=== PATIENT | male | born 1975 | race Caucasian/White ===

== ENCOUNTER 2016-04-06 10:35 | Observation (INO) | payer BC, MEDICAID ==
[~2016-04-06] VITALS: Ht 182.9 cm; Wt 83.0 kg
[2016-04-06 10:39] VITALS: BP 140/82; PULSE 83; RESP 22; TEMP 98.5; O2SAT 97
[2016-04-06 10:45] VITALS: O2SAT 98
--- NOTE | 2016-04-06 10:47 | PD ---
HPI Chief Complaint: near-syncope Time Seen by Provider: 10:41 Travel History International Travel<30 days: No Contact w/Intl Traveler<30days: No Traveled to known affect area: No History of Present Illness HPI 40-year-old male with history of IV drug use, endocarditis, previous renal insufficiency, admitted for pneumonia several months ago, states that since then he has been having problems with shortness of breath, dyspnea on exertion, and when he got up to go get pizza today, had a near syncopal episode. He also has been complaining of substernal chest pains. He denies any fevers, coughing , or other symptoms. Modifying Factors: None Associated Signs & Symptoms: Shortness of breath, dyspnea on exertion, chest pains, near-syncope Risk Factors: History of endocarditis, pneumonia PFSH Past Medical History Anxiety: Yes Depression: Yes Cancer: No Cardiovascular Problems: No Diminished Hearing: No Endocrine: No Gastrointestinal Disorders: No Genitourinary: No Immune Disorder: No Implanted Vascular Access Dvce: No Musculoskeletal: No Neurologic: No Psychiatric: Yes Respiratory: Yes Immunizations Current: Yes Past Surgical History Other Surgery: Yes (LEFT HAND PER PT) Social History Alcohol Use: No (PT DENIES) Tobacco Use: Yes (1 PPD) Substance Use: Yes Allergies-Medications (Allergen,Severity, Reaction): Coded Allergies: *MDRO Multi-Drug Resistant Organism (Verified Adverse Reaction, Unknown, 03/06/16) MRSA (urine-01/04/16) & (blood-01/06/16) Reported Meds & Prescriptions Reported Meds & Active Scripts Active Review of Systems Except as stated in HPI: all other systems reviewed are Neg Physical Exam Narrative GENERAL: Well-nourished, well-developed middle age white male patient in mild distress. Awake and oriented 3. SKIN: Warm and dry. HEAD: Normocephalic. EYES: No scleral icterus. No injection or drainage. NECK: Supple, trachea midline. CARDIOVASCULAR: Regular rate and rhythm without murmurs, gallops, or rubs. RESPIRATORY: Breath sounds equal and decreased throughout bilaterally. No accessory muscle use. GASTROINTESTINAL: Abdomen soft, non-tender, nondistended. MUSCULOSKELETAL: No cyanosis, or edema. BACK: Nontender without obvious deformity. No CVA tenderness. Data Data Last Documented VS Vital Signs Date Time Temp Pulse Resp B/P Pulse Ox O2 Delivery O2 Flow Rate FiO2 04/06/16 10:47 98 Room Air 04/06/16 10:39 98.5 83 22 140/82 Orders Electrocardiogram (04/06/16 10:41) Complete Blood Count With Diff (04/06/16 10:41) Comprehensive Metabolic Panel (04/06/16 10:41) Prothrombin Time / Inr (Pt) (04/06/16 10:41) Act Partial Throm Time (Ptt) (04/06/16 10:41) Lactic Acid Sepsis Protocol (04/06/16 10:41) Magnesium (Mg) (04/06/16 10:41) Phosphorus (Po4) (04/06/16 10:41) Lipase (04/06/16 10:41) Ckmb (Isoenzyme) Profile (04/06/16 10:41) Troponin I (04/06/16 10:41) Urinalysis - C+S If Indicated (04/06/16 10:41) Influenzae A/B Antigen (04/06/16 10:41) Blood Culture (04/06/16 10:41) Chest, Single Ap (04/06/16 10:41) Blood Glucose (04/06/16 10:41) Ecg Monitoring (04/06/16 10:41) Iv Access Insert/Monitor (04/06/16 10:41) Oximetry (04/06/16 10:41) Oxygen Administration (04/06/16 10:41) B-Type Natriuretic Peptide (04/06/16 10:41) Vancomycin Inj (Vancomycin Inj) (04/06/16 11:47) Piperacil-Tazo 4.5 Gm Premix (Zosyn 4.5 (04/06/16 11:47) Azithromycin Inj (Zithromax Inj) (04/06/16 11:47) Sodium Chlor 0.9% 1000 Ml Inj (Ns 1000 M (04/06/16 12:00) Ns + Kcl 20 Meq Inj (Ns + Kcl 20 Meq Inj (04/06/16 12:00) Labs Laboratory Tests Test 04/06/16 10:55 White Blood Count 6.5 TH/MM3 Red Blood Count 4.49 MIL/MM3 Hemoglobin 13.7 GM/DL Hematocrit 41.4 % Mean Corpuscular Volume 92.2 FL Mean Corpuscular Hemoglobin 30.4 PG Mean Corpuscular Hemoglobin 33.0 % Concent Red Cell Distribution Width 18.3 % Platelet Count 256 TH/MM3 Mean Platelet Volume 8.0 FL Neutrophils (%) (Auto) 55.7 % Lymphocytes (%) (Auto) 34.8 % Monocytes (%) (Auto) 7.9 % Eosinophils (%) (Auto) 1.3 % Basophils (%) (Auto) 0.3 % Neutrophils # (Auto) 3.6 TH/MM3 Lymphocytes # (Auto) 2.3 TH/MM3 Monocytes # (Auto) 0.5 TH/MM3 Eosinophils # (Auto) 0.1 TH/MM3 Basophils # (Auto) 0.0 TH/MM3 CBC Comment DIFF FINAL Differential Comment Prothrombin Time 10.2 SEC Prothromb Time International 0.9 RATIO Ratio Activated Partial 27.5 SEC Thromboplast Time Sodium Level 142 MEQ/L Potassium Level 3.0 MEQ/L Chloride Level 104 MEQ/L Carbon Dioxide Level 27.1 MEQ/L Anion Gap 11 MEQ/L Blood Urea Nitrogen 9 MG/DL Creatinine 0.89 MG/DL Estimat Glomerular Filtration 94 ML/MIN Rate Random Glucose 87 MG/DL Lactic Acid Level 2.2 mmol/L Calcium Level 9.6 MG/DL Phosphorus Level 1.6 MG/DL Magnesium Level 2.1 MG/DL Total Bilirubin 0.2 MG/DL Aspartate Amino Transf 38 U/L (AST/SGOT) Alanine Aminotransferase 54 U/L (ALT/SGPT) Alkaline Phosphatase 114 U/L Total Creatine Kinase 34 U/L Troponin I LESS THAN 0.02 NG/ML B-Type Natriuretic Peptide 10 PG/ML Total Protein 8.1 GM/DL Albumin 3.3 GM/DL Lipase 158 U/L [facility] Medical Decision Making Medical Screen Exam Complete: Yes Emergency Medical Condition: Yes Medical Record Reviewed: Yes Interpretation(s) EKG shows NSR, no ST elevation or depression, and no arrhythmias. No significant T-wave inversions. Laboratory Tests Test 04/06/16 10:55 Red Blood Count 4.49 MIL/MM3 (4.50-5.90) Red Cell Distribution Width 18.3 % (11.6-17.2) Potassium Level 3.0 MEQ/L (3.5-5.1) Lactic Acid Level 2.2 mmol/L (0.4-2.0) Phosphorus Level 1.6 MG/DL (2.5-4.9) Aspartate Amino Transf 38 U/L (15-37) (AST/SGOT) Total Creatine Kinase 34 U/L (39-308) Troponin I LESS THAN 0.02 NG/ML (0.02-0.05) Albumin 3.3 GM/DL (3.4-5.0) Chest x-ray shows a right sided filtration Differential Diagnosis Dyspnea on exertion, chest pains, near syncopesepsis versus pneumonia versus COPD versus metabolic issues versus dehydration versus dysrhythmias Narrative Course Chest x-ray shows right sided infiltrates questionable for underlying pneumonia. IV antibiotics and sepsis protocol was initiated on this patient, blood cultures are drawn prior to antibiotics. Lab work indicates significant lactic acid elevation. Case was then discussed with Dr. Snyder for admission. Sepsis Criteria SIRS Criteria (2 or more): RR > 20 or PaCO2 < 32 Severe Sepsis (+one): Lactate >2 Diagnosis Primary Impression: Pneumonia Additional Impression: Near syncope Admitting Information Admitting Physician Requests: Admit Fatimah Pollard MD Apr 06, 2016 10:47
[2016-04-06 11:16] LABS: AUTOMATED NEUTROPHIL # 3.6 TH/MM3 (1.8-7.7); BASOPHIL % 0.3 % (0.0-2.0); EOSINOPHIL # 0.1 TH/MM3 (0-0.4); EOSINOPHIL % 1.3 % (0.0-4.0); HEMATOCRIT 41.4 % (39.0-51.0); HEMO FLAGS DIFF FINAL; LYMPH % 34.8 % (9.0-44.0); LYMPHOCYTE # 2.3 TH/MM3 (1.0-4.8); MEAN CELL VOLUME 92.2 FL (80.0-100.0); MEAN CORPUSCULAR HEMOGLOBIN 30.4 PG (27.0-34.0); MONO % 7.9 % (0.0-8.0); NEUT % 55.7 % (16.0-70.0); PLATELET COUNT 256 TH/MM3 (150-450); RED BLOOD COUNT 4.49 MIL/MM3 (4.50-5.90); RED CELL DISTRIBUTION WIDTH 18.3 % (11.6-17.2); WHITE BLOOD COUNT 6.5 TH/MM3 (4.0-11.0)
[2016-04-06 11:24] LABS: APTT (PATIENT) 27.5 SEC (24.3-30.1); INTERNATIONAL NORMALIZED RATIO 0.9 RATIO; PROTHROMBIN TIME - PATIENT 10.2 SEC (9.8-11.6)
[2016-04-06 11:29] LABS: ALT (GPT) 54 U/L (12-78); ANION GAP 11 MEQ/L (5-15); AST (GOT) 38 U/L (15-37); BICARBONATE 27.1 MEQ/L (21.0-32.0); BLOOD UREA NITROGEN 9 MG/DL (7-18); CHLORIDE 104 MEQ/L (98-107); GLOMERULAR FILTRATION RATE 94 ML/MIN (>89); MAGNESIUM 2.1 MG/DL (1.5-2.5); SODIUM (NA) 142 MEQ/L (136-145)
[2016-04-06 11:32] LABS: ALKALINE PHOSPHATASE 114 U/L (45-117); TOTAL BILIRUBIN ADULT 0.2 MG/DL (0.2-1.0)
[2016-04-06] MEDS ORDERED: VANCOMYCIN INJ 1 MG in SODIUM CHLOR 0.9% 250 ML INJ 250 ML IV STA (11:47)
[2016-04-06] MEDS ORDERED: AZITHROMYCIN INJ 500 MG in SODIUM CHLOR 0.9% 250 ML INJ 250 ML IV STA (11:47)
[2016-04-06] MEDS ORDERED: PIPERACIL-TAZO 4.5 GM PREMIX 100 ML IV STA (11:47)
--- NOTE | 2016-04-06 11:49 | RADRPT ---
EXAM DATE/TIME: 04/06/2016 11:11 [facility] COMPARISON: CHEST SINGLE AP, February 08, 2016, 5:36. INDICATIONS: Short of breath with wheezing. MEDICAL HISTORY: None. SURGICAL HISTORY: None. ENCOUNTER: Initial ACUITY: 3 days PAIN SCORE: 0/10 LOCATION: Bilateral chest FINDINGS: There is hazy opacity within the right mid and lower lung field consistent with atelectasis and/or mi ld infiltrate. The left lung is clear. The heart is stable. CONCLUSION: 1. Hazy opacity within the right mid and lower lung field consistent with atelectasis and/or infiltr ate. Clinical correlation is recommended. 2. Left lung is clear. Wellington Salinas MD on April 06, 2016 at 11:41 Board Certified Radiologist. This report was verified electronically.
[2016-04-06 12:00] LABS: CREATINE KINASE 34 U/L (39-308)
[2016-04-06] MEDS ORDERED: NS + KCL 20 MEQ INJ 1,000 ML IV SCH (12:00)
[2016-04-06] MEDS ORDERED: SODIUM CHLOR 0.9% 1000 ML INJ 1,000 ML IV ONE (12:00)
[2016-04-06] MEDS ORDERED: NALOXONE HCL 0.4 MG/ML AMP IV PRN (12:15)
[2016-04-06] MEDS ORDERED: ONDANSETRON HCL 4 MG/2 ML VIAL IVP PRN (12:15)
[2016-04-06] MEDS ORDERED: SENNOSIDES 8.6 MG TAB PO PRN (12:15)
[2016-04-06] MEDS ORDERED: ACETAMINOPHEN 325 MG TAB PO PRN ×2 (12:15)
[2016-04-06] MEDS ORDERED: SODIUM CHLORIDE 0.9% FLUSH 5 ML FLUSH FLUSH PRN (12:15)
[2016-04-06] MEDS ORDERED: RESP: ALBUTEROL 0.63 MG/3 ML NEB (PRN) NEB (12:15)
[2016-04-06] MEDS ORDERED: MAGNESIUM HYDROXIDE SUSP 30 ML CUP PO PRN (12:15)
[2016-04-06] MEDS ORDERED: BISACODYL 10 MG SUPP PR PRN (12:15)
[2016-04-06 12:47] VITALS: O2SAT 97
[2016-04-06 12:48] VITALS: BP 143/86; PULSE 89; RESP 20; O2SAT 96
[2016-04-06 13:06] LABS: LACTIC ACID GHOST NOT REPORTABLE
[2016-04-06] MEDS ORDERED: traMADol HCL 50 MG TAB PO PRN (13:15)
[2016-04-06] MEDS ORDERED: POTASSIUM PHOSPHATE INJ 15 MMOL in SODIUM CHLORIDE 0.9% INJ 150 ML IV ONE (14:00)
[2016-04-06] MEDS: NS + KCL 20 MEQ INJ 1,000 ML IV SCH (14:05)
[2016-04-06] MEDS: KETOROLAC TROMETHAMINE 30 MG/ML (IVP) VIAL IVP PRN (14:09)
[2016-04-06] MEDS: DOCUSATE SODIUM 100 MG CAP PO SCH (15:45)
--- NOTE | 2016-04-06 17:00 | RADRPT ---
EXAM DATE/TIME: 04/06/2016 16:45 [facility] COMPARISON: CT THORAX W/O CONTRAST, January 31, 2016, 12:07. INDICATIONS : Shortness of breath. Evaluate for pneumonia. RADIATION DOSE: CTDIvol (mGy) MEDICAL HISTORY : Cardiovascular disease. SURGICAL HISTORY : None. ENCOUNTER: Initial ACUITY: 1 day PAIN SCALE: 10/10 LOCATION: Bilateral chest TECHNIQUE: Volumetric scanning of the chest was performed. Using automated exposure control and adjustment of t he mA and/or kV according to patient size, radiation dose was kept as low as reasonably achievable to obtain optimal diagnostic quality images. FINDINGS: LUNGS: There is a small right-sided pleural effusion present with adjacent area of rounded parenchymal opaci ty involving the right lower lobe extending to the adjacent area of pleural fluid. There is a focal s mall calcification seen adjacent to the pleura on series 2 image 23. This appearance is significantly improved as compared to the prior exam. PLEURAE: Small right-sided pleural effusion which has significantly decreased in size as compared to the prior exam. MEDIASTINUM: The heart and great vessels demonstrate no acute abnormality. There is no mediastinal or hilar lymph adenopathy. AXILLAE: Within normal limits. No lymphadenopathy. MUSCULOSKELETAL: Within normal limits for patient age. MISCELLANEOUS: The visualized upper abdominal organs demonstrate no acute abnormality. CONCLUSION: Significantly improved exam with a persistent small right-sided pleural effusion and an area of round ed airspace consolidation within the posterior right lower lobe extending to the adjacent mildly thic kened pleura. This has the appearance of rounded atelectasis.. Yarelis David MD on April 06, 2016 at 16:53 Board Certified Radiologist. This report was verified electronically.
--- NOTE | 2016-04-06 17:07 | HHI.HP ---
[facility] Primary Care Physician Admission Diagnosis right sided pneumonia/near-syncope Diagnoses: Chief Complaint: shortness of breath, cough, near syncope Travel History International Travel<30 Days: No Contact w/Intl Traveler <30 Da: No Traveled to Known Affected Are: No History of Present Illness 40-year-old male with hx of hepatitis C, anxiety/depression/PTSD/bipolar disorder, prior IVDU, recent hospitalization 01/03/16-02/24/16 for right pleural effusion s/p thoracentesis, septic emboli, MRSA bacteremia with tricuspid valve endocarditis s/p 6 weeks antibiotics with IV Teflaro, now presents with a 1-2 month history of worsening shortness of breath, chest pains, and near syncope today. The patient states "I've had problems since I left." He reports continued shortness of breath since his discharge, much worse with any exertion. He has been staying at a hotel over the past month and has had difficulty just ambulating around his hotel room. Today, he became acutely short of breath when he got up to meet the service delivery supervisor at the front door, and collapsed to the ground. Denies complete loss of consciousness or hitting his head. He also reports daily episodes of chest pains located diffusely throughout his "entire chest", described as sharp stabbing pains that last for 1 -2 seconds. His chest pains are worse with cough, deep inspiration, and palpation. He denies fevers or chills. Does have a cough productive of foster sputum. The patient denies any leg swelling or orthopnea. He has not taken any medications since discharge nor seen any physicians. He has no other medical complaints at this time. He does have a prior hx of IVDU however he reports being clean [id number] now. Review of Systems Constitutional: COMPLAINS OF: Fatigue, DENIES: Diaphoretic episodes, Fever, Chills Endocrine: DENIES: Polydipsia, Polyuria, Polyphagia Eyes: DENIES: Blurred vision, Eye pain, Vision loss, Double Vision Ears, nose, mouth, throat: DENIES: Throat pain, Ear Pain, Running Nose Respiratory: COMPLAINS OF: Cough, Sputum production, Shortness of breath, DENIES: Wheezing Cardiovascular: COMPLAINS OF: Chest pain, Syncope (near syncope), Dyspnea on Exertion, DENIES: Palpitations, Lower Extremity Edema, Orthopnea Gastrointestinal: DENIES: Abdominal pain, Constipation, Diarrhea, Nausea, Vomiting Genitourinary: DENIES: Urinary frequency, Urgency, Dysuria Musculoskeletal: DENIES: Back pain, Neck pain Integumentary: DENIES: Pruritus, Rash Hematologic/lymphatic: DENIES: Bruising, Lymphadenopathy Immunologic/allergic: DENIES: Eczema, Urticaria Neurologic: DENIES: Abnormal gait, Headache, Localized weakness Psychiatric: COMPLAINS OF: Anxiety, Depression Past Family Social History Past Medical History hepatitis C anxiety/depression/PTSD/bipolar disorder, not on medications prior IVDU recent hospitalization 01/03/16-02/24/16 for right pleural effusion s/p thoracentesis, septic emboli, MRSA bacteremia with tricuspid valve endocarditis s/p 6 weeks antibiotics with IV Teflaro Past Surgical History Right sided thoracentesis Left hand surgery Reported Medications Denies taking any medications recently. Allergies: Coded Allergies: *MDRO Multi-Drug Resistant Organism (Verified Adverse Reaction, Unknown, 03/06/16) MRSA (urine-01/04/16) & (blood-01/06/16) Active Ordered Medications Current Medications Medications (Trade) Dose Ordered Sig/Elmer Route Start Time Stop Time Status Last Admin Potassium Phosphate 1000 mg 1,000 mg Q12HR PO 04/06/16 13:00 Potassium Phosphate 15 mmol/ Sodium Chloride 155 ml @ 38.75 mls/ hr ONCE ONCE IV 04/06/16 14:00 04/06/16 17:59 (NS + KCl 20 Meq Inj) 1,000 ml @ 42 mls/hr [id number] IV 04/06/16 13:00 04/06/16 14:05 (NS Flush) 2 ml UNSCH PRN FLUSH 04/06/16 12:15 (NS Flush) 2 ml BID FLUSH 04/06/16 21:00 (Tylenol) 650 mg Q4H PRN PO 04/06/16 12:15 (Zofran Inj) 4 mg Q6H PRN IVP 04/06/16 12:15 04/06/16 14:09 (Dulcolax Supp) 10 mg DAILY PRN VT 04/06/16 12:15 (Colace) 100 mg Q12H PO 04/06/16 13:00 04/06/16 15:45 (Milk Of Magnalonso Liq) 30 ml Q12H PRN PO 04/06/16 12:15 (Senokot) 17.2 mg Q12H PRN PO 04/06/16 12:15 (Tylenol) 650 mg Q6H PRN PO 04/06/16 12:15 (Narcan Inj) 0.4 mg UNSCH PRN IV 04/06/16 12:15 (Toradol Inj) 15 mg Q6H PRN IVP 04/06/16 13:15 04/11/16 13:14 04/06/16 14:09 (Ultram) 50 mg Q4H PRN PO 04/06/16 13:15 Tramadol HCl 100 mg 100 mg Q4H PRN PO 04/06/16 13:15 (Rocephin Inj/NS Inj) 100 ml @ 200 mls/hr Q24H IV 04/07/16 07:00 (Zithromax) 250 mg DAILY PO 04/07/16 09:00 04/11/16 08:59 Family History Patient reports hx of unknown cancers in aunts and uncles Significant family hx of heart disease Social History Smokes tobacco 1 PPD Denies alcohol use Prior IVDU, clean [id number] per patient, however prior UDS on 01/04/16 positive for opiates and amphetamines Physical Exam Vital Signs Vital Signs Date Time Temp Pulse Resp B/P Pulse Ox O2 Delivery O2 Flow Rate FiO2 04/06/16 12:48 89 20 143/86 96 Room Air 04/06/16 10:47 98 Room Air 04/06/16 10:45 98 Room Air 04/06/16 10:45 98 Room Air 04/06/16 10:39 98.5 83 22 140/82 97 Physical Exam GENERAL: Well-nourished, well-developed middle aged male patient in NAD. SKIN: Warm and dry. No rash. HEAD: Normocephalic. Atraumatic. EYES: Pupils equal and round. No scleral icterus. No injection or drainage. ENT: No nasal bleeding or discharge. Mucous membranes pink and moist. NECK: Supple. Trachea midline. CARDIOVASCULAR: Regular rate and rhythm. S1, S2 noted. No murmur appreciated. Anterior chest wall TTP. RESPIRATORY: No accessory muscle use. Clear to auscultation. Breath sounds equal bilaterally. GASTROINTESTINAL: Abdomen soft, non-tender, nondistended. Normoactive bowel sounds x4. MUSCULOSKELETAL: No obvious deformities. Extremities without clubbing, cyanosis , or edema. NEUROLOGICAL: Awake and alert. No obvious cranial nerve deficits. Motor grossly within normal limits. 5/5 muscle strength in bilateral upper and lower extremities. Normal speech. PSYCHIATRIC: Anxious mood; insight and judgment normal. Laboratory Laboratory Tests Test 04/06/16 10:55 White Blood Count 6.5 Red Blood Count 4.49 Hemoglobin 13.7 Hematocrit 41.4 Mean Corpuscular Volume 92.2 Mean Corpuscular Hemoglobin 30.4 Mean Corpuscular Hemoglobin 33.0 Concent Red Cell Distribution Width 18.3 Platelet Count 256 Mean Platelet Volume 8.0 Neutrophils (%) (Auto) 55.7 Lymphocytes (%) (Auto) 34.8 Monocytes (%) (Auto) 7.9 Eosinophils (%) (Auto) 1.3 Basophils (%) (Auto) 0.3 Neutrophils # (Auto) 3.6 Lymphocytes # (Auto) 2.3 Monocytes # (Auto) 0.5 Eosinophils # (Auto) 0.1 Basophils # (Auto) 0.0 CBC Comment DIFF FINAL Differential Comment Prothrombin Time 10.2 Prothromb Time International 0.9 Ratio Activated Partial 27.5 Thromboplast Time Sodium Level 142 Potassium Level 3.0 Chloride Level 104 Carbon Dioxide Level 27.1 Anion Gap 11 Blood Urea Nitrogen 9 Creatinine 0.89 Estimat Glomerular Filtration 94 Rate Random Glucose 87 Lactic Acid Level 2.2 Calcium Level 9.6 Phosphorus Level 1.6 Magnesium Level 2.1 Total Bilirubin 0.2 Aspartate Amino Transf 38 (AST/SGOT) Alanine Aminotransferase 54 (ALT/SGPT) Alkaline Phosphatase 114 Total Creatine Kinase 34 Troponin I LESS THAN 0.02 B-Type Natriuretic Peptide 10 Total Protein 8.1 Albumin 3.3 Lipase 158 Date/Time Procedure Status Source Growth 04/06/16 11:00 Aerobic Blood Culture Received Blood Peripheral Pending 04/06/16 11:00 Anaerobic Blood Culture Received Blood Peripheral Pending Result Diagram: 04/06/16 1055 04/06/16 1055 Imaging Last Impressions Chest X-Ray 04/06/16 1041 Signed Impressions: Service Date/Time: Wednesday, April 06, 2016 11:11 - CONCLUSION: 1. Hazy opacity within the right mid and lower lung field consistent with atelectasis and/or infiltrate. Clinical correlation is recommended. 2. Left lung is clear. Wellington Salinas MD Assessment and Plan Problem List: (1) Pneumonia ICD Code: J18.9 Status: Acute (2) Near syncope ICD Code: R55 Status: Acute Assessment and Plan 40-year-old male with hx of anxiety/depression/PTSD/bipolar disorder, prior IVDU , recent hospitalization 01/03/16-02/24/16 for right pleural effusion s/p thoracentesis, septic emboli, MRSA bacteremia with tricuspid valve endocarditis s/p 6 weeks antibiotics with IV Teflaro, now presents with a 1-2 month history of worsening shortness of breath, chest pains, and near syncope today. Dyspnea/Chest Pains: possibly related to pneumonia (see below), work up in progress. CXR images reviewed by me, showed hazy opacity R mid & lower lung. Afebrile, no leukocytosis, however lactic acid 2.2. Continue on IVF. Check Chest CT. Blood cultures collected. RADHA in showed normal systolic function EF 60%, vegetation of tricuspid valve, with mild TR. Nebs prn. Near Syncope: suspect related to dyspnea, however need to rule out other etiologies. Check orthostatics. EKG reviewed by me without acute ST changes. S/ p IVF boluses, continue with maintenance fluids. Healthcare Associated Pneumonia: seen on CXR. Patient hospitalized <90days ago. S/p IV Zosyn and IV Vanco in the ER. Will continue with IV Cefepime and po Azithro. Check sputum culture. Check flu antigen, legionella/pneumococcal urinary antigen. Chest Pains, atypical: likely pleuritic pains, ongoing [id number], reproducible on exam. Troponin negative x1 and EKG without acute ST changes. Pain control with tramadol prn and IV Toradol prn breakthrough pain. Hypophosphatemia: Phosphorus 1.6. Ordered K-Phos to be given po. Monitor labs. Anxiety/Depression/PTSD/Bipolar Disorder: patient discharged on Klonopin 1mg po tid and Seroquel 200mg po hs however he reports he has not been taking this recently. Will monitor mood, likely will need to restart Seroquel. Prior IVDU: patient reports being clean x5 years however UDS in positive for opiates and amphetamines. Recheck UDS. DVT Prophylaxis: teds/SCDs Written by Alejandrina Parks, acting as scribe for Dr. Snyder on 04/06/16 at 17:05. The documentation accurately reflects the work performed [id number] by me on at 1705 Code Status Full Code Discussed Condition With Patient, ED RN, ED Alejandrina Mae PA-C Apr 06, 2016 17:07 Omid Snyder MD Apr 07, 2016 06:10
[2016-04-06] MEDS: POTASSIUM PHOSPHATE MONOBASIC 500 MG TAB PO SCH ×2 (18:13→21:27)
[2016-04-06 19:32] VITALS: BP 125/84; PULSE 88; RESP 18; TEMP 98.8; O2SAT 97
[2016-04-06 20:00] VITALS: BP 157/87; PULSE 88; RESP 18; TEMP 98.9; O2SAT 98
[2016-04-06] MEDS: traMADol HCL 50 MG TAB PO PRN (20:03)
[2016-04-06] MEDS: SODIUM CHLORIDE 0.9% FLUSH 5 ML FLUSH FLUSH SCH (21:00)
[2016-04-07] VITALS (8 sets, daily range): BP systolic 128–198; BP diastolic 78–100; PULSE 60–87; RESP 16–21; TEMP 96.5–98.8; O2SAT 95–100
[2016-04-07 00:56] LABS: AMPHETAMINE, URINE NEG (NEG); BARBITURATES, URINE NEG (NEG); COCAINE, URINE POS (NEG)
[2016-04-07] MEDS: DOCUSATE SODIUM 100 MG CAP PO SCH ×2 (01:00→13:00)
[2016-04-07 01:03] LABS: BACTERIA, URINE RARE /hpf; BLOOD, URINE NEG (NEG); COMMENT (UR) CATH-CULTURE IND; CULTURE IF INDICATED CATH CULTURE IND; GLUCOSE,URINE NEG (NEG); KETONE, URINE NEG (NEG); NITRITE,URINE NEG (NEG); PH, URINE 5.5 (5.0-8.5); URINE COLOR YELLOW (YELLW/STRAW)
[2016-04-07] MEDS: KETOROLAC TROMETHAMINE 30 MG/ML (IVP) VIAL IVP PRN (01:03)
[2016-04-07] MEDS: CEFEPIME INJ 2,000 MG in SODIUM CHLORIDE 0.9% INJ 100 ML IV SCH ×3 (06:20→22:37)
[2016-04-07] MEDS ORDERED: cefTRIAXone INJ 1,000 MG in SODIUM CHLORIDE 0.9% INJ 100 ML IV SCH (07:00)
[2016-04-07] MEDS: traMADol HCL 50 MG TAB PO PRN ×2 (07:43→13:12)
[2016-04-07 08:43] LABS: BICARBONATE 27.3 MEQ/L (21.0-32.0); POTASSIUM 3.4 MEQ/L (3.5-5.1)
[2016-04-07] MEDS: POTASSIUM PHOSPHATE MONOBASIC 500 MG TAB PO SCH ×2 (08:47→22:36)
[2016-04-07] MEDS: AZITHROMYCIN 250 MG TAB PO SCH (08:47)
[2016-04-07] MEDS: SODIUM CHLORIDE 0.9% FLUSH 5 ML FLUSH FLUSH SCH ×2 (08:48→22:37)
[2016-04-07 10:07] LABS: AUTOMATED NEUTROPHIL # 3.8 TH/MM3 (1.8-7.7); BASOPHIL % 0.5 % (0.0-2.0); EOSINOPHIL # 0.1 TH/MM3 (0-0.4); EOSINOPHIL % 2.1 % (0.0-4.0); HEMATOCRIT 34.8 % (39.0-51.0); HEMO FLAGS DIFF FINAL; LYMPH % 33.6 % (9.0-44.0); LYMPHOCYTE # 2.2 TH/MM3 (1.0-4.8); MEAN CELL VOLUME 92.9 FL (80.0-100.0); MEAN CORPUSCULAR HEMOGLOBIN 30.9 PG (27.0-34.0); MEAN CORPUSCULAR HGB CONC 33.2 % (32.0-36.0); MONO % 6.7 % (0.0-8.0); NEUT % 57.1 % (16.0-70.0); PLATELET COUNT 223 TH/MM3 (150-450); RED BLOOD COUNT 3.75 MIL/MM3 (4.50-5.90); RED CELL DISTRIBUTION WIDTH 17.8 % (11.6-17.2); WHITE BLOOD COUNT 6.6 TH/MM3 (4.0-11.0)
--- NOTE | 2016-04-07 11:16 | HHI.PR ---
Subjective Remarks Follow up for dyspnea, chest pains, near syncope, with pneumonia. The patient reports continued shortness of breath, no chest pains. He has not yet ambulated. No fevers or chills overnight. With productive cough. UDS positive for cocaine however patient reports not using this in years, states he's around people who have used it recently but he hasn't. Continue to deny recent IVDU. Objective Vitals Vital Signs Date Time Temp Pulse Resp B/P Pulse Ox O2 Delivery O2 Flow Rate FiO2 04/07/16 08:32 98.8 60 16 139/91 95 04/07/16 08:01 63 04/07/16 04:11 74 04/07/16 03:57 98.0 87 21 153/87 98 04/07/16 01:05 73 152/92 95 153/100 04/06/16 20:00 98.9 88 18 157/87 98 04/06/16 19:32 98.8 88 18 125/84 97 04/06/16 12:48 89 20 143/86 96 Room Air 04/06/16 12:47 97 21 I/O 04/06/16 04/06/16 04/06/16 04/07/16 04/07/16 04/07/16 07:00 15:00 23:00 07:00 15:00 23:00 Intake Total 0 ml Output Total 300 ml Balance -300 ml Intake Oral 0 ml Output Urine Total 300 ml # Voids 1 Result Diagram: 04/07/16 0951 04/07/16 0749 Imaging Last Impressions Chest X-Ray 04/06/16 1041 Signed Impressions: Service Date/Time: Wednesday, April 06, 2016 11:11 - CONCLUSION: 1. Hazy opacity within the right mid and lower lung field consistent with atelectasis and/or infiltrate. Clinical correlation is recommended. 2. Left lung is clear. Wellington Salinas MD Chest CT 04/06/16 0000 Signed Impressions: Service Date/Time: Wednesday, April 06, 2016 16:45 - CONCLUSION: Significantly improved exam with a persistent small right-sided pleural effusion and an area of rounded airspace consolidation within the posterior right lower lobe extending to the adjacent mildly thickened pleura. This has the appearance of rounded atelectasis.. Yarelis David MD Objective Remarks GENERAL: Well-nourished, well-developed middle aged male patient in NAD. Sleeping upon arrival, easily awakens. SKIN: Warm and dry. No rash. HEAD: Normocephalic. Atraumatic. EYES: Pupils equal and round. No scleral icterus. No injection or drainage. ENT: No nasal bleeding or discharge. Mucous membranes pink and moist. NECK: Supple. Trachea midline. CARDIOVASCULAR: Regular rate and rhythm. S1, S2 noted. No murmur appreciated. Anterior chest wall TTP. RESPIRATORY: No accessory muscle use. Clear to auscultation. Breath sounds equal bilaterally. GASTROINTESTINAL: Abdomen soft, non-tender, nondistended. Normoactive bowel sounds x4. MUSCULOSKELETAL: No obvious deformities. Extremities without clubbing, cyanosis , or edema. NEUROLOGICAL: Awake and alert. No obvious cranial nerve deficits. Motor grossly within normal limits. Normal speech. PSYCHIATRIC: Appropriate mood; insight and judgment normal. Medications and IVs Current Medications Medications (Trade) Dose Ordered Sig/Elmer Route Start Time Stop Time Status Last Admin Potassium Phosphate 1000 mg 1,000 mg Q12HR PO 04/06/16 13:00 04/07/16 08:47 (NS + KCl 20 Meq Inj) 1,000 ml @ 42 mls/hr [id number] IV 04/06/16 13:00 04/06/16 14:05 (NS Flush) 2 ml UNSCH PRN FLUSH 04/06/16 12:15 (NS Flush) 2 ml BID FLUSH 04/06/16 21:00 (Tylenol) 650 mg Q4H PRN PO 04/06/16 12:15 (Zofran Inj) 4 mg Q6H PRN IVP 04/06/16 12:15 04/06/16 14:09 (Dulcolax Supp) 10 mg DAILY PRN MD 04/06/16 12:15 (Colace) 100 mg Q12H PO 04/06/16 13:00 04/06/16 15:45 (Milk Of Magnesia Liq) 30 ml Q12H PRN PO 04/06/16 12:15 (Senokot) 17.2 mg Q12H PRN PO 04/06/16 12:15 (Tylenol) 650 mg Q6H PRN PO 04/06/16 12:15 (Narcan Inj) 0.4 mg UNSCH PRN IV 04/06/16 12:15 (Toradol Inj) 15 mg Q6H PRN IVP 04/06/16 13:15 04/11/16 13:14 04/07/16 01:03 (Ultram) 50 mg Q4H PRN PO 04/06/16 13:15 (Ultram) 100 mg Q4H PRN PO 04/06/16 13:15 04/07/16 07:43 Azithromycin 250 mg 250 mg DAILY PO 04/07/16 09:00 04/11/16 08:59 04/07/16 08:47 (Maxipime Inj/NS Inj) 100 ml @ 200 mls/hr Q8H IV 04/07/16 07:00 04/07/16 06:20 Urinary Catheter: No Vascular Central Line Catheter: No A/P Problem List: (1) Pneumonia ICD Code: J18.9 Status: Acute (2) Near syncope ICD Code: R55 Status: Acute Assessment and Plan 40-year-old male with hx of anxiety/depression/PTSD/bipolar disorder, prior IVDU , recent hospitalization 01/03/16-02/24/16 for right pleural effusion s/p thoracentesis, septic emboli, MRSA bacteremia with tricuspid valve endocarditis s/p 6 weeks antibiotics with IV Teflaro, now presents with a 1-2 month history of worsening shortness of breath, chest pains, and near syncope. Dyspnea: possibly related to pneumonia (see below), work up in progress. CXR showed hazy opacity R mid & lower lung. Afebrile, no leukocytosis, however lactic acid 2.2, up to 3.8. Continue on IVF. Chest CT images reviewed by me, shows significantly improved exam with persistent small right sided pleural effusion, area of airspace consolidation with posterior RLL. RADHA in showed normal systolic function EF 60%, vegetation of tricuspid valve, with mild TR. Nebs prn. Continue treatment for pneumonia as below. Check repeat echocardiogram. Check PFTs Near Syncope: suspect related to dyspnea, however need to rule out other etiologies. Check orthostatics. EKG reviewed by me without acute ST changes. S/ p IVF boluses, continue with maintenance fluids. Healthcare Associated Pneumonia: seen on CXR. Patient hospitalized <90days ago. S/p IV Zosyn and IV Vanco in the ER. Continue with IV Cefepime and po Azithro. Check sputum culture. Check flu antigen, legionella/pneumococcal urinary antigen. Severe Sepsis, suspected: secondary to elevated lactic acid of 3.8 with pneumonia, however WBC 6.6K, afebrile. Await blood cultures. Continue IV Abx as above for pneumonia. Chest Pains, atypical: likely pleuritic pains, ongoing [id number], reproducible on exam. Troponin negative x1 and EKG without acute ST changes. Pain control with tramadol prn and IV Toradol prn breakthrough pain. Pains improving. Also UDS positive for cocaine. Hypophosphatemia: Phosphorus 1.6. Ordered K-Phos to be given po. Monitor labs. Anxiety/Depression/PTSD/Bipolar Disorder: patient discharged on Klonopin 1mg po tid and Seroquel 200mg po hs however he reports he has not been taking this recently. Will monitor mood, likely will need to restart Seroquel. Prior IVDU: patient reports being clean x5 years however UDS in positive for opiates and amphetamines. Repeat UDS positive for Cocaine, patient still adamantly denying recent cocaine use. DVT Prophylaxis: teds/SCDs Written by Alejandrina Parks, acting as scribe for Dr. Snyder on 04/07/16 at 09: 20. The documentation accurately reflects the work performed [id number] by me on at 0920 Alejandrina Parks PA-C Apr 07, 2016 11:16 Omid Snyder MD Apr 07, 2016 13:41
--- NOTE | 2016-04-07 14:03 | EKG ---
Date Performed: 04/06/2016 Time Performed: 10:42:53 PTAGE: 40 years EKG: Sinus rhythm POSSIBLE ANTERIOR MYOCARDIAL INFARCTION POSSIBLE INFERIOR MYOCARDIAL INFARCTION ABNORMAL ECG Since PREVIOUS TRACING , no significant change noted DOCTOR: Taco Rosen Interpretating Date/Time 04/07/2016 13:58:49
--- NOTE | 2016-04-07 15:21 | EC ---
Study Study Date:04/07/2016 STUDY CONCLUSIONS SUMMARY - Left ventricle: The cavity size was normal. Wall thickness was normal. Systolic function was normal. The estimated ejection fraction was in the range of 55% to 60%. Wall motion was normal; there were no regional wall motion abnormalities. - Mitral valve: Mild regurgitation. - Tricuspid valve: Moderate regurgitation. If LV function is below 40, please consider prescribing an ACEI or ARB or document rationale for non-use. PROCEDURE DATA STUDY STATUS: Elective. Procedure: Transthoracic echocardiography. Image quality was good. Scanning was performed from the parasternal, apical, and subcostal acoustic windows. Study completion: The patient tolerated the procedure well. Transthoracic echocardiography. M-mode, complete 2D, complete spectral Doppler, and color Doppler. Patient status: Inpatient. CARDIAC ANATOMY LEFT VENTRICLE: The cavity size was normal. Wall thickness was normal. Systolic function was normal. The estimated ejection fraction was in the range of 55% to 60%. Wall motion was normal; there were no regional wall motion abnormalities. AORTIC VALVE: Trileaflet; normal thickness leaflets. Doppler: Transvalvular velocity was within the normal range. There was no stenosis. No regurgitation. AORTA: Aortic root: The aortic root was normal in size. MITRAL VALVE: Structurally normal valve. Doppler: Transvalvular velocity was within the normal range. There was no evidence for stenosis. Mild regurgitation. Valve area by pressure half-time: 3.38cm^2. LEFT ATRIUM: The atrium was normal in size. RIGHT VENTRICLE: The cavity size was normal. Wall thickness was normal. PULMONIC VALVE: Doppler: Transvalvular velocity was within the normal range. There was no evidence for stenosis. No regurgitation. TRICUSPID VALVE: large, globular, mobile mass 1.0x2.4cm c/w vegetation and/or thrombus on tip of tv leaflets mass oscillates between right atrium and right ventricle Structurally normal valve. Doppler: Transvalvular velocity was within the normal range. Moderate regurgitation. PULMONARY ARTERY: The main pulmonary artery was normal-sized. Systolic pressure was within the normal range. RIGHT ATRIUM: The atrium was normal in size. PERICARDIUM: There was no pericardial effusion. SYSTEMIC VEINS: Inferior vena cava: The vessel was normal in size. BASIC MEASUREMENTS ADULT Normal Left ventricle LV internal dimension, ED, chordal level, *53.6 mm 43-52 PLAX LV internal dimension, ES, chordal level, *40 mm 23-38 PLAX Fractional shortening, chordal level, PLAX *25 % >29 LV posterior wall thickness, ED 11.8 mm IVS/LVPW ratio, ED 1.06 <1.3 Ventricular septum Septal thickness, ED 12.5 mm Aortic valve Leaflet separation 19 mm 15-26 Right ventricle RV internal dimension, ED, PLAX 28.3 mm 19-38 BASIC MEASUREMENTS ADULT Normal Aortic valve Leaflet separation 19 mm 15-26 Aorta Root diameter, ED 27 mm 20-37 Left atrium Anterior-posterior dimension, ES 30 mm 19-40 LA/aortic root ratio 1.11 DOPPLER MEASUREMENTS ADULT Normal Main pulmonary artery Pressure, S 29 mm Hg =30 Mitral valve Pressure half-time 65 ms Valve area, pressure half-time 3.38 cm^2 Tricuspid valve Regurgitant peak velocity 217 cm/s Peak RV-RA gradient, S 19 mm Hg Maximal regurgitant velocity 217 cm/s Systemic veins Estimated CVP 10 mm Hg Right ventricle RV pressure, S 29 mm Hg <30 LEGEND: Mean values are shown as u=mean value. Asterisk (*) nolen values outside specified normal range. Prepared and signed by Taco Rosen [id number]
[2016-04-07] MEDS: NS + KCL 20 MEQ INJ 1,000 ML IV SCH (22:37)
[2016-04-08] VITALS (7 sets, daily range): BP systolic 128–155; BP diastolic 84–98; PULSE 58–87; RESP 18–20; TEMP 97.5–98.4; O2SAT 60–98
[2016-04-08] MEDS: DOCUSATE SODIUM 100 MG CAP PO SCH ×2 (01:00→13:00)
[2016-04-08] MEDS: CEFEPIME INJ 2,000 MG in SODIUM CHLORIDE 0.9% INJ 100 ML IV SCH ×3 (06:51→23:00)
[2016-04-08] MEDS: SODIUM CHLORIDE 0.9% FLUSH 5 ML FLUSH FLUSH SCH ×2 (09:00→21:00)
[2016-04-08] MEDS: POTASSIUM PHOSPHATE MONOBASIC 500 MG TAB PO SCH ×2 (09:22→23:13)
[2016-04-08] MEDS: AZITHROMYCIN 250 MG TAB PO SCH (09:22)
--- NOTE | 2016-04-08 10:56 | HHI.PR ---
Subjective Remarks Follow-up for shortness of breath. The patient reports no improvement during hospitalization. The patient has not ambulated since admission. He reports he can't walk because he can't breathe. Objective Vitals Vital Signs Date Time Temp Pulse Resp B/P Pulse Ox O2 Delivery O2 Flow Rate FiO2 04/08/16 08:00 58 04/08/16 05:15 94 21 04/08/16 00:43 70 04/08/16 00:23 98.4 87 18 141/84 98 04/07/16 22:24 98.0 87 19 147/78 97 04/07/16 16:00 96.5 63 16 129/88 96 04/07/16 12:49 97.2 70 16 128/83 100 I/O 04/07/16 04/07/16 04/07/16 04/08/16 04/08/16 04/08/16 06:59 14:59 22:59 06:59 14:59 22:59 Intake Total 0 ml 868 ml 360 ml Output Total 300 ml 700 ml 800 ml Balance -300 ml 168 ml -440 ml Intake Oral 0 ml 700 ml 360 ml IV Total 168 ml Output Urine Total 300 ml 700 ml 800 ml # Voids 1 3 # Bowel Movements 0 Result Diagram: 04/07/16 0951 04/07/16 0749 Imaging Last Impressions Chest X-Ray 04/06/16 1041 Signed Impressions: Service Date/Time: Wednesday, April 06, 2016 11:11 - CONCLUSION: 1. Hazy opacity within the right mid and lower lung field consistent with atelectasis and/or infiltrate. Clinical correlation is recommended. 2. Left lung is clear. Wellington Salinas MD Chest CT 04/06/16 0000 Signed Impressions: Service Date/Time: Wednesday, April 06, 2016 16:45 - CONCLUSION: Significantly improved exam with a persistent small right-sided pleural effusion and an area of rounded airspace consolidation within the posterior right lower lobe extending to the adjacent mildly thickened pleura. This has the appearance of rounded atelectasis.. Yarelis David MD Objective Remarks GENERAL: Well-developed well-nourished. In no acute distress. Appears comfortable on room air. SKIN: Warm and dry. No lesions noted. HEENT: Normocephalic. Pupils equal and round. Mucous membranes pink and moist. CARDIOVASCULAR: Regular rate and rhythm. No murmur appreciated. Chest wall is exquisitely with auscultation. RESPIRATORY: No accessory muscle use. Clear to auscultation. Breath sounds equal bilaterally. GASTROINTESTINAL: Abdomen soft, non-tender, nondistended. Bowel sounds x4. MUSCULOSKELETAL: No obvious deformities. No clubbing or cyanosis. No edema. NEUROLOGICAL: Awake and alert. No focal neurological deficits. Moves upper and lower extremities spontaneously. Normal speech. PSYCHIATRIC: Guarded mood and affect; insight and judgment normal. A/P Problem List: (1) Pneumonia ICD Code: J18.9 Status: Acute (2) Near syncope ICD Code: R55 Status: Acute Assessment and Plan 40-year-old male with hx of anxiety/depression/PTSD/bipolar disorder, prior IVDU , recent hospitalization 01/03/16-02/24/16 for right pleural effusion s/p thoracentesis, septic emboli, MRSA bacteremia with tricuspid valve endocarditis s/p 6 weeks antibiotics with IV Teflaro, now presents with a 1-2 month history of worsening shortness of breath, chest pains, and near syncope. Dyspnea: possibly related to pneumonia (see below), work up in progress. CXR showed hazy opacity R mid & lower lung. Afebrile, no leukocytosis, however lactic acid 2.2, up to 3.8. Continue on IVF. Chest CT shows significantly improved exam with persistent small right sided pleural effusion, area of airspace consolidation with posterior RLL. RADHA in showed normal systolic function EF 60%, vegetation of tricuspid valve, with mild TR. Nebs prn. Continue treatment for pneumonia as below. Repeat echocardiogram with normal systolic function, EF 55-60%, and moderate TR. Check PFTs Near Syncope: suspect related to dyspnea, however need to rule out other etiologies. Not orthostatics. EKG reviewed by me without acute ST changes. S/p IVF boluses, continue with maintenance fluids. PT eval. Healthcare Associated Pneumonia: seen on CXR. Patient hospitalized <90days ago. S/p IV Zosyn and IV Vanco in the ER. Continue with IV Cefepime and po Azithro. Check sputum culture. Check flu antigen, negative legionella/pneumococcal urinary antigen. Severe Sepsis, suspected: secondary to elevated lactic acid of 3.8 with pneumonia, however WBC 6.6K, afebrile. Follow-up blood cultures, NGTD. Continue IV Abx as above for pneumonia. Chest Pains, atypical: likely pleuritic pain vs costochondritis; ongoing [id number] and reproducible on exam. Troponin negative x1 and EKG without acute ST changes. Pain control with tramadol prn and IV Toradol prn breakthrough pain. Also UDS positive for cocaine. Hypophosphatemia: Phosphorus 1.6. Ordered K-Phos to be given po. Monitor labs. Anxiety/Depression/PTSD/Bipolar Disorder: patient discharged on Klonopin 1mg po tid and Seroquel 200mg po hs however he reports he has not been taking this recently. Outpatient psychiatry follow-up. Prior IVDU: patient reports being clean x5 years however UDS in positive for opiates and amphetamines. Repeat UDS positive for Cocaine, patient still adamantly denying recent cocaine use. DVT Prophylaxis: teds/SCDs Written by Duy Valerio, acting as scribe for Dr. Snyder on 04/08/16 at 10:55. The documentation accurately reflects the work performed [id number] by me on at 1055 Discharge Planning Improvement in pneumonia on chest CT, patient appears comfortable and satting well on room air. Follow-up OOB with PT recommendations. Likely discharge later today Duy Valerio Apr 08, 2016 10:56 Omid Snyder MD Apr 08, 2016 15:34
[2016-04-08] MEDS ORDERED: LEVO750T33 PO (16:24)
--- NOTE | 2016-04-08 16:30 | HHI.DS ---
Discharge Summary Admission Date Apr 06, 2016 at 12:11 Discharge Date: Apr 08, 2016 Admitting Diagnosis right sided pneumonia/near-syncope (1) Pneumonia ICD Code: J18.9 Diagnosis: Principal Procedures None Brief History - From Admission 40-year-old male with hx of hepatitis C, anxiety/depression/PTSD/bipolar disorder, prior IVDU, recent hospitalization 01/03/16-02/24/16 for right pleural effusion s/p thoracentesis, septic emboli, MRSA bacteremia with tricuspid valve endocarditis s/p 6 weeks antibiotics with IV Teflaro, now presents with a 1-2 month history of worsening shortness of breath, chest pains, and near syncope today. The patient states "I've had problems since I left." He reports continued shortness of breath since his discharge, much worse with any exertion. He has been staying at a hotel over the past month and has had difficulty just ambulating around his hotel room. Today, he became acutely short of breath when he got up to meet the delivery recruiter at the front door, and collapsed to the ground. Denies complete loss of consciousness or hitting his head. He also reports daily episodes of chest pains located diffusely throughout his "entire chest", described as sharp stabbing pains that last for 1 -2 seconds. His chest pains are worse with cough, deep inspiration, and palpation. He denies fevers or chills. Does have a cough productive of foster sputum. The patient denies any leg swelling or orthopnea. He has not taken any medications since discharge nor seen any physicians. He has no other medical complaints at this time. He does have a prior hx of IVDU however he reports being clean [id number] now. CBC/BMP: 04/07/16 0951 04/07/16 0749 Significant Findings Laboratory Tests Test 04/06/16 04/06/16 04/07/16 04/07/16 10:55 16:20 00:35 07:49 Erythrocyte Sedimentation Rate 37 mm/hr (0-15) Potassium Level 3.0 MEQ/L 3.4 MEQ/L (3.5-5.1) (3.5-5.1) Lactic Acid Level 2.2 mmol/L 3.8 mmol/L (0.4-2.0) (0.4-2.0) Phosphorus Level 1.6 MG/DL (2.5-4.9) Aspartate Amino Transf 38 U/L (15-37) (AST/SGOT) Total Creatine Kinase 34 U/L (39-308) Troponin I LESS THAN 0.02 NG/ML (0.02-0.05) C-Reactive Protein 5.60 MG/DL (0.00-0.30) Albumin 3.3 GM/DL (3.4-5.0) Red Blood Count 4.49 MIL/MM3 (4.50-5.90) Red Cell Distribution Width 18.3 % (11.6-17.2) Urine Bacteria RARE /hpf (NONE) Urine Cocaine Screen POS (NEG) Chloride Level 110 MEQ/L (98-107) Calcium Level 8.3 MG/DL (8.5-10.1) Test 04/07/16 09:51 Red Blood Count 3.75 MIL/MM3 (4.50-5.90) Hemoglobin 11.6 GM/DL (13.0-17.0) Hematocrit 34.8 % (39.0-51.0) Red Cell Distribution Width 17.8 % (11.6-17.2) Imaging Last Impressions Chest X-Ray 04/06/16 1041 Signed Impressions: Service Date/Time: Wednesday, April 06, 2016 11:11 - CONCLUSION: 1. Hazy opacity within the right mid and lower lung field consistent with atelectasis and/or infiltrate. Clinical correlation is recommended. 2. Left lung is clear. Wellington Salinas MD Chest CT 04/06/16 0000 Signed Impressions: Service Date/Time: Wednesday, April 06, 2016 16:45 - CONCLUSION: Significantly improved exam with a persistent small right-sided pleural effusion and an area of rounded airspace consolidation within the posterior right lower lobe extending to the adjacent mildly thickened pleura. This has the appearance of rounded atelectasis.. Yarelis David MD PE at Discharge GENERAL: Well-developed well-nourished. In no acute distress. Appears comfortable on room air. SKIN: Warm and dry. No lesions noted. HEENT: Normocephalic. Pupils equal and round. Mucous membranes pink and moist. CARDIOVASCULAR: Regular rate and rhythm. No murmur appreciated. Chest wall is exquisitely with auscultation. RESPIRATORY: No accessory muscle use. Clear to auscultation. Breath sounds equal bilaterally. GASTROINTESTINAL: Abdomen soft, non-tender, nondistended. Bowel sounds x4. MUSCULOSKELETAL: No obvious deformities. No clubbing or cyanosis. No edema. NEUROLOGICAL: Awake and alert. No focal neurological deficits. Moves upper and lower extremities spontaneously. Normal speech. PSYCHIATRIC: Guarded mood and affect; insight and judgment normal. Pt update on day of discharge Patient has been on room air all day. Patient was independent with PT, but refused to walk farther than 2 steps secondary to shortness of breath. Discussed with Dr. Snyder. The patient states he will have a senior care house to go to tomorrow a.m. We will have case management assist with outpatient resources for this patient prior to DC. Hospital Course 40-year-old male with hx of anxiety/depression/PTSD/bipolar disorder, prior IVDU , recent hospitalization 01/03/16-02/24/16 for right pleural effusion s/p thoracentesis, septic emboli, MRSA bacteremia with tricuspid valve endocarditis s/p 6 weeks antibiotics with IV Teflaro, now presents with a 1-2 month history of worsening shortness of breath, chest pains, and near syncope. Dyspnea: possibly related to pneumonia (see below), work up in progress. CXR showed hazy opacity R mid & lower lung. Afebrile, no leukocytosis, however lactic acid 2.2, up to 3.8. Continue on IVF. Chest CT shows significantly improved exam with persistent small right sided pleural effusion, area of airspace consolidation with posterior RLL. RADHA in showed normal systolic function EF 60%, vegetation of tricuspid valve, with mild TR. Nebs prn. Continue treatment for pneumonia as below. Repeat echocardiogram with normal systolic function, EF 55-60%, and moderate TR. Checked PFTs, results pending. Satting well on room air. Near Syncope: suspect related to dyspnea, however need to rule out other etiologies. EKG without acute ST changes. S/p IVF boluses, continue with maintenance fluids. PT eval, ambulates independent, but c/o SOB, treatment as above. Healthcare Associated Pneumonia: seen on CXR. Patient hospitalized <90days ago. S/p IV Zosyn and IV Vanco in the ER. S/P IV Cefepime and po Azithro, continue with oral Levofloxacin for additional 10 days as outpatient. Negative legionella /pneumococcal urinary antigen. Possible Severe Sepsis: secondary to elevated lactic acid of 3.8 with pneumonia , however WBC 6.6K, afebrile. Blood cultures with NG x48 hours. Continue Abx as above for pneumonia. Lactic acid 0.5. Resolved. Chest Pains, atypical: likely pleuritic pain vs costochondritis; ongoing [id number] and reproducible on exam. Troponin negative x1 and EKG without acute ST changes. Pain control with NSAIDs as needed. Also UDS positive for cocaine. Hypophosphatemia: Phosphorus 1.6. Ordered K-Phos to be given po. Monitor labs. Anxiety/Depression/PTSD/Bipolar Disorder: patient discharged on Klonopin 1mg po tid and Seroquel 200mg po hs however he reports he has not been taking this recently. Outpatient psychiatry follow-up. Prior IVDU: patient reports being clean x5 years however UDS in positive for opiates and amphetamines. Repeat UDS positive for Cocaine, patient still adamantly denying recent cocaine use. Pt Condition on Discharge: Stable Discharge Disposition: Discharge Home Discharge Time: > 30 minutes Discharge Instructions DIET: Follow Instructions for: Heart Healthy Diet Activities you can perform: Regular-No Restrictions Follow up Referrals: PCP Follow-up - 1 Week New Medications: Levofloxacin (Levofloxacin) 750 Mg Tab 750 MG PO DAILY Infection #10 Ref 0 TAB Duy Valerio Apr 08, 2016 16:30
[2016-04-09 00:23] VITALS: BP 153/89; PULSE 50; RESP 20; TEMP 97.6; O2SAT 98
[2016-04-09] MEDS: DOCUSATE SODIUM 100 MG CAP PO SCH (01:00)
[2016-04-09 01:51] VITALS: O2SAT 96
[2016-04-09 05:38] VITALS: BP 150/85; PULSE 85; RESP 18; TEMP 97.9; O2SAT 97
[2016-04-09] MEDS: CEFEPIME INJ 2,000 MG in SODIUM CHLORIDE 0.9% INJ 100 ML IV SCH (05:46)
--- NOTE | 2016-04-16 09:01 | RSPPFT ---
DATE OF PROCEDURE: 04/08/16 COMMENTS: Spirometry with FVC of 1.0, FEV1 of 0.7, FEV1/FVC ratio at 74%. A non-significant response to acutely inhaled bronchodilator noted. IMPRESSION: 1. Severe airways obstruction. 2. Non-significant response to acutely inhaled bronchodilator.
== END 2016-04-09 10:38 | disposition home or self-care (01) ==
LOC: NEPC 10:35 → NEDA 12:11 → INTOOBSV 12:11 → NEPFCDU 17:32
PROVIDERS: ADMIT Internal Medicine; ATTEND Internal Medicine
DX: J18.9 Pneumonia, unspecified organism (principal); R07.2 Precordial pain; R55 Syncope and collapse; J98.11 Atelectasis; R82.99 Other abnormal findings in urine; B95.62 Methicillin resistant Staphylococcus aureus infection as the cause of diseases classified elsewhere; E83.39 Other disorders of phosphorus metabolism; F41.9 Anxiety disorder, unspecified; F43.10 Post-traumatic stress disorder, unspecified; F31.9 Bipolar disorder, unspecified; I07.9 Rheumatic tricuspid valve disease, unspecified; J90 Pleural effusion, not elsewhere classified; Z72.0 Tobacco use; Y95 Nosocomial condition
CPT/HCPCS: 71010; 71250; 80048; 80053; 80307; 81001; 82550; 83605; 83690; 83735; 83880; 84100; 84484; 85025; 85610; 85652; 85730; 86140; 87040; 87086; 87449; 93005; 93306; 94060; 97162; 99285; G0378; G8987; G8988; J0456; J0692; J1885; J2405; J2543; J3370; J3480; J7030; J7050

== ENCOUNTER 2016-04-21 10:05 | Inpatient (IN) | payer BC, MEDICAID ==
[~2016-04-21] VITALS: Ht 182.9 cm; Wt 88.1 kg
[~2016-04-21 10:05] MED LIST: LEVO750T33 PO
[2016-04-21 10:10] VITALS: BP 123/83; PULSE 107; RESP 16; TEMP 98.3; O2SAT 97
--- NOTE | 2016-04-21 10:25 | PD ---
HPI Chief Complaint: Respiratory Distress Time Seen by Provider: 10:21 Travel History International Travel<30 days: No Contact w/Intl Traveler<30days: No Traveled to known affect area: No History of Present Illness HPI 40-year-old male with hx of HCV, polysubstance abuse, IV drug abuse here with complaint of shortness of breath. Patient was hospitalized February through January with right pleural effusion, septic pulmonary emboli, MRSA bacteremia with tricuspid valve endocarditis. He was hospitalized in early March with right sided pneumonia. Patient was discharged home with 10 days of Levaquin but never filled this due to financial constraints. Not been on any antibiotics in the interim. Patient presents back today with complaint of persistent cough, chest congestion. Notes sharp chest pain with inspiration. He denies any history of DVT, PE, recent travel or sick contacts. Cough is productive of yellowish sputum. No hemoptysis. No documented fevers or chills. Patient states he is clean from IV drug abuse but recent history with suggest otherwise. PFSH Past Medical History Anxiety: Yes Depression: Yes Cancer: No Cardiovascular Problems: Yes (PT STATES HE "MIGHT" HAVE HAD A PREVIOUS CARDIAC EVENT BUT NOT SURE) Chest Pain: Yes Congestive Heart Failure: No Diminished Hearing: No Endocrine: No Gastrointestinal Disorders: No Genitourinary: No Immune Disorder: No Implanted Vascular Access Dvce: No Musculoskeletal: No Neurologic: No Psychiatric: Yes (DEPRESSION AND PREVIOUS SUICIDE ATTEMPT ) Respiratory: Yes Immunizations Current: Yes Pneumonia: Yes Tetanus Vaccination: > 5 Years Past Surgical History Other Surgery: Yes (LEFT HAND PER PT) Social History Alcohol Use: No (PT DENIES) Tobacco Use: Yes (1 PPD) Substance Use: No Allergies-Medications (Allergen,Severity, Reaction): Coded Allergies: *MDRO Multi-Drug Resistant Organism (Verified Adverse Reaction, Unknown, ) MRSA (urine-01/04/16) & (blood-01/06/16) Reported Meds & Prescriptions Reported Meds & Active Scripts Active No Active Prescriptions or Reported Medications Review of Systems Except as stated in HPI: all other systems reviewed are Neg Physical Exam Narrative GENERAL: Well-appearing male in no acute distress SKIN: Warm and dry. Scars from previous IV drug use HEAD: Normocephalic. EYES: No scleral icterus. No injection or drainage. ENT: No nasal bleeding or discharge. Mucous membranes pink and moist. NECK: Supple CARDIOVASCULAR: Slightly tachycardic with heart rate in the 100s, regular rhythm. No murmur appreciated. RESPIRATORY: No accessory muscle use. Rhonchi, crackles right greater than left harsh cough GASTROINTESTINAL: Abdomen soft, non-tender, nondistended. MUSCULOSKELETAL: No edema. NEUROLOGICAL: Awake and alert. Normal speech. PSYCHIATRIC: Appropriate mood and affect; insight and judgment normal. Data Data Last Documented VS Vital Signs Date Time Temp Pulse Resp B/P Pulse Ox O2 Delivery O2 Flow Rate FiO2 04/21/16 12:44 98 04/21/16 10:10 98.3 107 16 123/83 Room Air Orders Complete Blood Count With Diff (04/21/16 10:24) Basic Metabolic Panel (Bmp) (04/21/16 10:24) Blood Culture (04/21/16 10:24) Iv Access Insert/Monitor (04/21/16 10:24) Electrocardiogram (04/21/16 10:24) Ecg Monitoring (04/21/16 10:24) Oximetry (04/21/16 10:24) Ct Pulmonary Angiogram (04/21/16 10:24) Sodium Chloride 0.9% Flush (Ns Flush) (04/21/16 10:30) Consult Vascular Access Team (04/21/16 ) Vascular Poc Ultrasound (04/21/16 ) Iohexol 350 Inj (Omnipaque 350 Inj) (04/21/16 12:25) Labs Laboratory Tests Test 04/21/16 10:40 White Blood Count 12.5 TH/MM3 Red Blood Count 4.56 MIL/MM3 Hemoglobin 14.1 GM/DL Hematocrit 42.0 % Mean Corpuscular Volume 92.3 FL Mean Corpuscular Hemoglobin 30.8 PG Mean Corpuscular Hemoglobin 33.4 % Concent Red Cell Distribution Width 16.6 % Platelet Count 256 TH/MM3 Mean Platelet Volume 8.5 FL Neutrophils (%) (Auto) 76.0 % Lymphocytes (%) (Auto) 16.0 % Monocytes (%) (Auto) 6.9 % Eosinophils (%) (Auto) 0.2 % Basophils (%) (Auto) 0.9 % Neutrophils # (Auto) 9.5 TH/MM3 Lymphocytes # (Auto) 2.0 TH/MM3 Monocytes # (Auto) 0.9 TH/MM3 Eosinophils # (Auto) 0.0 TH/MM3 Basophils # (Auto) 0.1 TH/MM3 CBC Comment DIFF FINAL Differential Comment Sodium Level 138 MEQ/L Potassium Level 3.8 MEQ/L Chloride Level 102 MEQ/L Carbon Dioxide Level 29.3 MEQ/L Anion Gap 7 MEQ/L Blood Urea Nitrogen 12 MG/DL Creatinine 0.88 MG/DL Estimat Glomerular Filtration 95 ML/MIN Rate Random Glucose 96 MG/DL Calcium Level 9.5 MG/DL MDM Medical Decision Making Medical Screen Exam Complete: Yes Emergency Medical Condition: Yes Medical Record Reviewed: Yes Differential Diagnosis 40-year-old male with hx of HCV, polysubstance abuse, IV drug abuse here with complaint of shortness of breath after admission earlier March for pneumonia, not refilling Levaquin after discharge. Differential includes persistent pneumonia, recurrent pneumonia, septic pulmonary emboli, PE, tuberculosis, symptomatic anemia, arrhythmia, electrolyte abnormality, bacteremia, sepsis. Narrative Course Patient placed on monitor, IV established and blood obtained. Twelve-lead EKG showed sinus tachycardia, rate [address] abnormalities, normal intervals. CBC, BMP and blood cultures notable for WBC 12.5. CT pulmonary angiogram showed septic pulmonary emboli in the right lower lobe characteristic of PE. Right infrahilar and right lower lobe consolidation. Patient was treated with heparin bolus, drip, Zosyn and azithromycin. And admitted for further management. Critical Care Narrative Aggregate critical care time was 55 minutes. Time to perform other separately billable procedures was not included in the critical care time. My time did not include minutes spent treating any other patients simultaneously or on activities that did not directly contribute to the patient's treatment. The services I provided to this patient were to treat and/or prevent clinically significant deterioration that could result in: Cardiopulmonary decompensation, , disability I provided critical care services requiring my management, as noted below: Chart data review, documentation time, medication orders and management, vital sign assessments/reviewing monitor data, ordering and reviewing lab tests, ordering and interpreting/reviewing x-rays and diagnostic studies, care of the patient and discussion of the patient with the admitting physicians. Sepsis Criteria SIRS Criteria (2 or more): Heart rate over 90, WBC > 31454, < 4000 or > 10% bands Sepsis Criteria (SIRS+source): Infect source susp/known Criteria Outcome: Meets SIRS criteria, Meets sepsis criteria Diagnosis Primary Impression: Septic pulmonary embolism Qualified Code: I26.90 - Acute septic pulmonary embolism without acute cor pulmonale Additional Impressions: Pneumonia Qualified Code: J18.1 - Pneumonia of right lower lobe due to infectious organism Sepsis Qualified Code: A41.9 - Sepsis, due to unspecified organism polysubstance use disorder Admitting Information Admitting Physician Requests: Admit Scripts No Active Prescriptions or Reported Meds Briseida Edwards MD Apr 21, 2016 10:25
[2016-04-21] MEDS ORDERED: SODIUM CHLORIDE 0.9% FLUSH 5 ML FLUSH IVF PRN (10:30)
[2016-04-21 10:50] LABS: AUTOMATED NEUTROPHIL # 9.5 TH/MM3 (1.8-7.7); BASOPHIL # 0.1 TH/MM3 (0-0.2); BASOPHIL % 0.9 % (0.0-2.0); EOSINOPHIL % 0.2 % (0.0-4.0); HEMO FLAGS DIFF FINAL; MEAN CELL VOLUME 92.3 FL (80.0-100.0); MEAN CORPUSCULAR HEMOGLOBIN 30.8 PG (27.0-34.0); MEAN CORPUSCULAR HGB CONC 33.4 % (32.0-36.0); MONO % 6.9 % (0.0-8.0); PLATELET COUNT 256 TH/MM3 (150-450); RED BLOOD COUNT 4.56 MIL/MM3 (4.50-5.90); RED CELL DISTRIBUTION WIDTH 16.6 % (11.6-17.2); WHITE BLOOD COUNT 12.5 TH/MM3 (4.0-11.0)
[2016-04-21 11:05] LABS: BICARBONATE 29.3 MEQ/L (21.0-32.0); POTASSIUM 3.8 MEQ/L (3.5-5.1)
[2016-04-21] MEDS ORDERED: IOHEXOL 350 MG/ML 10 ML VIAL (for RAD DIAG) IV ONE (12:25)
[2016-04-21 12:44] VITALS: O2SAT 98
--- NOTE | 2016-04-21 12:56 | RADRPT ---
EXAM DATE/TIME: 04/21/2016 11:53 [facility] COMPARISON: CT THORAX W/O CONTRAST, April 06, 2016, 16:45. INDICATIONS : Trouble breathing with mid chest pain. IV CONTRAST: 50 cc Omnipaque 350 (iohexol) IV RADIATION DOSE: 23.19 CTDIvol (mGy) MEDICAL HISTORY : Hepatitis C. Cardiovascular disease Septic emboli, endocarditis SURGICAL HISTORY : None. ENCOUNTER: Initial ACUITY: 1 day PAIN SCALE: 5/10 LOCATION: chest TECHNIQUE: Volumetric scanning of the chest was performed using a pulmonary embolism protocol MIP images were re constructed. Using automated exposure control and adjustment of the mA and/or kV according to patien t size, radiation dose was kept as low as reasonably achievable to obtain optimal diagnostic quality images. FINDINGS: PULMONARY ARTERIES: There are is an abnormal filling defect within the right lower lobe lobar pulmonary artery and in the adjacent segmental pulmonary arterial branches. No PE is identified in the remaining vessels. LUNGS: There is abnormal new airspace consolidation in the right lower lobe along with groundglass attenuati on. There is adjacent bronchial wall thickening and 2 areas of possible calcification or high density material are present within the area of perihilar right lower lobe consolidation. A small right pleu ral effusion is present and there is some mild thickening of the right major fissure. Left lung demon strates no abnormality. There is no pneumothorax. PLEURAE: There is a small right pleural effusion. MEDIASTINUM: Heart demonstrates no acute finding. There are small subcarinal lymph nodes and questionable right hi lar lymph nodes. MUSCULOSKELETAL: Within normal limits for patient age. MISCELLANEOUS: The visualized upper abdominal organs demonstrate no acute abnormality. CONCLUSION: 1. There are abnormal filling defects within the right lower lobe lobar arterial branches and segment al arterial branches characteristic of PE. 2. There is also new right infrahilar/right lower lobe airspace consolidation and groundglass attenua tion. A small right pleural effusion is also present. The appearance is nonspecific but could represe nt an infectious process or less likely neoplasm. It does not have a typical appearance for infarct. Suggest followup chest CT with IV contrast to confirm resolution of this finding following appropriat e treatment. Ruel Dill MD on April 21, 2016 at 12:48 Board Certified Radiologist. This report was verified electronically.
[2016-04-21] MEDS ORDERED: PIPERACIL-TAZO 4.5 GM PREMIX 100 ML IV STA (13:06)
[2016-04-21] MEDS ORDERED: AZITHROMYCIN INJ 500 MG in SODIUM CHLOR 0.9% 250 ML INJ 250 ML IV STA (13:06)
[2016-04-21] MEDS ORDERED: HEPARIN SODIUM - IV 10,000 UNITS/10 ML VIAL IV ONE (13:15)
[2016-04-21] MEDS ORDERED: NICOTINE 14 MG/24 HR PATCH TD ONE (13:45)
[2016-04-21 13:53] LABS: PROTHROMBIN TIME - PATIENT 10.5 SEC (9.8-11.6)
--- NOTE | 2016-04-21 14:12 | HHI.HP ---
HPI Service Family Medicine Primary Care Physician No Primary Care Physician Admission Diagnosis septic pulmonary emboli, pneumonia Diagnoses: International Travel<30 Days: No Contact w/Intl Traveler<30days: No Known Affected Area: No History of Present Illness 40 year old male with h/o IVDA, hepatitis C, prolonged hospitalization here at [facility] from 01/03/2016-02/24/2016 for septic pulmonary emboli and TV endocarditis and MRSA UTI and bacteremia s/p 6 weeks of antibiotic therapy along with development of bilateral pleural effusions s/p thoracentesis. He presents to the ED with progressive shortness of breath x 1 week, cough starting to be productive yesterday, pleuritic chest pain, and fevers and chills. During his prolonged hospitalization, noted that the patient developed ARF believed to be due to receiving Vancomycin and was thus switched to Teflaro and later transferred to [place] to complete his course of antibiotics. He presented here on 04/06/2016 with sepsis and treated for HCAP. He was discharged home to complete an additional 10 days of Levaquin but he did not fill this prescription and did not follow up with Dr. Nunez in community clinic. He states he was previously homeless and without a car; he states he currently has found an apartment with a roommate and recently found a job. Review of Systems Constitutional: COMPLAINS OF: Fever, Chills Eyes: DENIES: Blurred vision, Diplopia Respiratory: COMPLAINS OF: Cough, Sputum production, Shortness of breath Cardiovascular: COMPLAINS OF: Chest pain Gastrointestinal: DENIES: Abdominal pain, Diarrhea, Nausea, Vomiting Genitourinary: DENIES: Hematuria, Dysuria Musculoskeletal: DENIES: Back pain Neurologic: DENIES: Localized weakness Past Family Social History Past Medical History Hepatitis C IVDA Septic pulmonary emboli MRSA UTI and bacteremia 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 with Teflaro Bilateral pleural effusions s/p thoracentesis Anxiety Depression Bipolar disorder PTSD Past Surgical History Right sided thoracentesis Left hand surgery Reported Medications Reported Meds & Active Scripts Active No Active Prescriptions or Reported Medications Allergies: Coded Allergies: *MDRO Multi-Drug Resistant Organism (Verified Adverse Reaction, Unknown, ) MRSA (urine-01/04/16) & (blood-01/06/16) Family History Patient reports hx of unknown cancers in aunts and uncles Significant family hx of heart disease Social History Tobacco: 1 PPD x 20+ years Etoh: last etoh drink was 3 years ago; previously 1 gallon liquor every day x 20 years Prior IVDU, clean x 5 years per patient, however prior UDS on 01/04/16 positive for opiates and amphetamines and UDS from 04/07/2016 positive for cocaine Physical Exam Vital Signs Vital Signs Date Time Temp Pulse Resp B/P Pulse Ox O2 Delivery O2 Flow Rate FiO2 04/21/16 12:44 98 04/21/16 10:10 98.3 107 16 123/83 97 Room Air Physical Exam GENERAL: Comfortable, coughs intermittently causing him to have chest pain NEURO: AOx3. Normal speech. wharfinger chief grossly intact. SKIN: Warm and dry. No rashes or erythema. No [place] lesions seen. HEAD: Normocephalic. Atraumatic. EYES: PERRL. EOMI. No scleral icterus. No injection or drainage. ENT: No nasal drainage. Moist mucous membranes. No oral ulcers or lesions. NECK: Supple, trachea midline. No JVD or lymphadenopathy. CARDIOVASCULAR: Slightly tachycardic rate, regular rhythm without murmurs, rubs , or gallops. Peripheral pulses 2+. Capillary refill < 2 seconds. RESPIRATORY: No increased work of breathing. Decreased breath sounds throughout moreso on the right. Faint basilar crackles on right side. GASTROINTESTINAL: Abdomen soft, nontender, nondistended, normal BS. No organomegaly or masses. No rebound tenderness. No guarding. MUSCULOSKELETAL: No edema, cyanosis, or clubbing. Laboratory Laboratory Tests Test 04/21/16 04/21/16 10:40 13:15 White Blood Count 12.5 Red Blood Count 4.56 Hemoglobin 14.1 Hematocrit 42.0 Mean Corpuscular Volume 92.3 Mean Corpuscular Hemoglobin 30.8 Mean Corpuscular Hemoglobin 33.4 Concent Red Cell Distribution Width 16.6 Platelet Count 256 Mean Platelet Volume 8.5 Neutrophils (%) (Auto) 76.0 Lymphocytes (%) (Auto) 16.0 Monocytes (%) (Auto) 6.9 Eosinophils (%) (Auto) 0.2 Basophils (%) (Auto) 0.9 Neutrophils # (Auto) 9.5 Lymphocytes # (Auto) 2.0 Monocytes # (Auto) 0.9 Eosinophils # (Auto) 0.0 Basophils # (Auto) 0.1 CBC Comment DIFF FINAL Differential Comment Sodium Level 138 Potassium Level 3.8 Chloride Level 102 Carbon Dioxide Level 29.3 Anion Gap 7 Blood Urea Nitrogen 12 Creatinine 0.88 Estimat Glomerular Filtration 95 Rate Random Glucose 96 Calcium Level 9.5 Prothrombin Time 10.5 Prothromb Time International 1.0 Ratio Activated Partial 29.0 Thromboplast Time Date/Time Procedure Status Source Growth 04/21/16 10:40 Aerobic Blood Culture Received Blood Peripheral Pending 04/21/16 10:40 Anaerobic Blood Culture Received Blood Peripheral Pending Result Diagram: 04/21/16 1040 04/21/16 1040 Septic Shock Reassessment Heart: Other (Slightly tachycardic) Lungs: Course, Crackles Skin: Cold, Dry Peripheral Pulses: Bounding Right Radial Bounding Left Radial Bounding Right Dorsalis Pedis Bounding Left Dorsalis Pedis Bounding Right Posterior Tibial Bounding Left Posterior Tibial Capillary Refill: <2 seconds Assessment and Plan Assessment and Plan 40 year old male with h/o IVDA, hep C, prolonged hospitalization from 01/03/2016- 02/24/2016 for septic pulmonary emboli and 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 presents with progressive shortness of breath x 1 week, productive cough, pleuritic chest pain, and fevers and chills. He will be admitted and managed for the following: Code Status Full code Discussed Condition With dw Dr. Alanis and Dr. Holley Problem List: (1) Septic pulmonary embolism Status: Acute Plan: - Afebrile in ED, tachycardic rate - Leukocytosis to 12.5. CRP markedly elevated to 18.20 - CT pulmonary angiography: Abnormal filling defects within the right lower lobe lobar arterial branches and segmental arterial branches characteristic of pulmonary emboli. New right infrahilar/right lower lobe airspace consolidation and groundglass attenuation. Small right pleural effusion. - Patient started on a heparin drip in the ED, titrate per protocol - Received Zosyn 4.5 gm and Azithromycin 500 mg in ED - Continue Zosyn 4.5 gm IV q8h - Start Vancomycin with pharm consult, target trough 15-20 - Consult Infectious Disease, appreciate recommendations. Patient is known to Dr. Recio. (2) Sepsis Status: Acute Plan: Meets sepsis criteria Antibiotics as above Blood cultures pending Obtain UA and culture Sputum culture 2D ECHO to evaluate for endocarditis - Patient did have a TTE on 04/07/2016 showing normal systolic function, ejection fraction estimated in the range of 55-60%, no regional wall motion abnormalities, moderate TVR. However the patient is an unreliable historian and seems to have denied IV drug use on past admissions as well despite UDS being positive. He could have developed endocarditis since his last ECHO if there was any IV drug use especially considering findings of septic pulmonary emboli (3) Illicit drug use Status: Chronic Plan: Obtain UDS (4) Nutrition, metabolism, and development symptoms Status: Acute Plan: Fluids: None Electrolytes: WNLs Nutrition: Heart Healthy DVT PPX: Heparin drip per protocol. SCDs Physical Therapy Nicotine dependence: Nicotine patch 14 mg daily, remove nightly before bedtime Anxiety: Ativan 0.5 mg po q8h prn Physician Certification 2 Midnight Certification Type: Admission for Inpatient Services Order for Inpatient Services The services are ordered in accordance with Medicare regulations or non- Medicare payer requirements, as applicable. In the case of services not specified as inpatient-only, they are appropriately provided as inpatient services in accordance with the 2-midnight benchmark. Estimated LOS (days): 2 days is the estimated time the patient will need to remain in the hospital, assuming treatment plan goals are met and no additional complications. Post-Hospital Plan: Home Problem Qualifiers (1) Septic pulmonary embolism: Qualified Code: I26.90 - Acute septic pulmonary embolism without acute cor pulmonale Scot Marcos MD R1 Apr 21, 2016 14:12
--- NOTE | 2016-04-21 14:45 | HHI.FPPN ---
Subjective Remarks Attending note: Very complex 40-year-old gentleman admitted with diagnosis of pulmonary embolus, new infiltrate in the right infrahilar area, history of IV drug use in the past, history of right tricuspid vegetation and bacteremia eating back to December 2015 associated on presentation with what the patient describes as a severe substernal chest pain aggravated by coughing. Patient has a history of hepatitis C, psychiatric history of bipolar disorder with polypharmacy associated psychiatric manifestations. At the bedside on interview the patient is relatively comfortable except when he coughs and then complains of severe pain. Records were reviewed dating back to December 2015 at [facility]. Please refer to resident's history and physical for complete discussion of past medical history, family, social history review of systems. Objective Vitals Vital Signs Date Time Temp Pulse Resp B/P Pulse Ox O2 Delivery O2 Flow Rate FiO2 04/21/16 12:44 98 04/21/16 10:10 98.3 107 16 123/83 97 Room Air Result Diagram: 04/21/16 1040 04/21/16 1040 Objective Remarks Vital signs noted. Saturation greater than 95% on room air. Gen. appearance: Young middle-aged gentleman complaining of intermittent chest pain anteriorly, alert and oriented, in no acute distress. HEENT: Oropharynx unremarkable Lungs: Diminished breath sounds in all areas, patient has difficulty taking a deep inspiration without triggering a deep cough. Cardiac: S1-S2, no S3, no specific murmurs appreciated. Abdomen: Soft, benign organomegaly, no tenderness evident. No masses. Extremities: Feet are warm and dry, fingernails unremarkable. No skin rashes evident. A/P Assessment and Plan Clinical assessment: Complex 40-year-old gentleman admitted with CT scan revealing pulmonary emboli, tricuspid insufficiency with history of vegetation and bacteremia with endocarditis. History of hepatitis C. History of bipolar disorder with by chart review multiple attempts to suicide in the past. Patient seen and examined. Case to be discussed and reviewed with the resident team. Agree with plan of care as discussed with me and to be documented in the resident note. Flo Holley MD Apr 21, 2016 14:45
[2016-04-21] MEDS ORDERED: ONDANSETRON HCL 4 MG/2 ML VIAL IV PRN (15:00)
[2016-04-21] MEDS ORDERED: NALOXONE HCL 0.4 MG/ML AMP IV PRN (15:00)
[2016-04-21] MEDS ORDERED: VANCOMYCIN INJ 1,000 MG in SODIUM CHLOR 0.9% 250 ML INJ 250 ML IV SCH (15:30)
[2016-04-21] MEDS ORDERED: Vancomycin Consult Pharmacy 1 EA OTHER SCH (15:30)
[2016-04-21 15:55] VITALS: O2SAT 96
--- NOTE | 2016-04-21 16:07 | EKG ---
Date Performed: 04/21/2016 Time Performed: 10:53:29 PTAGE: 40 years EKG: SINUS TACHYCARDIA POSSIBLE LEFT ATRIAL ENLARGEMENT When compared to previous tracing, the p atient is now Tachycardic. ABNORMAL RHYTHM ECG PREVIOUS TRACING : 04/06/2016 10.42 DOCTOR: Dinorah Harvey Interpretating Date/Time 04/21/2016 16:06:16
[2016-04-21 16:20] VITALS: BP 120/80; PULSE 101; RESP 20; O2SAT 96
[2016-04-21] MEDS: SODIUM CHLORIDE 0.9% FLUSH 5 ML FLUSH FLUSH SCH ×2 (16:27→21:28)
[2016-04-21 18:15] LABS: APTT (PATIENT) 29.5 SEC (24.3-30.1)
[2016-04-21 18:33] LABS: INDIRECT BILIRUBIN 0.3 MG/DL (0.0-0.8); TOTAL BILIRUBIN ADULT 0.4 MG/DL (0.2-1.0)
[2016-04-21] MEDS: HEPARIN-D5W INJ 250 ML IV SCH (18:45)
[2016-04-21] MEDS ORDERED: HEPARIN SODIUM - IV 10,000 UNITS/10 ML VIAL IV PRN ×2 (19:15)
[2016-04-21 20:00] VITALS: BP 138/85; PULSE 103; RESP 21; TEMP 99.4; O2SAT 99
[2016-04-21] MEDS: REMOVE OLD NICODERM (NICOTINE) PATCH TD SCH (21:00)
[2016-04-21] MEDS: VANCOMYCIN INJ 1,250 MG in SODIUM CHLOR 0.9% 250 ML INJ 250 ML IV SCH (22:56)
[2016-04-21] MEDS: PIPERACIL-TAZO 4.5 GM PREMIX 100 ML IV SCH (22:57)
[2016-04-22] VITALS (8 sets, daily range): BP systolic 117–143; BP diastolic 66–89; PULSE 74–111; RESP 16–21; TEMP 97.6–101.3; O2SAT 95–98
[2016-04-22] MEDS: ACETAMINOPHEN 325 MG TAB PO PRN ×2 (00:55→11:31)
[2016-04-22 01:47] LABS: APTT (PATIENT) 37.8 SEC (24.3-30.1)
[2016-04-22] MEDS: PIPERACIL-TAZO 4.5 GM PREMIX 100 ML IV SCH ×3 (05:24→23:09)
[2016-04-22] MEDS: VANCOMYCIN INJ 1,250 MG in SODIUM CHLOR 0.9% 250 ML INJ 250 ML IV SCH ×2 (05:24→15:38)
[2016-04-22 07:15] LABS: AUTOMATED NEUTROPHIL # 4.9 TH/MM3 (1.8-7.7); BASOPHIL # 0.1 TH/MM3 (0-0.2); BASOPHIL % 0.6 % (0.0-2.0); EOSINOPHIL # 0.1 TH/MM3 (0-0.4); EOSINOPHIL % 0.6 % (0.0-4.0); HEMATOCRIT 39.6 % (39.0-51.0); HEMO FLAGS DIFF FINAL; LYMPH % 32.2 % (9.0-44.0); LYMPHOCYTE # 2.8 TH/MM3 (1.0-4.8); MEAN CELL VOLUME 92.6 FL (80.0-100.0); MEAN CORPUSCULAR HGB CONC 33.5 % (32.0-36.0); MONO % 10.5 % (0.0-8.0); NEUT % 56.1 % (16.0-70.0); PLATELET COUNT 209 TH/MM3 (150-450); RED BLOOD COUNT 4.28 MIL/MM3 (4.50-5.90); RED CELL DISTRIBUTION WIDTH 16.1 % (11.6-17.2); WHITE BLOOD COUNT 8.7 TH/MM3 (4.0-11.0)
[2016-04-22 07:24] LABS: BLOOD, URINE SMALL (NEG); GLUCOSE,URINE NEG (NEG); KETONE, URINE NEG (NEG); NITRITE,URINE NEG (NEG); PH, URINE 5.5 (5.0-8.5); SQUAMOUS EPITHELIAL CELL URINE <1 /hpf (0-5); URINE COLOR YELLOW (YELLW/STRAW)
[2016-04-22 07:25] LABS: COMMENT (UR) CULT NOT INDICATED; CULTURE IF INDICATED CULT NOT INDICATED
[2016-04-22 07:51] LABS: ALKALINE PHOSPHATASE 53 U/L (45-117); ALT (GPT) 25 U/L (12-78); ANION GAP 6 MEQ/L (5-15); AST (GOT) 31 U/L (15-37); BICARBONATE 27.8 MEQ/L (21.0-32.0); BLOOD UREA NITROGEN 10 MG/DL (7-18); CHLORIDE 103 MEQ/L (98-107); GLOMERULAR FILTRATION RATE 118 ML/MIN (>89); SODIUM (NA) 137 MEQ/L (136-145); TOTAL BILIRUBIN ADULT 0.4 MG/DL (0.2-1.0)
[2016-04-22 07:52] LABS: POTASSIUM 4.3 MEQ/L (3.5-5.1)
[2016-04-22] MEDS: NICOTINE 14 MG/24 HR PATCH TD SCH (11:18)
[2016-04-22] MEDS: SODIUM CHLORIDE 0.9% FLUSH 5 ML FLUSH FLUSH SCH ×2 (11:18→21:02)
[2016-04-22] MEDS: LORazepam 0.5 MG TAB PO PRN ×2 (11:30→21:01)
[2016-04-22] MEDS: HEPARIN-D5W INJ 250 ML IV SCH (11:36)
[2016-04-22 14:33] LABS: AMPHETAMINE, URINE NEG (NEG); BARBITURATES, URINE NEG (NEG); COCAINE, URINE NEG (NEG)
[2016-04-22] MEDS ORDERED: RESP: ACETYLCYSTEINE 10% 30 ML NEB NEB ONE (17:30)
[2016-04-22 17:31] LABS: APTT (PATIENT) 38.5 SEC (24.3-30.1)
--- NOTE | 2016-04-22 17:46 | HHI.FPPN ---
Subjective Remarks Febrile up to 101.3 overnight. Vitals are stable. Patient reports fever associated with night sweats. Still reports pleuritic nonradiating central chest pain. Still with a cough that sounds productive. Objective Vitals Vital Signs Date Time Temp Pulse Resp B/P Pulse Ox O2 Delivery O2 Flow Rate FiO2 04/22/16 16:00 97.7 76 16 121/80 97 04/22/16 12:00 98.7 88 16 129/82 98 04/22/16 10:20 98 21 04/22/16 08:00 98.1 84 16 124/85 98 04/22/16 04:00 99.0 74 20 127/79 98 04/22/16 01:00 98.9 04/22/16 00:00 101.3 111 21 117/66 95 04/21/16 20:00 99.4 103 21 138/85 99 I/O 04/21/16 04/21/16 04/21/16 04/22/16 04/22/16 04/22/16 07:00 15:00 23:00 07:00 15:00 23:00 Intake Total 240 ml 690 ml 360 ml Output Total 300 ml Balance -60 ml 690 ml 360 ml Intake Oral 240 ml 270 ml 360 ml IV Total 420 ml Output Urine Total 300 ml # Voids 1 3 1 # Bowel Movements 0 0 0 Result Diagram: 04/22/16 0656 04/22/16 0656 Objective Remarks GENERAL: Coughs intermittently causing him to have chest pain NEURO: AOx3. Normal speech. 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 SKIN: Warm and dry. No rashes or erythema. No [place] lesions seen. HEAD: Normocephalic. Atraumatic. EYES: EOMI. No scleral icterus. No injection or drainage. ENT: No nasal drainage. Moist mucous membranes. No oral ulcers or lesions. NECK: Supple, trachea midline. No JVD or lymphadenopathy. CARDIOVASCULAR: Slightly tachycardic rate, regular rhythm with faint systolic murmur grade 1/6 along left upper and left lower sternal border. Peripheral pulses 2+. Capillary refill < 2 seconds. RESPIRATORY: No increased work of breathing. Decreased breath sounds throughout moreso on the right. Faint basilar crackles on right side. GASTROINTESTINAL: Abdomen soft, nontender, nondistended, normal BS. No organomegaly or masses. No rebound tenderness. No guarding. MUSCULOSKELETAL: No edema, cyanosis, or clubbing. 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 Admitted and managed for the following: Discharge Planning Unclear timetable. Patient will likely need a prolonged course of antibiotics. Problem List: (1) Septic pulmonary embolism Status: Acute Plan: - Febrile overnight, leukocytosis resolved - CT pulmonary angiography: Abnormal filling defects within the right lower lobe lobar arterial branches and segmental arterial branches characteristic of pulmonary emboli. New right infrahilar/right lower lobe airspace consolidation and groundglass attenuation. Small right pleural effusion. - Heparin drip, titrate per protocol - Continue Zosyn 4.5 gm IV q8h (started 04/21) - Continue Vancomycin with pharm consult, target trough 15-20 (started 04/21) - Consult Infectious Disease, appreciate recommendations. Patient is known to Dr. Recio. (2) Sepsis Status: Acute Plan: Meets sepsis criteria Antibiotics as above Blood cultures no growth after 1 day UA appears clean Sputum culture pending (3) Illicit drug use Status: Chronic Plan: UDS negative (4) Nutrition, metabolism, and development symptoms Status: Acute Plan: Fluids: None Electrolytes: WNLs Nutrition: Heart Healthy DVT PPX: Heparin drip per protocol. SCDs Physical Therapy Nicotine dependence: Nicotine patch 14 mg daily, remove nightly before bedtime Anxiety: Ativan 0.5 mg po q8h prn Problem Qualifiers (1) Septic pulmonary embolism: Qualified Code: I26.90 - Acute septic pulmonary embolism without acute cor pulmonale Scot Marcos MD R1 Apr 22, 2016 17:46
--- NOTE | 2016-04-22 18:07 | PD.ID.CON ---
History of Present Illness Service ID Consult Requested By residents. Reason for Consult Evaluation and Mment of possible recurrent endocarditis. Primary Care Physician No Primary Care Physician Diagnoses: History of Present Illness is a 40 year old male with h/o IVDA, hepatitis C, prolonged hospitalization here at [place] from 01/03/2016-02/24/2016 for septic pulmonary emboli and TV endocarditis and MRSA UTI and bacteremia s/p 6 weeks of antibiotic therapy along with development of bilateral pleural effusions s/p thoracentesis. During his prolonged hospitalization, patient developed ARF believed to be due to receiving Vancomycin and was thus switched to Teflaro and later transferred to [place] to complete his course of antibiotics. Patient was then seen at ED on 04/05/2015 brought in by police for acute hallucinations and was positive for cocaine, amphetamines and some other drugs. Patient was discharged after he sobered. Thereafter, patient represented to the ED at [facility] on 04/06/2016 with s/o sepsis and was treated for HCAP. His BCx on 04/06/2016 were negative. He was discharged on oral levaquin for 10 days but he did not fill this prescription and did not follow up with in community clinic. An ECHO done on 04/08/2016 and CXR with right side infiltrate. Patient was discharged home. No ID consult was called at that time. He presents to the ED with progressive shortness of breath x 1 week, cough starting to be productive yesterday, pleuritic chest pain, and fevers and chills. Initial workup for sepsis is ordered and patient is started on Zosyn IV and Vanco IV. ID is consulted for abnormal CT with findings suggestive of septic emboli which appear to be new and a right infiltrate. BCX negative so far but patient has been receiving antibiotics prior to arrival off and on. Review of Systems ROS Limitations: Poor Historian Constitutional: COMPLAINS OF: Diaphoretic episodes, Fever, Chills, Night Sweats , DENIES: Fatigue, Weight gain, Weight loss, Dizziness, Change in appetite Endocrine: DENIES: Heat/cold intolerance, Polydipsia, Polyuria, Polyphagia Eyes: DENIES: Blurred vision, Diplopia, Eye inflammation, Eye pain, Vision loss , Photosensitivity, Double Vision Ears, nose, mouth, throat: DENIES: Tinnitus, Hearing loss, Vertigo, Nasal discharge, Oral lesions, Throat pain, Hoarseness, Ear Pain, Running Nose, Epistaxis, Sinus Pain, Toothache, Odynophagia Respiratory: COMPLAINS OF: Cough, Shortness of breath, DENIES: Apneas, Snoring , Wheezing, Hemoptysis, Sputum production Cardiovascular: DENIES: Chest pain, Palpitations, Syncope, Dyspnea on Exertion , PND, Lower Extremity Edema, Orthopnea, Claudication Gastrointestinal: DENIES: Abdominal pain, Black stools, Bloody stools, Constipation, Diarrhea, Nausea, Vomiting, Difficulty Swallowing, Anorexia Genitourinary: DENIES: Sexual dysfunction, Urinary frequency, Urinary incontinence, Urgency, Hematuria, Dysuria, Nocturia, Penile Discharge, Testicular Pain, Testicular Swelling Musculoskeletal: DENIES: Joint pain, Muscle aches, Stiffness, Joint Swelling, Back pain, Neck pain Integumentary: DENIES: Abnormal pigmentation, Nail changes, Pruritus, Rash Hematologic/lymphatic: DENIES: Bruising, Lymphadenopathy Immunologic/allergic: DENIES: Eczema, Urticaria Neurologic: DENIES: Abnormal gait, Headache, Localized weakness, Paresthesias, Seizures, Speech Problems, Tremor, Poor Balance Psychiatric: DENIES: Anxiety, Confusion, Mood changes, Depression, Hallucinations, Agitation, Suicidal Ideation, Homicidal Ideation, Delusions Past Family Social History Allergies: Coded Allergies: *MDRO Multi-Drug Resistant Organism (Verified Adverse Reaction, Unknown, ) MRSA (urine-01/04/16) & (blood-01/06/16) Past Medical History Hepatitis C IVDA Septic pulmonary emboli MRSA UTI and bacteremia 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 with Teflaro Bilateral pleural effusions s/p thoracentesis Anxiety Depression Bipolar disorder PTSD Past Surgical History Right sided thoracentesis Left hand surgery Reported Medications Reported Meds & Active Scripts Active No Active Prescriptions or Reported Medications Active Ordered Medications Current Medications Medications (Trade) Dose Ordered Sig/[place] Route Start Time Stop Time Status Last Admin (Heparin Inj) 5,000 units UNSCH PRN IV 04/21/16 19:15 Heparin Sodium (Porcine) 2500 units 2,500 units UNSCH PRN IV 04/21/16 19:15 (Heparin-D5W Inj) 250 ml @ 0 mls/hr TITRATE IV 04/21/16 13:15 04/22/16 11:36 (Tylenol) 650 mg Q4H PRN PO 04/21/16 15:00 04/22/16 11:31 (Zofran Inj) 4 mg Q6H PRN IV 04/21/16 15:00 (NS Flush) 2 ml UNSCH PRN FLUSH 04/21/16 15:00 (NS Flush) 2 ml BID FLUSH 04/21/16 15:00 04/22/16 11:18 (Narcan Inj) 0.4 mg UNSCH PRN IV 04/21/16 15:00 (Ativan) 0.5 mg Q8H PRN PO 04/21/16 15:00 04/22/16 11:30 (Habitrol 14 Mg Patch.24 Hr) 1 patch DAILY TD 04/22/16 09:00 04/22/16 11:18 Miscellaneous Information 1 1 HS TD 04/21/16 21:00 04/21/16 21:00 Pharmacy Profile Note 0 ml @ 0 mls/hr UNSCH OTHER 04/21/16 15:30 Piperacillin Sod/ Tazobactam Sod 100 ml @ 200 mls/hr Q8H IV 04/21/16 23:00 04/22/16 15:39 (Vancomycin Inj/ NS 250 ml Inj) 262.5 ml @ 250 mls/hr Q12H IV 04/21/16 18:00 04/22/16 15:38 Miscellaneous Information SPECIFIC LAB TO BE DRAWN:VANCOMYCIN TROUGH DATE TO... ONCE ONCE XX 04/23/16 05:45 04/23/16 05:46 Family History reviewed and NC to current ID problems. Social History IVDA suspect ongoing drug abuse especially in view of recurrent infection. Was homeless, reports he now has an apt. 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 Denies alcohol. Physical Exam Vital Signs Vital Signs Date Time Temp Pulse Resp B/P Pulse Ox O2 Delivery O2 Flow Rate FiO2 04/22/16 17:54 21 04/22/16 16:00 97.7 76 16 121/80 97 04/22/16 12:00 98.7 88 16 129/82 98 04/22/16 10:20 98 21 04/22/16 08:00 98.1 84 16 124/85 98 04/22/16 04:00 99.0 74 20 127/79 98 04/22/16 01:00 98.9 04/22/16 00:00 101.3 111 21 117/66 95 04/21/16 20:00 99.4 103 21 138/85 99 Physical Exam GENERAL: This is a well-nourished, well-developed patient, in no apparent distress. SKIN: No rashes, ecchymoses or lesions. Cool and dry.Track nolen. HEAD: Atraumatic. Normocephalic. No temporal or scalp tenderness. EYES: Pupils equal round and reactive. Extraocular motions intact. No scleral icterus. No injection or drainage. ENT: Nose without bleeding, purulent drainage or septal hematoma. Throat without erythema, tonsillar hypertrophy or exudate. Uvula midline. Airway patent. NECK: Trachea midline. Supple, nontender, no meningeal signs. CARDIOVASCULAR: HS audible. RESPIRATORY: Breath sounds diminished on right side more than left. Bronchial breath sounds. GASTROINTESTINAL: Abdomen soft, non-tender, nondistended. MUSCULOSKELETAL: Extremities without clubbing, cyanosis, or edema. NEUROLOGICAL: Awake and alert. Grossly non focal Psych: cooperative IV line sites with no e/o infection. Laboratory Laboratory Tests Test 04/22/16 04/22/16 04/22/16 04/22/16 01:23 06:50 06:56 16:54 Activated Partial 37.8 39.0 38.5 Thromboplast Time Urine Color YELLOW Urine Turbidity CLEAR Urine pH 5.5 Urine Specific [place] 1.014 Urine Protein NEG Urine Glucose (UA) NEG Urine Ketones NEG Urine Occult Blood SMALL Urine Nitrite NEG Urine Bilirubin NEG Urine Urobilinogen LESS THAN 2.0 Urine Leukocyte Esterase NEG Urine RBC 7 Urine WBC 1 Urine Squamous Epithelial <1 Cells Microscopic Urinalysis Comment CULT NOT INDICATED Urine Opiates Screen NEG Urine Barbiturates Screen NEG Urine Amphetamines Screen NEG Urine Benzodiazepines Screen NEG Urine Cocaine Screen NEG Urine Cannabinoids Screen NEG White Blood Count 8.7 Red Blood Count 4.28 Hemoglobin 13.2 Hematocrit 39.6 Mean Corpuscular Volume 92.6 Mean Corpuscular Hemoglobin 31.0 Mean Corpuscular Hemoglobin 33.5 Concent Red Cell Distribution Width 16.1 Platelet Count 209 Mean Platelet Volume 8.5 Neutrophils (%) (Auto) 56.1 Lymphocytes (%) (Auto) 32.2 Monocytes (%) (Auto) 10.5 Eosinophils (%) (Auto) 0.6 Basophils (%) (Auto) 0.6 Neutrophils # (Auto) 4.9 Lymphocytes # (Auto) 2.8 Monocytes # (Auto) 0.9 Eosinophils # (Auto) 0.1 Basophils # (Auto) 0.1 CBC Comment DIFF FINAL Differential Comment Sodium Level 137 Potassium Level 4.3 Chloride Level 103 Carbon Dioxide Level 27.8 Anion Gap 6 Blood Urea Nitrogen 10 Creatinine 0.73 Estimat Glomerular Filtration 118 Rate Random Glucose 104 Lactic Acid Level 0.7 Calcium Level 9.3 Total Bilirubin 0.4 Aspartate Amino Transf 31 (AST/SGOT) Alanine Aminotransferase 25 (ALT/SGPT) Alkaline Phosphatase 53 Total Protein 7.5 Albumin 2.8 Date/Time Procedure Status Source Growth 04/22/16 06:50 Gram Stain - Final Resulted Sputum Expectorated Sputum 04/22/16 06:50 Sputum Culture Resulted Sputum Expectorated Sputum Pending 04/21/16 10:40 Aerobic Blood Culture - Preliminary Resulted Blood Peripheral NO GROWTH IN 1 DAY 04/21/16 10:40 Anaerobic Blood Culture - Preliminary Resulted Blood Peripheral NO GROWTH IN 1 DAY Result Diagram: 04/22/16 0656 04/22/16 [address] Angiography 04/21/16 1024 Signed Impressions: Service Date/Time: Thursday, April 21, 2016 11:53 - CONCLUSION: 1. There are abnormal filling defects within the right lower lobe lobar arterial branches and segmental arterial branches characteristic of PE. 2. There is also new right infrahilar/right lower lobe airspace consolidation and groundglass attenuation. A small right pleural effusion is also present. The appearance is nonspecific but could represent an infectious process or less likely neoplasm. It does not have a typical appearance for infarct. Suggest followup chest CT with IV contrast to confirm resolution of this finding following appropriate treatment. Ruel Dill MD Assessment and Plan Assessment and Plan Endocarditis of TV valve. Vegetation appears to have increased in size, globular and oscillating. This puts him at high risk for further embolization. 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 Treated for HCAP prior to this admission with IV and oral. This will affect blood culture results. IVDA Hepatitis C positive Recs Continue Zosyn IV Continue Vanco IV Patient was readmitted on Apr 05 2016 at [facility] for drug intoxication with positive drug screen for cocaine and amphetamines. High suspicion of ongoing or recurrent drug use after completion of initial treatment in Jan 2016. Patient denies IVDA but appears to have relapsed. Follow cultures Follow clinically Due to large gobular oscillating mass recommend CTS consult for evaluation for surgery. Repeat ECHO limited to follow up. Consult Cardiology to help compare images and provide input on surgery, anticoagulation etc. Yue Dickerson, Patient and RN. Lisa Recio MD Apr 22, 2016 18:07
[2016-04-22] MEDS: REMOVE OLD NICODERM (NICOTINE) PATCH TD SCH (21:00)
[2016-04-22] MEDS: RESP: ACETYLCYSTEINE 10% 30 ML NEB NEB SCH ×2 (21:27→21:31)
[2016-04-23] VITALS: BP 124/79; PULSE 90; RESP 16; TEMP 99.6; O2SAT 98
[2016-04-23 02:52] LABS: AUTOMATED NEUTROPHIL # 4.8 TH/MM3 (1.8-7.7); BASOPHIL # 0.1 TH/MM3 (0-0.2); BASOPHIL % 1.3 % (0.0-2.0); EOSINOPHIL # 0.1 TH/MM3 (0-0.4); EOSINOPHIL % 0.9 % (0.0-4.0); HEMATOCRIT 36.4 % (39.0-51.0); HEMO FLAGS DIFF FINAL; LYMPH % 31.1 % (9.0-44.0); LYMPHOCYTE # 2.5 TH/MM3 (1.0-4.8); MEAN CELL VOLUME 92.2 FL (80.0-100.0); MEAN CORPUSCULAR HGB CONC 33.6 % (32.0-36.0); MONO % 7.7 % (0.0-8.0); PLATELET COUNT 233 TH/MM3 (150-450); RED BLOOD COUNT 3.95 MIL/MM3 (4.50-5.90); RED CELL DISTRIBUTION WIDTH 15.8 % (11.6-17.2); WHITE BLOOD COUNT 8.1 TH/MM3 (4.0-11.0)
[2016-04-23 03:08] LABS: BICARBONATE 28.4 MEQ/L (21.0-32.0); POTASSIUM 3.4 MEQ/L (3.5-5.1)
[2016-04-23 03:09] LABS: APTT (PATIENT) 42.6 SEC (24.3-30.1)
[2016-04-23] MEDS: HEPARIN-D5W INJ 250 ML IV SCH (03:58)
[2016-04-23] MEDS: RESP: ACETYLCYSTEINE 10% 30 ML NEB NEB SCH (04:19)
[2016-04-23] MEDS ORDERED: PHARMACY ORDERED LAB XX ONE (05:45)
[2016-04-23] MEDS: PIPERACIL-TAZO 4.5 GM PREMIX 100 ML IV SCH ×3 (06:22→23:07)
[2016-04-23] MEDS: VANCOMYCIN INJ 1,250 MG in SODIUM CHLOR 0.9% 250 ML INJ 250 ML IV SCH (06:22)
[2016-04-23] MEDS ORDERED: RESP: ACETYLCYSTEINE 10% 30 ML NEB NEB PRN (07:15)
[2016-04-23 08:00] VITALS: BP 111/65; PULSE 78; RESP 16; TEMP 97.9; O2SAT 98
--- NOTE | 2016-04-23 08:45 | HHI.FPPN ---
Subjective Remarks No acute events overnight. VS unremarkable. Continues to endorse generalize pain and fatigue but no new complaints. Has tried nebulize to help with sputum production with some improvement, however the nebulizer does cause coughing which causes him chest pain. Objective Vitals Vital Signs Date Time Temp Pulse Resp B/P Pulse Ox O2 Delivery O2 Flow Rate FiO2 04/23/16 08:00 97.9 78 16 111/65 98 04/23/16 00:00 99.6 90 16 124/79 98 04/22/16 20:00 98.3 88 16 122/84 97 04/22/16 17:54 21 04/22/16 16:00 97.7 76 16 121/80 97 04/22/16 12:00 98.7 88 16 129/82 98 04/22/16 10:20 98 21 I/O 04/22/16 04/22/16 04/22/16 04/23/16 04/23/16 04/23/16 07:00 15:00 23:00 07:00 15:00 23:00 Intake Total 690 ml 360 ml 360 ml 373 ml Balance 690 ml 360 ml 360 ml 373 ml Intake Oral 270 ml 360 ml 240 ml 240 ml IV Total 420 ml 120 ml 133 ml # Voids 3 1 0 1 # Bowel Movements 0 0 0 0 Result Diagram: 04/23/1623804/23/16238 Objective Remarks GENERAL: No acute distress but does endorse severe pain when coughing CARDIOVASCULAR: Regular rate and rhythm. Unable to hear murmur identified on exam yesterday. RESPIRATORY: Good air movement bilaterally without crackles, wheezes, or rubs. MUSCULOSKELETAL: No edema, cyanosis, or clubbing. 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 Admitted for SOB that was due to septic emboli. Discharge Planning Unclear timetable. Patient will likely need a prolonged course of antibiotics. dw Dr. Holley and Dr. Recio Problem List: (1) Septic pulmonary embolism Status: Acute Plan: Afebrile and leukocytosis has resolved. HX of IV drug use with prior hx of endocarditis and care home treatment -Hepatitis C positive -blood cultures negative x1day -sputum culture: normal kendall Consulted ID: appreciate recommendations * Endocarditis of TV valve. Vegetation appears to have increased in size, globular and oscillating. This puts him at high risk for further embolization., will need to evaluated by cardiothoracic surgery * suspect blood cultures will be effected as pt was treated for HCAP prior to this admission * repeat echo with bubble study ordered. * continue vanc and zosyn * will need MRI of brain in 1-2days Imaging: * CT pulmonary angiography: Abnormal filling defects within the right lower lobe lobar arterial branches and segmental arterial branches characteristic of pulmonary emboli. New right infrahilar/right lower lobe airspace consolidation and groundglass attenuation. Small right pleural effusion. * CT abdomen/pelvis ordered: pending Medications * Heparin drip, titrate per protocol, consider novel agent for continued antithrombotic treatment * Zosyn 4.5 gm IV q8h (started 04/21) * Vancomycin 04/21 (2) Illicit drug use Status: Chronic Plan: UDS negative on admission but recent ED visit on 04/05/16 had a positive UDS of cocaine, amp, and opiates. (3) Nutrition, metabolism, and development symptoms Status: Acute Plan: Fluids: None Electrolytes: mild hyponatremia, replaced with 40 meq Nutrition: Heart Healthy DVT PPX: Heparin drip per protocol. SCDs GI PPX: not indicated Problem Qualifiers (1) Septic pulmonary embolism: Qualified Code: I26.90 - Acute septic pulmonary embolism without acute cor pulmonale Sultana Brooks MD R2 Apr 23, 2016 08:45 pulmonale Sultana Brooks MD R2 Apr 23, 2016 08:45 Problem Qualifiers (1) Septic pulmonary embolism: Qualified Code: I26.90 - Acute septic pulmonary embolism without acute cor pulmonale Sultana Brooks MD R2 Apr 23, 2016 08:45 Problem Qualifiers (1) Septic pulmonary embolism: Qualified Code: I26.90 - Acute septic pulmonary embolism without acute cor pulmonale Sultana Brooks MD R2 Apr 23, 2016 08:45
[2016-04-23] MEDS ORDERED: POTASSIUM CHLORIDE 10 MEQ CAP PO ONE (09:00)
[2016-04-23] MEDS ORDERED: NALOXONE HCL 0.4 MG/ML AMP IV PRN (09:00)
[2016-04-23] MEDS: NICOTINE 14 MG/24 HR PATCH TD SCH (10:15)
[2016-04-23] MEDS: LORazepam 0.5 MG TAB PO PRN ×2 (10:15→18:10)
[2016-04-23] MEDS: REMOVE OLD NICODERM (NICOTINE) PATCH TD SCH (10:15)
[2016-04-23 10:22] LABS: APTT (PATIENT) 44.8 SEC (24.3-30.1)
[2016-04-23] MEDS ORDERED: DIATRIZOATE MEGLUM/DIATRIZOATE SOD 9 ML CUP PO ONE (10:30)
[2016-04-23] MEDS: RESP: ALBUTEROL 2.5 MG/IPRATROPIUM 0.5 MG NEB (PRN) NEB ×2 (10:51→20:41)
[2016-04-23 10:53] VITALS: O2SAT 97
[2016-04-23] MEDS: ACETAMINOPHEN/HYDROcodone 325 MG/10 MG TAB PO PRN ×3 (11:10→20:22)
[2016-04-23 12:00] VITALS: BP 118/80; PULSE 110; RESP 16; TEMP 97.7; O2SAT 95
[2016-04-23] MEDS: SODIUM CHLORIDE 0.9% FLUSH 5 ML FLUSH FLUSH SCH ×2 (13:42→20:23)
[2016-04-23] MEDS ORDERED: IOHEXOL 350 MG/ML 10 ML VIAL (for RAD DIAG) IV ONE (15:57)
[2016-04-23 16:00] VITALS: BP 123/84; PULSE 90; RESP 17; TEMP 96.7; O2SAT 99
--- NOTE | 2016-04-23 16:20 | RADRPT ---
EXAM DATE/TIME: 04/23/2016 15:53 [facility] COMPARISON: CT THORAX W/O CONTRAST, January 31, 2016, 12:07. CT ABDOMEN & PELVIS W CONTRAST, January 11, 2016, 9:13. INDICATIONS : History of septic pulmonary embolism; evaluate for abscess. IV CONTRAST: 87 cc Omnipaque 350 (iohexol) IV ORAL CONTRAST: Prescribed oral contrast ingested. RADIATION DOSE: 7.11 CTDIvol (mGy) MEDICAL HISTORY : Cardiovascular disease. Hepatitis C. Septic pulmonary emboli. SURGICAL HISTORY : None. ENCOUNTER: Initial ACUITY: 3 days PAIN SCALE: 3/10 LOCATION: Abdomen/pelvis TECHNIQUE: Volumetric scanning of the abdomen and pelvis was performed. Using automated exposure control and ad justment of the mA and/or kV according to patient size, radiation dose was kept as low as reasonably achievable to obtain optimal diagnostic quality images. FINDINGS: LOWER LUNGS: There is persistent areas of consolidative process involving the nasal aspect of the right lower lobe . Persistent small dural effusion with focal area of rounded increased thickness concerning for an ar ea of loculation. This has substantially improved as compared to prior exam. No evidence of lung absc ess within the imaged portion of the exam. LIVER: Homogeneous density without lesion. There is no dilation of the biliary tree. No calcified gallston es. SPLEEN: Normal size without lesion. PANCREAS: Within normal limits. KIDNEYS: Normal in size and shape. No evidence of hydronephrosis. Stable small nonobstructing left-sided renal stone. ADRENAL GLANDS: Within normal limits. VASCULAR: There is no aortic aneurysm. BOWEL/MESENTERY: The stomach, small bowel, and colon demonstrate no acute abnormality. There is no free intraperitone al air or fluid. ABDOMINAL WALL: Within normal limits. RETROPERITONEUM: There is no lymphadenopathy. BLADDER: No wall thickening or mass. REPRODUCTIVE: Within normal limits. INGUINAL: There is no lymphadenopathy or hernia. MUSCULOSKELETAL: Within normal limits for patient age. CONCLUSION: 1. No evidence of abscess within the lung base, abdomen or pelvis. No evidence of inflammatory proces s within this region. 2. Persistent area of consolidation involving the basilar aspect of the right lower lobe. Given the p atient's prior history of emboli this could represent an area of lung infarct. Small right-sided pleu ral effusion with a contour bulge suggestive of area of loculation.. Yarelis David MD on April 23, 2016 at 16:14 Board Certified Radiologist. This report was verified electronically.
[2016-04-23] MEDS: VANCOMYCIN INJ 1,750 MG in SODIUM CHLORID 0.9% 500 ML INJ 500 ML IV SCH (16:45)
[2016-04-23 19:40] LABS: APTT (PATIENT) 38.6 SEC (24.3-30.1)
--- NOTE | 2016-04-23 19:46 | HHI.IDPN ---
Subjective Subjective Remarks is a 40 year old male with h/o IVDA, hepatitis C, prolonged hospitalization here at [facility] from 01/03/2016-02/24/2016 for septic pulmonary emboli and TV endocarditis and MRSA UTI and bacteremia s/p 6 weeks of antibiotic therapy along with development of bilateral pleural effusions s/p thoracentesis. Overnight events reviewed. No fevers No rash No diarrhea. Antibiotics Zosyn IV Vanco IV Lines Line sites with no e/o infection. Past Medical History reviewed Allergies: Coded Allergies: *MDRO Multi-Drug Resistant Organism (Verified Adverse Reaction, Unknown, ) MRSA (urine-01/04/16) & (blood-01/06/16) Objective . Vital Signs Date Time Temp Pulse Resp B/P Pulse Ox O2 Delivery O2 Flow Rate FiO2 04/23/16 16:00 96.7 90 17 123/84 99 04/23/16 12:00 97.7 110 16 118/80 95 04/23/16 10:53 97 21 04/23/16 08:00 97.9 78 16 111/65 98 04/23/16 00:00 99.6 90 16 124/79 98 04/22/16 20:00 98.3 88 16 122/84 97 04/22/16 04/22/16 04/23/16 15:00 23:00 07:00 Intake Total 360 ml 360 ml 373 ml Balance 360 ml 360 ml 373 ml Intake Oral 360 ml 240 ml 240 ml IV Total 120 ml 133 ml # Voids 1 0 1 # Bowel Movements 0 0 0 . Laboratory Tests Test 04/22/16 04/23/16 06:56 02:39 White Blood Count 8.7 TH/MM3 8.1 TH/MM3 Red Blood Count 4.28 MIL/MM3 3.95 MIL/MM3 Hemoglobin 13.2 GM/DL 12.2 GM/DL Hematocrit 39.6 % 36.4 % Mean Corpuscular Volume 92.6 FL 92.2 FL Mean Corpuscular Hemoglobin 31.0 PG 31.0 PG Mean Corpuscular Hemoglobin 33.5 % 33.6 % Concent Red Cell Distribution Width 16.1 % 15.8 % Platelet Count 209 TH/MM3 233 TH/MM3 Mean Platelet Volume 8.5 FL 8.3 FL Neutrophils (%) (Auto) 56.1 % 59.0 % Lymphocytes (%) (Auto) 32.2 % 31.1 % Monocytes (%) (Auto) 10.5 % 7.7 % Eosinophils (%) (Auto) 0.6 % 0.9 % Basophils (%) (Auto) 0.6 % 1.3 % Neutrophils # (Auto) 4.9 TH/MM3 4.8 TH/MM3 Lymphocytes # (Auto) 2.8 TH/MM3 2.5 TH/MM3 Monocytes # (Auto) 0.9 TH/MM3 0.6 TH/MM3 Eosinophils # (Auto) 0.1 TH/MM3 0.1 TH/MM3 Basophils # (Auto) 0.1 TH/MM3 0.1 TH/MM3 CBC Comment DIFF FINAL DIFF FINAL Differential Comment Laboratory Tests Test 04/22/16 04/23/16 06:56 02:39 Sodium Level 137 MEQ/L 138 MEQ/L Potassium Level 4.3 MEQ/L 3.4 MEQ/L Chloride Level 103 MEQ/L 103 MEQ/L Carbon Dioxide Level 27.8 MEQ/L 28.4 MEQ/L Anion Gap 6 MEQ/L 7 MEQ/L Blood Urea Nitrogen 10 MG/DL 8 MG/DL Creatinine 0.73 MG/DL 0.87 MG/DL Estimat Glomerular Filtration 118 ML/MIN 97 ML/MIN Rate Random Glucose 104 MG/DL 100 MG/DL Lactic Acid Level 0.7 mmol/L Calcium Level 9.3 MG/DL 9.0 MG/DL Total Bilirubin 0.4 MG/DL Aspartate Amino Transf 31 U/L (AST/SGOT) Alanine Aminotransferase 25 U/L (ALT/SGPT) Alkaline Phosphatase 53 U/L Total Protein 7.5 GM/DL Albumin 2.8 GM/DL Microbiology Date/Time Procedure Status Source Growth 04/21/16 10:10 Aerobic Blood Culture - Preliminary Resulted Blood Peripheral NO GROWTH IN 2 DAYS 04/21/16 10:10 Anaerobic Blood Culture - Preliminary Resulted Blood Peripheral NO GROWTH IN 2 DAYS 04/21/16 10:40 Aerobic Blood Culture - Preliminary Resulted Blood Peripheral NO GROWTH IN 2 DAYS 04/21/16 10:40 Anaerobic Blood Culture - Preliminary Resulted Blood Peripheral NO GROWTH IN 2 DAYS 04/22/16 06:50 Gram Stain - Final Resulted Sputum Expectorated Sputum 04/22/16 06:50 Sputum Culture - Preliminary Resulted Sputum Expectorated Sputum LIGHT GROWTH NORMAL RESPIRATORY [place]... Imaging Last Impressions Abdomen/Pelvis CT 04/23/16 0000 Signed Impressions: Service Date/Time: March 15:53 - CONCLUSION: 1. No evidence of abscess within the lung base, abdomen or pelvis. No evidence of inflammatory process within this region. 2. Persistent area of consolidation involving the basilar aspect of the right lower lobe. Given the patient's prior history of emboli this could represent an area of lung infarct. Small right-sided pleural effusion with a contour bulge suggestive of area of loculation.. Yarelis David MD CT Angiography 04/21/16 1024 Signed Impressions: Service Date/Time: Thursday, April 21, 2016 11:53 - CONCLUSION: 1. There are abnormal filling defects within the right lower lobe lobar arterial branches and segmental arterial branches characteristic of PE. 2. There is also new right infrahilar/right lower lobe airspace consolidation and groundglass attenuation. A small right pleural effusion is also present. The appearance is nonspecific but could represent an infectious process or less likely neoplasm. It does not have a typical appearance for infarct. Suggest followup chest CT with IV contrast to confirm resolution of this finding following appropriate treatment. Ruel Dill MD Physical Exam GENERAL: This is a well-nourished, well-developed patient, in no apparent distress. SKIN: No rashes, ecchymoses or lesions. Cool and dry.Track nolen. HEAD: Atraumatic. Normocephalic. No temporal or scalp tenderness. EYES: Pupils equal round and reactive. Extraocular motions intact. No scleral icterus. No injection or drainage. ENT: Nose without bleeding, purulent drainage or septal hematoma. Throat without erythema, tonsillar hypertrophy or exudate. Uvula midline. Airway patent. NECK: Trachea midline. Supple, nontender, no meningeal signs. CARDIOVASCULAR: HS audible. RESPIRATORY: Breath sounds diminished on right side more than left. Bronchial breath sounds. GASTROINTESTINAL: Abdomen soft, non-tender, nondistended. MUSCULOSKELETAL: Extremities without clubbing, cyanosis, or edema. NEUROLOGICAL: Awake and alert. Grossly non focal Psych: cooperative IV line sites with no e/o infection. Assessment & Plan Remarks Endocarditis of TV valve. Vegetation appears to have increased in size, globular and oscillating. This puts him at high risk for further embolization. 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 Treated for HCAP prior to this admission with IV and oral. This will affect blood culture results. IVDA Hepatitis C positive Recs Continue Zosyn IV Continue Vanco IV (target 15-20) Check CT A/P with contrast. 2D ECHO limited with bubble study. Will need 6 weeks IV irrespective of the blood culture results. Regimen to be determined. Patient was readmitted on Apr 05 2016 at [facility] for drug intoxication with positive drug screen for cocaine and amphetamines. High suspicion of ongoing or recurrent drug use after completion of initial treatment in Jan 2016. Patient denies IVDA but appears to have relapsed. Follow cultures Follow clinically s/b CTS: per pt he was told no surgery. Repeat ECHO limited to follow up. Consult Cardiology to help compare images and provide input on surgery, anticoagulation etc. Lisa Recio MD Apr 23, 2016 19:46
[2016-04-23 20:00] VITALS: BP 126/84; PULSE 91; RESP 20; TEMP 97.1; O2SAT 100
--- NOTE | 2016-04-23 21:03 | MB ---
cc: SANDRA JOSE MD DATE OF CONSULTATION 04/23/16 1974. HISTORY OF PRESENT ILLNESS A 40 year-old male, history of IV drug use, hepatitis C apparently had had prolonged hospitalization here AT [facility] from January 02 to February 23 for septic pulmonary emboli, tricuspid valve endocarditis and MRSA, UTI, bacteremia status post 6-week antibiotic therapy. He also developed pleural effusions, received a thoracentesis, also developed some acute renal failure given a possibility of antibiotics and was later transported to [facility] to complete his course of antibiotics. We were consulted due to recurrence of shortness of breath for the last week. He started having a cough, pleuritic chest pain, fevers and chills. Initial workup showed sepsis, started on IV antibiotics. The patient underwent CT angiography which showed a filling defect in the right lower lobar arterial branches characteristic of pulmonary emboli, probable septic, right infrahilar right lower lobe airspace consolidation and ground glass attenuation. However on his prior admission he had an echocardiogram on April 07, 2016 that showed an EF of 55-60%, mild MR, moderate tricuspid regurgitation. The tricuspid valve showed a large globular mobile mass 1 x 2.4 cm vegetation and/or thrombus on the tip of the tricuspid valve leaflet; the mass also oxylate between the right atrium and the right ventricle. We were consulted for tricuspid valve endocarditis. Per the patient, he has been living in a drug-free housing. He states he has not done any IV drugs or drugs in the last five years, however, after evaluating his toxicology screens, his tox screen at this admission was negative. However, he had a positive drug screen just recently positive for cocaine in April 07, 2016 admission. March 06, 2016, he had opiates, amphetamines and cocaine in his system. This does not coincide with what he is saying that he has not taken any drugs for the last five years. PAST MEDICAL HISTORY 1. Hepatitis C 2. IV drug use 3. Septic pulmonary emboli. 4. MRSA UTI bacteremia 5. 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 Bilateral pleural effusion with status post thoracentesis 7. Anxiety, depression, bipolar disorder, PTSD PAST SURGICAL HISTORY 1. Right-sided thoracentesis 2. Left hand surgery. ALLERGIES The patient has no known allergies. MEDICATIONS No active prescriptions on admission. CURRENT 1. Vancomycin. 2. Zosyn. 3. Heparin drip SOCIAL HISTORY IV drug use suspect ongoing, especially in view of the recurrent infection. He adamantly denies that he has done any IV drugs in five years and no other drugs that have been in his system, however, his toxicology screens in his admission in February and first march show otherwise is positive for drug use. ASSESSMENT AND PLAN At this time the patient has ongoing drug use. Also needs evaluation for perhaps some teeth extraction. The patient would need to be clean from any drugs for greater than six months before being evaluated for any type of surgery and he obviously has ongoing continued drug use. Would continue this course of antibiotic therapy at this time. No surgical intervention at this time. Dictated by GAEL Jiménez Sandra MENESES /2:30 PM /12:31 PM
[2016-04-24] VITALS: BP 114/73; PULSE 97; RESP 20; TEMP 96.5; O2SAT 98
[2016-04-24] MEDS: ACETAMINOPHEN/HYDROcodone 325 MG/10 MG TAB PO PRN ×5 (01:13→22:00)
[2016-04-24 01:31] LABS: APTT (PATIENT) 43.6 SEC (24.3-30.1)
[2016-04-24] MEDS: LORazepam 0.5 MG TAB PO PRN ×3 (02:18→20:24)
[2016-04-24] MEDS: PIPERACIL-TAZO 4.5 GM PREMIX 100 ML IV SCH ×2 (05:22→14:30)
[2016-04-24] MEDS: VANCOMYCIN INJ 1,750 MG in SODIUM CHLORID 0.9% 500 ML INJ 500 ML IV SCH ×2 (06:29→17:52)
[2016-04-24 06:55] LABS: AUTOMATED NEUTROPHIL # 3.6 TH/MM3 (1.8-7.7); BASOPHIL % 0.5 % (0.0-2.0); EOSINOPHIL # 0.1 TH/MM3 (0-0.4); EOSINOPHIL % 1.7 % (0.0-4.0); HEMATOCRIT 31.3 % (39.0-51.0); HEMO FLAGS DIFF FINAL; LYMPH % 35.3 % (9.0-44.0); LYMPHOCYTE # 2.3 TH/MM3 (1.0-4.8); MEAN CELL VOLUME 90.9 FL (80.0-100.0); MEAN CORPUSCULAR HEMOGLOBIN 31.5 PG (27.0-34.0); MEAN CORPUSCULAR HGB CONC 34.7 % (32.0-36.0); MONO % 7.5 % (0.0-8.0); PLATELET COUNT 229 TH/MM3 (150-450); RED BLOOD COUNT 3.44 MIL/MM3 (4.50-5.90); RED CELL DISTRIBUTION WIDTH 15.7 % (11.6-17.2); WHITE BLOOD COUNT 6.6 TH/MM3 (4.0-11.0)
[2016-04-24 06:58] LABS: APTT (PATIENT) 45.9 SEC (24.3-30.1)
[2016-04-24 07:12] LABS: BICARBONATE 28.2 MEQ/L (21.0-32.0); POTASSIUM 3.7 MEQ/L (3.5-5.1)
[2016-04-24 08:00] VITALS: BP 142/98; PULSE 91; RESP 18; TEMP 97.9; O2SAT 97
[2016-04-24] MEDS: NICOTINE 14 MG/24 HR PATCH TD SCH (08:12)
[2016-04-24] MEDS: SODIUM CHLORIDE 0.9% FLUSH 5 ML FLUSH FLUSH SCH ×2 (08:13→20:24)
[2016-04-24] MEDS: HEPARIN-D5W INJ 250 ML IV SCH ×2 (09:40→22:40)
--- NOTE | 2016-04-24 10:36 | HHI.FPPN ---
Subjective Remarks No acute events overnight. Afebrile, vitals are stable. Appears comfortable this morning. States he is feeling better. States it is easier for him to take deeper breaths and his pleuritic chest pain is improving. States he feels less chest congestion. Denies any fevers or chills. Denies pain elsewhere. Cough is also improving. (Scot Marcos MD R1) Objective Vitals Vital Signs Date Time Temp Pulse Resp B/P Pulse Ox O2 Delivery O2 Flow Rate FiO2 04/24/16 08:00 97.9 91 18 142/98 97 04/24/16 06:33 18 04/24/16 00:00 96.5 97 20 114/73 98 04/23/16 20:00 97.1 91 20 126/84 100 04/23/16 16:00 96.7 90 17 123/84 99 04/23/16 12:00 97.7 110 16 118/80 95 04/23/16 10:53 97 21 I/O 04/23/16 04/23/16 04/23/16 04/24/16 04/24/16 04/24/16 07:00 15:00 23:00 07:00 15:00 23:00 Intake Total 373 ml 960 ml 1291 ml 1306 ml Balance 373 ml 960 ml 1291 ml 1306 ml Intake Oral 240 ml 960 ml 480 ml 480 ml IV Total 133 ml 811 ml 826 ml # Voids 1 3 1 2 # Bowel Movements 0 0 0 0 (Scot Marcos MD R1) Result Diagram: 04/24/16 0607 04/24/16 0607 Objective Remarks GENERAL: NAD CARDIOVASCULAR: Regular rate and rhythm. Unable to hear murmur identified on exam yesterday. RESPIRATORY: Improved air movement bilaterally without crackles, wheezes, or rubs. MUSCULOSKELETAL: No edema, cyanosis, or clubbing. 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 Admitted for SOB that was due to septic emboli. Discharge Planning Unclear timetable. Patient will likely need a prolonged course of antibiotics. sdw Dr. Holley (Scot Marcos MD R1) Assessment and Plan Attending note: Patient seen and examined. Case reviewed and discussed with resident team. Agree with plan of care as discussed with physician and documented in the resident note. (Flo Holley MD) Problem List: (1) Septic pulmonary embolism Status: Acute Plan: Afebrile. Leukocytosis has resolved. HX of IV drug use with prior hx of endocarditis and intermediate frame tender treatment -Hepatitis C positive -blood cultures negative x 2 days -sputum culture: normal respiratory kendall Consulted ID: appreciate recommendations * Endocarditis of TV valve. Vegetation appears to have increased in size, globular and oscillating. This puts him at high risk for further embolization * Evaluated by CTS, not a surgical candidate at this time. Will need to be abstinent for at least 6 months before consideration for surgical intervention * suspect blood cultures will be effected as pt was treated for HCAP prior to this admission * repeat echo with bubble study performed * continue vanc and zosyn * will need MRI of brain in 1-2days Imaging: * CT pulmonary angiography 04/21: Abnormal filling defects within the right lower lobe lobar arterial branches and segmental arterial branches characteristic of pulmonary emboli. New right infrahilar/right lower lobe airspace consolidation and groundglass attenuation. Small right pleural effusion. * CT abdomen/pelvis 04/23: No evidence for abscess within the lung base, abdomen , or pelvis. Persistent area of consolidation involving the basilar aspect of the right lower lobe. Small right-sided pleural effusion with a contour bulge suggestive of area of loculation Medications * Heparin drip, titrate per protocol, consider novel agent for continued antithrombotic treatment * Zosyn 4.5 gm IV q8h (started 04/21) * Vancomycin 04/21 (2) Illicit drug use Status: Chronic Plan: UDS negative on admission but recent ED visit on 04/05/16 had a positive UDS of cocaine, amp, and opiates. (3) Nutrition, metabolism, and development symptoms Status: Acute Plan: Fluids: None Electrolytes: WNLs Nutrition: Regular DVT PPX: Heparin drip per protocol. SCDs GI PPX: not indicated (Scot Marcos MD R1) Problem Qualifiers (1) Septic pulmonary embolism: Qualified Code: I26.90 - Acute septic pulmonary embolism without acute cor pulmonale Scot Marcos MD R1 Apr 24, 2016 10:36 Flo Holley MD Apr 24, 2016 18:08
--- NOTE | 2016-04-24 10:37 | ECHLIM ---
Study Study Date:04/23/2016 STUDY CONCLUSIONS SUMMARY - Left ventricle: The cavity size was normal. Wall thickness was normal. Systolic function was normal. The estimated ejection fraction was in the range of 60% to 65%. Wall motion was normal; there were no regional wall motion abnormalities. - Mitral valve: Mild regurgitation. - Atrial septum: A patent foramen ovale cannot be excluded. There was no atrial level shunt was noted on suboptimal imaging with agitated saline contrast administration. - Tricuspid valve: Structurally normal valve. Cannot exclude vegetation. Mild regurgitation. Recommendations: Transesophageal echocardiography may be considered for evaluation of intracardiac shunting and/or rule out vegetation. Clinical correlation recommended. If LV function is below 40, please consider prescribing an ACEI or ARB or document rationale for non-use. PROCEDURE DATA STUDY STATUS: Elective. Procedure: Transthoracic echocardiography. Image quality was suboptimal. The study was technically limited due to poor acoustic window availability. Scanning was performed from the parasternal, apical, and subcostal acoustic windows. Intravenous contrast (agitated saline) was administered. Study completion: The patient tolerated the procedure well. Transthoracic echocardiography. M-mode, complete 2D, complete spectral Doppler, and color Doppler. Patient status: Inpatient. CARDIAC ANATOMY LEFT VENTRICLE: The cavity size was normal. Wall thickness was normal. Systolic function was normal. The estimated ejection fraction was in the range of 60% to 65%. Wall motion was normal; there were no regional wall motion abnormalities. AORTIC VALVE: Trileaflet; normal thickness leaflets. Doppler: Transvalvular velocity was within the normal range. There was no stenosis. No regurgitation. AORTA: Aortic root: The aortic root was normal in size. MITRAL VALVE: Structurally normal valve. Doppler: Transvalvular velocity was within the normal range. There was no evidence for stenosis. Mild regurgitation. LEFT ATRIUM: The atrium was normal in size. ATRIAL SEPTUM: A patent foramen ovale cannot be excluded. There was no atrial level shunt was noted on suboptimal imaging with agitated saline contrast administration. RIGHT VENTRICLE: The cavity size was normal. Wall thickness was normal. PULMONIC VALVE: Doppler: Transvalvular velocity was within the normal range. There was no evidence for stenosis. No regurgitation. TRICUSPID VALVE: Not well visualized. Structurally normal valve. Cannot exclude vegetation. Doppler: Transvalvular velocity was within the normal range. Mild regurgitation. PULMONARY ARTERY: The main pulmonary artery was normal-sized. Systolic pressure was within the normal range. RIGHT ATRIUM: The atrium was normal in size. PERICARDIUM: There was no pericardial effusion. SYSTEMIC VEINS: Inferior vena cava: The vessel was normal in size. Kishore Abreu [id number]
[2016-04-24 12:00] VITALS: BP 131/83; PULSE 82; RESP 18; TEMP 98.7; O2SAT 99
[2016-04-24 12:04] LABS: APTT (PATIENT) 48.4 SEC (24.3-30.1)
[2016-04-24] MEDS: RESP: ALBUTEROL 2.5 MG/IPRATROPIUM 0.5 MG NEB (PRN) NEB (12:46)
--- NOTE | 2016-04-24 16:13 | HHI.IDPN ---
Subjective Subjective Remarks is a 40 year old male with h/o IVDA, hepatitis C, prolonged hospitalization here at [facility] from 01/03/2016-02/24/2016 for septic pulmonary emboli and TV endocarditis and MRSA UTI and bacteremia s/p 6 weeks of antibiotic therapy along with development of bilateral pleural effusions s/p thoracentesis. Overnight events reviewed. No fevers No rash No diarrhea. Antibiotics Zosyn IV Vanco IV Lines Line sites with no e/o infection. Past Medical History reviewed Allergies: Coded Allergies: *MDRO Multi-Drug Resistant Organism (Verified Adverse Reaction, Unknown, ) MRSA (urine-01/04/16) & (blood-01/06/16) Objective . Vital Signs Date Time Temp Pulse Resp B/P Pulse Ox O2 Delivery O2 Flow Rate FiO2 04/24/16 12:00 98.7 82 18 131/83 99 04/24/16 08:00 97.9 91 18 142/98 97 04/24/16 06:33 18 04/24/16 00:00 96.5 97 20 114/73 98 04/23/16 20:00 97.1 91 20 126/84 100 04/23/16 04/23/16 04/24/16 15:00 23:00 07:00 Intake Total 960 ml 1291 ml 1306 ml Balance 960 ml 1291 ml 1306 ml Intake Oral 960 ml 480 ml 480 ml IV Total 811 ml 826 ml # Voids 3 1 2 # Bowel Movements 0 0 0 . Laboratory Tests Test 04/23/16 04/24/16 02:39 06:07 White Blood Count 8.1 TH/MM3 6.6 TH/MM3 Red Blood Count 3.95 MIL/MM3 3.44 MIL/MM3 Hemoglobin 12.2 GM/DL 10.8 GM/DL Hematocrit 36.4 % 31.3 % Mean Corpuscular Volume 92.2 FL 90.9 FL Mean Corpuscular Hemoglobin 31.0 PG 31.5 PG Mean Corpuscular Hemoglobin 33.6 % 34.7 % Concent Red Cell Distribution Width 15.8 % 15.7 % Platelet Count 233 TH/MM3 229 TH/MM3 Mean Platelet Volume 8.3 FL 8.3 FL Neutrophils (%) (Auto) 59.0 % 55.0 % Lymphocytes (%) (Auto) 31.1 % 35.3 % Monocytes (%) (Auto) 7.7 % 7.5 % Eosinophils (%) (Auto) 0.9 % 1.7 % Basophils (%) (Auto) 1.3 % 0.5 % Neutrophils # (Auto) 4.8 TH/MM3 3.6 TH/MM3 Lymphocytes # (Auto) 2.5 TH/MM3 2.3 TH/MM3 Monocytes # (Auto) 0.6 TH/MM3 0.5 TH/MM3 Eosinophils # (Auto) 0.1 TH/MM3 0.1 TH/MM3 Basophils # (Auto) 0.1 TH/MM3 0.0 TH/MM3 CBC Comment DIFF FINAL DIFF FINAL Differential Comment Laboratory Tests Test 04/23/16 04/24/16 02:39 06:07 Sodium Level 138 MEQ/L 140 MEQ/L Potassium Level 3.4 MEQ/L 3.7 MEQ/L Chloride Level 103 MEQ/L 104 MEQ/L Carbon Dioxide Level 28.4 MEQ/L 28.2 MEQ/L Anion Gap 7 MEQ/L 8 MEQ/L Blood Urea Nitrogen 8 MG/DL 9 MG/DL Creatinine 0.87 MG/DL 0.82 MG/DL Estimat Glomerular Filtration 97 ML/MIN 104 ML/MIN Rate Random Glucose 100 MG/DL 88 MG/DL Calcium Level 9.0 MG/DL 8.5 MG/DL Microbiology Date/Time Procedure Status Source Growth 04/22/16 06:50 Gram Stain - Final Complete Sputum Expectorated Sputum 04/22/16 06:50 Sputum Culture - Final Complete Sputum Expectorated Sputum LIGHT GROWTH NORMAL RESPIRATORY [place] Imaging Last Impressions Abdomen/Pelvis CT 04/23/16 0000 Signed Impressions: Service Date/Time: March 15:53 - CONCLUSION: 1. No evidence of abscess within the lung base, abdomen or pelvis. No evidence of inflammatory process within this region. 2. Persistent area of consolidation involving the basilar aspect of the right lower lobe. Given the patient's prior history of emboli this could represent an area of lung infarct. Small right-sided pleural effusion with a contour bulge suggestive of area of loculation.. Yarelis David MD CT Angiography 04/21/16 1024 Signed Impressions: Service Date/Time: Thursday, April 21, 2016 11:53 - CONCLUSION: 1. There are abnormal filling defects within the right lower lobe lobar arterial branches and segmental arterial branches characteristic of PE. 2. There is also new right infrahilar/right lower lobe airspace consolidation and groundglass attenuation. A small right pleural effusion is also present. The appearance is nonspecific but could represent an infectious process or less likely neoplasm. It does not have a typical appearance for infarct. Suggest followup chest CT with IV contrast to confirm resolution of this finding following appropriate treatment. Ruel Dill MD Physical Exam GENERAL: This is a well-nourished, well-developed patient, in no apparent distress. SKIN: No rashes, ecchymoses or lesions. Cool and dry.Track nolen. HEAD: Atraumatic. Normocephalic. No temporal or scalp tenderness. EYES: Pupils equal round and reactive. Extraocular motions intact. No scleral icterus. No injection or drainage. ENT: Nose without bleeding, purulent drainage or septal hematoma. Throat without erythema, tonsillar hypertrophy or exudate. Uvula midline. Airway patent. NECK: Trachea midline. Supple, nontender, no meningeal signs. CARDIOVASCULAR: HS audible. RESPIRATORY: Breath sounds diminished on right side more than left. Bronchial breath sounds. GASTROINTESTINAL: Abdomen soft, non-tender, nondistended. MUSCULOSKELETAL: Extremities without clubbing, cyanosis, or edema. NEUROLOGICAL: Awake and alert. Grossly non focal Psych: cooperative IV line sites with no e/o infection. Assessment & Plan Remarks Endocarditis of TV valve. Vegetation appears to have increased in size, globular and oscillating. This puts him at high risk for further embolization. 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 Treated for HCAP prior to this admission with IV and oral. This will affect blood culture results. IVDA Hepatitis C positive Recs DC Zosyn IV Continue Vanco IV (target 15-20) Reviewed CT A/P no abscesses. 2D ECHO limited negative for bubble study and ? vegetation but no mention of large oscillating mass. Will review with Cardiology all the ECHOs to date. It is certainly possible he already threw the vegetation into the lungs as septic emboli. Will need 6 weeks IV irrespective of the blood culture results. Regimen to be determined. Patient was readmitted on Apr 05 2016 at [facility] for drug intoxication with positive drug screen for cocaine and amphetamines. High suspicion of ongoing or recurrent drug use after completion of initial treatment in Jan 2016. Patient denies IVDA but appears to have relapsed. Follow cultures Follow clinically Appreciate CTS recs Lisa Recio MD Apr 24, 2016 16:13
[2016-04-24 20:00] VITALS: BP 128/90; PULSE 86; RESP 18; TEMP 97; O2SAT 100
[2016-04-24] MEDS: REMOVE OLD NICODERM (NICOTINE) PATCH TD SCH (20:26)
[2016-04-25] VITALS: BP 150/94; PULSE 85; RESP 18; TEMP 98.9; O2SAT 98
[2016-04-25] MEDS: ACETAMINOPHEN/HYDROcodone 325 MG/10 MG TAB PO PRN ×6 (02:12→23:29)
[2016-04-25] MEDS: RESP: ALBUTEROL 2.5 MG/IPRATROPIUM 0.5 MG NEB (PRN) NEB (05:18)
[2016-04-25] MEDS: LORazepam 0.5 MG TAB PO PRN ×3 (05:18→21:37)
[2016-04-25 05:37] LABS: APTT (PATIENT) 45.2 SEC (24.3-30.1)
[2016-04-25 05:41] LABS: BICARBONATE 27.9 MEQ/L (21.0-32.0); POTASSIUM 3.8 MEQ/L (3.5-5.1)
[2016-04-25] MEDS ORDERED: PHARMACY ORDERED LAB XX ONE (05:45)
[2016-04-25] MEDS: VANCOMYCIN INJ 1,750 MG in SODIUM CHLORID 0.9% 500 ML INJ 500 ML IV SCH ×2 (06:18→17:53)
[2016-04-25 06:48] LABS: AUTOMATED NEUTROPHIL # 3.5 TH/MM3 (1.8-7.7); BASOPHIL % 0.3 % (0.0-2.0); EOSINOPHIL # 0.2 TH/MM3 (0-0.4); EOSINOPHIL % 2.5 % (0.0-4.0); HEMATOCRIT 33.4 % (39.0-51.0); HEMO FLAGS DIFF FINAL; LYMPH % 36.8 % (9.0-44.0); LYMPHOCYTE # 2.5 TH/MM3 (1.0-4.8); MEAN CORPUSCULAR HGB CONC 33.7 % (32.0-36.0); MONO % 7.8 % (0.0-8.0); NEUT % 52.6 % (16.0-70.0); PLATELET COUNT 260 TH/MM3 (150-450); RED BLOOD COUNT 3.63 MIL/MM3 (4.50-5.90); RED CELL DISTRIBUTION WIDTH 15.9 % (11.6-17.2); WHITE BLOOD COUNT 6.7 TH/MM3 (4.0-11.0)
[2016-04-25 08:00] VITALS: BP 136/93; PULSE 79; RESP 19; TEMP 99; O2SAT 99
[2016-04-25] MEDS: SODIUM CHLORIDE 0.9% FLUSH 5 ML FLUSH FLUSH SCH ×2 (08:13→19:40)
[2016-04-25] MEDS: NICOTINE 14 MG/24 HR PATCH TD SCH (08:13)
--- NOTE | 2016-04-25 09:07 | HHI.FPPN ---
Subjective Remarks No events overnight. Afebrile, vital signs are within normal limits. States he is feeling much better overall. He does not have any complaints. Breathing and cough have both improved. (Scot Marcos MD R1) Objective Vitals Vital Signs Date Time Temp Pulse Resp B/P Pulse Ox O2 Delivery O2 Flow Rate FiO2 04/25/16 08:00 99.0 79 19 136/93 99 04/25/16 03:16 18 04/25/16 00:00 98.9 85 18 150/94 98 04/24/16 20:00 97.0 86 18 128/90 100 04/24/16 12:00 98.7 82 18 131/83 99 I/O 04/24/16 04/24/16 04/24/16 04/25/16 04/25/16 04/25/16 07:00 15:00 23:00 07:00 15:00 23:00 Intake Total 1306 ml 1440 ml 1220 ml 414 ml 120 ml Output Total 400 ml Balance 1306 ml 1440 ml 1220 ml 14 ml 120 ml Intake Oral 480 ml 1440 ml 480 ml 240 ml 120 ml IV Total 826 ml 740 ml 174 ml Output Urine Total 400 ml # Voids 2 3 2 # Bowel Movements 0 0 0 0 (Scot Marcos MD R1) Result Diagram: 04/25/1640804/25/16408 Objective Remarks GENERAL: NAD CARDIOVASCULAR: Regular rate and rhythm. Unable to hear murmur identified on previous exam. RESPIRATORY: Improved air movement bilaterally without crackles, wheezes, or rubs. MUSCULOSKELETAL: No edema, cyanosis, or clubbing. 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 Admitted for SOB that was due to septic emboli. Discharge Planning Patient will need a 6 week course of IV antibiotics per ID irrespective of blood culture results. sdw Dr. Brooks (Scot Marcos MD R1) Attending Attestation Pt. examined and case discussed with resident physicians I have read the above note and agree with the assessment/plan as discussed with me I was involved in all medical decision making for this patient. Jose David Kinsey MD (Jose David Kinsey MD) Problem List: (1) Septic pulmonary embolism Status: Acute Plan: Afebrile. Leukocytosis resolved. HX of IV drug use with prior hx of endocarditis and supervisor intermediates treatment -Hepatitis C positive -blood cultures negative x 3 days -sputum culture: normal respiratory kendall Consulted ID: appreciate recommendations * Endocarditis of TV valve. Vegetation appears to have increased in size, globular and oscillating. This puts him at high risk for further embolization * Evaluated by CTS, not a surgical candidate at this time. Will need to be abstinent for at least 6 months before consideration for surgical intervention * suspect blood cultures will be affected as pt was treated for HCAP prior to this admission * repeat echo with bubble study performed, bubble study negative. * Continue vancomycin * Zosyn discontinued Imaging: * CT pulmonary angiography 04/21: Abnormal filling defects within the right lower lobe lobar arterial branches and segmental arterial branches characteristic of pulmonary emboli. New right infrahilar/right lower lobe airspace consolidation and groundglass attenuation. Small right pleural effusion. * CT abdomen/pelvis 04/23: No evidence for abscess within the lung base, abdomen , or pelvis. Persistent area of consolidation involving the basilar aspect of the right lower lobe. Small right-sided pleural effusion with a contour bulge suggestive of area of loculation Medications * Heparin drip, titrate per protocol, consider novel agent for continued antithrombotic treatment * Vancomycin 04/21 * Discontinued Zosyn 4.5 gm IV q8h (started 04/21-04/24) (2) Illicit drug use Status: Chronic Plan: UDS negative on admission but recent ED visit on 04/05/16 had a positive UDS of cocaine, amp, and opiates. (3) Nutrition, metabolism, and development symptoms Status: Acute Plan: Fluids: None Electrolytes: WNLs Nutrition: Regular DVT PPX: Heparin drip per protocol. SCDs GI PPX: not indicated (Scot Marcos MD R1) Problem Qualifiers (1) Septic pulmonary embolism: Qualified Code: I26.90 - Acute septic pulmonary embolism without acute cor pulmonale Scot Marcos MD R1 Apr 25, 2016 09:07 Jose David Kinsey MD Apr 25, 2016 12:29
[2016-04-25] MEDS ORDERED: NYSTAT/DIPHENHY/LIDO MOUTHWASH (Adult) 120ML SWISH-SWAL PRN (11:15)
[2016-04-25 11:27] VITALS: BP 147/92; PULSE 82; RESP 18; TEMP 97.8; O2SAT 99
[2016-04-25] MEDS: HEPARIN-D5W INJ 250 ML IV SCH (13:44)
[2016-04-25 16:00] VITALS: BP 130/93; PULSE 80; RESP 19; TEMP 98; O2SAT 100
[2016-04-25] MEDS: REMOVE OLD NICODERM (NICOTINE) PATCH TD SCH (19:40)
[2016-04-25 20:00] VITALS: BP 156/96; PULSE 88; RESP 20; TEMP 98.8; O2SAT 96
[2016-04-26] VITALS: BP 130/92; PULSE 78; RESP 20; TEMP 96.5; O2SAT 96
[2016-04-26] MEDS: VANCOMYCIN INJ 1,750 MG in SODIUM CHLORID 0.9% 500 ML INJ 500 ML IV SCH ×2 (04:43→17:45)
[2016-04-26] MEDS: HEPARIN-D5W INJ 250 ML IV SCH ×2 (04:47→18:38)
[2016-04-26 05:24] LABS: APTT (PATIENT) 45.1 SEC (24.3-30.1)
[2016-04-26 05:36] LABS: BICARBONATE 27.6 MEQ/L (21.0-32.0); POTASSIUM 4.1 MEQ/L (3.5-5.1)
[2016-04-26 07:53] VITALS: BP 109/70; PULSE 96; RESP 19; TEMP 99; O2SAT 96
[2016-04-26] MEDS: SODIUM CHLORIDE 0.9% FLUSH 5 ML FLUSH FLUSH SCH ×2 (07:53→20:05)
[2016-04-26] MEDS: NICOTINE 14 MG/24 HR PATCH TD SCH (07:53)
[2016-04-26 11:41] VITALS: BP 116/74; PULSE 88; RESP 20; TEMP 98.7; O2SAT 96
[2016-04-26] MEDS: ACETAMINOPHEN/HYDROcodone 325 MG/10 MG TAB PO PRN ×3 (11:51→20:36)
[2016-04-26] MEDS: LORazepam 0.5 MG TAB PO PRN ×2 (13:42→21:48)
--- NOTE | 2016-04-26 13:43 | HHI.FPPN ---
Subjective Remarks Patient seen and examined this morning. He was resting comfortably. There were no overnight events. His vitals are stable and he is afebrile. States he feels short of breath when he wakes up until he has a breathing treatment. Objective Vitals Vital Signs Date Time Temp Pulse Resp B/P Pulse Ox O2 Delivery O2 Flow Rate FiO2 04/26/16 11:41 98.7 88 20 116/74 96 04/26/16 07:53 99.0 96 19 109/70 96 04/26/16 00:00 96.5 78 20 130/92 96 04/25/16 20:00 98.8 88 20 156/96 96 04/25/16 16:00 98.0 80 19 130/93 100 04/25/16 16:00 98.0 80 19 130/93 100 I/O 04/25/16 04/25/16 04/25/16 04/26/16 04/26/16 04/26/16 07:00 15:00 23:00 07:00 15:00 23:00 Intake Total 414 ml 2351 ml 395 ml 505 ml 120 ml Output Total 400 ml 1200 ml 1000 ml Balance 14 ml 1151 ml 395 ml -495 ml 120 ml Intake Oral 240 ml 1720 ml 240 ml 240 ml 120 ml IV Total 174 ml 631 ml 155 ml 265 ml Output Urine Total 400 ml 1200 ml 1000 ml # Voids 2 1 # Bowel Movements 0 0 0 0 Result Diagram: 04/25/16 0409 04/26/16 0421 Imaging Last Impressions Abdomen/Pelvis CT 04/23/16 0000 Signed Impressions: Service Date/Time: March 15:53 - CONCLUSION: 1. No evidence of abscess within the lung base, abdomen or pelvis. No evidence of inflammatory process within this region. 2. Persistent area of consolidation involving the basilar aspect of the right lower lobe. Given the patient's prior history of emboli this could represent an area of lung infarct. Small right-sided pleural effusion with a contour bulge suggestive of area of loculation.. Yarelis David MD CT Angiography 04/21/16 1024 Signed Impressions: Service Date/Time: Thursday, April 21, 2016 11:53 - CONCLUSION: 1. There are abnormal filling defects within the right lower lobe lobar arterial branches and segmental arterial branches characteristic of PE. 2. There is also new right infrahilar/right lower lobe airspace consolidation and groundglass attenuation. A small right pleural effusion is also present. The appearance is nonspecific but could represent an infectious process or less likely neoplasm. It does not have a typical appearance for infarct. Suggest followup chest CT with IV contrast to confirm resolution of this finding following appropriate treatment. Ruel Dill MD Objective Remarks GENERAL: NAD, sleeping comfortably easily awakened CARDIOVASCULAR: Regular rate and rhythm. Unable to hear murmur identified on previous exam. RESPIRATORY: Improved air movement bilaterally without crackles, wheezes, or rubs. MUSCULOSKELETAL: No edema, cyanosis, or clubbing. 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 Admitted for SOB that was due to septic emboli. Discharge Planning Patient will need a 6 week course of IV antibiotics per ID irrespective of blood culture results. sdw Dr. Marcos Problem List: (1) Septic pulmonary embolism Status: Acute Plan: Afebrile. Leukocytosis resolved. HX of IV drug use with prior hx of endocarditis and fci treatment -Hepatitis C positive -blood cultures negative x 5 days -sputum culture: normal respiratory kendall Consulted ID: appreciate recommendations * Endocarditis of TV valve. Vegetation appears to have increased in size, globular and oscillating. This puts him at high risk for further embolization * Evaluated by CTS, not a surgical candidate at this time. Will need to be abstinent for at least 6 months before consideration for surgical intervention * suspect blood cultures will be affected as pt was treated for HCAP prior to this admission * repeat echo with bubble study performed, bubble study negative. * Continue vancomycin * Zosyn discontinued Imaging: * CT pulmonary angiography 04/21: Abnormal filling defects within the right lower lobe lobar arterial branches and segmental arterial branches characteristic of pulmonary emboli. New right infrahilar/right lower lobe airspace consolidation and groundglass attenuation. Small right pleural effusion. * CT abdomen/pelvis 04/23: No evidence for abscess within the lung base, abdomen , or pelvis. Persistent area of consolidation involving the basilar aspect of the right lower lobe. Small right-sided pleural effusion with a contour bulge suggestive of area of loculation Medications * Heparin drip, titrate per protocol, consider novel agent for continued antithrombotic treatment * Vancomycin 04/21 * Zosyn 4.5 gm IV q8h (started 04/21-04/24) (2) Illicit drug use Status: Chronic Plan: UDS negative on admission but recent ED visit on 04/05/16 had a positive UDS of cocaine, amp, and opiates. (3) Nutrition, metabolism, and development symptoms Status: Acute Plan: Fluids: None Electrolytes: WNLs Nutrition: Regular DVT PPX: Heparin drip per protocol. SCDs GI PPX: not indicated Problem Qualifiers (1) Septic pulmonary embolism: Qualified Code: I26.90 - Acute septic pulmonary embolism without acute cor pulmonale Elle Alanis MD R3 Apr 26, 2016 13:43
[2016-04-26 16:00] VITALS: BP 127/84; PULSE 92; RESP 18; TEMP 97.3; O2SAT 97
--- NOTE | 2016-04-26 18:53 | HHI.FPPN ---
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 Per ID , patient will need a 6 week course of IV antibiotics. Scot Marcos MD R1 Apr 26, 2016 18:53
[2016-04-26 20:00] VITALS: BP 128/79; PULSE 87; RESP 20; TEMP 96.8; O2SAT 97
[2016-04-26] MEDS: REMOVE OLD NICODERM (NICOTINE) PATCH TD SCH (20:05)
[2016-04-27 00:07] VITALS: BP 129/75; PULSE 86; RESP 21; TEMP 97.7; O2SAT 96
[2016-04-27] MEDS: ACETAMINOPHEN/HYDROcodone 325 MG/10 MG TAB PO PRN ×6 (00:41→21:02)
[2016-04-27] MEDS: VANCOMYCIN INJ 1,750 MG in SODIUM CHLORID 0.9% 500 ML INJ 500 ML IV SCH ×2 (04:35→17:15)
[2016-04-27 05:18] LABS: HEMATOCRIT 36.3 % (39.0-51.0); MEAN CELL VOLUME 91.6 FL (80.0-100.0); MEAN CORPUSCULAR HEMOGLOBIN 30.8 PG (27.0-34.0); MEAN CORPUSCULAR HGB CONC 33.6 % (32.0-36.0); PLATELET COUNT 321 TH/MM3 (150-450); RED BLOOD COUNT 3.96 MIL/MM3 (4.50-5.90); RED CELL DISTRIBUTION WIDTH 16.4 % (11.6-17.2); REVIEW FLAG FINAL; WHITE BLOOD COUNT 6.8 TH/MM3 (4.0-11.0)
[2016-04-27 05:48] LABS: BICARBONATE 26.6 MEQ/L (21.0-32.0); POTASSIUM 4.3 MEQ/L (3.5-5.1)
[2016-04-27 08:00] VITALS: BP 135/82; PULSE 83; RESP 16; TEMP 97.1; O2SAT 96
--- NOTE | 2016-04-27 08:36 | HHI.FPPN ---
Subjective Remarks No acute events overnight. Except for a few episodes of pulse in the 90s and blood pressure 150s, afebrile and vital signs stable. Patient denies any fever, chills, chest pain, shortness of breath, abdominal pain at rest. However, he does report some pleuritic epigastric and subcostal pain with deep inspiration, which he describes as feeling over filled. However, he reports that his breathing is the best it's been in years. (Derke Shearer MD R1) Objective Vitals Vital Signs Date Time Temp Pulse Resp B/P Pulse Ox O2 Delivery O2 Flow Rate FiO2 04/27/16 00:07 97.7 86 21 129/75 96 04/26/16 20:00 96.8 87 20 128/79 97 04/26/16 16:00 97.3 92 18 127/84 97 04/26/16 11:41 98.7 88 20 116/74 96 I/O 04/26/16 04/26/16 04/26/16 04/27/16 04/27/16 04/27/16 07:00 15:00 23:00 07:00 15:00 23:00 Intake Total 505 ml 1515 ml 382 ml 455 ml Output Total 1000 ml 800 ml 500 ml Balance -495 ml 715 ml 382 ml -45 ml Intake Oral 240 ml 840 ml 240 ml 240 ml IV Total 265 ml 675 ml 142 ml 215 ml Output Urine Total 1000 ml 800 ml 500 ml # Voids 1 2 # Bowel Movements 0 0 0 0 (Derek Shearer MD R1) Result Diagram: 04/27/16 0422 04/27/16 0422 Imaging Last Impressions Abdomen/Pelvis CT 04/23/16 0000 Signed Impressions: Service Date/Time: March 15:53 - CONCLUSION: 1. No evidence of abscess within the lung base, abdomen or pelvis. No evidence of inflammatory process within this region. 2. Persistent area of consolidation involving the basilar aspect of the right lower lobe. Given the patient's prior history of emboli this could represent an area of lung infarct. Small right-sided pleural effusion with a contour bulge suggestive of area of loculation.. Yarelis David MD CT Angiography 04/21/16 1024 Signed Impressions: Service Date/Time: Thursday, April 21, 2016 11:53 - CONCLUSION: 1. There are abnormal filling defects within the right lower lobe lobar arterial branches and segmental arterial branches characteristic of PE. 2. There is also new right infrahilar/right lower lobe airspace consolidation and groundglass attenuation. A small right pleural effusion is also present. The appearance is nonspecific but could represent an infectious process or less likely neoplasm. It does not have a typical appearance for infarct. Suggest followup chest CT with IV contrast to confirm resolution of this finding following appropriate treatment. Ruel Dill MD Objective Remarks GENERAL: Patient sitting up in bed in no acute distress. CARDIOVASCULAR: Regular rate and rhythm. RESPIRATORY: Clear to auscultation bilaterally without crackles, wheezes, or rubs. GASTROINTESTINAL: Positive bowel sounds, soft, nontender, nondistended. MUSCULOSKELETAL: No edema, cyanosis, or clubbing. No calf tenderness. NEURO: awake, alert, and oriented. Cranial nerves grossly intact. Normal speech. 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 Admitted for SOB that was due to septic emboli. Discharge Planning Patient will need a 6 week course of IV antibiotics per ID irrespective of blood culture results. Patient seen and discussed with Dr. Eliz Thorne. (Derek Shearer MD R1) Attending Attestation Pt. examined and case discussed with resident physicians I have read the above note and agree with the assessment/plan as discussed with me I was involved in all medical decision making for this patient Jose David Kinsey MD (Jose David Kinsey MD) Problem List: (1) Septic pulmonary embolism Status: Acute Plan: Afebrile. Leukocytosis resolved. 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 Vegetation appears to have increased in size, globular and oscillating. This puts him at high risk for further embolization * Evaluated by CTS, not a surgical candidate at this time. Will need to be abstinent for at least 6 months before consideration for surgical intervention * suspect blood cultures will be affected as pt was treated for HCAP prior to this admission * repeat echo with bubble study performed, bubble study negative. * Continue vancomycin * Zosyn discontinued Imaging: * CT pulmonary angiography 04/21: Abnormal filling defects within the right lower lobe lobar arterial branches and segmental arterial branches characteristic of pulmonary emboli. New right infrahilar/right lower lobe airspace consolidation and groundglass attenuation. Small right pleural effusion. * CT abdomen/pelvis 04/23: No evidence for abscess within the lung base, abdomen , or pelvis. Persistent area of consolidation involving the basilar aspect of the right lower lobe. Small right-sided pleural effusion with a contour bulge suggestive of area of loculation Medications * Heparin drip, titrate per protocol, consider novel agent for continued antithrombotic treatment * Vancomycin 04/21-present * Zosyn 4.5 gm IV q8h (started 04/21-04/24) (2) Illicit drug use Status: Chronic Plan: UDS negative on admission but recent ED visit on 04/05/16 had a positive UDS of cocaine, amp, and opiates. (3) Nutrition, metabolism, and development symptoms Status: Acute Plan: Fluids: None Electrolytes: WNLs Nutrition: Regular DVT PPX: Heparin drip per protocol. SCDs GI PPX: not indicated (Derek Shearer MD R1) Problem Qualifiers (1) Septic pulmonary embolism: Qualified Code: I26.90 - Acute septic pulmonary embolism without acute cor pulmonale Derek Shearer MD R1 Apr 27, 2016 08:36 Jose David Kinsey MD Apr 27, 2016 19:03
[2016-04-27] MEDS: NICOTINE 14 MG/24 HR PATCH TD SCH (09:03)
[2016-04-27] MEDS: LORazepam 0.5 MG TAB PO PRN ×2 (09:03→17:15)
[2016-04-27] MEDS: SODIUM CHLORIDE 0.9% FLUSH 5 ML FLUSH FLUSH SCH ×2 (09:03→20:08)
[2016-04-27] MEDS: HEPARIN-D5W INJ 250 ML IV SCH (09:09)
[2016-04-27 12:00] VITALS: BP 123/79; PULSE 75; RESP 17; TEMP 96.6; O2SAT 98
[2016-04-27 16:00] VITALS: BP 134/87; PULSE 76; RESP 17; TEMP 96.7; O2SAT 99
[2016-04-27 20:00] VITALS: BP 149/73; PULSE 85; RESP 20; TEMP 97.3; O2SAT 100
[2016-04-27] MEDS: RIVAROXABAN 15 MG TAB PO SCH (20:08)
[2016-04-27] MEDS: REMOVE OLD NICODERM (NICOTINE) PATCH TD SCH (20:08)
[2016-04-27] MEDS: IBUPROFEN 400 MG TAB PO PRN (20:14)
[2016-04-28] VITALS: BP 147/91; PULSE 80; RESP 20; TEMP 97.1; O2SAT 98
[2016-04-28] MEDS: ACETAMINOPHEN/HYDROcodone 325 MG/10 MG TAB PO PRN ×6 (01:13→22:05)
[2016-04-28] MEDS: LORazepam 0.5 MG TAB PO PRN ×3 (01:14→17:49)
[2016-04-28] MEDS: VANCOMYCIN INJ 1,750 MG in SODIUM CHLORID 0.9% 500 ML INJ 500 ML IV SCH ×2 (05:04→17:51)
[2016-04-28 06:08] LABS: BICARBONATE 26.6 MEQ/L (21.0-32.0)
[2016-04-28 08:00] VITALS: BP 110/67; PULSE 69; RESP 17; TEMP 96.6; O2SAT 98
[2016-04-28] MEDS: NICOTINE 14 MG/24 HR PATCH TD SCH (08:17)
[2016-04-28] MEDS: RIVAROXABAN 15 MG TAB PO SCH ×2 (08:21→20:29)
[2016-04-28] MEDS: SODIUM CHLORIDE 0.9% FLUSH 5 ML FLUSH FLUSH SCH ×2 (08:24→20:30)
--- NOTE | 2016-04-28 10:05 | HHI.FPPN ---
Subjective Remarks No acute events overnight. Except for some blood pressure in the 140s over 90s, patient is afebrile vital signs stable. Patient denies any fever, chills, shortness of breath, chest pain, abdominal pain, nausea, vomiting. Patient does however report intermittent tooth pain exacerbated by chewing, which he describes as a 8 out of 10. Per nurse report, patient had a right neck skin lesion that was draining clear fluid after patient attempted to pop it. Objective Vitals Vital Signs Date Time Temp Pulse Resp B/P Pulse Ox O2 Delivery O2 Flow Rate FiO2 04/28/16 08:00 96.6 69 17 110/67 98 04/28/16 00:00 97.1 80 20 147/91 98 04/27/16 20:00 97.3 85 20 149/73 100 04/27/16 16:00 96.7 76 17 134/87 99 04/27/16 12:00 96.6 75 17 123/79 98 I/O 04/27/16 04/27/16 04/27/16 04/28/16 04/28/16 04/28/16 07:00 15:00 23:00 07:00 15:00 23:00 Intake Total 455 ml 1533 ml 720 ml 480 ml 513 ml Output Total 500 ml 400 ml 500 ml Balance -45 ml 1133 ml 720 ml 480 ml 13 ml Intake Oral 240 ml 875 ml 720 ml 480 ml IV Total 215 ml 658 ml 513 ml Output Urine Total 500 ml 400 ml 500 ml # Voids 3 2 # Bowel Movements 0 0 Result Diagram: 04/27/16 0422 04/28/16 0442 Imaging Last Impressions Abdomen/Pelvis CT 04/23/16 0000 Signed Impressions: Service Date/Time: March 15:53 - CONCLUSION: 1. No evidence of abscess within the lung base, abdomen or pelvis. No evidence of inflammatory process within this region. 2. Persistent area of consolidation involving the basilar aspect of the right lower lobe. Given the patient's prior history of emboli this could represent an area of lung infarct. Small right-sided pleural effusion with a contour bulge suggestive of area of loculation.. Yarelis David MD CT Angiography 04/21/16 1024 Signed Impressions: Service Date/Time: Thursday, April 21, 2016 11:53 - CONCLUSION: 1. There are abnormal filling defects within the right lower lobe lobar arterial branches and segmental arterial branches characteristic of PE. 2. There is also new right infrahilar/right lower lobe airspace consolidation and groundglass attenuation. A small right pleural effusion is also present. The appearance is nonspecific but could represent an infectious process or less likely neoplasm. It does not have a typical appearance for infarct. Suggest followup chest CT with IV contrast to confirm resolution of this finding following appropriate treatment. Ruel Dill MD Objective Remarks GENERAL: Patient sitting up in bed in no acute distress. HEENT: Normocephalic/atraumatic. Moist mucous membranes. Poor dentition. Multiple dying teeth without evidence of surrounding erythema, warmth, fluctuance. Neck: Right sided folliculitis with surrounding traumatic erythema CARDIOVASCULAR: Regular rate and rhythm. RESPIRATORY: Clear to auscultation bilaterally without crackles, wheezes, or rubs. Decreased breath sounds at the bases. GASTROINTESTINAL: Positive bowel sounds, soft, nontender, nondistended. MUSCULOSKELETAL: No edema, cyanosis, or clubbing. No calf tenderness. NEURO: awake, alert, and oriented. Cranial nerves grossly intact. Normal speech. 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 Admitted for SOB that was due to septic emboli. Discharge Planning Patient will need a 6 week course of IV antibiotics per ID irrespective of blood culture results. Patient seen and discussed with Dr. Eliz Thorne. Problem List: (1) Septic pulmonary embolism Status: Acute Plan: Afebrile. Leukocytosis resolved. HX of IV drug use with prior hx of endocarditis and intermediate manager treatment -Hepatitis C positive -blood cultures negative x 5 days -sputum culture: normal respiratory kendall -incentive spirometer Consulted ID: appreciate recommendations * Endocarditis of TV valve. Vegetation appears to have increased in size, globular and oscillating. This puts him at high risk for further embolization * Evaluated by CTS, not a surgical candidate at this time. Will need to be abstinent for at least 6 months before consideration for surgical intervention * suspect blood cultures will be affected as pt was treated for HCAP prior to this admission * repeat echo with bubble study performed, bubble study negative. * Continue vancomycin * Zosyn discontinued Imaging: * CT pulmonary angiography 04/21: Abnormal filling defects within the right lower lobe lobar arterial branches and segmental arterial branches characteristic of pulmonary emboli. New right infrahilar/right lower lobe airspace consolidation and groundglass attenuation. Small right pleural effusion. * CT abdomen/pelvis 04/23: No evidence for abscess within the lung base, abdomen , or pelvis. Persistent area of consolidation involving the basilar aspect of the right lower lobe. Small right-sided pleural effusion with a contour bulge suggestive of area of loculation Medications * Xarelto 50 mg by mouth twice a day. Heparin drip stopped yesterday when the Xarelto was initiated * Vancomycin 04/21-present * Zosyn 4.5 gm IV q8h (started 04/21-04/24) (2) Illicit drug use Status: Chronic Plan: UDS negative on admission but recent ED visit on 04/05/16 had a positive UDS of cocaine, amp, and opiates. (3) Nutrition, metabolism, and development symptoms Status: Acute Plan: Fluids: None Electrolytes: WNLs Nutrition: Regular DVT PPX: Xarelto as above. SCDs GI PPX: not indicated Problem Qualifiers (1) Septic pulmonary embolism: Qualified Code: I26.90 - Acute septic pulmonary embolism without acute cor pulmonale Derek Shearer MD R1 Apr 28, 2016 10:05
[2016-04-28 10:39] VITALS: O2SAT 98
[2016-04-28 12:00] VITALS: BP 148/97; PULSE 102; RESP 18; TEMP 96.9; O2SAT 98
[2016-04-28 16:00] VITALS: BP 124/79; PULSE 97; RESP 17; TEMP 96.4; O2SAT 98
[2016-04-28 20:00] VITALS: BP 138/90; PULSE 84; RESP 20; TEMP 97.6; O2SAT 100
[2016-04-28] MEDS: REMOVE OLD NICODERM (NICOTINE) PATCH TD SCH (20:30)
[2016-04-29] VITALS: BP 120/74; PULSE 81; RESP 20; TEMP 97.4; O2SAT 98
[2016-04-29] MEDS: ACETAMINOPHEN/HYDROcodone 325 MG/10 MG TAB PO PRN ×5 (02:49→20:44)
[2016-04-29] MEDS: LORazepam 0.5 MG TAB PO PRN ×3 (02:51→20:43)
[2016-04-29] MEDS: VANCOMYCIN INJ 1,750 MG in SODIUM CHLORID 0.9% 500 ML INJ 500 ML IV SCH ×2 (05:22→17:01)
[2016-04-29 08:00] VITALS: BP 116/77; PULSE 101; RESP 16; TEMP 98.1; O2SAT 97
[2016-04-29] MEDS: SODIUM CHLORIDE 0.9% FLUSH 5 ML FLUSH FLUSH SCH ×2 (09:06→19:47)
[2016-04-29] MEDS: NICOTINE 14 MG/24 HR PATCH TD SCH (09:06)
[2016-04-29] MEDS: RIVAROXABAN 15 MG TAB PO SCH ×2 (09:07→20:47)
--- NOTE | 2016-04-29 10:18 | HHI.FPPN ---
Subjective Remarks No acute events overnight. Except for some borderline mild tachycardia to 101 bpm, afebrile and vital signs stable. Patient is asleep, but awake enough to tell me that he is tired, denies any chest pain, shortness of breath, dental/ tooth pain. (Derek Shearer MD R1) Objective Vitals Vital Signs Date Time Temp Pulse Resp B/P Pulse Ox O2 Delivery O2 Flow Rate FiO2 04/29/16 08:00 98.1 101 16 116/77 97 04/29/16 03:49 16 04/29/16 00:00 97.4 81 20 120/74 98 04/28/16 20:00 97.6 84 20 138/90 100 04/28/16 16:00 96.4 97 17 124/79 98 04/28/16 12:00 96.9 102 18 148/97 98 04/28/16 10:39 98 Nasal Cannula 2.00 I/O 04/28/16 04/28/16 04/28/16 04/29/16 04/29/16 04/29/16 07:00 15:00 23:00 07:00 15:00 23:00 Intake Total 480 ml 1473 ml 480 ml 480 ml Output Total 500 ml 550 ml Balance 480 ml 973 ml 480 ml 480 ml -550 ml Intake Oral 480 ml 960 ml 480 ml 480 ml IV Total 513 ml Output Urine Total 500 ml 550 ml # Voids 2 4 2 2 # Bowel Movements 1 (Derek Shearer MD R1) Result Diagram: 04/27/16 0422 04/28/16 0442 Objective Remarks GENERAL: Patient lying in right lateral decubitus position asleep in bed in no acute distress. HEENT: Normocephalic/atraumatic. Moist mucous membranes. CARDIOVASCULAR: Regular rate and rhythm. RESPIRATORY: Clear to auscultation bilaterally without crackles, wheezes, or rubs. Decreased breath sounds at the bases. GASTROINTESTINAL: Positive bowel sounds, soft, nontender, nondistended. MUSCULOSKELETAL: No edema, cyanosis, or clubbing. No calf tenderness. NEURO: awake, alert, and oriented. Cranial nerves grossly intact. Normal speech. 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 Admitted for SOB that was due to septic emboli. Discharge Planning Patient will need a 6 week course of IV antibiotics per ID irrespective of blood culture results. Patient seen and discussed with Dr. Eliz Thorne. (Derek Shearer MD R1) Attending Attestation Patient examined and case discussed with resident physicians I have read the above note and agree with the assessment/plan is discussed with me I was involved in all medical decision making for this patient Jose David Kinsey M.D. (Jose David Kinsey MD) Problem List: (1) Septic pulmonary embolism Status: Acute Plan: Afebrile. Leukocytosis resolved. HX of IV drug use with prior hx of endocarditis and mcfp treatment -Hepatitis C positive -blood cultures negative x 5 days -sputum culture: normal respiratory kendall -incentive spirometer Consulted ID: appreciate recommendations * Endocarditis of TV valve. Vegetation appears to have increased in size, globular and oscillating. This puts him at high risk for further embolization * Evaluated by CTS, not a surgical candidate at this time. Will need to be abstinent for at least 6 months before consideration for surgical intervention * suspect blood cultures will be affected as pt was treated for HCAP prior to this admission * repeat echo with bubble study performed, bubble study negative. * Continue vancomycin * Zosyn discontinued Imaging: * CT pulmonary angiography 04/21: Abnormal filling defects within the right lower lobe lobar arterial branches and segmental arterial branches characteristic of pulmonary emboli. New right infrahilar/right lower lobe airspace consolidation and groundglass attenuation. Small right pleural effusion. * CT abdomen/pelvis 04/23: No evidence for abscess within the lung base, abdomen , or pelvis. Persistent area of consolidation involving the basilar aspect of the right lower lobe. Small right-sided pleural effusion with a contour bulge suggestive of area of loculation Medications * Xarelto 50 mg by mouth twice a day * Vancomycin 04/21-present * Zosyn 4.5 gm IV q8h (started 04/21-04/24) Pain/symptom control * Tylenol 650 mg by mouth every 4 hours when necessary for pain 1-2, fever * Motrin 400 mg by mouth every 6 hours when necessary for pain 1-2 * [place] 325-5 mg 1 tab by mouth every 4 hours when necessary for pain 3-5 * [place] 325-10 mg 1 tab by mouth every 4 hours when necessary for pain 6-10 * Ativan 0.5 mg by mouth every 8 hours when necessary for anxiety * Zofran 4 mg IV every 6 hours when necessary for nausea (2) Illicit drug use Status: Chronic Plan: UDS negative on admission but recent ED visit on 04/05/16 had a positive UDS of cocaine, amp, and opiates. * Nicotine patch (3) Nutrition, metabolism, and development symptoms Status: Acute Plan: Fluids: None Electrolytes: WNLs Nutrition: Regular DVT PPX: Xarelto as above. SCDs GI PPX: not indicated (Derek Shearer MD R1) Problem Qualifiers (1) Septic pulmonary embolism: Qualified Code: I26.90 - Acute septic pulmonary embolism without acute cor pulmonale Derek Shearer MD R1 Apr 29, 2016 10:18 Jose David Kinsey MD Apr 29, 2016 15:52
[2016-04-29 12:00] VITALS: BP 121/83; PULSE 98; RESP 16; TEMP 97.7; O2SAT 97
[2016-04-29] MEDS ORDERED: KETOROLAC TROMETHAMINE 30 MG/ML (IVP) VIAL IV PUSH ONE ×2 (15:00→22:00)
[2016-04-29 16:00] VITALS: BP 116/81; PULSE 75; RESP 16; TEMP 96.8; O2SAT 98
[2016-04-29 20:23] VITALS: BP 131/89; PULSE 79; RESP 20; TEMP 96.5; O2SAT 96
[2016-04-29] MEDS: REMOVE OLD NICODERM (NICOTINE) PATCH TD SCH (20:47)
[2016-04-29] MEDS ORDERED: MORPHINE SULFATE 4 MG/ML INJ IV PUSH PRN ×2 (23:15→23:30)
[2016-04-29] MEDS: ACETAMINOPHEN 325 MG TAB PO PRN (23:23)
[2016-04-29 23:49] VITALS: BP 133/85; PULSE 78; RESP 18; TEMP 96.5; O2SAT 97
[2016-04-30] MEDS: ACETAMINOPHEN/HYDROcodone 325 MG/10 MG TAB PO PRN ×4 (01:43→16:33)
[2016-04-30] MEDS ORDERED: MORPHINE SULFATE 4 MG/ML INJ IV PUSH PRN ×2 (02:20→08:45)
[2016-04-30] MEDS: LORazepam 0.5 MG TAB PO PRN ×2 (03:39→14:20)
[2016-04-30] MEDS: ACETAMINOPHEN 325 MG TAB PO PRN (03:39)
[2016-04-30] MEDS ORDERED: KETOROLAC TROMETHAMINE 30 MG/ML (IVP) VIAL IV PUSH ONE (04:45)
[2016-04-30] MEDS: VANCOMYCIN INJ 1,750 MG in SODIUM CHLORID 0.9% 500 ML INJ 500 ML IV SCH ×2 (04:51→18:00)
[2016-04-30] MEDS ORDERED: MORPHINE SULFATE 4 MG/ML INJ IV PUSH ONE ×2 (06:00→11:00)
[2016-04-30 08:00] VITALS: BP 135/92; PULSE 72; RESP 16; TEMP 95.5; O2SAT 99
[2016-04-30] MEDS: NICOTINE 14 MG/24 HR PATCH TD SCH (08:26)
[2016-04-30] MEDS: RIVAROXABAN 15 MG TAB PO SCH ×2 (08:26→19:52)
[2016-04-30] MEDS: IBUPROFEN 400 MG TAB PO PRN ×2 (08:32→14:20)
[2016-04-30] MEDS: SODIUM CHLORIDE 0.9% FLUSH 5 ML FLUSH FLUSH SCH ×2 (08:58→19:52)
[2016-04-30] MEDS: KETOROLAC TROMETHAMINE 30 MG/ML (IVP) VIAL IV PUSH SCH ×3 (10:17→18:01)
--- NOTE | 2016-04-30 11:57 | HHI.FPPN ---
Subjective Remarks Pt with multiple c/o dental pain overnight. AFVSS. Had a long discussion with pt regarding pain control. He reports that he only got about an hour of relief from his otherwise constant and excruciating dental pain with the coadministration of morphine and Toradol. Other medications have been ineffective in relieving his pain. (Derek Shearer MD R1) Objective Vitals Vital Signs Date Time Temp Pulse Resp B/P Pulse Ox O2 Delivery O2 Flow Rate FiO2 04/30/16 08:00 95.5 72 16 135/92 99 04/30/16 04:39 16 04/30/16 02:35 18 04/30/16 02:35 18 04/29/16 23:49 96.5 78 18 133/85 97 04/29/16 20:23 96.5 79 20 131/89 96 04/29/16 16:00 96.8 75 16 116/81 98 04/29/16 12:00 97.7 98 16 121/83 97 I/O 04/29/16 04/29/16 04/29/16 04/30/16 04/30/16 04/30/16 07:00 15:00 23:00 07:00 15:00 23:00 Intake Total 480 ml 1460 ml 1080 ml 360 ml Output Total 550 ml 1000 ml Balance 480 ml 910 ml 80 ml 360 ml Intake Oral 480 ml 960 ml 580 ml 360 ml IV Total 500 ml 500 ml Output Urine Total 550 ml 1000 ml # Voids 2 4 2 (Derek Shearer MD R1) Result Diagram: 04/27/16 0422 04/28/16 0442 Imaging Last Impressions Abdomen/Pelvis CT 04/23/16 0000 Signed Impressions: Service Date/Time: March 15:53 - CONCLUSION: 1. No evidence of abscess within the lung base, abdomen or pelvis. No evidence of inflammatory process within this region. 2. Persistent area of consolidation involving the basilar aspect of the right lower lobe. Given the patient's prior history of emboli this could represent an area of lung infarct. Small right-sided pleural effusion with a contour bulge suggestive of area of loculation.. Yarelis David MD CT Angiography 04/21/16 1024 Signed Impressions: Service Date/Time: Thursday, April 21, 2016 11:53 - CONCLUSION: 1. There are abnormal filling defects within the right lower lobe lobar arterial branches and segmental arterial branches characteristic of PE. 2. There is also new right infrahilar/right lower lobe airspace consolidation and groundglass attenuation. A small right pleural effusion is also present. The appearance is nonspecific but could represent an infectious process or less likely neoplasm. It does not have a typical appearance for infarct. Suggest followup chest CT with IV contrast to confirm resolution of this finding following appropriate treatment. Ruel Dill MD Objective Remarks GENERAL: Patient lying in right lateral decubitus position asleep in bed in no acute distress. HEENT: Normocephalic/atraumatic. Moist mucous membranes. Patient with multiple teeth without surrounding erythema. CARDIOVASCULAR: Regular rate and rhythm. RESPIRATORY: Clear to auscultation bilaterally without crackles, wheezes, or rubs. Decreased breath sounds at the bases. GASTROINTESTINAL: Positive bowel sounds, soft, nontender, nondistended. MUSCULOSKELETAL: No edema, cyanosis, or clubbing. No calf tenderness. NEURO: awake, alert, and oriented. Cranial nerves grossly intact. Normal speech. 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 Admitted for SOB that was due to septic emboli. Discharge Planning Patient will need a 6 week course of IV antibiotics per ID irrespective of blood culture results. Attempting to transfer patient to [facility] per ID recommendations. Patient seen and discussed with Dr. Eliz Thorne. (Derek Shearer MD R1) Attending Attestation Pt. examined and case discussed with resident physicians I have read the above note and agree with the assessment/plan as discussed with me I was involved in all medical decision making for this patient Jose David Kinsey MD (Jose David Kinsey MD) Problem List: (1) Septic pulmonary embolism Status: Acute Plan: Afebrile. Leukocytosis resolved. HX of IV drug use with prior hx of endocarditis and [facility]cf treatment -Hepatitis C positive -blood cultures negative x 5 days -sputum culture: normal respiratory kendall -incentive spirometer Consulted ID: appreciate recommendations * Endocarditis of TV valve. Vegetation appears to have increased in size, globular and oscillating. This puts him at high risk for further embolization * Evaluated by CTS, not a surgical candidate at this time. Will need to be abstinent for at least 6 months before consideration for surgical intervention * suspect blood cultures will be affected as pt was treated for HCAP prior to this admission * repeat echo with bubble study performed, bubble study negative. * Continue vancomycin * Zosyn discontinued Imaging: * CT pulmonary angiography 04/21: Abnormal filling defects within the right lower lobe lobar arterial branches and segmental arterial branches characteristic of pulmonary emboli. New right infrahilar/right lower lobe airspace consolidation and groundglass attenuation. Small right pleural effusion. * CT abdomen/pelvis 04/23: No evidence for abscess within the lung base, abdomen , or pelvis. Persistent area of consolidation involving the basilar aspect of the right lower lobe. Small right-sided pleural effusion with a contour bulge suggestive of area of loculation Medications * Xarelto 50 mg by mouth twice a day * Vancomycin 04/21-present * Zosyn 4.5 gm IV q8h (started 04/21-04/24) Pain/symptom control * Tylenol 650 mg by mouth every 4 hours when necessary for pain 1-2, fever * Motrin 400 mg by mouth every 6 hours when necessary for pain 1-2 * [place] 325-5 mg 1 tab by mouth every 4 hours when necessary for pain 3-5 * [place] 325-10 mg 1 tab by mouth every 4 hours when necessary for pain 6-10 * Toradol 30 mg IV push every 6 hours scheduled for pain (started on 04/29/16 at 14:44) * Morphine 4 mg IV every 3 hours when necessary for breakthrough pain * Ativan 0.5 mg by mouth every 8 hours when necessary for anxiety * Zofran 4 mg IV every 6 hours when necessary for nausea (2) Illicit drug use Status: Chronic Plan: UDS negative on admission but recent ED visit on 04/05/16 had a positive UDS of cocaine, amp, and opiates. * Nicotine patch (3) Nutrition, metabolism, and development symptoms Status: Acute Plan: Fluids: None Electrolytes: WNLs Nutrition: Regular DVT PPX: Xarelto as above. SCDs GI PPX: not indicated (Derek Shearer MD R1) Problem Qualifiers (1) Septic pulmonary embolism: Qualified Code: I26.90 - Acute septic pulmonary embolism without acute cor pulmonale Derek Shearer MD R1 Apr 30, 2016 11:57 Jose David Kinsey MD Apr 30, 2016 19:06
[2016-04-30 12:00] VITALS: BP 147/94; PULSE 77; RESP 16; TEMP 95.8; O2SAT 99
[2016-04-30 12:32] LABS: HEMATOCRIT 43.6 % (39.0-51.0); MEAN CELL VOLUME 91.6 FL (80.0-100.0); MEAN CORPUSCULAR HEMOGLOBIN 30.5 PG (27.0-34.0); MEAN CORPUSCULAR HGB CONC 33.2 % (32.0-36.0); PLATELET COUNT 348 TH/MM3 (150-450); RED BLOOD COUNT 4.76 MIL/MM3 (4.50-5.90); REVIEW FLAG FINAL; WHITE BLOOD COUNT 6.7 TH/MM3 (4.0-11.0)
[2016-04-30] MEDS ORDERED: NYSTAT/DIPHENHY/LIDO MOUTHWASH (Adult) 120ML SWISH-SWAL SCH (13:00)
[2016-04-30] MEDS: MORPHINE SULFATE 4 MG/ML INJ IV PUSH PRN ×3 (14:45→21:51)
[2016-04-30 16:00] VITALS: BP 133/93; PULSE 81; RESP 16; TEMP 96.2; O2SAT 98
[2016-04-30] MEDS ORDERED: LIDOCAINE VISCOUS 2% SOLN 15 ML UDC SWISH-SPIT PRN (16:45)
[2016-04-30] MEDS: REMOVE OLD NICODERM (NICOTINE) PATCH TD SCH (19:53)
[2016-04-30 20:00] VITALS: BP 139/97; PULSE 90; RESP 17; TEMP 96.2; O2SAT 98
[2016-05-01] VITALS: BP 146/90; PULSE 87; RESP 17; TEMP 97.8; O2SAT 98
[2016-05-01] MEDS: ACETAMINOPHEN/HYDROcodone 325 MG/10 MG TAB PO PRN ×5 (00:08→22:57)
[2016-05-01] MEDS: MORPHINE SULFATE 4 MG/ML INJ IV PUSH PRN ×6 (00:43→23:34)
[2016-05-01] MEDS: KETOROLAC TROMETHAMINE 30 MG/ML (IVP) VIAL IV PUSH SCH ×5 (00:43→23:34)
[2016-05-01 04:37] LABS: HEMATOCRIT 35.9 % (39.0-51.0); MEAN CELL VOLUME 91.3 FL (80.0-100.0); MEAN CORPUSCULAR HEMOGLOBIN 31.2 PG (27.0-34.0); MEAN CORPUSCULAR HGB CONC 34.1 % (32.0-36.0); PLATELET COUNT 373 TH/MM3 (150-450); RED BLOOD COUNT 3.93 MIL/MM3 (4.50-5.90); RED CELL DISTRIBUTION WIDTH 15.5 % (11.6-17.2); REVIEW FLAG FINAL; WHITE BLOOD COUNT 7.3 TH/MM3 (4.0-11.0)
[2016-05-01 05:00] LABS: BICARBONATE 28.3 MEQ/L (21.0-32.0); POTASSIUM 4.7 MEQ/L (3.5-5.1)
[2016-05-01 08:00] VITALS: BP 100/58; PULSE 67; RESP 12; TEMP 96.3; O2SAT 97
[2016-05-01] MEDS: SODIUM CHLORIDE 0.9% FLUSH 5 ML FLUSH FLUSH SCH ×2 (08:27→19:38)
[2016-05-01] MEDS: NICOTINE 14 MG/24 HR PATCH TD SCH (08:27)
[2016-05-01] MEDS: RIVAROXABAN 15 MG TAB PO SCH ×2 (08:27→19:38)
[2016-05-01] MEDS: VANCOMYCIN INJ 1,750 MG in SODIUM CHLORID 0.9% 500 ML INJ 500 ML IV SCH ×2 (08:28→18:25)
--- NOTE | 2016-05-01 10:29 | HHI.FPPN ---
Subjective Remarks Pt seen and examined this morning. No acute events overnight. Pt has been afebrile. BP ranging from 130s-140s/90s. Pt continues to endorse tooth pain, that resolves while he is sleeping. Current regimen has been working well to help relieve pain. He denies chest pain, SOB, abdominal pain, constipation, diarrhea, calf pain. (Radha Thorne MD R2) Objective Vitals Vital Signs Date Time Temp Pulse Resp B/P Pulse Ox O2 Delivery O2 Flow Rate FiO2 05/01/16 00:00 97.8 87 17 146/90 98 04/30/16 20:00 96.2 90 17 139/97 98 04/30/16 16:00 96.2 81 16 133/93 98 04/30/16 12:00 95.8 77 16 147/94 99 I/O 04/30/16 04/30/16 04/30/16 05/01/16 05/01/16 05/01/16 07:00 15:00 23:00 07:00 15:00 23:00 Intake Total 360 ml 480 ml 480 ml 240 ml Balance 360 ml 480 ml 480 ml 240 ml Intake Oral 360 ml 480 ml 480 ml 240 ml # Voids 2 4 2 3 # Bowel Movements 1 (Radha Thorne MD R2) Result Diagram: 05/01/16 0335 05/01/16 0335 Objective Remarks GENERAL: Patient lying in bed in no acute distress. HEENT: Normocephalic/atraumatic. Moist mucous membranes. Patient with multiple teeth without surrounding erythema. No signs of infection or abscesses appreciated. CARDIOVASCULAR: Regular rate and rhythm. RESPIRATORY: Clear to auscultation bilaterally without crackles, wheezes, or rubs. Decreased breath sounds at the bases. GASTROINTESTINAL: Positive bowel sounds, soft, nontender, nondistended. MUSCULOSKELETAL: No edema, cyanosis, or clubbing. No calf tenderness. NEURO: awake, alert, and oriented. Cranial nerves grossly intact. Normal speech. 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 Admitted for SOB that was due to septic emboli. Discharge Planning Patient will need a 6 week course of IV antibiotics per ID irrespective of blood culture results. Attempting to transfer patient to [place] per ID recommendations. wdw Dr. Kinsey, Dr. Shearer (Radha Thorne MD R2) Attending Attestation Patient examined and case discussed with resident physician I have read the above note and agree with the assessment/plan as discussed with me I was involved in all medical decision making for this patient Jose David Kinsey M.D. (Jose David Kinsey MD) Problem List: (1) Septic pulmonary embolism Status: Acute Plan: Afebrile. Leukocytosis resolved. HX of IV drug use with prior hx of endocarditis and [facility] treatment -Hepatitis C positive -blood cultures no growth to date -sputum culture: normal respiratory kendall -incentive spirometer Consulted ID: appreciate recommendations * Endocarditis of TV valve. Vegetation appears to have increased in size, globular and oscillating. This puts him at high risk for further embolization * Evaluated by CTS, not a surgical candidate at this time. Will need to be abstinent for at least 6 months before consideration for surgical intervention * suspect blood cultures will be affected as pt was treated for HCAP prior to this admission * repeat echo with bubble study performed, bubble study negative. * Continue vancomycin for total duration of 6 weeks Imaging: * CT pulmonary angiography 04/21: Abnormal filling defects within the right lower lobe lobar arterial branches and segmental arterial branches characteristic of pulmonary emboli. New right infrahilar/right lower lobe airspace consolidation and groundglass attenuation. Small right pleural effusion. * CT abdomen/pelvis 04/23: No evidence for abscess within the lung base, abdomen , or pelvis. Persistent area of consolidation involving the basilar aspect of the right lower lobe. Small right-sided pleural effusion with a contour bulge suggestive of area of loculation Medications * Xarelto 50 mg by mouth twice a day * Vancomycin 04/21-present * Zosyn 4.5 gm IV q8h (started 04/21-04/24) Pain/symptom control * Tylenol 650 mg by mouth every 4 hours when necessary for pain 1-2, fever * Ativan 0.5 mg by mouth every 8 hours when necessary for anxiety * Zofran 4 mg IV every 6 hours when necessary for nausea (2) Illicit drug use Status: Chronic Plan: UDS negative on admission but recent ED visit on 04/05/16 had a positive UDS of cocaine, amp, and opiates. * Nicotine patch (3) Poor dentition Status: Acute Plan: Pt with poor dentition and several teeth require extraction. He continues to endorse severe pain despite oral and IV pain medication. -[facility] was consulted, unfortunately they will not be able to preform routine dental care while pt is in the hospital -Pt will need to follow up with a dentist once discharged -Pt tried magic mouthwash and reports that this did not help relieve pain -Pt with altered pain tolerance/response to pain medication due to hx of drug abuse Pain control * Motrin 400 mg by mouth every 6 hours when necessary for pain 1-2 * [place] 325-5 mg 1 tab by mouth every 4 hours when necessary for pain 3-5 * [place] 325-10 mg 1 tab by mouth every 4 hours when necessary for pain 6-10 * Toradol 30 mg IV push every 6 hours scheduled for pain (started on 04/29/16 at 14:44, not to exceed total duration of 5 days) * Morphine 4 mg IV every 3 hours when necessary for breakthrough pain (4) Nutrition, metabolism, and development symptoms Status: Acute Plan: Fluids: None Electrolytes: WNLs Nutrition: Regular DVT PPX: Xarelto as above. SCDs GI PPX: not indicated (Radha Thorne MD R2) Problem Qualifiers (1) Septic pulmonary embolism: Qualified Code: I26.90 - Acute septic pulmonary embolism without acute cor pulmonale Radha Thorne MD R2 May 01, 2016 10:29 Jose David Kinsey MD May 01, 2016 14:21
[2016-05-01 12:00] VITALS: BP 127/79; PULSE 98; RESP 16; O2SAT 98
--- NOTE | 2016-05-01 13:11 | HHI.IDPN ---
Subjective Subjective Remarks is a 40 year old male with h/o IVDA, hepatitis C, prolonged hospitalization here at [place] from 01/03/2016-02/24/2016 for septic pulmonary emboli and TV endocarditis and MRSA UTI and bacteremia s/p 6 weeks of antibiotic therapy along with development of bilateral pleural effusions s/p thoracentesis. Overnight events reviewed. No fevers No rash No diarrhea. Antibiotics Zosyn IV Vanco IV Lines Line sites with no e/o infection. Past Medical History reviewed Allergies: Coded Allergies: *MDRO Multi-Drug Resistant Organism (Verified Adverse Reaction, Unknown, ) MRSA (urine-01/04/16) & (blood-01/06/16) Objective . Vital Signs Date Time Temp Pulse Resp B/P Pulse Ox O2 Delivery O2 Flow Rate FiO2 05/01/16 00:00 97.8 87 17 146/90 98 04/30/16 20:00 96.2 90 17 139/97 98 04/30/16 16:00 96.2 81 16 133/93 98 04/30/16 04/30/16 05/01/16 15:00 23:00 07:00 Intake Total 480 ml 480 ml 240 ml Balance 480 ml 480 ml 240 ml Intake Oral 480 ml 480 ml 240 ml # Voids 4 2 3 # Bowel Movements 1 . Laboratory Tests Test 04/30/16 05/01/16 12:00 03:35 White Blood Count 6.7 TH/MM3 7.3 TH/MM3 Red Blood Count 4.76 MIL/MM3 3.93 MIL/MM3 Hemoglobin 14.5 GM/DL 12.2 GM/DL Hematocrit 43.6 % 35.9 % Mean Corpuscular Volume 91.6 FL 91.3 FL Mean Corpuscular Hemoglobin 30.5 PG 31.2 PG Mean Corpuscular Hemoglobin 33.2 % 34.1 % Concent Red Cell Distribution Width 16.0 % 15.5 % Platelet Count 348 TH/MM3 373 TH/MM3 Mean Platelet Volume 8.0 FL 7.5 FL Hematology Comments Laboratory Tests Test 04/30/16 05/01/16 12:00 03:35 Creatinine 1.06 MG/DL 0.94 MG/DL Estimat Glomerular Filtration 77 ML/MIN 88 ML/MIN Rate Sodium Level 139 MEQ/L Potassium Level 4.7 MEQ/L Chloride Level 106 MEQ/L Carbon Dioxide Level 28.3 MEQ/L Anion Gap 5 MEQ/L Blood Urea Nitrogen 17 MG/DL Random Glucose 104 MG/DL Calcium Level 9.5 MG/DL Imaging Last Impressions Abdomen/Pelvis CT 04/23/16 0000 Signed Impressions: Service Date/Time: March 15:53 - CONCLUSION: 1. No evidence of abscess within the lung base, abdomen or pelvis. No evidence of inflammatory process within this region. 2. Persistent area of consolidation involving the basilar aspect of the right lower lobe. Given the patient's prior history of emboli this could represent an area of lung infarct. Small right-sided pleural effusion with a contour bulge suggestive of area of loculation.. Yarelis David MD CT Angiography 04/21/16 1024 Signed Impressions: Service Date/Time: Thursday, April 21, 2016 11:53 - CONCLUSION: 1. There are abnormal filling defects within the right lower lobe lobar arterial branches and segmental arterial branches characteristic of PE. 2. There is also new right infrahilar/right lower lobe airspace consolidation and groundglass attenuation. A small right pleural effusion is also present. The appearance is nonspecific but could represent an infectious process or less likely neoplasm. It does not have a typical appearance for infarct. Suggest followup chest CT with IV contrast to confirm resolution of this finding following appropriate treatment. Ruel Dill MD Physical Exam GENERAL: This is a well-nourished, well-developed patient, in no apparent distress. SKIN: No rashes, ecchymoses or lesions. Cool and dry.Track nolen. HEAD: Atraumatic. Normocephalic. No temporal or scalp tenderness. EYES: Pupils equal round and reactive. Extraocular motions intact. No scleral icterus. No injection or drainage. ENT: Nose without bleeding, purulent drainage or septal hematoma. Throat without erythema, tonsillar hypertrophy or exudate. Uvula midline. Airway patent. NECK: Trachea midline. Supple, nontender, no meningeal signs. CARDIOVASCULAR: HS audible. RESPIRATORY: Breath sounds diminished on right side more than left. Bronchial breath sounds. GASTROINTESTINAL: Abdomen soft, non-tender, nondistended. MUSCULOSKELETAL: Extremities without clubbing, cyanosis, or edema. NEUROLOGICAL: Awake and alert. Grossly non focal Psych: cooperative IV line sites with no e/o infection. Assessment & Plan Remarks Endocarditis of TV valve. Vegetation appears to have increased in size, globular and oscillating. This puts him at high risk for further embolization. 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 Treated for HCAP prior to this admission with IV and oral. This will affect blood culture results. IVDA Hepatitis C positive Recs DC Zosyn IV Continue Vanco IV (target 15-20) Reviewed CT A/P no abscesses. 2D ECHO limited negative for bubble study and ? vegetation but no mention of large oscillating mass. Will review with Cardiology all the ECHOs to date. It is certainly possible he already threw the vegetation into the lungs as septic emboli. Will need 6 weeks IV irrespective of the blood culture results. Regimen to be determined. Patient was readmitted on Apr 05 2016 at [facility] for drug intoxication with positive drug screen for cocaine and amphetamines. High suspicion of ongoing or recurrent drug use after completion of initial treatment in Jan 2016. Patient denies IVDA but appears to have relapsed. Follow cultures Follow clinically Appreciate CTS recs Lisa Recio MD May 01, 2016 13:11
[2016-05-01] MEDS: LORazepam 0.5 MG TAB PO PRN ×2 (15:14→22:39)
[2016-05-01 16:00] VITALS: BP 155/95; PULSE 83; RESP 14; TEMP 96.7; O2SAT 99
[2016-05-01] MEDS: REMOVE OLD NICODERM (NICOTINE) PATCH TD SCH (19:39)
[2016-05-01 20:00] VITALS: BP 150/91; PULSE 88; RESP 17; TEMP 97.8; O2SAT 100
[2016-05-02] VITALS: BP 136/81; PULSE 82; RESP 17; TEMP 98.7; O2SAT 100
[2016-05-02] MEDS: MORPHINE SULFATE 4 MG/ML INJ IV PUSH PRN ×6 (03:03→21:58)
[2016-05-02] MEDS: ACETAMINOPHEN/HYDROcodone 325 MG/10 MG TAB PO PRN ×5 (04:21→21:11)
[2016-05-02] MEDS: VANCOMYCIN INJ 1,750 MG in SODIUM CHLORID 0.9% 500 ML INJ 500 ML IV SCH (05:19)
[2016-05-02] MEDS: KETOROLAC TROMETHAMINE 30 MG/ML (IVP) VIAL IV PUSH SCH ×4 (05:19→23:28)
[2016-05-02 05:21] LABS: HEMATOCRIT 35.1 % (39.0-51.0); MEAN CELL VOLUME 91.4 FL (80.0-100.0); MEAN CORPUSCULAR HEMOGLOBIN 30.5 PG (27.0-34.0); MEAN CORPUSCULAR HGB CONC 33.4 % (32.0-36.0); PLATELET COUNT 359 TH/MM3 (150-450); RED BLOOD COUNT 3.84 MIL/MM3 (4.50-5.90); RED CELL DISTRIBUTION WIDTH 15.7 % (11.6-17.2); REVIEW FLAG FINAL; WHITE BLOOD COUNT 7.8 TH/MM3 (4.0-11.0)
[2016-05-02] MEDS ORDERED: PHARMACY ORDERED LAB XX ONE (05:45)
[2016-05-02 05:46] LABS: BICARBONATE 26.8 MEQ/L (21.0-32.0); POTASSIUM 4.5 MEQ/L (3.5-5.1)
[2016-05-02 08:00] VITALS: BP 141/94; PULSE 79; RESP 18; TEMP 97.8; O2SAT 98
[2016-05-02] MEDS: NICOTINE 14 MG/24 HR PATCH TD SCH (08:38)
[2016-05-02] MEDS: RIVAROXABAN 15 MG TAB PO SCH ×2 (08:38→19:41)
[2016-05-02] MEDS: SODIUM CHLORIDE 0.9% FLUSH 5 ML FLUSH FLUSH SCH ×2 (08:39→19:40)
--- NOTE | 2016-05-02 09:55 | HHI.FPPN ---
Subjective Remarks Pt seen and examined. No acute events overnight. Pt reports that tooth pain is less severe this morning. He denies chest pain, SOB, abdominal pain, constipation, diarrhea, calf pain. He feels that is no longer able to tolerate tooth pain, even with pain medication, and would like to see a dentist as soon as possible. He expresses understanding that he is not permitted to leave the hospital and would have to sign out AMA. Objective Vitals Vital Signs Date Time Temp Pulse Resp B/P Pulse Ox O2 Delivery O2 Flow Rate FiO2 05/02/16 08:00 97.8 79 18 141/94 98 05/02/16 00:00 98.7 82 17 136/81 100 05/01/16 20:00 97.8 88 17 150/91 100 05/01/16 16:00 96.7 83 14 155/95 99 05/01/16 12:00 98 16 127/79 98 I/O 05/01/16 05/01/16 05/01/16 05/02/16 05/02/16 05/02/16 07:00 15:00 23:00 07:00 15:00 23:00 Intake Total 240 ml 360 ml 480 ml 240 ml Output Total 0 ml Balance 240 ml 360 ml 480 ml 240 ml Intake Oral 240 ml 360 ml 480 ml 240 ml Output Urine Total 0 ml # Voids 3 1 3 # Bowel Movements 0 Result Diagram: 05/02/16 0358 05/02/16 0358 Objective Remarks GENERAL: Patient lying in bed in no acute distress. HEENT: Normocephalic/atraumatic. Moist mucous membranes. Patient with multiple teeth without surrounding erythema. No signs of infection or abscesses appreciated. CARDIOVASCULAR: Regular rate and rhythm. RESPIRATORY: Clear to auscultation bilaterally without crackles, wheezes. Decreased breath sounds at the bases. GASTROINTESTINAL: Positive bowel sounds, soft, nontender, nondistended. MUSCULOSKELETAL: No edema, cyanosis, or clubbing. No calf tenderness. NEURO: awake, alert, and oriented. Cranial nerves grossly intact. Normal speech. 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 Admitted for SOB that was due to septic emboli. Discharge Planning Patient will need a 6 week course of IV antibiotics per ID irrespective of blood culture results. Attempting to transfer patient to [place] per ID recommendations. wdw Dr. Kinsey, Dr. Shearer Problem List: (1) Septic pulmonary embolism Status: Acute Plan: Afebrile. Leukocytosis resolved. HX of IV drug use with prior hx of endocarditis and custodial treatment -Hepatitis C positive -blood cultures no growth to date -sputum culture: normal respiratory kendall -incentive spirometer Consulted ID: appreciate recommendations * Endocarditis of TV valve. Vegetation appears to have increased in size, globular and oscillating. This puts him at high risk for further embolization * Evaluated by CTS, not a surgical candidate at this time. Will need to be abstinent for at least 6 months before consideration for surgical intervention * suspect blood cultures will be affected as pt was treated for HCAP prior to this admission * repeat echo with bubble study performed, bubble study negative. * Continue vancomycin for total duration of 6 weeks (04/21- ) Imaging: * CT pulmonary angiography 04/21: Abnormal filling defects within the right lower lobe lobar arterial branches and segmental arterial branches characteristic of pulmonary emboli. New right infrahilar/right lower lobe airspace consolidation and groundglass attenuation. Small right pleural effusion. * CT abdomen/pelvis 04/23: No evidence for abscess within the lung base, abdomen , or pelvis. Persistent area of consolidation involving the basilar aspect of the right lower lobe. Small right-sided pleural effusion with a contour bulge suggestive of area of loculation Medications * Xarelto 50 mg by mouth twice a day * Vancomycin 04/21-present * Zosyn 4.5 gm IV q8h (started 04/21-04/24) Pain/symptom control * Tylenol 650 mg by mouth every 4 hours when necessary for pain 1-2, fever * Ativan 0.5 mg by mouth every 8 hours when necessary for anxiety * Zofran 4 mg IV every 6 hours when necessary for nausea (2) Illicit drug use Status: Chronic Plan: UDS negative on admission but recent ED visit on 04/05/16 had a positive UDS of cocaine, amp, and opiates. * Nicotine patch (3) Poor dentition Status: Acute Plan: Pt with poor dentition and several teeth require extraction. He continues to endorse severe pain despite oral and IV pain medication. -OMFS was consulted, unfortunately they will not be able to preform routine dental care while pt is in the hospital -Pt will need to follow up with a dentist once discharged -Pt tried magic mouthwash and reports that this did not help relieve pain -Pt with altered pain tolerance/response to pain medication due to hx of drug abuse Pain control * Motrin 400 mg by mouth every 6 hours when necessary for pain 1-2 * [place] 325-5 mg 1 tab by mouth every 4 hours when necessary for pain 3-5 * [place] 325-10 mg 1 tab by mouth every 4 hours when necessary for pain 6-10 * Toradol 30 mg IV push every 6 hours scheduled for pain (started on 04/29/16 at 14:44, not to exceed total duration of 5 days) * Morphine 4 mg IV every 3 hours when necessary for breakthrough pain * Topical benzocaine gel to be applied every 6 hours as needed (4) Nutrition, metabolism, and development symptoms Status: Acute Plan: Fluids: None Electrolytes: WNLs Nutrition: Regular DVT PPX: Xarelto as above. SCDs GI PPX: not indicated Problem Qualifiers (1) Septic pulmonary embolism: Qualified Code: I26.90 - Acute septic pulmonary embolism without acute cor pulmonale Radha Thorne MD R2 May 02, 2016 09:55
[2016-05-02 12:00] VITALS: BP 136/91; PULSE 81; RESP 20; TEMP 97.6; O2SAT 96
[2016-05-02] MEDS ORDERED: BENZOCAINE 7.5% ORAL GEL 9.4 GM TUBE OROPHARYNG PRN (12:00)
[2016-05-02 16:00] VITALS: BP 134/90; PULSE 84; RESP 20; TEMP 97.4; O2SAT 98
[2016-05-02] MEDS: LORazepam 0.5 MG TAB PO PRN (19:44)
[2016-05-02] MEDS: REMOVE OLD NICODERM (NICOTINE) PATCH TD SCH (19:45)
[2016-05-02 20:00] VITALS: BP 148/93; PULSE 96; RESP 20; TEMP 97.4; O2SAT 95
[2016-05-03] VITALS: BP 131/96; PULSE 91; RESP 20; TEMP 97.9; O2SAT 99
[2016-05-03] MEDS: ACETAMINOPHEN/HYDROcodone 325 MG/10 MG TAB PO PRN ×6 (00:56→21:34)
[2016-05-03] MEDS: MORPHINE SULFATE 4 MG/ML INJ IV PUSH PRN ×6 (02:01→22:56)
[2016-05-03] MEDS: KETOROLAC TROMETHAMINE 30 MG/ML (IVP) VIAL IV PUSH SCH ×4 (05:55→23:26)
[2016-05-03 07:15] LABS: MEAN CELL VOLUME 91.4 FL (80.0-100.0); MEAN CORPUSCULAR HEMOGLOBIN 30.6 PG (27.0-34.0); MEAN CORPUSCULAR HGB CONC 33.5 % (32.0-36.0); PLATELET COUNT 325 TH/MM3 (150-450); RED BLOOD COUNT 3.94 MIL/MM3 (4.50-5.90); RED CELL DISTRIBUTION WIDTH 15.3 % (11.6-17.2); REVIEW FLAG FINAL; WHITE BLOOD COUNT 7.2 TH/MM3 (4.0-11.0)
--- NOTE | 2016-05-03 07:51 | HHI.FPPN ---
Subjective Remarks Pt seen and examined this morning. No acute events overnight. Pt reports feeling well. He denies chest pain, shortness of breath, abdominal pain, lag pain. He is planning on going to see a dentist on Wednesday due to persistent tooth pain, he is not currently experiencing pain. (Radha Thorne MD R2) Objective Vitals Vital Signs Date Time Temp Pulse Resp B/P Pulse Ox O2 Delivery O2 Flow Rate FiO2 05/03/16 06:00 18 05/03/16 06:00 18 05/03/16 00:28 18 05/03/16 00:00 97.9 91 20 131/96 99 05/02/16 20:00 97.4 96 20 148/93 95 05/02/16 16:00 97.4 84 20 134/90 98 05/02/16 12:00 97.6 81 20 136/91 96 05/02/16 08:00 97.8 79 18 141/94 98 I/O 05/02/16 05/02/16 05/02/16 05/03/16 05/03/16 05/03/16 07:00 15:00 23:00 07:00 15:00 23:00 Intake Total 240 ml 1700 ml 240 ml 220 ml Output Total 300 ml Balance 240 ml 1700 ml 240 ml -80 ml Intake Oral 240 ml 1200 ml 240 ml 220 ml IV Total 500 ml Output Urine Total 300 ml # Voids 3 3 2 # Bowel Movements 0 0 0 (Radha Thorne MD R2) Result Diagram: 05/03/16 0554 05/02/16 0358 Objective Remarks GENERAL: Patient lying in bed in no acute distress. HEENT: Normocephalic/atraumatic. Moist mucous membranes. Patient with multiple teeth without surrounding erythema. No signs of infection or abscesses appreciated. CARDIOVASCULAR: Regular rate and rhythm. RESPIRATORY: Clear to auscultation bilaterally without crackles, wheezes. Decreased breath sounds at the bases. GASTROINTESTINAL: Positive bowel sounds, soft, nontender, nondistended. MUSCULOSKELETAL: No edema, cyanosis, or clubbing. No calf tenderness. NEURO: awake, alert. Cranial nerves grossly intact. Normal speech. 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 Admitted for SOB that wasfound to be caused by septic emboli. Discharge Planning Patient will need a 6 week course of IV antibiotics per ID irrespective of blood culture results. Attempting to transfer patient to [place] per ID recommendations once pt is no longer on IV pain medication. wdw Dr. Kinsey, Dr. Shearer (Radha Thorne MD R2) Attending Attestation Pt. examined and case discussed with resident physicians I have read the above note and agree with the assessment/plan as discussed with me I was involved in all medical decision making for this patient Patient with dental procedure planned for tomorrow afternoon as an outpatient - Informed patient that we would not be able to discharge him for this procedure and that he would have to sign out AMA - Instructed him on possible adverse outcomes including worsening of infection, bleeding, progression of pulmonary emboli, and even - Patient states understanding and is still considering signing out AMA if his tooth pain is still bad tomorrow Jose David Kinsey MD (Jose David Kinsey MD) Problem List: (1) Septic pulmonary embolism Status: Acute Plan: Afebrile. Leukocytosis resolved. HX of IV drug use with prior hx of endocarditis and correction treatment -Hepatitis C positive -blood cultures no growth to date -sputum culture: normal respiratory kendall -incentive spirometer Consulted ID: appreciate recommendations * Endocarditis of TV valve. Vegetation appears to have increased in size, globular and oscillating. This puts him at high risk for further embolization * Evaluated by CTS, not a surgical candidate at this time. Will need to be abstinent for at least 6 months before consideration for surgical intervention * suspect blood cultures will be affected as pt was treated for HCAP prior to this admission * repeat echo with bubble study performed, bubble study negative. * Continue vancomycin for total duration of 6 weeks (04/21- ) Imaging: * CT pulmonary angiography 04/21: Abnormal filling defects within the right lower lobe lobar arterial branches and segmental arterial branches characteristic of pulmonary emboli. New right infrahilar/right lower lobe airspace consolidation and groundglass attenuation. Small right pleural effusion. * CT abdomen/pelvis 04/23: No evidence for abscess within the lung base, abdomen , or pelvis. Persistent area of consolidation involving the basilar aspect of the right lower lobe. Small right-sided pleural effusion with a contour bulge suggestive of area of loculation Medications * Xarelto 50 mg by mouth twice a day * Vancomycin 04/21-present * Zosyn 4.5 gm IV q8h (started 04/21-04/24) Pain/symptom control * Tylenol 650 mg by mouth every 4 hours when necessary for pain 1-2, fever * Ativan 0.5 mg by mouth every 8 hours when necessary for anxiety * Zofran 4 mg IV every 6 hours when necessary for nausea (2) Illicit drug use Status: Chronic Plan: UDS negative on admission but recent ED visit on 04/05/16 had a positive UDS of cocaine, amp, and opiates. * Nicotine patch (3) Poor dentition Status: Acute Plan: Pt with poor dentition and several teeth require extraction. He continues to endorse severe pain despite oral and IV pain medication. -OMFS was consulted, unfortunately they will not be able to preform routine dental care while pt is in the hospital -Pt will need to follow up with a dentist once discharged -Pt with altered pain tolerance/response to pain medication due to hx of drug abuse Pain control * Motrin 400 mg by mouth every 6 hours when necessary for pain 1-2 * [place] 325-5 mg 1 tab by mouth every 4 hours when necessary for pain 3-5 * [place] 325-10 mg 1 tab by mouth every 4 hours when necessary for pain 6-10 * Toradol 30 mg IV push every 6 hours scheduled for pain (started on 04/29/16 at 14:44, not to exceed total duration of 5 days) * Morphine 4 mg IV every 3 hours when necessary for breakthrough pain * Topical benzocaine gel to be applied every 6 hours as needed (4) Nutrition, metabolism, and development symptoms Status: Acute Plan: Fluids: None Electrolytes: WNLs Nutrition: Regular DVT PPX: Xarelto as above. SCDs GI PPX: not indicated (Radha Thorne MD R2) Problem Qualifiers (1) Septic pulmonary embolism: Qualified Code: I26.90 - Acute septic pulmonary embolism without acute cor pulmonale Radha Thorne MD R2 May 03, 2016 07:51 Jose David Kinsey MD May 03, 2016 10:48
[2016-05-03 08:00] VITALS: BP 135/86; PULSE 73; RESP 18; TEMP 97.8; O2SAT 98
[2016-05-03] MEDS: RIVAROXABAN 15 MG TAB PO SCH ×2 (09:12→19:21)
[2016-05-03] MEDS: VANCOMYCIN 1,500 MG/NS 500 ML IV SCH ×4 (09:13→19:22)
[2016-05-03] MEDS: NICOTINE 14 MG/24 HR PATCH TD SCH (09:13)
[2016-05-03] MEDS: SODIUM CHLORIDE 0.9% FLUSH 5 ML FLUSH FLUSH SCH ×2 (09:14→19:22)
[2016-05-03] MEDS: IBUPROFEN 400 MG TAB PO PRN (09:21)
[2016-05-03 12:00] VITALS: BP 144/75; PULSE 71; RESP 18; TEMP 96.2; O2SAT 99
[2016-05-03] MEDS: SODIUM CHLORIDE 0.9% FLUSH 5 ML FLUSH FLUSH PRN ×2 (12:07→14:23)
[2016-05-03 16:00] VITALS: BP 126/72; PULSE 70; RESP 18; TEMP 97.5; O2SAT 96
[2016-05-03] MEDS: LORazepam 0.5 MG TAB PO PRN (19:21)
[2016-05-03] MEDS: REMOVE OLD NICODERM (NICOTINE) PATCH TD SCH (19:22)
[2016-05-03 20:00] VITALS: BP 163/103; PULSE 84; RESP 22; TEMP 97.9; O2SAT 100
[2016-05-04] VITALS: BP 155/98; PULSE 75; RESP 20; TEMP 97.6; O2SAT 100
[2016-05-04] MEDS: ACETAMINOPHEN/HYDROcodone 325 MG/10 MG TAB PO PRN ×6 (01:46→22:14)
[2016-05-04] MEDS: MORPHINE SULFATE 4 MG/ML INJ IV PUSH PRN ×6 (02:42→22:43)
[2016-05-04] MEDS: KETOROLAC TROMETHAMINE 30 MG/ML (IVP) VIAL IV PUSH SCH ×3 (05:26→17:19)
[2016-05-04 05:39] LABS: AUTOMATED NEUTROPHIL # 3.8 TH/MM3 (1.8-7.7); BASOPHIL % 0.5 % (0.0-2.0); EOSINOPHIL # 0.2 TH/MM3 (0-0.4); EOSINOPHIL % 2.7 % (0.0-4.0); HEMATOCRIT 35.1 % (39.0-51.0); HEMO FLAGS DIFF FINAL; LYMPHOCYTE # 2.5 TH/MM3 (1.0-4.8); MEAN CELL VOLUME 91.3 FL (80.0-100.0); MEAN CORPUSCULAR HEMOGLOBIN 30.7 PG (27.0-34.0); MEAN CORPUSCULAR HGB CONC 33.6 % (32.0-36.0); MONO % 9.3 % (0.0-8.0); NEUT % 52.5 % (16.0-70.0); PLATELET COUNT 331 TH/MM3 (150-450); RED BLOOD COUNT 3.84 MIL/MM3 (4.50-5.90); RED CELL DISTRIBUTION WIDTH 15.7 % (11.6-17.2); WHITE BLOOD COUNT 7.2 TH/MM3 (4.0-11.0)
[2016-05-04 05:59] LABS: BICARBONATE 26.7 MEQ/L (21.0-32.0); POTASSIUM 4.7 MEQ/L (3.5-5.1)
[2016-05-04] MEDS: SODIUM CHLORIDE 0.9% FLUSH 5 ML FLUSH FLUSH SCH ×2 (07:41→20:08)
[2016-05-04] MEDS: RIVAROXABAN 15 MG TAB PO SCH (07:41)
[2016-05-04] MEDS: VANCOMYCIN 1,500 MG/NS 500 ML IV SCH ×4 (07:41→20:08)
[2016-05-04] MEDS: NICOTINE 14 MG/24 HR PATCH TD SCH (07:41)
[2016-05-04 08:00] VITALS: BP 137/98; PULSE 74; RESP 18; TEMP 96.9; O2SAT 99
[2016-05-04] MEDS ORDERED: DIATRIZOATE MEGLUM/DIATRIZOATE SOD 9 ML CUP PO ONE (11:15)
[2016-05-04] MEDS: LORazepam 0.5 MG TAB PO PRN (11:18)
--- NOTE | 2016-05-04 11:47 | HHI.FPPN ---
Subjective Remarks No acute events overnight. Vital signs of remained stable. Patient reports no new concerns at this time. He continues to deny fevers, chills, chest pain, shortness of breath, or calf pain. He does continue to report tooth pain and states he will be refusing his dose of Xarelto today and anticipates leaving AMA tomorrow following his morning dose of antibiotics in order to undergo a tooth extraction by a local oral surgeon. Objective Vitals Vital Signs Date Time Temp Pulse Resp B/P Pulse Ox O2 Delivery O2 Flow Rate FiO2 05/04/16 10:21 21 05/04/16 10:21 21 05/04/16 08:00 96.9 74 18 137/98 99 05/04/16 06:26 18 05/04/16 00:00 97.6 75 20 155/98 100 05/03/16 20:00 97.9 84 22 163/103 100 05/03/16 16:00 97.5 70 18 126/72 96 05/03/16 12:00 96.2 71 18 144/75 99 I/O 05/03/16 05/03/16 05/03/16 05/04/16 05/04/16 05/04/16 07:00 15:00 23:00 07:00 15:00 23:00 Intake Total 220 ml 1460 ml 860 ml 360 ml Output Total 300 ml Balance -80 ml 1460 ml 860 ml 360 ml Intake Oral 220 ml 960 ml 360 ml 360 ml IV Total 500 ml 500 ml Output Urine Total 300 ml # Voids 3 4 5 # Bowel Movements 0 1 0 0 Result Diagram: 05/04/16 0429 05/04/16 0429 Objective Remarks GENERAL: Patient lying in bed in no acute distress. Pleasant. HEENT: Normocephalic/atraumatic. Moist mucous membranes. Patient with multiple teeth without surrounding erythema. No signs of infection or abscesses appreciated. CARDIOVASCULAR: Regular rate and rhythm. RESPIRATORY: Clear to auscultation bilaterally without crackles, wheezes. Decreased breath sounds at the bases. GASTROINTESTINAL: Positive bowel sounds, soft, nontender, nondistended. MUSCULOSKELETAL: No edema, cyanosis, or clubbing. No calf tenderness. NEURO: awake, alert. Cranial nerves grossly intact. Normal speech. 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 Admitted for SOB that was found to be caused by septic emboli. Discharge Planning Patient will need a 6 week course of IV antibiotics per ID irrespective of blood culture results. Attempting to transfer patient to [place] per ID recommendations. rome Kinsey Problem List: (1) Septic pulmonary embolism Status: Acute Plan: Afebrile. Leukocytosis resolved. HX of IV drug use with prior hx of endocarditis and skilled nursing treatment -Hepatitis C positive -blood cultures no growth to date -sputum culture: normal respiratory k[place] -incentive spirometer Consulted ID: appreciate recommendations * Endocarditis of TV valve. Vegetation appears to have increased in size, globular and oscillating. This puts him at high risk for further embolization * Evaluated by CTS, not a surgical candidate at this time. Will need to be abstinent for at least 6 months before consideration for surgical intervention * suspect blood cultures will be affected as pt was treated for HCAP prior to this admission * repeat echo with bubble study performed, bubble study negative. * Continue vancomycin for total duration of 6 weeks (04/21- ) Imaging: * CT pulmonary angiography 04/21: Abnormal filling defects within the right lower lobe lobar arterial branches and segmental arterial branches characteristic of pulmonary emboli. New right infrahilar/right lower lobe airspace consolidation and groundglass attenuation. Small right pleural effusion. * CT abdomen/pelvis 04/23: No evidence for abscess within the lung base, abdomen , or pelvis. Persistent area of consolidation involving the basilar aspect of the right lower lobe. Small right-sided pleural effusion with a contour bulge suggestive of area of loculation Medications * Xarelto 50 mg by mouth twice a day * Vancomycin 04/21-present * Zosyn 4.5 gm IV q8h (started 04/21-04/24) Pain/symptom control * Tylenol 650 mg by mouth every 4 hours when necessary for pain 1-2, fever * Ativan 0.5 mg by mouth every 8 hours when necessary for anxiety * Zofran 4 mg IV every 6 hours when necessary for nausea (2) Illicit drug use Status: Chronic Plan: UDS negative on admission but recent ED visit on 04/05/16 had a positive UDS of cocaine, amp, and opiates. * Nicotine patch (3) Poor dentition Status: Acute Plan: Pt with poor dentition and several teeth require extraction. He continues to endorse severe pain despite oral and IV pain medication. -OMFS was consulted, unfortunately they will not be able to preform routine dental care while pt is in the hospital -Pt will need to follow up with a dentist once discharged -Pt with altered pain tolerance/response to pain medication due to hx of drug abuse Pain control * Motrin 400 mg by mouth every 6 hours when necessary for pain 1-2 * [place] 325-5 mg 1 tab by mouth every 4 hours when necessary for pain 3-5 * [place] 325-10 mg 1 tab by mouth every 4 hours when necessary for pain 6-10 * Toradol 30 mg IV push every 6 hours scheduled for pain (started on 04/29/16 at 14:44, not to exceed total duration of 5 days) * Morphine 4 mg IV every 3 hours when necessary for breakthrough pain * Topical benzocaine gel to be applied every 6 hours as needed (4) Nutrition, metabolism, and development symptoms Status: Acute Plan: Fluids: None Electrolytes: WNLs Nutrition: Regular DVT PPX: Xarelto as above. SCDs GI PPX: not indicated Problem Qualifiers (1) Septic pulmonary embolism: Qualified Code: I26.90 - Acute septic pulmonary embolism without acute cor pulmonale Tate Brady MD R3 May 04, 2016 11:46
[2016-05-04 12:00] VITALS: BP 135/82; PULSE 77; RESP 18; TEMP 97; O2SAT 99
--- NOTE | 2016-05-04 14:43 | HHI.IDPN ---
Subjective Subjective Remarks is a 40 year old male with h/o IVDA, hepatitis C, prolonged hospitalization here at [facility] from 01/03/2016-02/24/2016 for septic pulmonary emboli and TV endocarditis and MRSA UTI and bacteremia s/p 6 weeks of antibiotic therapy along with development of bilateral pleural effusions s/p thoracentesis. Overnight events reviewed. No fevers No rash No diarrhea. Complains of tooth ache. Antibiotics Zosyn IV Vanco IV Lines Line sites with no e/o infection. Past Medical History reviewed Allergies: Coded Allergies: *MDRO Multi-Drug Resistant Organism (Verified Adverse Reaction, Unknown, ) MRSA (urine-01/04/16) & (blood-01/06/16) Objective . Vital Signs Date Time Temp Pulse Resp B/P Pulse Ox O2 Delivery O2 Flow Rate FiO2 05/04/16 12:13 17 05/04/16 12:00 97.0 77 18 135/82 99 05/04/16 10:21 21 05/04/16 10:21 21 05/04/16 08:00 96.9 74 18 137/98 99 05/04/16 00:00 97.6 75 20 155/98 100 05/03/16 20:00 97.9 84 22 163/103 100 05/03/16 16:00 97.5 70 18 126/72 96 05/03/16 05/03/16 05/04/16 15:00 23:00 07:00 Intake Total 1460 ml 860 ml 360 ml Balance 1460 ml 860 ml 360 ml Intake Oral 960 ml 360 ml 360 ml IV Total 500 ml 500 ml # Voids 3 4 5 # Bowel Movements 1 0 0 . Laboratory Tests Test 05/03/16 05/04/16 05:54 04:29 White Blood Count 7.2 TH/MM3 7.2 TH/MM3 Red Blood Count 3.94 MIL/MM3 3.84 MIL/MM3 Hemoglobin 12.1 GM/DL 11.8 GM/DL Hematocrit 36.0 % 35.1 % Mean Corpuscular Volume 91.4 FL 91.3 FL Mean Corpuscular Hemoglobin 30.6 PG 30.7 PG Mean Corpuscular Hemoglobin 33.5 % 33.6 % Concent Red Cell Distribution Width 15.3 % 15.7 % Platelet Count 325 TH/MM3 331 TH/MM3 Mean Platelet Volume 7.6 FL 7.5 FL Neutrophils (%) (Auto) 52.5 % Lymphocytes (%) (Auto) 35.0 % Monocytes (%) (Auto) 9.3 % Eosinophils (%) (Auto) 2.7 % Basophils (%) (Auto) 0.5 % Neutrophils # (Auto) 3.8 TH/MM3 Lymphocytes # (Auto) 2.5 TH/MM3 Monocytes # (Auto) 0.7 TH/MM3 Eosinophils # (Auto) 0.2 TH/MM3 Basophils # (Auto) 0.0 TH/MM3 CBC Comment DIFF FINAL Differential Comment Laboratory Tests Test 05/04/16 04:29 Sodium Level 140 MEQ/L Potassium Level 4.7 MEQ/L Chloride Level 105 MEQ/L Carbon Dioxide Level 26.7 MEQ/L Anion Gap 8 MEQ/L Blood Urea Nitrogen 20 MG/DL Creatinine 1.02 MG/DL Estimat Glomerular Filtration 80 ML/MIN Rate Random Glucose 85 MG/DL Calcium Level 9.5 MG/DL C-Reactive Protein 3.72 MG/DL Imaging Last Impressions Abdomen/Pelvis CT 04/23/16 0000 Signed Impressions: Service Date/Time: March 15:53 - CONCLUSION: 1. No evidence of abscess within the lung base, abdomen or pelvis. No evidence of inflammatory process within this region. 2. Persistent area of consolidation involving the basilar aspect of the right lower lobe. Given the patient's prior history of emboli this could represent an area of lung infarct. Small right-sided pleural effusion with a contour bulge suggestive of area of loculation.. Yarelis David MD CT Angiography 04/21/16 1024 Signed Impressions: Service Date/Time: Thursday, April 21, 2016 11:53 - CONCLUSION: 1. There are abnormal filling defects within the right lower lobe lobar arterial branches and segmental arterial branches characteristic of PE. 2. There is also new right infrahilar/right lower lobe airspace consolidation and groundglass attenuation. A small right pleural effusion is also present. The appearance is nonspecific but could represent an infectious process or less likely neoplasm. It does not have a typical appearance for infarct. Suggest followup chest CT with IV contrast to confirm resolution of this finding following appropriate treatment. Ruel Dill MD Physical Exam GENERAL: This is a well-nourished, well-developed patient, in no apparent distress. SKIN: No rashes, ecchymoses or lesions. Cool and dry.Track nolen. HEAD: Atraumatic. Normocephalic. No temporal or scalp tenderness. EYES: Pupils equal round and reactive. Extraocular motions intact. No scleral icterus. No injection or drainage. ENT: Nose without bleeding, purulent drainage or septal hematoma. Throat without erythema, tonsillar hypertrophy or exudate. Uvula midline. Airway patent. NECK: Trachea midline. Supple, nontender, no meningeal signs. CARDIOVASCULAR: HS audible. RESPIRATORY: Breath sounds diminished on right side more than left. Bronchial breath sounds. GASTROINTESTINAL: Abdomen soft, non-tender, nondistended. MUSCULOSKELETAL: Extremities without clubbing, cyanosis, or edema. NEUROLOGICAL: Awake and alert. Grossly non focal Psych: cooperative IV line sites with no e/o infection. Assessment & Plan Remarks Endocarditis of TV valve. MRSA pneumonia: secondary to septic emboli. Repeat ECHO with no vegetation likely showered into lungs. 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 Treated for HCAP prior to this admission with IV and oral. This will affect blood culture results. Tooth ache: ? caries IVDA Hepatitis C positive Recs Continue Vanco IV (target 15-20) It is certainly possible he already threw the vegetation into the lungs as septic emboli. Will need treatment for 4-6 weeks with transition to oral possible in last 2 weeks depending on repeat 2D ECHO and imaging. CT Chest/A/P with contrast (follow up on Lung abscess/empyema) CT sinuses to look for odontogenic infection and see if drainage needed in hospital. angus patient and RN. Lisa Recio MD May 04, 2016 14:43
[2016-05-04] MEDS ORDERED: IOHEXOL 350 MG/ML 10 ML VIAL (for RAD DIAG) IV ONE (16:34)
--- NOTE | 2016-05-04 16:54 | RADRPT ---
EXAM DATE/TIME: 05/04/2016 16:23 [facility] COMPARISON: No previous studies available for comparison. INDICATIONS : Right sided sinus pain. RADIATION DOSE: 27.18 CTDIvol (mGy) MEDICAL HISTORY : Cerebrovascular disease. SURGICAL HISTORY : None. ENCOUNTER: Initial ACUITY: 1 day PAIN SCORE: 5/10 LOCATION: Right cranial TECHNIQUE: Volumetric scanning of the paranasal sinuses was performed. Using automated exposure control and adj ustment of the mA and/or kV according to patient size, radiation dose was kept as low as reasonably a chievable to obtain optimal diagnostic quality images. FINDINGS: MAXILLARY SINUSES: Normal. No significant mucosal thickening or fluid. Infundibula are patent. No anomalous inferior orbital ethmoid (Daniela) air cells. ETHMOID SINUSES: Normal. No significant mucosal thickening or fluid. Fovea ethmoidal and lamina papyracea are symmet opal and intact. SPHENOID SINUSES: Normal. No significant mucosal thickening or fluid. Sphenoethmoidal recesses are patent. No bony d ehiscence. FRONTAL SINUSES: Normal. No significant mucosal thickening or fluid. Frontal recesses are patent. No anomalous fron emma air cells. NASAL FOSSA: Normal. No septal perforation or deviation. No hannah bullosa or paradoxical turbinates are identifie d. OTHER: Normal. Limited views of the skull base and orbits are unremarkable. CONCLUSION: There is no evidence for inflammatory sinus disease.. Jw Bettencourt MD FACR on May 04, 2016 at 16:52 Board Certified Radiologist. This report was verified electronically.
--- NOTE | 2016-05-04 16:58 | RADRPT ---
EXAM DATE/TIME: 05/04/2016 16:28 [facility] COMPARISON: CT ABDOMEN & PELVIS W CONTRAST, April 23, 2016, 15:53. INDICATIONS : Evaluate for septic emboli versus abscess. IV CONTRAST: 95 cc Omnipaque 350 (iohexol) IV ; Cumulative dose for multiple exams. ORAL CONTRAST: Prescribed oral contrast ingested. RADIATION DOSE: 16.25 CTDIvol (mGy) MEDICAL HISTORY : Cardiovascular disease. SURGICAL HISTORY : None. ENCOUNTER: Subsequent ACUITY: 1 week PAIN SCALE: 5/10 LOCATION: Abdomen TECHNIQUE: Volumetric scanning of the abdomen and pelvis was performed. Using automated exposure control and adjustment of the mA and/or kV according to patient size, radiation dose was kept as low as reasonably achievable to obtain optimal diagnostic quality images. FINDINGS: There are persistent consolidative changes in the right lower lobe with trace fluid pre sent. The left lung base is clear. There is no pericardial effusion. The liver is free of focal defects. Spleen is unremarkable. Adrenals and kidneys appear normal. th ere is no evidence for embolic disease to either spleen or kidneys. Adrenal glands appear normal. Pelvic contents show minimal diverticula in the sigmoid colon without diverticulitis. There is no ascites or adenopathy. Abdominal wall is intact. Review of bone windows reveals mild degenerative changes present in the lumbar spine. SI joints are normal. CONCLUSION: 1. Inflammatory changes in the right lower lobe, slightly improved in the interval. 2. There is no evidence for septic emboli. Jw Bettencourt MD FACR on May 04, 2016 at 16:52 Board Certified Radiologist. This report was verified electronically.
--- NOTE | 2016-05-04 17:02 | RADRPT ---
EXAM DATE/TIME: 05/04/2016 16:28 [facility] COMPARISON: CT THORAX W CONTRAST, January 11, 2016, 9:13. INDICATIONS : Follow up for possible septic emboli. IV CONTRAST: 95 cc Omnipaque 350 (iohexol) IV ; Cumulative dose for multiple exams. RADIATION DOSE: 16.25 CTDIvol (mGy) ; Combined studies - Thorax/Abdomen/Pelvis MEDICAL HISTORY : Cardiovascular disease. SURGICAL HISTORY : None. ENCOUNTER: Subsequent ACUITY: 1 week PAIN SCALE: 5/10 LOCATION: Bilateral cranial TECHNIQUE: Volumetric scanning of the chest was performed. Using automated exposure control and adjustment of the mA and/or kV according to patient size, radiation dose was kept as low as reasonab ly achievable to obtain optimal diagnostic quality images. FINDINGS: Again seen are the consolidative changes in the right lung base with a small right pleu ral effusion. These have improved substantially in the interval. The left lung is clear. There is no evidence fo r new septic emboli to either lung. There is no pericardial effusion. There is no axillary adenopathy. The ascending aorta is prominent when compared to the descending aorta. Ascending aorta measures 3.6 cm. Descending aorta measures 2.4 cm. This is abnormal in a 40 year old. CONCLUSION: 1. Abnormal ascending aorta with dilatation of such. 2. There is improvement with less inflammatory changes in the right lower lobe. 3. There is no evidence for new emboli to the lungs. Jw Bettencourt MD FACR on May 04, 2016 at 16:54 Board Certified Radiologist. This report was verified electronically.
[2016-05-04 20:00] VITALS: BP 128/80; PULSE 71; RESP 20; TEMP 96.8; O2SAT 97
[2016-05-04] MEDS: REMOVE OLD NICODERM (NICOTINE) PATCH TD SCH (20:11)
[2016-05-04 23:44] VITALS: BP 130/94; PULSE 74; RESP 21; TEMP 96.4; O2SAT 95
[2016-05-05] MEDS: KETOROLAC TROMETHAMINE 30 MG/ML (IVP) VIAL IV PUSH SCH ×2 (01:29→05:53)
[2016-05-05] MEDS: ACETAMINOPHEN/HYDROcodone 325 MG/10 MG TAB PO PRN ×2 (02:11→08:46)
[2016-05-05] MEDS: MORPHINE SULFATE 4 MG/ML INJ IV PUSH PRN (02:49)
[2016-05-05 08:00] VITALS: BP 133/80; PULSE 59; RESP 19; TEMP 97.1; O2SAT 96
[2016-05-05] MEDS ORDERED: PHARMACY ORDERED LAB XX ONE (08:45)
[2016-05-05] MEDS: NICOTINE 14 MG/24 HR PATCH TD SCH (08:46)
[2016-05-05] MEDS: SODIUM CHLORIDE 0.9% FLUSH 5 ML FLUSH FLUSH SCH ×2 (08:46→21:50)
[2016-05-05] MEDS: VANCOMYCIN 1,500 MG/NS 500 ML IV SCH ×2 (08:47)
[2016-05-05 10:12] LABS: BICARBONATE 25.6 MEQ/L (21.0-32.0)
--- NOTE | 2016-05-05 11:10 | HHI.FPPN ---
Subjective Remarks Patient seen and examined this morning. Patient reports that he feels exhausted and continues to experience tooth pain. He denies chest pain, difficulty breathing, abdominal pain, calf pain. Per discussion with patient's nurse, patient has a dental appointment at noon and intends to leave the hospital in order to attend this appointment. Objective Vitals Vital Signs Date Time Temp Pulse Resp B/P Pulse Ox O2 Delivery O2 Flow Rate FiO2 05/05/16 09:46 20 05/05/16 08:00 97.1 59 19 133/80 96 05/04/16 23:44 96.4 74 21 130/94 95 05/04/16 20:00 96.8 71 20 128/80 97 05/04/16 18:19 17 05/04/16 15:50 17 05/04/16 12:00 97.0 77 18 135/82 99 I/O 05/04/16 05/04/16 05/04/16 05/05/16 05/05/16 05/05/16 07:00 15:00 23:00 07:00 15:00 23:00 Intake Total 360 ml 740 ml 740 ml 360 ml 120 ml Balance 360 ml 740 ml 740 ml 360 ml 120 ml Intake Oral 360 ml 240 ml 240 ml 360 ml 120 ml IV Total 500 ml Lipid 500 ml # Voids 5 5 2 3 # Bowel Movements 0 0 0 1 Result Diagram: 05/04/16 0429 05/05/16 0845 Objective Remarks GENERAL: Patient lying in bed in no acute distress. HEENT: Normocephalic/atraumatic. Moist mucous membranes. Patient with multiple teeth without surrounding erythema. No signs of infection or abscesses appreciated. CARDIOVASCULAR: Regular rate and rhythm. RESPIRATORY: Clear to auscultation bilaterally without crackles, wheezes. Decreased breath sounds at the bases. GASTROINTESTINAL: Positive bowel sounds, soft, nontender, nondistended. MUSCULOSKELETAL: No edema, cyanosis, or clubbing. No calf tenderness. NEURO: awake, alert. Cranial nerves grossly intact. Normal speech. 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 Admitted for SOB that was found to be caused by septic emboli. Discharge Planning Patient will need a 6 week course of IV antibiotics per ID irrespective of blood culture results. Attempting to transfer patient to [place] per ID recommendations. wdw Dr. Kinsey Problem List: (1) Septic pulmonary embolism Status: Acute Plan: Afebrile. Leukocytosis resolved. 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 Vegetation appears to have increased in size, globular and oscillating. This puts him at high risk for further embolization * Evaluated by CTS, not a surgical candidate at this time. Will need to be abstinent for at least 6 months before consideration for surgical intervention * suspect blood cultures will be affected as pt was treated for HCAP prior to this admission * repeat echo with bubble study performed, bubble study negative. * Continue vancomycin for total duration of 6 weeks (04/21- ) Imaging: * Abdomen/pelvis CT 05/04/16: Inflammatory changes in the right lower lobe, slight improvement in the interval. No evidence of septic emboli. * Chest CT 05/04/16: Abnormal ascending aorta with dilation. There is improvement with less inflammatory changes in the right lower lobe. There is no evidence of new emboli to lungs. * CT pulmonary angiography 04/21: Abnormal filling defects within the right lower lobe lobar arterial branches and segmental arterial branches characteristic of pulmonary emboli. New right infrahilar/right lower lobe airspace consolidation and groundglass attenuation. Small right pleural effusion. * CT abdomen/pelvis 04/23: No evidence for abscess within the lung base, abdomen , or pelvis. Persistent area of consolidation involving the basilar aspect of the right lower lobe. Small right-sided pleural effusion with a contour bulge suggestive of area of loculation Medications * Xarelto 50 mg by mouth twice a day * Vancomycin 04/21-present * Zosyn 4.5 gm IV q8h (started 04/21-04/24) Pain/symptom control * Tylenol 650 mg by mouth every 4 hours when necessary for pain 1-2, fever * Ativan 0.5 mg by mouth every 8 hours when necessary for anxiety * Zofran 4 mg IV every 6 hours when necessary for nausea (2) Illicit drug use Status: Chronic Plan: UDS negative on admission but recent ED visit on 04/05/16 had a positive UDS of cocaine, amp, and opiates. * Nicotine patch (3) Poor dentition Status: Acute Plan: Pt with poor dentition and several teeth require extraction. He continues to endorse severe pain despite oral and IV pain medication. -OMFS was consulted, unfortunately they will not be able to preform routine dental care while pt is in the hospital -Pt will need to follow up with a dentist once discharged -Pt with altered pain tolerance/response to pain medication due to hx of drug abuse -Sinus CT performed on 05/04/16: No evidence of inflammatory sinus disease, no dental abscesses appreciated Pain control * Motrin 400 mg by mouth every 6 hours when necessary for pain 1-2 * [place] 325-5 mg 1 tab by mouth every 4 hours when necessary for pain 3-5 * [place] 325-10 mg 1 tab by mouth every 4 hours when necessary for pain 6-10 * Toradol discontinued * Morphine 4 mg IV every 3 hours when necessary for breakthrough pain * Topical benzocaine gel to be applied every 6 hours as needed (4) Nutrition, metabolism, and development symptoms Status: Acute Plan: Fluids: None Electrolytes: WNLs Nutrition: Regular DVT PPX: Xarelto as above. SCDs GI PPX: not indicated Problem Qualifiers (1) Septic pulmonary embolism: Qualified Code: I26.90 - Acute septic pulmonary embolism without acute cor pulmonale Radha Thorne MD R2 May 05, 2016 11:10
[2016-05-05 12:00] VITALS: BP 125/72; PULSE 65; RESP 19; TEMP 97.3; O2SAT 95
[2016-05-05 16:00] VITALS: BP 130/70; PULSE 70; RESP 19; TEMP 98.7; O2SAT 95
[2016-05-05] MEDS: LORazepam 0.5 MG TAB PO PRN (17:36)
[2016-05-05] MEDS: ACETAMINOPHEN/HYDROcodone 325 MG/5 MG TAB PO PRN (17:36)
[2016-05-05 20:00] VITALS: BP 123/78; PULSE 78; RESP 20; TEMP 96; O2SAT 95
[2016-05-05] MEDS: REMOVE OLD NICODERM (NICOTINE) PATCH TD SCH (21:00)
[2016-05-06] MEDS: SODIUM CHLORIDE 0.9% FLUSH 5 ML FLUSH FLUSH PRN ×2 (00:03→13:58)
[2016-05-06] MEDS: VANCOMYCIN INJ 1,250 MG in SODIUM CHLOR 0.9% 250 ML INJ 250 ML IV SCH ×2 (00:06→13:23)
[2016-05-06] MEDS: ACETAMINOPHEN/HYDROcodone 325 MG/10 MG TAB PO PRN ×5 (00:12→17:18)
[2016-05-06] MEDS: MORPHINE SULFATE 4 MG/ML INJ IV PUSH PRN ×6 (01:23→21:49)
[2016-05-06 07:18] LABS: AUTOMATED NEUTROPHIL # 5.1 TH/MM3 (1.8-7.7); BASOPHIL % 0.4 % (0.0-2.0); EOSINOPHIL # 0.1 TH/MM3 (0-0.4); EOSINOPHIL % 1.7 % (0.0-4.0); HEMATOCRIT 40.1 % (39.0-51.0); HEMO FLAGS DIFF FINAL; LYMPH % 29.4 % (9.0-44.0); LYMPHOCYTE # 2.5 TH/MM3 (1.0-4.8); MEAN CELL VOLUME 90.4 FL (80.0-100.0); MEAN CORPUSCULAR HEMOGLOBIN 30.4 PG (27.0-34.0); MEAN CORPUSCULAR HGB CONC 33.6 % (32.0-36.0); MONO % 7.8 % (0.0-8.0); NEUT % 60.7 % (16.0-70.0); PLATELET COUNT 378 TH/MM3 (150-450); RED BLOOD COUNT 4.44 MIL/MM3 (4.50-5.90); RED CELL DISTRIBUTION WIDTH 15.6 % (11.6-17.2); WHITE BLOOD COUNT 8.4 TH/MM3 (4.0-11.0)
[2016-05-06 07:32] LABS: BICARBONATE 25.1 MEQ/L (21.0-32.0); POTASSIUM 4.5 MEQ/L (3.5-5.1)
[2016-05-06 08:00] VITALS: BP 125/76; PULSE 82; RESP 20; TEMP 97.9; O2SAT 96
[2016-05-06] MEDS: SODIUM CHLORIDE 0.9% FLUSH 5 ML FLUSH FLUSH SCH ×2 (08:38→19:54)
[2016-05-06] MEDS: NICOTINE 14 MG/24 HR PATCH TD SCH (08:38)
--- NOTE | 2016-05-06 10:28 | HHI.FPPN ---
Subjective Remarks No acute events overnight. Afebrile and vital signs stable overnight. When he went to see patient in the morning, pt about to be taken to father's hospice. Apparently, his brother called. Infectious disease did not feel comfortable discharging him having follow-up as an outpatient, but they did feel comfortable allowing him to be escorted to his father's hospice and back. Charge nurse help to coordinate. Patient was escorted by Chalino the safety and security manager. Patient reports that he was up for 3 days thinking about the situation with his father, and then he slept for almost all day. Patient reports that his dental pain is mostly well controlled by medication. He reports that he still gets flares of tooth pain, but medication keep the pain at bay. He reports that the pain flared about 30 minutes prior to when his pain medications are due. The pain flares were exasperated by when he touches his tongue to a tooth, and are relieved by rubbing his temples. Patient denies any chest pain, shortness of breath, nausea, vomiting, fever, chills. Reports moving his bowels well. (Derek Shearer MD R1) Objective Vitals Vital Signs Date Time Temp Pulse Resp B/P Pulse Ox O2 Delivery O2 Flow Rate FiO2 05/06/16 09:33 16 05/06/16 08:00 97.9 82 20 125/76 96 05/06/16 05:50 20 05/05/16 20:00 96.0 78 20 123/78 95 05/05/16 19:00 20 05/05/16 16:00 98.7 70 19 130/70 95 05/05/16 12:00 97.3 65 19 125/72 95 I/O 05/05/16 05/05/16 05/05/16 05/06/16 05/06/16 05/06/16 07:00 15:00 23:00 07:00 15:00 23:00 Intake Total 360 ml 1580 ml 240 ml 610 ml Output Total 1000 ml 800 ml 500 ml Balance 360 ml 580 ml -560 ml 110 ml Intake Oral 360 ml 1080 ml 240 ml 360 ml IV Total 500 ml 250 ml Output Urine Total 1000 ml 800 ml 500 ml # Voids 3 1 # Bowel Movements 1 0 0 1 (Derek Shearer MD R1) Result Diagram: 05/06/16 0609 05/06/16 0609 Imaging Last Impressions Sinuses CT 05/04/16 06 Signed Impressions: Service Date/Time: Wednesday, May 04, 2016 16:23 - CONCLUSION: There is no evidence for inflammatory sinus disease.. Jw Bettencourt MD FACR Chest CT 05/04/16 06 Signed Impressions: Service Date/Time: Wednesday, May 04, 2016 16:28 - CONCLUSION: 1. Abnormal ascending aorta with dilatation of such. 2. There is improvement with less inflammatory changes in the right lower lobe. 3. There is no evidence for new emboli to the lungs. Jw Bettencourt MD FACR Abdomen/Pelvis CT 05/04/16 06 Signed Impressions: Service Date/Time: Wednesday, May 04, 2016 16:28 - CONCLUSION: 1. Inflammatory changes in the right lower lobe, slightly improved in the interval. 2. There is no evidence for septic emboli. Jw Bettencourt MD FACR CT Angiography 04/21/16 1024 Signed Impressions: Service Date/Time: Thursday, April 21, 2016 11:53 - CONCLUSION: 1. There are abnormal filling defects within the right lower lobe lobar arterial branches and segmental arterial branches characteristic of PE. 2. There is also new right infrahilar/right lower lobe airspace consolidation and groundglass attenuation. A small right pleural effusion is also present. The appearance is nonspecific but could represent an infectious process or less likely neoplasm. It does not have a typical appearance for infarct. Suggest followup chest CT with IV contrast to confirm resolution of this finding following appropriate treatment. Ruel Dill MD Objective Remarks GENERAL: Patient lying in bed in no acute distress. HEENT: Normocephalic/atraumatic. Moist mucous membranes. Patient with multiple teeth without surrounding erythema. No signs of infection or abscesses appreciated. CARDIOVASCULAR: Regular rate and rhythm. RESPIRATORY: Clear to auscultation bilaterally without crackles, wheezes. GASTROINTESTINAL: Positive bowel sounds, soft, nontender, nondistended. MUSCULOSKELETAL: No edema, cyanosis, or clubbing. No calf tenderness. NEURO: awake, alert. Cranial nerves grossly intact. Normal speech. 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 Admitted for SOB that was found to be caused by septic emboli. Discharge Planning Patient will need a 6 week course of IV antibiotics per ID irrespective of blood culture results. Attempting to transfer patient to [place] per ID recommendations. rome Kinsey (Deerk Shearer MD R1) Attending Attestation Pt. examined and case discussed with resident physician I have read the above note and agree with the assessment/plan as discussed with me I was involved in all medical decision making for this patient Jose David Kinsey MD (Jose David Kinsey MD) Problem List: (1) Septic pulmonary embolism Status: Acute Plan: Afebrile. Leukocytosis resolved. 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 Vegetation appears to have increased in size, globular and oscillating. This puts him at high risk for further embolization * Evaluated by CTS, not a surgical candidate at this time. Will need to be abstinent for at least 6 months before consideration for surgical intervention * suspect blood cultures will be affected as pt was treated for HCAP prior to this admission * repeat echo with bubble study performed, bubble study negative. * Continue vancomycin for total duration of 6 weeks (04/21- ) Imaging: * Abdomen/pelvis CT 05/04/16: Inflammatory changes in the right lower lobe, slight improvement in the interval. No evidence of septic emboli. * Chest CT 05/04/16: Abnormal ascending aorta with dilation. There is improvement with less inflammatory changes in the right lower lobe. There is no evidence of new emboli to lungs. * CT pulmonary angiography 04/21: Abnormal filling defects within the right lower lobe lobar arterial branches and segmental arterial branches characteristic of pulmonary emboli. New right infrahilar/right lower lobe airspace consolidation and groundglass attenuation. Small right pleural effusion. * CT abdomen/pelvis 04/23: No evidence for abscess within the lung base, abdomen , or pelvis. Persistent area of consolidation involving the basilar aspect of the right lower lobe. Small right-sided pleural effusion with a contour bulge suggestive of area of loculation Medications * Xarelto 50 mg by mouth twice a day * Vancomycin 04/21-present * Zosyn 4.5 gm IV q8h (started 04/21-04/24) Pain/symptom control * Tylenol 650 mg by mouth every 4 hours when necessary for pain 1-2, fever * Ativan 0.5 mg by mouth every 8 hours when necessary for anxiety * Zofran 4 mg IV every 6 hours when necessary for nausea (2) Illicit drug use Status: Chronic Plan: UDS negative on admission but recent ED visit on 04/05/16 had a positive UDS of cocaine, amp, and opiates. * Nicotine patch (3) Poor dentition Status: Acute Plan: Pt with poor dentition and several teeth require extraction. He continues to endorse flares of pain despite oral and IV pain medication. -OMFS was consulted, unfortunately they will not be able to preform routine dental care while pt is in the hospital -Pt will need to follow up with a dentist once discharged -Pt with altered pain tolerance/response to pain medication due to hx of drug abuse -Sinus CT performed on 05/04/16: No evidence of inflammatory sinus disease, no dental abscesses appreciated Pain control * Motrin 400 mg by mouth every 6 hours when necessary for pain 1-2 * [place] 325-5 mg 1 tab by mouth every 4 hours when necessary for pain 3-5 * [place] 325-10 mg 1 tab by mouth every 4 hours when necessary for pain 6-10 * Toradol discontinued * Morphine 4 mg IV every 3 hours when necessary for breakthrough pain * Topical benzocaine gel to be applied every 6 hours as needed (4) Nutrition, metabolism, and development symptoms Status: Acute Plan: Fluids: None Electrolytes: WNLs Nutrition: Regular DVT PPX: Xarelto as above. SCDs GI PPX: not indicated (Derek Shearer MD R1) Problem Qualifiers (1) Septic pulmonary embolism: Qualified Code: I26.90 - Acute septic pulmonary embolism without acute cor pulmonale Derek Shearer MD R1 May 06, 2016 10:28 Jose David Kinsey MD May 06, 2016 21:12
[2016-05-06 12:00] VITALS: BP 127/75; PULSE 85; RESP 19; TEMP 98.5; O2SAT 97
[2016-05-06] MEDS: LORazepam 0.5 MG TAB PO PRN (12:51)
[2016-05-06] MEDS: REMOVE OLD NICODERM (NICOTINE) PATCH TD SCH (19:55)
[2016-05-06 20:00] VITALS: BP 133/80; PULSE 90; RESP 18; TEMP 97; O2SAT 97
[2016-05-06] MEDS ORDERED: PHARMACY ORDERED LAB XX ONE (23:45)
[2016-05-07] VITALS: BP 127/77; PULSE 87; RESP 17; TEMP 97.4; O2SAT 97
[2016-05-07] MEDS: ACETAMINOPHEN/HYDROcodone 325 MG/10 MG TAB PO PRN ×5 (00:13→21:30)
[2016-05-07] MEDS: VANCOMYCIN INJ 1,250 MG in SODIUM CHLOR 0.9% 250 ML INJ 250 ML IV SCH ×2 (00:14→11:33)
[2016-05-07] MEDS: MORPHINE SULFATE 4 MG/ML INJ IV PUSH PRN ×5 (01:02→22:16)
[2016-05-07 08:00] VITALS: BP 129/75; PULSE 85; RESP 18; TEMP 97.4; O2SAT 98
--- NOTE | 2016-05-07 08:50 | HHI.FPPN ---
Subjective Remarks No acute events overnight. Afebrile vital signs stable overnight. Patient complains of feeling groggy and toothache, which is at baseline, but otherwise feels well. Patient denies any fever, chills, chest pain, shortness of breath. Reports moving his bowels well and good appetite. (Derek Shearer MD R1) Objective Vitals Vital Signs Date Time Temp Pulse Resp B/P Pulse Ox O2 Delivery O2 Flow Rate FiO2 05/07/16 06:02 18 05/07/16 05:26 18 05/07/16 00:00 97.4 87 17 127/77 97 05/06/16 20:00 97.0 90 18 133/80 97 05/06/16 12:00 98.5 85 19 127/75 97 I/O 05/06/16 05/06/16 05/06/16 05/07/16 05/07/16 05/07/16 07:00 15:00 23:00 07:00 15:00 23:00 Intake Total 610 ml 820 ml 240 ml 240 ml Output Total 500 ml 700 ml 300 ml 600 ml Balance 110 ml 120 ml -60 ml -360 ml Intake Oral 360 ml 820 ml 240 ml 240 ml IV Total 250 ml 0 ml Output Urine Total 500 ml 700 ml 300 ml 600 ml # Voids 1 # Bowel Movements 1 0 (Derek Shearer MD R1) Result Diagram: 05/06/16 0609 05/06/16 0609 Objective Remarks GENERAL: Patient lying in bed in no acute distress. HEENT: Normocephalic/atraumatic. Moist mucous membranes. Patient with multiple teeth without surrounding erythema. No signs of infection or abscesses appreciated. CARDIOVASCULAR: Regular rate and rhythm. RESPIRATORY: Clear to auscultation bilaterally without crackles, wheezes. GASTROINTESTINAL: Positive bowel sounds, soft, nontender, nondistended. MUSCULOSKELETAL: No edema, cyanosis, or clubbing. No calf tenderness. NEURO: awake, alert. Cranial nerves grossly intact. Normal speech. 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 Admitted for SOB that was found to be caused by septic emboli. Discharge Planning Patient will need a 6 week course of IV antibiotics per ID irrespective of blood culture results. Attempting to transfer patient to [place] per ID recommendations. wdw Dr. Kinsey (Derek Shearer MD R1) Attending Attestation Patient examined and case discussed with resident physicians I have read the above note and agree with the assessment/plan is discussed with me I was involved in all medical decision making for this patient Jose David Kinsey M.D. (Jose David Kinsey MD) Problem List: (1) Septic pulmonary embolism Status: Acute Plan: Afebrile. Leukocytosis resolved. 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 Vegetation appears to have increased in size, globular and oscillating. This puts him at high risk for further embolization * Evaluated by CTS, not a surgical candidate at this time. Will need to be abstinent for at least 6 months before consideration for surgical intervention * suspect blood cultures will be affected as pt was treated for HCAP prior to this admission * repeat echo with bubble study performed, bubble study negative. * Continue vancomycin for total duration of 6 weeks (04/21- ) Imaging: * Abdomen/pelvis CT 05/04/16: Inflammatory changes in the right lower lobe, slight improvement in the interval. No evidence of septic emboli. * Chest CT 05/04/16: Abnormal ascending aorta with dilation. There is improvement with less inflammatory changes in the right lower lobe. There is no evidence of new emboli to lungs. * CT pulmonary angiography 04/21: Abnormal filling defects within the right lower lobe lobar arterial branches and segmental arterial branches characteristic of pulmonary emboli. New right infrahilar/right lower lobe airspace consolidation and groundglass attenuation. Small right pleural effusion. * CT abdomen/pelvis 04/23: No evidence for abscess within the lung base, abdomen , or pelvis. Persistent area of consolidation involving the basilar aspect of the right lower lobe. Small right-sided pleural effusion with a contour bulge suggestive of area of loculation Medications * Discontinued Xarelto 50 mg by mouth twice a day per ID recommendations because no valvular vegetation * Vancomycin 04/21-present * Zosyn 4.5 gm IV q8h (started 04/21-04/24) Pain/symptom control * Tylenol 650 mg by mouth every 4 hours when necessary for pain 1-2, fever * Ativan 0.5 mg by mouth every 8 hours when necessary for anxiety * Zofran 4 mg IV every 6 hours when necessary for nausea (2) Illicit drug use Status: Chronic Plan: UDS negative on admission but recent ED visit on 04/05/16 had a positive UDS of cocaine, amp, and opiates. * Nicotine patch (3) Poor dentition Status: Acute Plan: Pt with poor dentition and several teeth require extraction. He continues to endorse flares of pain despite oral and IV pain medication. -OMFS was consulted, unfortunately they will not be able to preform routine dental care while pt is in the hospital -Pt will need to follow up with a dentist once discharged -Pt with altered pain tolerance/response to pain medication due to hx of drug abuse -Sinus CT performed on 05/04/16: No evidence of inflammatory sinus disease, no dental abscesses appreciated Pain control * Motrin 400 mg by mouth every 6 hours when necessary for pain 1-2 * Jasper 325-5 mg 1 tab by mouth every 4 hours when necessary for pain 3-5 * Jasper 325-10 mg 1 tab by mouth every 4 hours when necessary for pain 6-10 * Toradol discontinued * Morphine 4 mg IV every 3 hours when necessary for breakthrough pain * Topical benzocaine gel to be applied every 6 hours as needed (4) Nutrition, metabolism, and development symptoms Status: Acute Plan: Fluids: None Electrolytes: WNLs Nutrition: Regular DVT PPX: SCDs GI PPX: not indicated (Derek Shearer MD R1) Problem Qualifiers (1) Septic pulmonary embolism: Qualified Code: I26.90 - Acute septic pulmonary embolism without acute cor pulmonale Derek Sheraer MD R1 May 07, 2016 08:50 Jose David Kinsey MD May 07, 2016 11:35
[2016-05-07] MEDS: SODIUM CHLORIDE 0.9% FLUSH 5 ML FLUSH FLUSH SCH ×2 (11:36→20:26)
[2016-05-07] MEDS: NICOTINE 14 MG/24 HR PATCH TD SCH (11:37)
[2016-05-07 12:00] VITALS: BP 127/85; PULSE 88; RESP 18; TEMP 97.5; O2SAT 99
[2016-05-07] MEDS: LORazepam 0.5 MG TAB PO PRN ×2 (13:17→22:16)
[2016-05-07 20:00] VITALS: BP 118/77; PULSE 78; RESP 17; TEMP 97; O2SAT 98
[2016-05-07] MEDS: REMOVE OLD NICODERM (NICOTINE) PATCH TD SCH (20:26)
[2016-05-08] VITALS: BP 120/71; PULSE 68; RESP 17; TEMP 97; O2SAT 98
[2016-05-08] MEDS: VANCOMYCIN INJ 1,250 MG in SODIUM CHLOR 0.9% 250 ML INJ 250 ML IV SCH ×2 (00:47→11:14)
[2016-05-08] MEDS: MORPHINE SULFATE 4 MG/ML INJ IV PUSH PRN ×6 (01:38→22:27)
[2016-05-08] MEDS: ACETAMINOPHEN/HYDROcodone 325 MG/10 MG TAB PO PRN ×4 (05:24→17:38)
[2016-05-08 05:25] LABS: HEMATOCRIT 37.6 % (39.0-51.0); MEAN CELL VOLUME 90.8 FL (80.0-100.0); MEAN CORPUSCULAR HEMOGLOBIN 30.7 PG (27.0-34.0); MEAN CORPUSCULAR HGB CONC 33.8 % (32.0-36.0); PLATELET COUNT 324 TH/MM3 (150-450); RED BLOOD COUNT 4.14 MIL/MM3 (4.50-5.90); RED CELL DISTRIBUTION WIDTH 15.8 % (11.6-17.2); REVIEW FLAG FINAL
[2016-05-08] MEDS: NICOTINE 14 MG/24 HR PATCH TD SCH (07:07)
[2016-05-08] MEDS: SODIUM CHLORIDE 0.9% FLUSH 5 ML FLUSH FLUSH SCH ×2 (07:09→22:27)
[2016-05-08 08:00] VITALS: BP 128/77; PULSE 89; RESP 18; TEMP 98.4; O2SAT 96
[2016-05-08] MEDS: LORazepam 0.5 MG TAB PO PRN (09:27)
[2016-05-08 12:00] VITALS: BP 117/83; PULSE 79; RESP 18; TEMP 99.1; O2SAT 98
--- NOTE | 2016-05-08 15:06 | HHI.FPPN ---
Subjective Remarks No acute events overnight. Afebrile vital signs stable overnight. Patient complaining of some anxiety associated with his father's hospice care and his social situation. Patient also complaining of some insomnia. Patient otherwise denying any fever, chills, chest pain, shortness of breath. Patient endorses good appetite and bowel movements. (Derek Shearer MD R1) Objective Vitals Vital Signs Date Time Temp Pulse Resp B/P Pulse Ox O2 Delivery O2 Flow Rate FiO2 05/08/16 12:00 99.1 79 18 117/83 98 05/08/16 08:00 98.4 89 18 128/77 96 05/08/16 01:43 16 05/08/16 00:00 97.0 68 17 120/71 98 05/07/16 22:21 16 05/07/16 20:00 97.0 78 17 118/77 98 I/O 05/07/16 05/07/16 05/07/16 05/08/16 05/08/16 05/08/16 07:00 15:00 23:00 07:00 15:00 23:00 Intake Total 240 ml 480 ml 480 ml 250 ml Output Total 600 ml 1000 ml 400 ml Balance -360 ml -520 ml 480 ml -150 ml Intake Oral 240 ml 480 ml 480 ml 240 ml IV Total 10 ml Output Urine Total 600 ml 1000 ml 400 ml Chest Tube Drainage Total 0 ml # Voids 3 # Bowel Movements 0 (Derek Shearer MD R1) Result Diagram: 05/08/16 0450 05/08/16 0450 Imaging Last Impressions Sinuses CT 05/04/16599 Signed Impressions: Service Date/Time: Wednesday, May 04, 2016 16:23 - CONCLUSION: There is no evidence for inflammatory sinus disease.. Jw Bettencourt MD FACR Chest CT 05/04/16599 Signed Impressions: Service Date/Time: Wednesday, May 04, 2016 16:28 - CONCLUSION: 1. Abnormal ascending aorta with dilatation of such. 2. There is improvement with less inflammatory changes in the right lower lobe. 3. There is no evidence for new emboli to the lungs. Jw Bettencourt MD FACR Abdomen/Pelvis CT 05/04/16599 Signed Impressions: Service Date/Time: Wednesday, May 04, 2016 16:28 - CONCLUSION: 1. Inflammatory changes in the right lower lobe, slightly improved in the interval. 2. There is no evidence for septic emboli. Jw Bettencourt MD FACR CT Angiography 04/21/16 1024 Signed Impressions: Service Date/Time: Thursday, April 21, 2016 11:53 - CONCLUSION: 1. There are abnormal filling defects within the right lower lobe lobar arterial branches and segmental arterial branches characteristic of PE. 2. There is also new right infrahilar/right lower lobe airspace consolidation and groundglass attenuation. A small right pleural effusion is also present. The appearance is nonspecific but could represent an infectious process or less likely neoplasm. It does not have a typical appearance for infarct. Suggest followup chest CT with IV contrast to confirm resolution of this finding following appropriate treatment. Ruel Dill MD Objective Remarks GENERAL: Patient lying in bed in no acute distress. HEENT: Normocephalic/atraumatic. Moist mucous membranes. Patient with multiple teeth without surrounding erythema. No signs of infection or abscesses appreciated. CARDIOVASCULAR: Regular rate and rhythm. RESPIRATORY: Clear to auscultation bilaterally without crackles, wheezes. GASTROINTESTINAL: Positive bowel sounds, soft, nontender, nondistended. MUSCULOSKELETAL: No edema, cyanosis, or clubbing. No calf tenderness. NEURO: Awake, alert. Cranial nerves grossly intact. Normal speech. 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 Admitted for SOB that was found to be caused by septic emboli. Discharge Planning Patient will need a 6 week course of IV antibiotics per ID irrespective of blood culture results. Attempting to transfer patient to [place] per ID recommendations. dw Dr. Kinsey (Derek Shearer MD R1) Attending Attestation Patient examined and case discussed with resident physicians I have read the above note and agree with the assessment/plan as discussed with me I was involved in all medical decision making for this patient Jose David Kinsey M.D. (Jose David Kinsey MD) Problem List: (1) Septic pulmonary embolism Status: Acute Plan: Afebrile. Leukocytosis resolved. 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 Vegetation appears to have increased in size, globular and oscillating. This puts him at high risk for further embolization * Evaluated by CTS, not a surgical candidate at this time. Will need to be abstinent for at least 6 months before consideration for surgical intervention * suspect blood cultures will be affected as pt was treated for HCAP prior to this admission * repeat echo with bubble study performed, bubble study negative. * Continue vancomycin for total duration of 6 weeks (04/21- ) Imaging: * Abdomen/pelvis CT 05/04/16: Inflammatory changes in the right lower lobe, slight improvement in the interval. No evidence of septic emboli. * Chest CT 05/04/16: Abnormal ascending aorta with dilation. There is improvement with less inflammatory changes in the right lower lobe. There is no evidence of new emboli to lungs. * CT pulmonary angiography 04/21: Abnormal filling defects within the right lower lobe lobar arterial branches and segmental arterial branches characteristic of pulmonary emboli. New right infrahilar/right lower lobe airspace consolidation and groundglass attenuation. Small right pleural effusion. * CT abdomen/pelvis 04/23: No evidence for abscess within the lung base, abdomen , or pelvis. Persistent area of consolidation involving the basilar aspect of the right lower lobe. Small right-sided pleural effusion with a contour bulge suggestive of area of loculation Medications * Discontinued Xarelto 50 mg by mouth twice a day per ID recommendations because no valvular vegetation * Vancomycin 04/21-present * Zosyn 4.5 gm IV q8h (started 04/21-04/24) Pain/symptom control * Tylenol 650 mg by mouth every 4 hours when necessary for pain 1-2, fever * Ativan 0.5 mg by mouth every 8 hours when necessary for anxiety * Zofran 4 mg IV every 6 hours when necessary for nausea (2) Illicit drug use Status: Chronic Plan: UDS negative on admission but recent ED visit on 04/05/16 had a positive UDS of cocaine, amp, and opiates. * Nicotine patch (3) Poor dentition Status: Acute Plan: Pt with poor dentition and several teeth require extraction. He continues to endorse flares of pain despite oral and IV pain medication. -OMFS was consulted, unfortunately they will not be able to preform routine dental care while pt is in the hospital -Pt will need to follow up with a dentist once discharged -Pt with altered pain tolerance/response to pain medication due to hx of drug abuse -Sinus CT performed on 05/04/16: No evidence of inflammatory sinus disease, no dental abscesses appreciated Pain control * Motrin 400 mg by mouth every 6 hours when necessary for pain 1-2 * Verner 325-5 mg 1 tab by mouth every 4 hours when necessary for pain 3-5 * Verner 325-10 mg 1 tab by mouth every 4 hours when necessary for pain 6-10 * Toradol discontinued * Morphine 4 mg IV every 3 hours when necessary for breakthrough pain * Topical benzocaine gel to be applied every 6 hours as needed (4) Nutrition, metabolism, and development symptoms Status: Acute Plan: Fluids: None Electrolytes: WNLs Nutrition: Regular DVT PPX: SCDs, patient ambulating well GI PPX: not indicated (Derek Shearer MD R1) Problem Qualifiers (1) Septic pulmonary embolism: Qualified Code: I26.90 - Acute septic pulmonary embolism without acute cor pulmonale Derek Shearer MD R1 May 08, 2016 15:06 Jose David Kinsey MD May 08, 2016 15:31
[2016-05-08 16:00] VITALS: BP 118/74; PULSE 96; RESP 18; TEMP 97; O2SAT 96
[2016-05-08 20:00] VITALS: BP 122/78; PULSE 87; RESP 18; TEMP 97.8; O2SAT 97
[2016-05-08] MEDS: REMOVE OLD NICODERM (NICOTINE) PATCH TD SCH (21:00)
[2016-05-09] VITALS: BP 125/81; PULSE 95; RESP 18; TEMP 96.9; O2SAT 97
[2016-05-09] MEDS: traZODone HCL 50 MG TAB PO PRN (00:19)
[2016-05-09] MEDS: VANCOMYCIN INJ 1,250 MG in SODIUM CHLOR 0.9% 250 ML INJ 250 ML IV SCH ×3 (00:19→23:29)
[2016-05-09] MEDS: ACETAMINOPHEN/HYDROcodone 325 MG/10 MG TAB PO PRN ×6 (01:13→22:33)
[2016-05-09] MEDS: MORPHINE SULFATE 4 MG/ML INJ IV PUSH PRN ×6 (02:03→23:31)
[2016-05-09] MEDS: SODIUM CHLORIDE 0.9% FLUSH 5 ML FLUSH FLUSH PRN ×3 (02:04→23:31)
[2016-05-09] MEDS: LORazepam 0.5 MG TAB PO PRN ×4 (04:49→23:30)
[2016-05-09 08:00] VITALS: BP 106/77; PULSE 80; RESP 18; TEMP 96; O2SAT 97
[2016-05-09] MEDS: SODIUM CHLORIDE 0.9% FLUSH 5 ML FLUSH FLUSH SCH ×2 (08:28→19:44)
[2016-05-09] MEDS: NICOTINE 14 MG/24 HR PATCH TD SCH (08:28)
--- NOTE | 2016-05-09 10:22 | HHI.FPPN ---
Subjective Remarks AFVSS overnight. Pt reports that this was the worst night he has had here. First , his IV infiltrated and he missed a dose of pain medication. Then, the nurses had to stick him over a dozen times to try to get IV access. Then the weights and measures sealer wanted to stick him for blood draw, and he tried to refuse but eventually capitulated. And then housekeeping came in to clean his room and would not leave when asked. Otherwise, pt is doing well. He denies any fever, chills, nausea, vomiting, chest pain, shortness of breath, abdominal pain. Pt reports eating well, moving his bowels well, getting up, walking around the room , cleaning and exercising. Objective Vitals Vital Signs Date Time Temp Pulse Resp B/P Pulse Ox O2 Delivery O2 Flow Rate FiO2 05/09/16 08:00 96.0 80 18 106/77 97 05/09/16 00:00 96.9 95 18 125/81 97 05/08/16 20:00 97.8 87 18 122/78 97 05/08/16 16:00 97.0 96 18 118/74 96 05/08/16 12:00 99.1 79 18 117/83 98 I/O 05/08/16 05/08/16 05/08/16 05/09/16 05/09/16 05/09/16 07:00 15:00 23:00 07:00 15:00 23:00 Intake Total 250 ml 1200 ml 240 ml 240 ml Output Total 400 ml Balance -150 ml 1200 ml 240 ml 240 ml Intake Oral 240 ml 1200 ml 240 ml 240 ml IV Total 10 ml Output Urine Total 400 ml # Voids 4 1 1 # Bowel Movements 0 0 Result Diagram: 05/08/16 0450 05/08/16 0450 Objective Remarks GENERAL: Patient lying in bed in no acute distress. HEENT: Normocephalic/atraumatic. Moist mucous membranes. Patient with multiple teeth without surrounding erythema. No signs of infection or abscesses appreciated. CARDIOVASCULAR: Regular rate and rhythm. RESPIRATORY: Clear to auscultation bilaterally without crackles, wheezes. GASTROINTESTINAL: Positive bowel sounds, soft, nontender, nondistended. MUSCULOSKELETAL: No edema, cyanosis, or clubbing. No calf tenderness. NEURO: Awake, alert. Cranial nerves grossly intact. Normal speech. 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 Admitted for SOB that was found to be caused by septic emboli. Discharge Planning Patient will need a 6 week course of IV antibiotics per ID irrespective of blood culture results. Attempting to transfer patient to [place] per ID recommendations. wdw Dr. Kinsey Problem List: (1) Septic pulmonary embolism Status: Acute Plan: Afebrile. Leukocytosis resolved. 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 Vegetation appears to have increased in size, globular and oscillating. This puts him at high risk for further embolization * Evaluated by CTS, not a surgical candidate at this time. Will need to be abstinent for at least 6 months before consideration for surgical intervention * suspect blood cultures will be affected as pt was treated for HCAP prior to this admission * repeat echo with bubble study performed, bubble study negative. * Continue vancomycin for total duration of 6 weeks (04/21- ) Imaging: * Abdomen/pelvis CT 05/04/16: Inflammatory changes in the right lower lobe, slight improvement in the interval. No evidence of septic emboli. * Chest CT 05/04/16: Abnormal ascending aorta with dilation. There is improvement with less inflammatory changes in the right lower lobe. There is no evidence of new emboli to lungs. * CT pulmonary angiography 04/21: Abnormal filling defects within the right lower lobe lobar arterial branches and segmental arterial branches characteristic of pulmonary emboli. New right infrahilar/right lower lobe airspace consolidation and groundglass attenuation. Small right pleural effusion. * CT abdomen/pelvis 04/23: No evidence for abscess within the lung base, abdomen , or pelvis. Persistent area of consolidation involving the basilar aspect of the right lower lobe. Small right-sided pleural effusion with a contour bulge suggestive of area of loculation Medications * Discontinued Xarelto 50 mg by mouth twice a day per ID recommendations because no valvular vegetation * Vancomycin 04/21-present * Zosyn 4.5 gm IV q8h (started 04/21-04/24) Pain/symptom control * Tylenol 650 mg by mouth every 4 hours when necessary for pain 1-2, fever * Ativan 0.5 mg by mouth every 8 hours when necessary for anxiety * Zofran 4 mg IV every 6 hours when necessary for nausea (2) Illicit drug use Status: Chronic Plan: UDS negative on admission but recent ED visit on 04/05/16 had a positive UDS of cocaine, amp, and opiates. * Nicotine patch (3) Poor dentition Status: Acute Plan: Pt with poor dentition and several teeth require extraction. He continues to endorse flares of pain despite oral and IV pain medication. -OMFS was consulted, unfortunately they will not be able to preform routine dental care while pt is in the hospital -Pt will need to follow up with a dentist once discharged -Pt with altered pain tolerance/response to pain medication due to hx of drug abuse -Sinus CT performed on 05/04/16: No evidence of inflammatory sinus disease, no dental abscesses appreciated Pain control * Motrin 400 mg by mouth every 6 hours when necessary for pain 1-2 * Buchanan 325-5 mg 1 tab by mouth every 4 hours when necessary for pain 3-5 * Buchanan 325-10 mg 1 tab by mouth every 4 hours when necessary for pain 6-10 * Toradol discontinued * Morphine 4 mg IV every 3 hours when necessary for breakthrough pain * Topical benzocaine gel to be applied every 6 hours as needed (4) Anxiety Status: Acute Plan: Patient reported anxiety and seems anxious today. Ativan 0.5 mg by mouth every 8 hours when necessary for anxiety Klonopin 0.5 mg by mouth every 12 hours when necessary for anxiety (5) Insomnia Status: Acute Plan: Patient reported insomnia. Trazodone 50 mg by mouth daily at bedtime when necessary for insomnia (6) Nutrition, metabolism, and development symptoms Status: Acute Plan: Fluids: None Electrolytes: WNLs Nutrition: Regular DVT PPX: SCDs, patient ambulating well GI PPX: not indicated Problem Qualifiers (1) Septic pulmonary embolism: Qualified Code: I26.90 - Acute septic pulmonary embolism without acute cor pulmonale Derek Shearer MD R1 May 09, 2016 10:21
[2016-05-09] MEDS: clonazePAM 0.5 MG TAB PO PRN ×2 (10:25→22:33)
[2016-05-09 12:00] VITALS: BP 121/67; PULSE 92; RESP 15; TEMP 96.8; O2SAT 93
[2016-05-09 16:00] VITALS: BP 114/77; PULSE 110; RESP 16; TEMP 96.9; O2SAT 97
[2016-05-09] MEDS: REMOVE OLD NICODERM (NICOTINE) PATCH TD SCH (19:46)
[2016-05-09 20:00] VITALS: BP 128/79; PULSE 104; RESP 20; TEMP 96.3; O2SAT 97
[2016-05-10] VITALS: BP 108/72; PULSE 81; RESP 18; TEMP 96.9; O2SAT 99
[2016-05-10] MEDS: ACETAMINOPHEN/HYDROcodone 325 MG/10 MG TAB PO PRN ×4 (03:13→21:50)
[2016-05-10] MEDS: SODIUM CHLORIDE 0.9% FLUSH 5 ML FLUSH FLUSH PRN (05:00)
[2016-05-10] MEDS: MORPHINE SULFATE 4 MG/ML INJ IV PUSH PRN ×4 (05:00→22:39)
[2016-05-10 08:00] VITALS: BP 101/62; PULSE 73; RESP 16; TEMP 95.3; O2SAT 96
--- NOTE | 2016-05-10 08:29 | HHI.FPPN ---
Subjective Remarks No acute events overnight. Except for some tachycardia with pulse ranging from 80-110, afebrile and vital signs stable overnight. Patient denies any fever, chills, nausea, vomiting, shortness of breath, chest pain, abdominal pain, leg pain. Pt reports that his anxiety is still not well controlled. Requested decreased frequency of vitals monitoring. (Derek Shearer MD R1) Objective Vitals Vital Signs Date Time Temp Pulse Resp B/P Pulse Ox O2 Delivery O2 Flow Rate FiO2 05/10/16 00:00 96.9 81 18 108/72 99 05/09/16 20:00 96.3 104 20 128/79 97 05/09/16 16:00 96.9 110 16 114/77 97 05/09/16 12:00 96.8 92 15 121/67 93 I/O 05/09/16 05/09/16 05/09/16 05/10/16 05/10/16 05/10/16 07:00 15:00 23:00 07:00 15:00 23:00 Intake Total 240 ml 360 ml 480 ml 480 ml Balance 240 ml 360 ml 480 ml 480 ml Intake Oral 240 ml 360 ml 480 ml 480 ml # Voids 1 1 1 2 # Bowel Movements 0 0 0 0 (Derek Shearer MD R1) Result Diagram: 05/08/1644905/08/16449 Objective Remarks GENERAL: Patient lying in bed in no acute distress, tired but responding to questions appropriately. HEENT: Normocephalic/atraumatic. Moist mucous membranes. Patient with multiple teeth without surrounding erythema. No signs of infection or abscesses appreciated. CARDIOVASCULAR: Regular rate and rhythm. RESPIRATORY: Clear to auscultation bilaterally without crackles, wheezes. GASTROINTESTINAL: Positive bowel sounds, soft, nontender, nondistended. MUSCULOSKELETAL: No edema, cyanosis, or clubbing. No calf tenderness. NEURO: Awake, alert. Cranial nerves grossly intact. Normal speech. 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 Admitted for SOB that was found to be caused by septic emboli. Discharge Planning Patient will need a 6 week course of IV antibiotics per ID irrespective of blood culture results. Attempting to transfer patient to [place] per ID recommendations. wdw Dr. Kinsey (Derek Shearer MD R1) Attending Attestation Pt. examined and case discussed with resident physician I have read the above note and agree with the assessment/plan as discussed with me I was involved in all medical decision making for this patient Jose David Kinsey MD (Jose David Kinsey MD) Problem List: (1) Septic pulmonary embolism Status: Acute Plan: Afebrile. Leukocytosis resolved. 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 Vegetation appears to have increased in size, globular and oscillating. This puts him at high risk for further embolization * Evaluated by CTS, not a surgical candidate at this time. Will need to be abstinent for at least 6 months before consideration for surgical intervention * suspect blood cultures will be affected as pt was treated for HCAP prior to this admission * repeat echo with bubble study performed, bubble study negative. * Continue vancomycin for total duration of 6 weeks (04/21- ) Imaging: * Abdomen/pelvis CT 05/04/16: Inflammatory changes in the right lower lobe, slight improvement in the interval. No evidence of septic emboli. * Chest CT 05/04/16: Abnormal ascending aorta with dilation. There is improvement with less inflammatory changes in the right lower lobe. There is no evidence of new emboli to lungs. * CT pulmonary angiography 04/21: Abnormal filling defects within the right lower lobe lobar arterial branches and segmental arterial branches characteristic of pulmonary emboli. New right infrahilar/right lower lobe airspace consolidation and groundglass attenuation. Small right pleural effusion. * CT abdomen/pelvis 04/23: No evidence for abscess within the lung base, abdomen , or pelvis. Persistent area of consolidation involving the basilar aspect of the right lower lobe. Small right-sided pleural effusion with a contour bulge suggestive of area of loculation Medications * Discontinued Xarelto 50 mg by mouth twice a day per ID recommendations because no valvular vegetation * Vancomycin 04/21-present * Zosyn 4.5 gm IV q8h (started 04/21-04/24) Pain/symptom control * Tylenol 650 mg by mouth every 4 hours when necessary for pain 1-2, fever * Ativan 0.5 mg by mouth every 8 hours when necessary for anxiety * Zofran 4 mg IV every 6 hours when necessary for nausea (2) Illicit drug use Status: Chronic Plan: UDS negative on admission but recent ED visit on 04/05/16 had a positive UDS of cocaine, amp, and opiates. * Nicotine patch (3) Poor dentition Status: Acute Plan: Pt with poor dentition and several teeth require extraction. He continues to endorse flares of pain despite oral and IV pain medication. -OMFS was consulted, unfortunately they will not be able to preform routine dental care while pt is in the hospital -Pt will need to follow up with a dentist once discharged -Pt with altered pain tolerance/response to pain medication due to hx of drug abuse -Sinus CT performed on 05/04/16: No evidence of inflammatory sinus disease, no dental abscesses appreciated Pain control * Motrin 400 mg by mouth every 6 hours when necessary for pain 1-2 * [place] 325-5 mg 1 tab by mouth every 4 hours when necessary for pain 3-5 * [place] 325-10 mg 1 tab by mouth every 4 hours when necessary for pain 6-10 * Toradol discontinued * Morphine 4 mg IV every 3 hours when necessary for breakthrough pain * Topical benzocaine gel to be applied every 6 hours as needed (4) Anxiety Status: Acute Plan: Patient reported anxiety and seems anxious today. Ativan 0.5 mg by mouth every 8 hours when necessary for anxiety Klonopin 0.5 mg by mouth every 12 hours scheduled for anxiety BuSpar 5 mg by mouth every 12 hours scheduled for anxiety (5) Insomnia Status: Acute Plan: Patient reported insomnia. Trazodone 50 mg by mouth daily at bedtime when necessary for insomnia (6) Nutrition, metabolism, and development symptoms Status: Acute Plan: Fluids: None Electrolytes: WNLs Nutrition: Regular DVT PPX: SCDs, patient ambulating well GI PPX: not indicated (Derek Shearer MD R1) Problem Qualifiers (1) Septic pulmonary embolism: Qualified Code: I26.90 - Acute septic pulmonary embolism without acute cor pulmonale Derek Shearer MD R1 May 10, 2016 08:29 Jose David Kinsey MD May 10, 2016 17:17
[2016-05-10] MEDS: clonazePAM 0.5 MG TAB PO SCH ×2 (09:27→19:51)
[2016-05-10] MEDS: SODIUM CHLORIDE 0.9% FLUSH 5 ML FLUSH FLUSH SCH ×2 (09:28→19:51)
[2016-05-10] MEDS: NICOTINE 14 MG/24 HR PATCH TD SCH (09:28)
[2016-05-10] MEDS: busPIRone HCL 5 MG TAB PO SCH ×2 (11:22→19:51)
[2016-05-10] MEDS: VANCOMYCIN INJ 1,250 MG in SODIUM CHLOR 0.9% 250 ML INJ 250 ML IV SCH ×2 (11:27→23:54)
[2016-05-10 12:00] VITALS: BP 126/68; PULSE 78; RESP 16; TEMP 95.7; O2SAT 96
[2016-05-10 20:00] VITALS: BP 127/82; PULSE 92; RESP 17; TEMP 96.9; O2SAT 97
[2016-05-10] MEDS: LORazepam 0.5 MG TAB PO PRN (20:03)
[2016-05-10] MEDS: REMOVE OLD NICODERM (NICOTINE) PATCH TD SCH (20:04)
[2016-05-10] MEDS: traZODone HCL 50 MG TAB PO PRN (21:50)
[2016-05-11] VITALS: BP 127/92; PULSE 90; RESP 17; TEMP 96.1; O2SAT 98
[2016-05-11] MEDS: ACETAMINOPHEN/HYDROcodone 325 MG/10 MG TAB PO PRN ×6 (01:45→23:26)
[2016-05-11] MEDS: MORPHINE SULFATE 4 MG/ML INJ IV PUSH PRN ×5 (02:31→19:52)
[2016-05-11 05:02] LABS: HEMATOCRIT 38.4 % (39.0-51.0); MEAN CELL VOLUME 91.5 FL (80.0-100.0); MEAN CORPUSCULAR HEMOGLOBIN 30.2 PG (27.0-34.0); PLATELET COUNT 292 TH/MM3 (150-450); RED CELL DISTRIBUTION WIDTH 15.3 % (11.6-17.2); REVIEW FLAG FINAL; WHITE BLOOD COUNT 7.4 TH/MM3 (4.0-11.0)
[2016-05-11] MEDS: LORazepam 0.5 MG TAB PO PRN ×2 (06:53→14:58)
[2016-05-11 07:41] VITALS: BP 133/82; PULSE 91; RESP 17; TEMP 97; O2SAT 98
[2016-05-11] MEDS: NICOTINE 14 MG/24 HR PATCH TD SCH (08:03)
[2016-05-11] MEDS: busPIRone HCL 5 MG TAB PO SCH ×2 (08:04→19:52)
[2016-05-11] MEDS: SODIUM CHLORIDE 0.9% FLUSH 5 ML FLUSH FLUSH SCH ×2 (08:05→19:55)
[2016-05-11] MEDS: clonazePAM 0.5 MG TAB PO SCH ×2 (08:05→19:52)
--- NOTE | 2016-05-11 08:39 | HHI.FPPN ---
Subjective Remarks Patient afebrile vital signs stable overnight, with pulse ranging from 73-92, blood pressure ranging from 101-127/62-92. No acute events overnight. Patient reports that his pain and anxiety are well controlled with medication. He reports that both his pain and anxiety would be unmanageable without medication. He also requests an increase dose of his nicotine patch, clarification about lab draws, anticipated date of discharge. He denies any fever, chills, nausea, vomiting, chest pain, shortness of breath, abdominal pain , leg pain. (Derek Shearer MD R1) Objective Vitals Vital Signs Date Time Temp Pulse Resp B/P Pulse Ox O2 Delivery O2 Flow Rate FiO2 05/11/16 07:41 97.0 91 17 133/82 98 05/11/16 06:55 20 05/11/16 06:55 20 05/11/16 00:00 96.1 90 17 127/92 98 05/10/16 20:00 96.9 92 17 127/82 97 05/10/16 12:00 95.7 78 16 126/68 96 I/O 05/10/16 05/10/16 05/10/16 05/11/16 05/11/16 05/11/16 07:00 15:00 23:00 07:00 15:00 23:00 Intake Total 480 ml 730 ml 480 ml 490 ml Output Total 900 ml Balance 480 ml -170 ml 480 ml 490 ml Intake Oral 480 ml 480 ml 480 ml 240 ml IV Total 250 ml 250 ml Output Urine Total 900 ml # Voids 2 3 3 # Bowel Movements 0 0 (Derek Shearer MD R1) Result Diagram: 05/11/16 0351 05/11/16 0351 Objective Remarks GENERAL: Patient lying in bed in no acute distress, tired but responding to questions appropriately. HEENT: Normocephalic/atraumatic. Moist mucous membranes. Patient with multiple teeth without surrounding erythema. No signs of infection or abscesses appreciated. CARDIOVASCULAR: Regular rate and rhythm. RESPIRATORY: Clear to auscultation bilaterally without crackles, wheezes. GASTROINTESTINAL: Positive bowel sounds, soft, nontender, nondistended. MUSCULOSKELETAL: No edema, cyanosis, or clubbing. No calf tenderness. NEURO: Awake, alert. Cranial nerves grossly intact. Normal speech. 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 Admitted for SOB that was found to be caused by septic emboli. Discharge Planning Patient will need a 6 week course of IV antibiotics per ID irrespective of blood culture results. Attempting to transfer patient to [place] per ID recommendations. wdw Dr. Tolliver (Derek Shearer MD R1) Attending Attestation Patient seen and examined. Case reviewed and discussed Agree with plan of care as discussed with me and documented in the resident note. Resting in bed. Reports breathing is stable on RA. (Shayy Tolliver MD) Problem List: (1) Septic pulmonary embolism Status: Acute Plan: Afebrile. Leukocytosis resolved. 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 Vegetation appears to have increased in size, globular and oscillating. This puts him at high risk for further embolization * Evaluated by CTS, not a surgical candidate at this time. Will need to be abstinent for at least 6 months before consideration for surgical intervention * suspect blood cultures will be affected as pt was treated for HCAP prior to this admission * repeat echo with bubble study performed, bubble study negative. * Continue vancomycin for total duration of 6 weeks (04/21 - 06/01-) Imaging: * Abdomen/pelvis CT 05/04/16: Inflammatory changes in the right lower lobe, slight improvement in the interval. No evidence of septic emboli. * Chest CT 05/04/16: Abnormal ascending aorta with dilation. There is improvement with less inflammatory changes in the right lower lobe. There is no evidence of new emboli to lungs. * CT pulmonary angiography 04/21: Abnormal filling defects within the right lower lobe lobar arterial branches and segmental arterial branches characteristic of pulmonary emboli. New right infrahilar/right lower lobe airspace consolidation and groundglass attenuation. Small right pleural effusion. * CT abdomen/pelvis 04/23: No evidence for abscess within the lung base, abdomen , or pelvis. Persistent area of consolidation involving the basilar aspect of the right lower lobe. Small right-sided pleural effusion with a contour bulge suggestive of area of loculation Medications * Discontinued Xarelto 50 mg by mouth twice a day per ID recommendations because no valvular vegetation * Vancomycin 04/21-present * Zosyn 4.5 gm IV q8h (started 04/21-04/24) Pain/symptom control * Tylenol 650 mg by mouth every 4 hours when necessary for pain 1-2, fever * Ativan 0.5 mg by mouth every 8 hours when necessary for anxiety * Zofran 4 mg IV every 6 hours when necessary for nausea (2) Illicit drug use Status: Chronic Plan: UDS negative on admission but recent ED visit on 04/05/16 had a positive UDS of cocaine, amp, and opiates. * Nicotine patch (3) Poor dentition Status: Acute Plan: Pt with poor dentition and several teeth require extraction. He continues to endorse flares of pain despite oral and IV pain medication. -OMFS was consulted, unfortunately they will not be able to preform routine dental care while pt is in the hospital -Pt will need to follow up with a dentist once discharged -Pt with altered pain tolerance/response to pain medication due to hx of drug abuse -Sinus CT performed on 05/04/16: No evidence of inflammatory sinus disease, no dental abscesses appreciated Pain control * Motrin 400 mg by mouth every 6 hours when necessary for pain 1-2 * [place] 325-5 mg 1 tab by mouth every 4 hours when necessary for pain 3-5 * [place] 325-10 mg 1 tab by mouth every 4 hours when necessary for pain 6-10 * Toradol discontinued * Morphine 4 mg IV every 3 hours when necessary for breakthrough pain * Topical benzocaine gel to be applied every 6 hours as needed (4) Anxiety Status: Acute Plan: Patient reported anxiety and seems anxious today. Ativan 0.5 mg by mouth every 8 hours when necessary for anxiety Klonopin 0.5 mg by mouth every 12 hours scheduled for anxiety BuSpar 5 mg by mouth every 12 hours scheduled for anxiety (5) Insomnia Status: Acute Plan: Patient reported insomnia. Trazodone 50 mg by mouth daily at bedtime when necessary for insomnia (6) Nutrition, metabolism, and development symptoms Status: Acute Plan: Fluids: None Electrolytes: WNLs Nutrition: Regular DVT PPX: SCDs, patient ambulating well GI PPX: not indicated (Derek Shearer MD R1) Problem Qualifiers (1) Septic pulmonary embolism: Qualified Code: I26.90 - Acute septic pulmonary embolism without acute cor pulmonale Derek Shearer MD R1 May 11, 2016 08:39 Shayy Tolliver MD May 11, 2016 11:26
[2016-05-11] MEDS: NICOTINE 21 MG/24 HR PATCH TD SCH (09:55)
[2016-05-11] MEDS: VANCOMYCIN INJ 1,250 MG in SODIUM CHLOR 0.9% 250 ML INJ 250 ML IV SCH ×2 (11:29→23:25)
[2016-05-11 12:00] VITALS: BP 129/78; PULSE 93; RESP 18; TEMP 97.3; O2SAT 98
[2016-05-11] MEDS: ENOXAPARIN SODIUM 40 MG/0.4 ML SYRINGE SQ SCH (15:44)
[2016-05-11 16:00] VITALS: BP 115/72; PULSE 93; RESP 20; TEMP 97.8; O2SAT 98
[2016-05-11 20:00] VITALS: BP 125/78; PULSE 86; RESP 18; TEMP 96.5; O2SAT 98
[2016-05-11] MEDS: REMOVE OLD NICODERM (NICOTINE) PATCH TD SCH (21:00)
[2016-05-12] VITALS: BP 114/68; PULSE 80; RESP 14; TEMP 97.3; O2SAT 99
[2016-05-12] MEDS: traZODone HCL 50 MG TAB PO PRN (00:08)
[2016-05-12] MEDS: MORPHINE SULFATE 4 MG/ML INJ IV PUSH PRN ×4 (00:09→14:46)
[2016-05-12] MEDS: ACETAMINOPHEN/HYDROcodone 325 MG/10 MG TAB PO PRN ×3 (05:46→14:11)
[2016-05-12 08:00] VITALS: BP 103/77; PULSE 85; RESP 19; TEMP 97.7; O2SAT 96
[2016-05-12] MEDS: NICOTINE 21 MG/24 HR PATCH TD SCH (08:10)
[2016-05-12] MEDS: busPIRone HCL 5 MG TAB PO SCH ×2 (08:11→20:11)
[2016-05-12] MEDS: clonazePAM 0.5 MG TAB PO SCH ×2 (08:11→20:11)
[2016-05-12] MEDS: SODIUM CHLORIDE 0.9% FLUSH 5 ML FLUSH FLUSH SCH ×2 (08:13→20:19)
[2016-05-12] MEDS: VANCOMYCIN INJ 1,250 MG in SODIUM CHLOR 0.9% 250 ML INJ 250 ML IV SCH (11:37)
[2016-05-12 12:00] VITALS: BP 112/71; PULSE 74; RESP 20; TEMP 98.4; O2SAT 98
--- NOTE | 2016-05-12 13:25 | HHI.FPPN ---
Subjective Remarks Pt seen and examined. No acute events overnight. Pt denies chest pain, shortness of breath, abdominal pain, constipation, diarrhea, lower extremity pain. He endorses tooth pain that is no longer well controlled with current pain mediations. Pain is a 10/10 in intensity and occurs frequently. (Radha Thorne MD R2) Objective Vitals Vital Signs Date Time Temp Pulse Resp B/P Pulse Ox O2 Delivery O2 Flow Rate FiO2 05/12/16 08:00 97.7 85 19 103/77 96 05/12/16 00:00 97.3 80 14 114/68 99 05/11/16 20:00 96.5 86 18 125/78 98 05/11/16 16:00 97.8 93 20 115/72 98 I/O 05/11/16 05/11/16 05/11/16 05/12/16 05/12/16 05/12/16 07:00 15:00 23:00 07:00 15:00 23:00 Intake Total 490 ml 360 ml 490 ml 240 ml Balance 490 ml 360 ml 490 ml 240 ml Intake Oral 240 ml 360 ml 240 ml 240 ml IV Total 250 ml 0 ml 250 ml # Voids 3 2 2 # Bowel Movements 1 0 (Radha Thorne MD R2) Result Diagram: 05/11/16 03505/11/16 035 Objective Remarks GENERAL: Patient lying in bed in no acute distress, tired but responding to questions appropriately. SKIN: Pt with hyperpigmented macule on left lower quadrant, about 2cm in diameter, irregular borders, present since childhood. HEENT: Normocephalic/atraumatic. Moist mucous membranes. Patient with multiple teeth without surrounding erythema. No signs of infection or abscesses appreciated. CARDIOVASCULAR: Regular rate and rhythm. RESPIRATORY: Clear to auscultation bilaterally without crackles, wheezes. GASTROINTESTINAL: Positive bowel sounds, soft, nontender, nondistended. MUSCULOSKELETAL: No edema, cyanosis, or clubbing. No calf tenderness. NEURO: Awake, alert. Cranial nerves grossly intact. Normal speech. 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 Admitted for SOB that was found to be caused by septic emboli. Discharge Planning Patient will need a 6 week course of IV antibiotics per ID irrespective of blood culture results. sdw Dr. Tolliver (Radha Thorne MD R2) Attending Attestation Patient seen and examined. Case reviewed and discussed Agree with plan of care as discussed with me and documented in the resident note. 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 Vegetation appears to have increased in size, globular and oscillating. This puts him at high risk for further embolization * Evaluated by CTS, not a surgical candidate at this time. Will need to be abstinent for at least 6 months before consideration for surgical intervention * repeat echo with bubble study performed, bubble study negative. * Consider echocardiogram to reevaluate vegetation during week 4 of antibiotic therapy * Continue vancomycin for total duration of 6 weeks (04/21 - 06/01-) Imaging: * Abdomen/pelvis CT 05/04/16: Inflammatory changes in the right lower lobe, slight improvement in the interval. No evidence of septic emboli. * Chest CT 05/04/16: Abnormal ascending aorta with dilation. There is improvement with less inflammatory changes in the right lower lobe. There is no evidence of new emboli to lungs. * CT pulmonary angiography 04/21: Abnormal filling defects within the right lower lobe lobar arterial branches and segmental arterial branches characteristic of pulmonary emboli. New right infrahilar/right lower lobe airspace consolidation and groundglass attenuation. Small right pleural effusion. * CT abdomen/pelvis 04/23: No evidence for abscess within the lung base, abdomen , or pelvis. Persistent area of consolidation involving the basilar aspect of the right lower lobe. Small right-sided pleural effusion with a contour bulge suggestive of area of loculation (2) Illicit drug use Status: Chronic Plan: UDS negative on admission but recent ED visit on 04/05/16 had a positive UDS of cocaine, amp, and opiates. (3) Poor dentition Status: Acute Plan: Pt with poor dentition and several teeth require extraction. He continues to endorse flares of pain despite oral and IV pain medication. -OMFS was consulted, unfortunately they will not be able to preform routine dental care while pt is in the hospital -Pt will need to follow up with a dentist once discharged -Pt with altered pain tolerance/response to pain medication due to hx of drug abuse -Sinus CT performed on 05/04/16: No evidence of inflammatory sinus disease, no dental abscesses appreciated Pain control * Will discontinue [place] and IV morphine * Start Oramorph SR 300 mg po BID, this was discussed with patient * Motrin 400 mg by mouth every 6 hours when necessary for pain 1-2 * Topical benzocaine gel to be applied every 6 hours as needed (4) Anxiety Status: Acute Plan: Patient reported anxiety and seems anxious today. Ativan 0.5 mg by mouth every 8 hours when necessary for anxiety Klonopin 0.5 mg by mouth every 12 hours scheduled for anxiety BuSpar 5 mg by mouth every 12 hours scheduled for anxiety (5) Tobacco abuse Status: Acute Plan: Patient with history of tobacco abuse and reports smoking 1 pack per day prior to admission to the hospital. -Concern for patient smoking while in the hospital due to strong smell of cigarette smoking patient's room -Patient expressed understanding that he would have to sign out AMA if he were found smoking -Patient's nurse was notified -Nicotine patch (6) Insomnia Status: Acute Plan: Patient reported insomnia. Trazodone 50 mg by mouth daily at bedtime when necessary for insomnia (7) Nutrition, metabolism, and development symptoms Status: Acute Plan: Fluids: None Electrolytes: WNLs Nutrition: Regular DVT PPX: Lovenox GI PPX: not indicated (Radha Thorne MD R2) Problem Qualifiers (1) Septic pulmonary embolism: Qualified Code: I26.90 - Acute septic pulmonary embolism without acute cor pulmonale Radha Thorne MD R2 May 12, 2016 13:25 Shayy Tolliver MD May 12, 2016 17:13
[2016-05-12] MEDS: ENOXAPARIN SODIUM 40 MG/0.4 ML SYRINGE SQ SCH (14:46)
[2016-05-12] MEDS: ACETAMINOPHEN/HYDROcodone 325 MG/5 MG TAB PO PRN (18:19)
[2016-05-12] MEDS: MORPHINE SULFATE 30 MG CONTROLLED RELEASE TAB PO SCH ×2 (20:11→21:00)
[2016-05-12] MEDS: LORazepam 0.5 MG TAB PO PRN (20:14)
[2016-05-12 20:23] VITALS: BP 104/69; PULSE 80; RESP 20; TEMP 98.1; O2SAT 97
[2016-05-12] MEDS: REMOVE OLD NICODERM (NICOTINE) PATCH TD SCH (21:00)
[2016-05-13] MEDS: VANCOMYCIN INJ 1,250 MG in SODIUM CHLOR 0.9% 250 ML INJ 250 ML IV SCH ×2 (00:04→13:14)
[2016-05-13 08:00] VITALS: BP 121/75; PULSE 73; RESP 18; TEMP 98.4; O2SAT 96
[2016-05-13] MEDS: clonazePAM 0.5 MG TAB PO SCH ×2 (09:00→20:33)
[2016-05-13] MEDS: busPIRone HCL 5 MG TAB PO SCH ×2 (10:31→20:33)
[2016-05-13] MEDS: NICOTINE 21 MG/24 HR PATCH TD SCH (10:31)
[2016-05-13] MEDS: MORPHINE SULFATE 30 MG CONTROLLED RELEASE TAB PO SCH ×2 (10:32→21:39)
[2016-05-13] MEDS: SODIUM CHLORIDE 0.9% FLUSH 5 ML FLUSH FLUSH SCH ×2 (10:33→20:33)
--- NOTE | 2016-05-13 10:46 | HHI.FPPN ---
Subjective Remarks Pt seen and examined. No acute events overnight. AFVSS. Pt reports tooth pain, stable.Pt is tired, denies chest pain, difficulty breathing, abdominal pain, lower extremity pain. He has been walking around his room. Pts nurse reports that he slept throughout the night. No concerns about changes in pain. (Radha Thorne MD R2) Objective Vitals Vital Signs Date Time Temp Pulse Resp B/P Pulse Ox O2 Delivery O2 Flow Rate FiO2 05/13/16 08:00 98.4 73 18 121/75 96 05/12/16 20:23 98.1 80 20 104/69 97 05/12/16 12:00 98.4 74 20 112/71 98 I/O 05/12/16 05/12/16 05/12/16 05/13/16 05/13/16 05/13/16 07:00 15:00 23:00 07:00 15:00 23:00 Intake Total 490 ml 480 ml 1040 ml 610 ml Output Total 600 ml 1200 ml Balance 490 ml 480 ml 440 ml -590 ml Intake Oral 240 ml 480 ml 1040 ml 360 ml IV Total 250 ml 0 ml 250 ml Output Urine Total 600 ml 1200 ml # Voids 2 2 # Bowel Movements 0 0 (Radha Thorne MD R2) Result Diagram: 05/11/16 0351 05/13/16 0607 Objective Remarks GENERAL: Patient lying in bed in no acute distress, tired but responding to questions appropriately. SKIN: Pt with hyperpigmented macule on left lower quadrant, about 2cm in diameter, irregular borders, present since childhood, he also has a similar lesion on the left later midsection of his back. HEENT: Normocephalic/atraumatic. Moist mucous membranes. Patient with multiple teeth without surrounding erythema. No signs of infection or abscesses appreciated. CARDIOVASCULAR: Regular rate and rhythm. RESPIRATORY: Clear to auscultation bilaterally without crackles, wheezes. GASTROINTESTINAL: Positive bowel sounds, soft, nontender, nondistended. MUSCULOSKELETAL: No edema, cyanosis, or clubbing. No calf tenderness. NEURO: Awake, alert. Cranial nerves grossly intact. Normal speech. 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 Admitted for SOB that was found to be caused by septic emboli. Discharge Planning Patient will need a 6 week course of IV antibiotics. wdw Dr. Tolliver (Radha Thorne MD R2) Attending Attestation Patient seen and examined. Case reviewed and discussed with the resident team Agree with plan of care as discussed with me and documented in the resident note. Patient complaining of increased mouth soreness over broken tooth. Will initiate PO antibiotics to cover mouth microbiology. (Shayy Tolliver MD) Problem List: (1) Septic pulmonary embolism Status: Acute Plan: H/o IV drug use with prior hx of endocarditis and senior care treatment -Hepatitis C positive -blood cultures no growth x5 days -sputum culture: normal respiratory kendall -incentive spirometer Consulted ID: appreciate recommendations * Endocarditis of TV valve. Vegetation appears to have increased in size, globular and oscillating. This puts him at high risk for further embolization * Evaluated by CTS, not a surgical candidate at this time. Will need to be abstinent for at least 6 months before consideration for surgical intervention * repeat echo with bubble study performed, bubble study negative. * Consider echocardiogram to reevaluate vegetation during week 4 of antibiotic therapy * Continue vancomycin for total duration of 6 weeks (04/21 - 06/01-) Imaging: * Abdomen/pelvis CT 05/04/16: Inflammatory changes in the right lower lobe, slight improvement in the interval. No evidence of septic emboli. * Chest CT 05/04/16: Abnormal ascending aorta with dilation. There is improvement with less inflammatory changes in the right lower lobe. There is no evidence of new emboli to lungs. * CT pulmonary angiography 04/21: Abnormal filling defects within the right lower lobe lobar arterial branches and segmental arterial branches characteristic of pulmonary emboli. New right infrahilar/right lower lobe airspace consolidation and groundglass attenuation. Small right pleural effusion. * CT abdomen/pelvis 04/23: No evidence for abscess within the lung base, abdomen , or pelvis. Persistent area of consolidation involving the basilar aspect of the right lower lobe. Small right-sided pleural effusion with a contour bulge suggestive of area of loculation (2) Illicit drug use Status: Chronic Plan: UDS negative on admission but recent ED visit on 04/05/16 had a positive UDS of cocaine, amp, and opiates. (3) Poor dentition Status: Acute Plan: Pt with poor dentition and several teeth require extraction. He continues to endorse flares of pain despite oral and IV pain medication. -OMFS was consulted, unfortunately they will not be able to preform routine dental care while pt is in the hospital -Pt will need to follow up with a dentist once discharged -Pt with altered pain tolerance/response to pain medication due to hx of drug abuse -Sinus CT performed on 05/04/16: No evidence of inflammatory sinus disease, no dental abscesses appreciated Pain control * Oramorph SR 300 mg po BID * Motrin 400 mg by mouth every 6 hours when necessary for pain 1-2 * Topical benzocaine gel to be applied every 6 hours as needed (4) Anxiety Status: Acute Plan: Patient reported anxiety and seems anxious today. Ativan 0.5 mg by mouth every 8 hours when necessary for anxiety Klonopin 0.5 mg by mouth every 12 hours scheduled for anxiety BuSpar 5 mg by mouth every 12 hours scheduled for anxiety (5) Tobacco abuse Status: Acute Plan: Patient with history of tobacco abuse and reports smoking 1 pack per day prior to admission to the hospital. -Nicotine patch (6) Insomnia Status: Acute Plan: Patient reported insomnia. Trazodone 50 mg by mouth daily at bedtime when necessary for insomnia (7) Nutrition, metabolism, and development symptoms Status: Acute Plan: Fluids: None Electrolytes: WNLs Nutrition: Regular DVT PPX: Lovenox GI PPX: not indicated (Radha Thorne MD R2) Problem Qualifiers (1) Septic pulmonary embolism: Qualified Code: I26.90 - Acute septic pulmonary embolism without acute cor pulmonale Radha Thorne MD R2 May 13, 2016 10:46 Shayy Tolliver MD May 14, 2016 15:30
[2016-05-13] MEDS ORDERED: PHARMACY ORDERED LAB XX ONE (11:45)
[2016-05-13 12:00] VITALS: BP 104/70; PULSE 78; O2SAT 95
[2016-05-13] MEDS: ENOXAPARIN SODIUM 40 MG/0.4 ML SYRINGE SQ SCH (15:42)
[2016-05-13] MEDS ORDERED: MORPHINE SULFATE 15 MG TAB PO ONE (19:45)
[2016-05-13 20:00] VITALS: BP 142/64; PULSE 89; RESP 20; TEMP 98.9; O2SAT 98
[2016-05-13] MEDS: AMOXICILLIN (TRIHYDRATE) 500 MG CAP PO SCH (20:32)
[2016-05-13] MEDS: REMOVE OLD NICODERM (NICOTINE) PATCH TD SCH (20:36)
[2016-05-13] MEDS: LORazepam 0.5 MG TAB PO PRN (23:10)
[2016-05-13] MEDS: VANCOMYCIN INJ 1,500 MG in SODIUM CHLORID 0.9% 500 ML INJ 500 ML IV SCH (23:11)
[2016-05-13] MEDS: IBUPROFEN 400 MG TAB PO PRN (23:11)
[2016-05-14] MEDS ORDERED: MORPHINE SULFATE 15 MG TAB PO ONE (02:30)
[2016-05-14 05:48] LABS: BASOPHIL % 0.3 % (0.0-2.0); EOSINOPHIL # 0.2 TH/MM3 (0-0.4); HEMATOCRIT 40.2 % (39.0-51.0); HEMO FLAGS DIFF FINAL; LYMPH % 34.8 % (9.0-44.0); LYMPHOCYTE # 3.2 TH/MM3 (1.0-4.8); MEAN CELL VOLUME 88.2 FL (80.0-100.0); MEAN CORPUSCULAR HEMOGLOBIN 30.6 PG (27.0-34.0); MEAN CORPUSCULAR HGB CONC 34.7 % (32.0-36.0); MONO % 7.8 % (0.0-8.0); NEUT % 55.1 % (16.0-70.0); PLATELET COUNT 351 TH/MM3 (150-450); RED BLOOD COUNT 4.56 MIL/MM3 (4.50-5.90); RED CELL DISTRIBUTION WIDTH 15.1 % (11.6-17.2); WHITE BLOOD COUNT 9.1 TH/MM3 (4.0-11.0)
[2016-05-14 08:00] VITALS: BP 121/76; PULSE 70; RESP 18; TEMP 96.5; O2SAT 98
[2016-05-14] MEDS: busPIRone HCL 5 MG TAB PO SCH ×2 (08:58→20:57)
[2016-05-14] MEDS: clonazePAM 0.5 MG TAB PO SCH ×2 (08:58→20:57)
[2016-05-14] MEDS: MORPHINE SULFATE 30 MG CONTROLLED RELEASE TAB PO SCH (08:58)
[2016-05-14] MEDS: NICOTINE 21 MG/24 HR PATCH TD SCH (08:58)
[2016-05-14] MEDS: SODIUM CHLORIDE 0.9% FLUSH 5 ML FLUSH FLUSH SCH ×2 (08:59→20:57)
[2016-05-14] MEDS: AMOXICILLIN (TRIHYDRATE) 500 MG CAP PO SCH ×2 (08:59→20:57)
[2016-05-14] MEDS: MORPHINE SULFATE 4 MG/ML INJ IV PUSH PRN ×4 (11:22→21:39)
[2016-05-14] MEDS: VANCOMYCIN INJ 1,500 MG in SODIUM CHLORID 0.9% 500 ML INJ 500 ML IV SCH (11:22)
[2016-05-14] MEDS: IBUPROFEN 400 MG TAB PO PRN (11:23)
--- NOTE | 2016-05-14 11:48 | HHI.FPPN ---
Subjective Remarks Patient afebrile with vital signs stable overnight. Patient reports that he was up all night with tooth pain, and that the oral morphine he was receiving was not helping. Discussed with patient risks and benefits of opiate pain medications. Patient assured me that he can quit cold turkey immediately after discharge because he will go directly to a dentist who will solve the root cause of the problem upon discharge. Patient reports decreased tooth pain, swelling, tenderness since receiving amoxicillin. (Derek Shearer MD R1) Objective Vitals Vital Signs Date Time Temp Pulse Resp B/P Pulse Ox O2 Delivery O2 Flow Rate FiO2 05/14/16 08:00 96.5 70 18 121/76 98 05/13/16 20:00 98.9 89 20 142/64 98 05/13/16 12:00 78 104/70 95 I/O 05/13/16 05/13/16 05/13/16 05/14/16 05/14/16 05/14/16 07:00 15:00 23:00 07:00 15:00 23:00 Intake Total 610 ml 760 ml 980 ml Output Total 1200 ml Balance -590 ml 760 ml 980 ml Intake Oral 360 ml 760 ml 480 ml IV Total 250 ml 0 ml 500 ml Output Urine Total 1200 ml # Voids 3 3 # Bowel Movements 1 (Derek Shearer MD R1) Result Diagram: 05/14/16 0440 05/13/16 0607 Objective Remarks GENERAL: Patient lying in bed in no acute distress, tired but responding to questions appropriately. SKIN: Pt with hyperpigmented macule on left lower quadrant, about 2cm in diameter, irregular borders, present since childhood, he also has a similar lesion on the left later midsection of his back. HEENT: Normocephalic/atraumatic. Moist mucous membranes. Patient with multiple teeth without surrounding erythema. No signs of infection or abscesses appreciated. CARDIOVASCULAR: Regular rate and rhythm. RESPIRATORY: Clear to auscultation bilaterally without crackles, wheezes. GASTROINTESTINAL: Positive bowel sounds, soft, nontender, nondistended. MUSCULOSKELETAL: No edema, cyanosis, or clubbing. No calf tenderness. NEURO: Awake, alert. Cranial nerves grossly intact. Normal speech. 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 Admitted for SOB that was found to be caused by septic emboli. Discharge Planning Patient will need a 6 week course of IV antibiotics. rome Tolliver (Derek Shearer MD R1) Attending Attestation Patient seen and examined with the resident team. Case reviewed and discussed Agree with plan of care as discussed with me and documented in the resident note. (Shayy Tolliver MD) Problem List: (1) Septic pulmonary embolism Status: Acute Plan: H/o IV drug use with prior hx of endocarditis and care home treatment -Hepatitis C positive -blood cultures no growth x5 days -sputum culture: normal respiratory kendall -incentive spirometer Consulted ID: appreciate recommendations * Endocarditis of TV valve. Vegetation appears to have increased in size, globular and oscillating. This puts him at high risk for further embolization * Evaluated by CTS, not a surgical candidate at this time. Will need to be abstinent for at least 6 months before consideration for surgical intervention * repeat echo with bubble study performed, bubble study negative. * Consider echocardiogram to reevaluate vegetation during week 4 of antibiotic therapy * Continue vancomycin for total duration of 4-6 weeks (04/21 - 05/19- or 06/01-) depending on cardiac imaging at 4 weeks of antibiotic treatment Imaging: * Abdomen/pelvis CT 05/04/16: Inflammatory changes in the right lower lobe, slight improvement in the interval. No evidence of septic emboli. * Chest CT 05/04/16: Abnormal ascending aorta with dilation. There is improvement with less inflammatory changes in the right lower lobe. There is no evidence of new emboli to lungs. * CT pulmonary angiography 04/21: Abnormal filling defects within the right lower lobe lobar arterial branches and segmental arterial branches characteristic of pulmonary emboli. New right infrahilar/right lower lobe airspace consolidation and groundglass attenuation. Small right pleural effusion. * CT abdomen/pelvis 04/23: No evidence for abscess within the lung base, abdomen , or pelvis. Persistent area of consolidation involving the basilar aspect of the right lower lobe. Small right-sided pleural effusion with a contour bulge suggestive of area of loculation (2) Poor dentition Status: Acute Plan: Pt with poor dentition and several teeth require extraction. He continues to endorse flares of pain despite oral and IV pain medication. -OMFS was consulted, unfortunately they will not be able to preform routine dental care while pt is in the hospital -Pt will need to follow up with a dentist once discharged -Pt with altered pain tolerance/response to pain medication due to hx of drug abuse -Sinus CT performed on 05/04/16: No evidence of inflammatory sinus disease, no dental abscesses appreciated Pain control * Tylenol 650 mg by mouth every 4 hours when necessary for pain 1-2 * Motrin 400 mg by mouth every 6 hours when necessary for pain 3-4 * Morphine 2 mg IV push every 3 hours when necessary for pain 4-10 * Topical benzocaine gel to be applied every 6 hours as needed * Anna-Colace 1 tab by mouth twice a day when necessary for constipation (3) Illicit drug use Status: Chronic Plan: UDS negative on admission but recent ED visit on 04/05/16 had a positive UDS of cocaine, amp, and opiates. (4) Anxiety Status: Acute Plan: Patient reported anxiety and seems a bit anxious today. Ativan 0.5 mg by mouth every 8 hours when necessary for anxiety Klonopin 0.5 mg by mouth every 12 hours scheduled for anxiety BuSpar 5 mg by mouth every 12 hours scheduled for anxiety (5) Tobacco abuse Status: Acute Plan: Patient with history of tobacco abuse and reports smoking 1 pack per day prior to admission to the hospital. -Nicotine patch (6) Insomnia Status: Acute Plan: Patient reported insomnia. Trazodone 50 mg by mouth daily at bedtime when necessary for insomnia (7) Nutrition, metabolism, and development symptoms Status: Acute Plan: Fluids: None Electrolytes: WNLs Nutrition: Regular DVT PPX: Lovenox GI PPX: Anna-Colace when necessary (Derek Shearer MD R1) Problem Qualifiers (1) Septic pulmonary embolism: Qualified Code: I26.90 - Acute septic pulmonary embolism without acute cor pulmonale Derek Shearer MD R1 May 14, 2016 11:48 Shayy Tolliver MD May 18, 2016 08:56
[2016-05-14 12:00] VITALS: BP 121/71; PULSE 83; RESP 16; TEMP 96.8; O2SAT 98
[2016-05-14] MEDS: ENOXAPARIN SODIUM 40 MG/0.4 ML SYRINGE SQ SCH (15:32)
[2016-05-14] MEDS ORDERED: DOCUSATE SODIUM 50 MG/SENNA 8.6 MG TAB PO PRN (19:00)
[2016-05-14 20:00] VITALS: BP 110/78; PULSE 74; RESP 21; TEMP 97.1; O2SAT 98
[2016-05-14] MEDS: REMOVE OLD NICODERM (NICOTINE) PATCH TD SCH (20:58)
[2016-05-14] MEDS: LORazepam 0.5 MG TAB PO PRN (21:38)
[2016-05-14] MEDS: traZODone HCL 50 MG TAB PO PRN (21:38)
[2016-05-15] VITALS: BP 97/65; PULSE 89; RESP 21; TEMP 96.4; O2SAT 96
[2016-05-15] MEDS: MORPHINE SULFATE 4 MG/ML INJ IV PUSH PRN ×8 (00:37→23:49)
[2016-05-15] MEDS: VANCOMYCIN INJ 1,500 MG in SODIUM CHLORID 0.9% 500 ML INJ 500 ML IV SCH ×3 (00:37→23:48)
[2016-05-15 08:00] VITALS: BP 121/81; PULSE 81; RESP 20; TEMP 99.4; O2SAT 98
[2016-05-15] MEDS: busPIRone HCL 5 MG TAB PO SCH ×2 (08:28→19:41)
[2016-05-15] MEDS: AMOXICILLIN (TRIHYDRATE) 500 MG CAP PO SCH ×2 (08:28→19:41)
[2016-05-15] MEDS: clonazePAM 0.5 MG TAB PO SCH ×2 (08:28→19:42)
[2016-05-15] MEDS: NICOTINE 21 MG/24 HR PATCH TD SCH (08:29)
[2016-05-15] MEDS: SODIUM CHLORIDE 0.9% FLUSH 5 ML FLUSH FLUSH SCH ×2 (08:29→19:43)
--- NOTE | 2016-05-15 11:22 | HHI.FPPN ---
Subjective Remarks Pt seen and examined this morning. No acute events over night. Pt denies chest pain, shortness of breath, abdominal pain, calf pain. He has been ambulating in his room. His tooth pain is currently well controlled with current regimen, he believes oral antibiotics are helping inflammation. He endorses pain in bilateral upper extremities which he attributes to multiple attempts at obtaining IV access. (Radha Thorne MD R2) Objective Vitals Vital Signs Date Time Temp Pulse Resp B/P Pulse Ox O2 Delivery O2 Flow Rate FiO2 05/15/16 08:00 99.4 81 20 121/81 98 05/15/16 06:46 20 05/15/16 00:00 96.4 89 21 97/65 96 05/14/16 20:00 97.1 74 21 110/78 98 05/14/16 12:00 96.8 83 16 121/71 98 I/O 05/14/16 05/14/16 05/14/16 05/15/16 05/15/16 05/15/16 07:00 15:00 23:00 07:00 15:00 23:00 Intake Total 980 ml 645 ml 240 ml 860 ml Output Total 1000 ml Balance 980 ml 645 ml 240 ml -140 ml Intake Oral 480 ml 645 ml 240 ml 360 ml IV Total 500 ml 500 ml Output Urine Total 1000 ml # Voids 3 6 2 # Bowel Movements 1 0 1 (Radha Thorne MD R2) Result Diagram: 05/14/16 0440 05/13/16 0607 Objective Remarks GENERAL: Patient lying in bed in no acute distress, tired but responding to questions appropriately. SKIN: Pt with hyperpigmented macule on left lower quadrant, about 2cm in diameter, irregular borders, present since childhood, he also has a similar lesion on the left later midsection of his back. IV in place in right antecubital fossa. HEENT: Normocephalic/atraumatic. Moist mucous membranes. Patient with multiple teeth without surrounding erythema. small fluctuant area about 3cm in diameter over right lateral mandible, nontender, cool to the touch. CARDIOVASCULAR: Regular rate and rhythm. RESPIRATORY: Clear to auscultation bilaterally without crackles, wheezes. GASTROINTESTINAL: Positive bowel sounds, soft, nontender, nondistended. MUSCULOSKELETAL: Pain with palpation of distal left upper extremity where IV was previously placed, improving, no redness, no palpable cord. No edema, cyanosis, or clubbing. No calf tenderness. NEURO: Awake, alert. Cranial nerves grossly intact. Normal speech. 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 Admitted for SOB that was found to be caused by septic emboli. Discharge Planning Patient will need a 4-6 week course of IV antibiotics. wdw Dr. Tolliver (Radha Thorne MD R2) Attending Attestation Patient seen and examined. Case reviewed and discussed Agree with plan of care as discussed with me and documented in the resident note. 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 Vegetation appears to have increased in size, globular and oscillating. This puts him at high risk for further embolization * Evaluated by CTS, not a surgical candidate at this time. Will need to be abstinent for at least 6 months before consideration for surgical intervention * repeat echo with bubble study performed, bubble study negative. * Consider echocardiogram to reevaluate vegetation during week 4 of antibiotic therapy * Continue vancomycin for total duration of 4-6 weeks (04/21 - 05/19- or 06/01-) , pt to have repeat echocardiogram on on 05/19 after 4 weeks of antibiotic therapy per conversation with infectious disease, Dr. Recio. Imaging: * Abdomen/pelvis CT 05/04/16: Inflammatory changes in the right lower lobe, slight improvement in the interval. No evidence of septic emboli. * Chest CT 05/04/16: Abnormal ascending aorta with dilation. There is improvement with less inflammatory changes in the right lower lobe. There is no evidence of new emboli to lungs. * CT pulmonary angiography 04/21: Abnormal filling defects within the right lower lobe lobar arterial branches and segmental arterial branches characteristic of pulmonary emboli. New right infrahilar/right lower lobe airspace consolidation and groundglass attenuation. Small right pleural effusion. * CT abdomen/pelvis 04/23: No evidence for abscess within the lung base, abdomen , or pelvis. Persistent area of consolidation involving the basilar aspect of the right lower lobe. Small right-sided pleural effusion with a contour bulge suggestive of area of loculation (2) Poor dentition Status: Acute Plan: Pt with poor dentition and several teeth require extraction. He continues to endorse flares of pain despite oral and IV pain medication. -OMFS was consulted, unfortunately they will not be able to preform routine dental care while pt is in the hospital -Pt will need to follow up with a dentist once discharged -Pt with altered pain tolerance/response to pain medication due to hx of drug abuse -Sinus CT performed on 05/04/16: No evidence of inflammatory sinus disease, no dental abscesses appreciated Pain control * Tylenol 650 mg by mouth every 4 hours when necessary for pain 1-2 * Motrin 400 mg by mouth every 6 hours scheduled * Morphine 2 mg IV push every 3 hours when necessary for pain 4-10 * Topical benzocaine gel to be applied every 6 hours as needed * Nana-Colace 1 tab by mouth twice a day when necessary for constipation (3) Left upper limb pain Status: Acute Plan: Pt endorses left upper extremity pain where he previously had IV access. No erythema, palpable cord appreciated on on exam. Patient has been afebrile. -We'll schedule ibuprofen 400 mg po Q6hrs -Warm compresses to be applied to affected area as tolerated -Consider upper extremity US if there is increased suspicion for DVT (4) Illicit drug use Status: Chronic Plan: UDS negative on admission but recent ED visit on 04/05/16 had a positive UDS of cocaine, amp, and opiates. (5) Anxiety Status: Acute Plan: Patient with history of Anxiety. Ativan 0.5 mg by mouth every 8 hours when necessary for anxiety Klonopin 0.5 mg by mouth every 12 hours scheduled for anxiety BuSpar 5 mg by mouth every 12 hours scheduled for anxiety (6) Tobacco abuse Status: Acute Plan: Patient with history of tobacco abuse and reports smoking 1 pack per day prior to admission to the hospital. -Nicotine patch (7) Insomnia Status: Acute Plan: Patient reported insomnia. Trazodone 50 mg by mouth daily at bedtime when necessary for insomnia (8) Nutrition, metabolism, and development symptoms Status: Acute Plan: Fluids: None Electrolytes: WNLs Nutrition: Regular DVT PPX: Lovenox GI PPX: Anna-Colace when necessary (Radha Thorne MD R2) Problem Qualifiers (1) Septic pulmonary embolism: Qualified Code: I26.90 - Acute septic pulmonary embolism without acute cor pulmonale Radha Thorne MD R2 May 15, 2016 11:22 Shayy Tolliver MD May 15, 2016 13:46
[2016-05-15 12:00] VITALS: BP 119/70; PULSE 80; RESP 18; TEMP 99; O2SAT 95
[2016-05-15] MEDS: LORazepam 0.5 MG TAB PO PRN (13:52)
[2016-05-15] MEDS: IBUPROFEN 400 MG TAB PO SCH ×2 (15:00→19:42)
[2016-05-15] MEDS: ENOXAPARIN SODIUM 40 MG/0.4 ML SYRINGE SQ SCH (15:54)
[2016-05-15 16:00] VITALS: BP 124/72; PULSE 79; RESP 18; TEMP 98.9; O2SAT 95
[2016-05-15] MEDS: REMOVE OLD NICODERM (NICOTINE) PATCH TD SCH (19:44)
[2016-05-15 20:00] VITALS: BP 105/72; PULSE 75; RESP 20; TEMP 96.5; O2SAT 98
[2016-05-16] MEDS: MORPHINE SULFATE 4 MG/ML INJ IV PUSH PRN ×7 (03:14→21:27)
[2016-05-16] MEDS: IBUPROFEN 400 MG TAB PO SCH ×4 (03:15→21:26)
[2016-05-16 08:00] VITALS: BP 128/81; PULSE 74; RESP 18; TEMP 96.2; O2SAT 97
[2016-05-16] MEDS: clonazePAM 0.5 MG TAB PO SCH ×2 (08:45→21:25)
[2016-05-16] MEDS: busPIRone HCL 5 MG TAB PO SCH ×2 (08:45→21:26)
[2016-05-16] MEDS: AMOXICILLIN (TRIHYDRATE) 500 MG CAP PO SCH ×2 (08:45→21:00)
[2016-05-16] MEDS: NICOTINE 21 MG/24 HR PATCH TD SCH (08:45)
[2016-05-16] MEDS: SODIUM CHLORIDE 0.9% FLUSH 5 ML FLUSH FLUSH SCH ×2 (08:51→21:25)
[2016-05-16] MEDS: LORazepam 0.5 MG TAB PO PRN (08:51)
[2016-05-16] MEDS: SODIUM CHLORIDE 0.9% FLUSH 5 ML FLUSH FLUSH PRN ×3 (09:16→17:59)
--- NOTE | 2016-05-16 10:47 | HHI.FPPN ---
Subjective Remarks No acute events overnight. Vital signs remained stable. Patient denies any pain of any kind at this time. He states he is feeling well and continues night any fevers, chills, chest pain, shortness of breath, or calf pain. Patient states echocardiogram was recently performed. (Tate Brady MD R3) Objective Vitals Vital Signs Date Time Temp Pulse Resp B/P Pulse Ox O2 Delivery O2 Flow Rate FiO2 05/16/16 09:45 18 05/16/16 09:21 18 05/16/16 08:00 96.2 74 18 128/81 97 05/15/16 20:00 96.5 75 20 105/72 98 05/15/16 16:00 98.9 79 18 124/72 95 05/15/16 12:00 99.0 80 18 119/70 95 I/O 05/15/16 05/15/16 05/15/16 05/16/16 05/16/16 05/16/16 07:00 15:00 23:00 07:00 15:00 23:00 Intake Total 860 ml 600 ml 1360 ml 360 ml Output Total 1000 ml 1000 ml 500 ml 1100 ml Balance -140 ml -400 ml 860 ml -740 ml Intake Oral 360 ml 600 ml 360 ml 360 ml IV Total 500 ml 1000 ml Output Urine Total 1000 ml 1000 ml 500 ml 1100 ml # Bowel Movements 1 1 0 0 (Tate Brady MD R3) Result Diagram: 05/14/16 0440 05/13/16 0607 Objective Remarks GENERAL: Patient lying in bed in no acute distress, pleasant SKIN: Pt with hyperpigmented macule on left lower quadrant, about 2cm in diameter, irregular borders, present since childhood, he also has a similar lesion on the left later midsection of his back. HEENT: Normocephalic/atraumatic. Moist mucous membranes. Patient with multiple teeth without surrounding erythema. CARDIOVASCULAR: Regular rate and rhythm. RESPIRATORY: Clear to auscultation bilaterally without crackles, wheezes. GASTROINTESTINAL: Positive bowel sounds, soft, nontender, nondistended. MUSCULOSKELETAL: No calf pain to palpation. Moves all extremities without difficulty. NEURO: Awake, alert. Cranial nerves grossly intact. Normal speech. (Tate Brady MD R3) A/P Assessment and Plan 40 year old male with h/o IVDA, hep C, prolonged hospitalization from 01/03/2016- 02/24/2016 for septic pulmonary emboli and 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. Admitted for SOB that was found to be caused by septic emboli. Discharge Planning Patient will need a 4-6 week course of IV antibiotics. (Tate Brady MD R3) Attending Attestation Patient seen and examined with the resident team. Case reviewed and discussed Agree with plan of care as discussed with me and documented in the resident note. (Shayy Tolliver MD) Problem List: (1) Septic pulmonary embolism Status: Acute Plan: H/o IV drug use with prior hx of endocarditis and jail treatment -Hepatitis C positive -blood cultures no growth x5 days -sputum culture: normal respiratory kendall -incentive spirometer Consulted ID: appreciate recommendations * Endocarditis of TV valve. Vegetation appears to have increased in size, globular and oscillating. This puts him at high risk for further embolization * Evaluated by CTS, not a surgical candidate at this time. Will need to be abstinent for at least 6 months before consideration for surgical intervention * repeat echo with bubble study performed, bubble study negative. * Consider echocardiogram to reevaluate vegetation during week 4 of antibiotic therapy * Continue vancomycin for total duration of 4-6 weeks (04/21 - 05/19- or 06/01-) , pt to have repeat echocardiogram on on 05/19 after 4 weeks of antibiotic therapy per conversation with infectious disease. Patient reports that echocardiogram was recently performed, review of EMR shows no results, if this is indeed correct, we'll discuss with Dr. Recio following report of results. Imaging: * Abdomen/pelvis CT 05/04/16: Inflammatory changes in the right lower lobe, slight improvement in the interval. No evidence of septic emboli. * Chest CT 05/04/16: Abnormal ascending aorta with dilation. There is improvement with less inflammatory changes in the right lower lobe. There is no evidence of new emboli to lungs. * CT pulmonary angiography 04/21: Abnormal filling defects within the right lower lobe lobar arterial branches and segmental arterial branches characteristic of pulmonary emboli. New right infrahilar/right lower lobe airspace consolidation and ground glass attenuation. Small right pleural effusion. * CT abdomen/pelvis 04/23: No evidence for abscess within the lung base, abdomen , or pelvis. Persistent area of consolidation involving the basilar aspect of the right lower lobe. Small right-sided pleural effusion with a contour bulge suggestive of area of loculation (2) Poor dentition Status: Acute Plan: Pt with poor dentition and several teeth require extraction. He continues to endorse flares of pain despite oral and IV pain medication. -OMFS was consulted, unfortunately they will not be able to preform routine dental care while pt is in the hospital -Pt will need to follow up with a dentist once discharged -Pt with altered pain tolerance/response to pain medication due to hx of drug abuse -Sinus CT performed on 05/04/16: No evidence of inflammatory sinus disease, no dental abscesses appreciated Pain control * Tylenol 650 mg by mouth every 4 hours when necessary for pain 1-2 * Motrin 400 mg by mouth every 6 hours scheduled * Morphine 2 mg IV push every 3 hours when necessary for pain 4-10 * Topical benzocaine gel to be applied every 6 hours as needed * Anna-Colace 1 tab by mouth twice a day when necessary for constipation (3) Left upper limb pain Status: Acute Plan: Pt reported prior left upper extremity pain where he previously had IV access. Now resolved. (4) Illicit drug use Status: Chronic Plan: UDS negative on admission but recent ED visit on 04/05/16 had a positive UDS of cocaine, amp, and opiates. (5) Anxiety Status: Acute Plan: Patient with history of Anxiety. Ativan 0.5 mg by mouth every 8 hours when necessary for anxiety Klonopin 0.5 mg by mouth every 12 hours scheduled for anxiety BuSpar 5 mg by mouth every 12 hours scheduled for anxiety (6) Tobacco abuse Status: Acute Plan: Patient with history of tobacco abuse and reports smoking 1 pack per day prior to admission to the hospital. -Nicotine patch (7) Insomnia Status: Acute Plan: Patient reported insomnia. Trazodone 50 mg by mouth daily at bedtime when necessary for insomnia (8) Nutrition, metabolism, and development symptoms Status: Acute Plan: Fluids: None Electrolytes: WNLs Nutrition: Regular DVT PPX: Lovenox GI PPX: Anna-Colace when necessary (Tate Brady MD R3) Problem Qualifiers (1) Septic pulmonary embolism: Qualified Code: I26.90 - Acute septic pulmonary embolism without acute cor pulmonale Tate Brady MD R3 May 16, 2016 10:47 Shayy Tolliver MD May 18, 2016 08:56
[2016-05-16] MEDS ORDERED: PHARMACY ORDERED LAB XX ONE (11:45)
[2016-05-16 12:00] VITALS: BP 122/79; PULSE 69; RESP 17; TEMP 97.9; O2SAT 97
[2016-05-16] MEDS: VANCOMYCIN INJ 1,500 MG in SODIUM CHLORID 0.9% 500 ML INJ 500 ML IV SCH (12:45)
[2016-05-16 12:50] LABS: VANCOMYCIN TROUGH 21.4 MCG/ML (5.0-10.0)
[2016-05-16 16:00] VITALS: BP 118/76; PULSE 78; RESP 18; TEMP 97.4; O2SAT 96
[2016-05-16] MEDS: ENOXAPARIN SODIUM 40 MG/0.4 ML SYRINGE SQ SCH (17:59)
[2016-05-16 19:05] LABS: ALKALINE PHOSPHATASE 79 U/L (45-117); ALT (GPT) 59 U/L (12-78); ANION GAP 7 MEQ/L (5-15); AST (GOT) 35 U/L (15-37); BICARBONATE 26.7 MEQ/L (21.0-32.0); BLOOD UREA NITROGEN 17 MG/DL (7-18); CHLORIDE 105 MEQ/L (98-107); GLOMERULAR FILTRATION RATE 91 ML/MIN (>89); POTASSIUM 4.5 MEQ/L (3.5-5.1); SODIUM (NA) 139 MEQ/L (136-145); TOTAL BILIRUBIN ADULT 0.1 MG/DL (0.2-1.0)
[2016-05-16 20:00] VITALS: BP 135/80; PULSE 74; RESP 20; TEMP 96.3; O2SAT 99
[2016-05-16] MEDS: REMOVE OLD NICODERM (NICOTINE) PATCH TD SCH (21:00)
[2016-05-17] MEDS: VANCOMYCIN INJ 1,500 MG in SODIUM CHLORID 0.9% 500 ML INJ 500 ML IV SCH ×3 (01:37→23:13)
[2016-05-17] MEDS: IBUPROFEN 400 MG TAB PO SCH ×4 (01:38→19:27)
[2016-05-17] MEDS: MORPHINE SULFATE 4 MG/ML INJ IV PUSH PRN ×8 (01:38→23:13)
[2016-05-17 08:00] VITALS: BP 135/85; PULSE 79; RESP 18; TEMP 98.8; O2SAT 98
[2016-05-17] MEDS: AMOXICILLIN (TRIHYDRATE) 500 MG CAP PO SCH ×2 (08:03→19:27)
[2016-05-17] MEDS: clonazePAM 0.5 MG TAB PO SCH ×2 (08:03→19:27)
[2016-05-17] MEDS: NICOTINE 21 MG/24 HR PATCH TD SCH (08:03)
[2016-05-17] MEDS: busPIRone HCL 5 MG TAB PO SCH ×2 (08:03→19:29)
[2016-05-17] MEDS: SODIUM CHLORIDE 0.9% FLUSH 5 ML FLUSH FLUSH SCH ×2 (08:04→19:26)
[2016-05-17] MEDS: LORazepam 0.5 MG TAB PO PRN ×2 (11:19→19:29)
--- NOTE | 2016-05-17 11:43 | HHI.FPPN ---
Subjective Remarks Pt seen and examined this morning. No acute events overnight. Pt denies chest pain, shortness of breath, abdominal pain, constipation, diarrhea, calf pain. Objective Vitals Vital Signs Date Time Temp Pulse Resp B/P Pulse Ox O2 Delivery O2 Flow Rate FiO2 05/17/16 08:00 98.8 79 18 135/85 98 05/16/16 20:00 96.3 74 20 135/80 99 05/16/16 16:13 18 05/16/16 16:00 97.4 78 18 118/76 96 05/16/16 15:19 18 05/16/16 12:00 97.9 69 17 122/79 97 I/O 05/16/16 05/16/16 05/16/16 05/17/16 05/17/16 05/17/16 07:00 15:00 23:00 07:00 15:00 23:00 Intake Total 360 ml 600 ml 480 ml 480 ml Output Total 1100 ml Balance -740 ml 600 ml 480 ml 480 ml Intake Oral 360 ml 600 ml 480 ml 480 ml Output Urine Total 1100 ml # Voids 4 2 1 # Bowel Movements 0 1 0 0 Result Diagram: 05/14/16 0440 05/16/16 1157 Objective Remarks GENERAL: Patient lying in bed in no acute distress, pleasant SKIN: Pt with hyperpigmented macule on left lower quadrant, about 2cm in diameter, irregular borders, present since childhood, he also has a similar lesion on the left later midsection of his back. HEENT: Normocephalic/atraumatic. Moist mucous membranes. Patient with multiple teeth without surrounding erythema. CARDIOVASCULAR: Regular rate and rhythm. RESPIRATORY: Clear to auscultation bilaterally without crackles, wheezes. GASTROINTESTINAL: Positive bowel sounds, soft, nontender, nondistended. MUSCULOSKELETAL: No calf pain to palpation. Moves all extremities without difficulty. NEURO: Awake, alert. Cranial nerves grossly intact. Normal speech. 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 Admitted for SOB that was found to be caused by septic emboli. Discharge Planning Patient will need a 4-6 week course of IV antibiotics. Problem List: (1) Septic pulmonary embolism Status: Acute Plan: H/o IV drug use with prior hx of endocarditis and custodial treatment -Hepatitis C positive -blood cultures no growth x5 days -sputum culture: normal respiratory kendall -incentive spirometer Consulted ID: appreciate recommendations * Endocarditis of TV valve. Vegetation appears to have increased in size, globular and oscillating. This puts him at high risk for further embolization * Evaluated by CTS, not a surgical candidate at this time. Will need to be abstinent for at least 6 months before consideration for surgical intervention * repeat echo with bubble study performed, bubble study negative. * Consider echocardiogram to reevaluate vegetation during week 4 of antibiotic therapy * Continue vancomycin for total duration of 4-6 weeks (04/21 - 05/19- or 06/01-) , pt to have repeat echocardiogram on on 05/19 after 4 weeks of antibiotic therapy per conversation with infectious disease. Patient reports that echocardiogram was recently performed, awaiting repots. Pt will also need chest CT on 05/19. Dr. Recio following. Imaging: * Abdomen/pelvis CT 05/04/16: Inflammatory changes in the right lower lobe, slight improvement in the interval. No evidence of septic emboli. * Chest CT 05/04/16: Abnormal ascending aorta with dilation. There is improvement with less inflammatory changes in the right lower lobe. There is no evidence of new emboli to lungs. * CT pulmonary angiography 04/21: Abnormal filling defects within the right lower lobe lobar arterial branches and segmental arterial branches characteristic of pulmonary emboli. New right infrahilar/right lower lobe airspace consolidation and ground glass attenuation. Small right pleural effusion. * CT abdomen/pelvis 04/23: No evidence for abscess within the lung base, abdomen , or pelvis. Persistent area of consolidation involving the basilar aspect of the right lower lobe. Small right-sided pleural effusion with a contour bulge suggestive of area of loculation (2) Poor dentition Status: Acute Plan: Pt with poor dentition and several teeth require extraction. He continues to endorse flares of pain despite oral and IV pain medication. -OMFS was consulted, unfortunately they will not be able to preform routine dental care while pt is in the hospital -Pt will need to follow up with a dentist once discharged -Pt with altered pain tolerance/response to pain medication due to hx of drug abuse -Sinus CT performed on 05/04/16: No evidence of inflammatory sinus disease, no dental abscesses appreciated -Continue Amoxicillin 500mg po BID (05/13- ) Pain control * Tylenol 650 mg by mouth every 4 hours when necessary for pain 1-2 * Motrin 400 mg by mouth every 6 hours scheduled * Morphine 2 mg IV push every 3 hours when necessary for pain 4-10 * Topical benzocaine gel to be applied every 6 hours as needed * Anna-Colace 1 tab by mouth twice a day when necessary for constipation (3) Left upper limb pain Status: Acute Plan: Pt reported prior left upper extremity pain where he previously had IV access. Now resolved. (4) Illicit drug use Status: Chronic Plan: UDS negative on admission but recent ED visit on 04/05/16 had a positive UDS of cocaine, amp, and opiates. (5) Anxiety Status: Acute Plan: Patient with history of Anxiety. Ativan 0.5 mg by mouth every 8 hours when necessary for anxiety Klonopin 0.5 mg by mouth every 12 hours scheduled for anxiety BuSpar 5 mg by mouth every 12 hours scheduled for anxiety (6) Tobacco abuse Status: Acute Plan: Patient with history of tobacco abuse and reports smoking 1 pack per day prior to admission to the hospital. -Nicotine patch (7) Insomnia Status: Acute Plan: Patient reported insomnia. Trazodone 50 mg by mouth daily at bedtime when necessary for insomnia (8) Nutrition, metabolism, and development symptoms Status: Acute Plan: Fluids: None Electrolytes: WNLs Nutrition: Regular DVT PPX: Lovenox GI PPX: Anna-Colace when necessary Problem Qualifiers (1) Septic pulmonary embolism: Qualified Code: I26.90 - Acute septic pulmonary embolism without acute cor pulmonale Radha Thorne MD R2 May 17, 2016 11:43
[2016-05-17] MEDS ORDERED: PHARMACY ORDERED LAB XX ONE (11:45)
[2016-05-17 12:00] VITALS: BP 138/78; PULSE 78; RESP 20; TEMP 98.9; O2SAT 98
[2016-05-17 12:35] LABS: VANCOMYCIN TROUGH 14.9 MCG/ML (5.0-10.0)
[2016-05-17] MEDS: ENOXAPARIN SODIUM 40 MG/0.4 ML SYRINGE SQ SCH (14:05)
--- NOTE | 2016-05-17 18:27 | HHI.PR ---
Addendum to Inpatient Note Addendum Reason: Additional Documentation Additional Information 40 year old male with h/o IVDA, hep C, prolonged hospitalization from 01/03/2016- 02/24/2016 for septic pulmonary emboli and 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 presented with progressive shortness of breath x 1 week, productive cough, pleuritic chest pain, and fevers and chills. CT chest was concerning for septic pulmonary emboli. ID was consulted for treatment of septic pulmonary emboli. Pt will have received 4 weeks of IV Vancomycin on 05/18- . ID will consider discharging him depending on results of Echocardiogram and chest CT versus treating him for IV antibiotic treatment for 6 weeks. Throughout admission, pt has also complained of dental pain associated with many teeth. Pt was started on IV morphine for this pain, which seems to be the only way to control his pain. Pt was recently started on amoxicillin for some worsening pain and edema of gums surrounding teeth, which seems to have helped. Pt plans to see dentist immediately after discharge. Pt also started on anti-anxiety medications. He also has had a difficult social situation with his father dying recently. Derek Shearer MD R1 May 17, 2016 18:27
[2016-05-17] MEDS: REMOVE OLD NICODERM (NICOTINE) PATCH TD SCH (19:33)
[2016-05-17 20:00] VITALS: BP 113/84; PULSE 69; RESP 20; TEMP 96; O2SAT 100
[2016-05-18] MEDS: IBUPROFEN 400 MG TAB PO SCH ×4 (01:58→15:48)
[2016-05-18] MEDS: MORPHINE SULFATE 4 MG/ML INJ IV PUSH PRN ×8 (01:58→23:47)
[2016-05-18 08:00] VITALS: BP 151/95; PULSE 98; RESP 18; TEMP 98.2; O2SAT 99
[2016-05-18] MEDS: AMOXICILLIN (TRIHYDRATE) 500 MG CAP PO SCH ×2 (09:09→19:34)
[2016-05-18] MEDS: busPIRone HCL 5 MG TAB PO SCH ×2 (09:09→19:33)
[2016-05-18] MEDS: SODIUM CHLORIDE 0.9% FLUSH 5 ML FLUSH FLUSH SCH ×2 (09:10→19:33)
[2016-05-18] MEDS: clonazePAM 0.5 MG TAB PO SCH ×2 (09:10→19:34)
[2016-05-18] MEDS: NICOTINE 21 MG/24 HR PATCH TD SCH (09:10)
[2016-05-18] MEDS: LORazepam 0.5 MG TAB PO PRN ×2 (09:14→21:10)
--- NOTE | 2016-05-18 10:01 | HHI.FPPN ---
Subjective Remarks Patient sitting up comfortably in bed this morning. Very anxious to go home today due to father's impending . Complains of tooth pain in his right lower mouth. Denies chest pain, shortness of breath, nausea, abdominal pain. States that an echo of his heart was performed last week and wants to know if the results have been found. (Nikia Terrazas MD R1) Objective Vitals Vital Signs Date Time Temp Pulse Resp B/P Pulse Ox O2 Delivery O2 Flow Rate FiO2 05/18/16 08:00 98.2 98 18 151/95 99 05/17/16 20:00 96.0 69 20 113/84 100 05/17/16 12:00 98.9 78 20 138/78 98 I/O 05/17/16 05/17/16 05/17/16 05/18/16 05/18/16 05/18/16 07:00 15:00 23:00 07:00 15:00 23:00 Intake Total 480 ml 1720 ml 480 ml 480 ml Balance 480 ml 1720 ml 480 ml 480 ml Intake Oral 480 ml 1200 ml 480 ml 480 ml IV Total 520 ml # Voids 1 4 1 2 # Bowel Movements 0 0 0 0 (Nikia Terrazas MD R1) Result Diagram: 05/14/16 0440 05/17/16 1150 Objective Remarks GENERAL: Patient lying in bed in no acute distress, anxious SKIN: Pt with hyperpigmented macule on left lower quadrant, about 2cm in diameter, irregular borders, present since childhood, he also has a similar lesion on the left later midsection of his back. HEENT: Normocephalic/atraumatic. Moist mucous membranes. Patient with multiple teeth without surrounding erythema. CARDIOVASCULAR: Regular rate and rhythm. No murmurs, rubs or gallops RESPIRATORY: Clear to auscultation bilaterally without crackles, wheezes. GASTROINTESTINAL: Positive bowel sounds, soft, nontender, nondistended. MUSCULOSKELETAL: No calf pain to palpation. Moves all extremities without difficulty. NEURO: Awake, alert. Cranial nerves grossly intact. Normal speech. (Nikia Terrazas MD R1) A/P Assessment and Plan 40 year old male with h/o IVDA, hep C, prolonged hospitalization from 01/03/2016- 02/24/2016 for septic pulmonary emboli and 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. Admitted for SOB that was found to be caused by septic emboli. Discharge Planning Pending infectious disease discission about if he needs an additional 2 week course of IV antibiotics (Nikia Terrazas MD R1) Attending Attestation Patient seen and examined. Case reviewed and discussed Agree with plan of care as discussed with me and documented in the resident note. Repeat 2D echo pending, repeat CT pending. Dw Dr. Recio. (Shayy Tolliver MD) Problem List: (1) Septic pulmonary embolism Status: Acute Plan: H/o IV drug use with prior hx of endocarditis and jail treatment -Hepatitis C positive -Blood cultures no growth x5 days -Sputum culture: normal respiratory kendall -Incentive spirometer Consulted ID: appreciate recommendations * Endocarditis of TV valve. Vegetation appears to have increased in size, globular and oscillating. This puts him at high risk for further embolization * Evaluated by CTS, not a surgical candidate at this time. Will need to be abstinent for at least 6 months before consideration for surgical intervention * repeat echo with bubble study performed, bubble study negative. * Consider echocardiogram to reevaluate vegetation during week 4 of antibiotic therapy * Continue vancomycin for total duration of 4-6 weeks (04/21 - 05/19- or 06/01-) , pt to have repeat echocardiogram on on 05/19 after 4 weeks of antibiotic therapy per conversation with infectious disease. Patient reports that echocardiogram was recently performed, awaiting repots. Pt will also need chest CT on 05/19. Dr. Recio following. Imaging: * Abdomen/pelvis CT 05/04/16: Inflammatory changes in the right lower lobe, slight improvement in the interval. No evidence of septic emboli. * Chest CT 05/04/16: Abnormal ascending aorta with dilation. There is improvement with less inflammatory changes in the right lower lobe. There is no evidence of new emboli to lungs. * CT pulmonary angiography 04/21: Abnormal filling defects within the right lower lobe lobar arterial branches and segmental arterial branches characteristic of pulmonary emboli. New right infrahilar/right lower lobe airspace consolidation and ground glass attenuation. Small right pleural effusion. * CT abdomen/pelvis 04/23: No evidence for abscess within the lung base, abdomen , or pelvis. Persistent area of consolidation involving the basilar aspect of the right lower lobe. Small right-sided pleural effusion with a contour bulge suggestive of area of loculation (2) Poor dentition Status: Acute Plan: Pt with poor dentition and several teeth require extraction. He continues to endorse flares of pain despite oral and IV pain medication. -OMFS was consulted, unfortunately they will not be able to preform routine dental care while pt is in the hospital -Pt will need to follow up with a dentist once discharged -Pt with altered pain tolerance/response to pain medication due to hx of drug abuse -Sinus CT performed on 05/04/16: No evidence of inflammatory sinus disease, no dental abscesses appreciated -Continue Amoxicillin 500mg po BID (05/13- ) Pain control * Tylenol 650 mg by mouth every 4 hours when necessary for pain 1-2 * Motrin 400 mg by mouth every 6 hours scheduled * Morphine 2 mg IV push every 3 hours when necessary for pain 4-10 * Topical benzocaine gel to be applied every 6 hours scheduled * Anna-Colace 1 tab by mouth twice a day when necessary for constipation (3) Anxiety Status: Chronic Plan: Patient with history of Anxiety. Ativan 0.5 mg by mouth every 8 hours when necessary for anxiety Klonopin 0.5 mg by mouth every 12 hours scheduled for anxiety BuSpar 5 mg by mouth every 12 hours scheduled for anxiety (4) Tobacco abuse Status: Chronic Plan: -Patient with history of tobacco abuse and reports smoking 1 pack per day prior to admission to the hospital. -Nicotine patch daily (5) Insomnia Status: Chronic Plan: -Patient reports history of insomnia Trazodone 50 mg by mouth daily at bedtime when necessary for insomnia (6) Nutrition, metabolism, and development symptoms Status: Acute Plan: Fluids: None Electrolytes: WNLs Nutrition: Regular DVT PPX: Lovenox GI PPX: Anna-Colace when necessary (Nikia Terrazas MD R1) Problem Qualifiers (1) Septic pulmonary embolism: Qualified Code: I26.90 - Acute septic pulmonary embolism without acute cor pulmonale Nikia Terrazas MD R1 May 18, 2016 10:01 Shayy Tolliver MD May 18, 2016 17:06
[2016-05-18] MEDS ORDERED: LORazepam 2 MG/ML VIAL IV PUSH ONE (10:30)
[2016-05-18] MEDS ORDERED: MORPHINE SULFATE 4 MG/ML INJ IV PUSH ONE (10:30)
[2016-05-18 12:00] VITALS: BP 128/87; PULSE 86; RESP 18; TEMP 96.6; O2SAT 98
[2016-05-18] MEDS: BENZOCAINE 7.5% ORAL GEL 9.4 GM TUBE OROPHARYNG SCH ×3 (12:00→23:49)
[2016-05-18] MEDS: VANCOMYCIN INJ 1,500 MG in SODIUM CHLORID 0.9% 500 ML INJ 500 ML IV SCH ×2 (12:16→23:44)
[2016-05-18] MEDS: ENOXAPARIN SODIUM 40 MG/0.4 ML SYRINGE SQ SCH (14:49)
[2016-05-18] MEDS ORDERED: DIATRIZOATE MEGLUM/DIATRIZOATE SOD 9 ML CUP PO ONE (15:45)
[2016-05-18 17:19] VITALS: BP 107/69; PULSE 72; RESP 18; TEMP 96.6; O2SAT 97
[2016-05-18] MEDS ORDERED: IOHEXOL 350 MG/ML 10 ML VIAL (for RAD DIAG) IV ONE (18:43)
--- NOTE | 2016-05-18 19:22 | RADRPT ---
EXAM DATE/TIME: 05/18/2016 18:31 [facility] COMPARISON: CT ABDOMEN & PELVIS W CONTRAST, May 04, 2016, 16:28. INDICATIONS : Evaluate for septic emboli. IV CONTRAST: 73 cc Omnipaque 350 (iohexol) IV ; Cumulative dose for multiple exams. ORAL CONTRAST: Prescribed oral contrast ingested. RADIATION DOSE: 5.17 CTDIvol (mGy) ; Combined studies MEDICAL HISTORY : None SURGICAL HISTORY : None. ENCOUNTER: Subsequent ACUITY: 1 day PAIN SCALE: 0/10 LOCATION: Bilateral abdomen TECHNIQUE: Volumetric scanning of the abdomen and pelvis was performed. Using automated exposure control and ad justment of the mA and/or kV according to patient size, radiation dose was kept as low as reasonably achievable to obtain optimal diagnostic quality images. FINDINGS: LIVER: Homogeneous density without lesion. There is no dilation of the biliary tree. No calcified gallston es. SPLEEN: Normal size without lesion. PANCREAS: Within normal limits. KIDNEYS: 4 mm stone left upper pole again noted. No hydronephrosis or hydroureter. ADRENAL GLANDS: Within normal limits. VASCULAR: There is no aortic aneurysm. BOWEL/MESENTERY: Considerable stool throughout the colon. A few scattered diverticula are noted. No acute inflammatory changes are seen. ABDOMINAL WALL: Within normal limits. RETROPERITONEUM: There is no lymphadenopathy. BLADDER: No wall thickening or mass. REPRODUCTIVE: Within normal limits. INGUINAL: There is no lymphadenopathy or hernia. MUSCULOSKELETAL: Within normal limits for patient age. CONCLUSION: 1. No solid organ infarcts or other acute abnormalities are demonstrated. 2. 4 mm nonobstructing stone of the left kidney. 3. A few scattered diverticula of the colon without inflammatory changes. There is considerable stool throughout the colon. Nonobstructive pattern. Ruel Forrest MD on May 18, 2016 at 19:19 Board Certified Radiologist. This report was verified electronically.
--- NOTE | 2016-05-18 19:32 | RADRPT ---
EXAM DATE/TIME: 05/18/2016 18:31 [facility] COMPARISON: CT THORAX W CONTRAST, May 04, 2016, 16:28. INDICATIONS : Evaluate for septic emboli. IV CONTRAST: 73 cc Omnipaque 350 (iohexol) IV ; Cumulative dose for multiple exams. RADIATION DOSE: 5.17 CTDIvol (mGy) ; Combined studies MEDICAL HISTORY : None SURGICAL HISTORY : None. ENCOUNTER: Subsequent ACUITY: 1 day PAIN SCALE: 0/10 LOCATION: Bilateral chest TECHNIQUE: Volumetric scanning of the chest was performed. Using automated exposure control and adjustment of t he mA and/or kV according to patient size, radiation dose was kept as low as reasonably achievable to obtain optimal diagnostic quality images. FINDINGS: There is persistent masslike consolidation in the right infrahilar region of the lower lobe. There ar e mild airspace opacities more distally in the right lower lobe. The right lower lobe pulmonary arter y is occluded. A small loculated right lower lobe pleural effusion is again noted. All these findings are very similar in the interim. No pulmonary nodules are seen. Mildly prominent caliber aorta unchanged. No mediastinal, hilar or axillary lymphadenopathy demo nstrated. CONCLUSION: 1. Right lower lobe consolidation including the masslike area in the right infrahilar region is not s ignificantly changed. The right lower lobe pulmonary artery remains occluded. 2. Small loculated pleural effusion and associated pleural thickening of the right lower lobe also si milar to before. Differential would include an empyema but the finding is stable. 3. No evidence of septic emboli. 4. Prominent caliber thoracic aorta again noted. No acute mediastinal abnormality.. Ruel Forrest MD on May 18, 2016 at 19:21 Board Certified Radiologist. This report was verified electronically.
[2016-05-18] MEDS: REMOVE OLD NICODERM (NICOTINE) PATCH TD SCH (19:35)
[2016-05-18 20:00] VITALS: BP 131/85; PULSE 73; RESP 18; TEMP 97.2; O2SAT 98
[2016-05-18] MEDS: traZODone HCL 50 MG TAB PO PRN (23:52)
[2016-05-19] MEDS: IBUPROFEN 400 MG TAB PO SCH ×3 (03:00→14:34)
[2016-05-19] MEDS: MORPHINE SULFATE 4 MG/ML INJ IV PUSH PRN ×5 (03:02→14:35)
[2016-05-19] MEDS: BENZOCAINE 7.5% ORAL GEL 9.4 GM TUBE OROPHARYNG SCH ×2 (05:21→11:51)
[2016-05-19 08:00] VITALS: BP 137/86; PULSE 98; RESP 18; TEMP 97.7; O2SAT 99
[2016-05-19] MEDS: clonazePAM 0.5 MG TAB PO SCH (08:22)
[2016-05-19] MEDS: NICOTINE 21 MG/24 HR PATCH TD SCH (08:22)
[2016-05-19] MEDS: busPIRone HCL 5 MG TAB PO SCH (08:22)
[2016-05-19] MEDS: AMOXICILLIN (TRIHYDRATE) 500 MG CAP PO SCH (08:22)
--- NOTE | 2016-05-19 08:36 | HHI.FPPN ---
Subjective Remarks Patient without complaints this morning. No chest pain, nausea, vomiting, shortness of breath, fever, chills, cough. Patient would like to go home today as discussed with infectious disease. (Hemant Judge MD R2) Objective Vitals Vital Signs Date Time Temp Pulse Resp B/P Pulse Ox O2 Delivery O2 Flow Rate FiO2 05/18/16 20:00 97.2 73 18 131/85 98 05/18/16 17:19 96.6 72 18 107/69 97 05/18/16 12:00 96.6 86 18 128/87 98 I/O 05/18/16 05/18/16 05/18/16 05/19/16 05/19/16 05/19/16 07:00 15:00 23:00 07:00 15:00 23:00 Intake Total 480 ml 1340 ml 420 ml 240 ml Balance 480 ml 1340 ml 420 ml 240 ml Intake Oral 480 ml 840 ml 420 ml 240 ml IV Total 500 ml # Voids 2 3 2 3 # Bowel Movements 0 1 0 0 (Hemant Judge MD R2) Result Diagram: 05/17/16 1150 Imaging Last Impressions Chest CT 05/18/16 0000 Signed Impressions: Service Date/Time: Wednesday, May 18, 2016 18:31 - CONCLUSION: 1. Right lower lobe consolidation including the masslike area in the right infrahilar region is not significantly changed. The right lower lobe pulmonary artery remains occluded. 2. Small loculated pleural effusion and associated pleural thickening of the right lower lobe also similar to before. Differential would include an empyema but the finding is stable. 3. No evidence of septic emboli. 4. Prominent caliber thoracic aorta again noted. No acute mediastinal abnormality.. Ruel Forrest MD Abdomen/Pelvis CT 05/18/16 0000 Signed Impressions: Service Date/Time: Wednesday, May 18, 2016 18:31 - CONCLUSION: 1. No solid organ infarcts or other acute abnormalities are demonstrated. 2. 4 mm nonobstructing stone of the left kidney. 3. A few scattered diverticula of the colon without inflammatory changes. There is considerable stool throughout the colon. Nonobstructive pattern. Ruel Forrest MD Sinuses CT 05/04/16 0600 Signed Impressions: Service Date/Time: Wednesday, May 04, 2016 16:23 - CONCLUSION: There is no evidence for inflammatory sinus disease.. Jw Bettencourt MD FACR CT Angiography 04/21/16 1024 Signed Impressions: Service Date/Time: Thursday, April 21, 2016 11:53 - CONCLUSION: 1. There are abnormal filling defects within the right lower lobe lobar arterial branches and segmental arterial branches characteristic of PE. 2. There is also new right infrahilar/right lower lobe airspace consolidation and groundglass attenuation. A small right pleural effusion is also present. The appearance is nonspecific but could represent an infectious process or less likely neoplasm. It does not have a typical appearance for infarct. Suggest followup chest CT with IV contrast to confirm resolution of this finding following appropriate treatment. Ruel Dill MD Objective Remarks GENERAL: Patient lying in bed in no acute distress, anxious SKIN: Pt with hyperpigmented macule on left lower quadrant, about 2cm in diameter, irregular borders, present since childhood, he also has a similar lesion on the left later midsection of his back. HEENT: Normocephalic/atraumatic. Moist mucous membranes. Patient with multiple teeth without surrounding erythema. CARDIOVASCULAR: Regular rate and rhythm. No murmurs, rubs or gallops RESPIRATORY: Clear to auscultation bilaterally without crackles, wheezes. GASTROINTESTINAL: Positive bowel sounds, soft, nontender, nondistended. MUSCULOSKELETAL: No calf pain to palpation. Moves all extremities without difficulty. NEURO: Awake, alert. Cranial nerves grossly intact. Normal speech. (Hemant Judge MD R2) A/P Assessment and Plan 40 year old male with h/o IVDA, hep C, prolonged hospitalization from 01/03/2016- 02/24/2016 for septic pulmonary emboli and 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. Admitted for SOB that was found to be caused by septic emboli. Discharge Planning Pending infectious disease discission about if he needs an additional 2 week course of IV antibiotics Patient will also need follow-up with a dentist. (Hemant Judge MD R2) Attending Attestation Patient seen and examined. Case reviewed and discussed Agree with plan of care as discussed with me and documented in the resident note. 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 Vegetation appears to have increased in size, globular and oscillating. This puts him at high risk for further embolization * Evaluated by CTS, not a surgical candidate at this time. Will need to be abstinent for at least 6 months before consideration for surgical intervention * Consider echocardiogram to reevaluate vegetation during week 4 of antibiotic therapy * Continue vancomycin for total duration of 4-6 weeks (04/21 - 05/19- or 06/01-) * Echocardiogram 05/15- no evidence of endocarditis. Ejection fraction 55-60%. No regional wall motion abnormalities. * CT abdomen/pelvis 05/18-no solid organ infarcts or other acute abnormalities are demonstrated. * CT chest 05/18-right lower lobe consolidation including the masslike area in the right infrahilar region is not significantly changed. The right lower lobe pulmonary artery remains included. Small loculated pleural effusion and associated pleural thickening of the right lower lobe also similar to before. Differential would include empyema but the finding is stable. No evidence of septic emboli. Prior Imaging: * Abdomen/pelvis CT 05/04/16: Inflammatory changes in the right lower lobe, slight improvement in the interval. No evidence of septic emboli. * Chest CT 05/04/16: Abnormal ascending aorta with dilation. There is improvement with less inflammatory changes in the right lower lobe. There is no evidence of new emboli to lungs. * CT pulmonary angiography 04/21: Abnormal filling defects within the right lower lobe lobar arterial branches and segmental arterial branches characteristic of pulmonary emboli. New right infrahilar/right lower lobe airspace consolidation and ground glass attenuation. Small right pleural effusion. * CT abdomen/pelvis 04/23: No evidence for abscess within the lung base, abdomen , or pelvis. Persistent area of consolidation involving the basilar aspect of the right lower lobe. Small right-sided pleural effusion with a contour bulge suggestive of area of loculation (2) Poor dentition Status: Acute Plan: Pt with poor dentition and several teeth require extraction. He continues to endorse flares of pain despite oral and IV pain medication. -OMFS was consulted, unfortunately they will not be able to preform routine dental care while pt is in the hospital -Pt will need to follow up with a dentist once discharged -Pt with altered pain tolerance/response to pain medication due to hx of drug abuse -Sinus CT performed on 05/04/16: No evidence of inflammatory sinus disease, no dental abscesses appreciated -Continue Amoxicillin 500mg po BID (05/13- ) Pain control * Tylenol 650 mg by mouth every 4 hours when necessary for pain 1-2 * Motrin 400 mg by mouth every 6 hours scheduled * Morphine 2 mg IV push every 3 hours when necessary for pain 4-10 * Topical benzocaine gel to be applied every 6 hours scheduled * Anna-Colace 1 tab by mouth twice a day when necessary for constipation (3) Anxiety Status: Chronic Plan: Patient with history of Anxiety. Ativan 0.5 mg by mouth every 8 hours when necessary for anxiety Klonopin 0.5 mg by mouth every 12 hours scheduled for anxiety BuSpar 5 mg by mouth every 12 hours scheduled for anxiety (4) Tobacco abuse Status: Chronic Plan: -Patient with history of tobacco abuse and reports smoking 1 pack per day prior to admission to the hospital. -Nicotine patch daily (5) Insomnia Status: Chronic Plan: -Patient reports history of insomnia Trazodone 50 mg by mouth daily at bedtime when necessary for insomnia (6) Nutrition, metabolism, and development symptoms Status: Acute Plan: Fluids: None Electrolytes: WNLs Nutrition: Regular DVT PPX: Lovenox GI PPX: Anna-Colace when necessary (Hemant Judge MD R2) Problem Qualifiers (1) Septic pulmonary embolism: Qualified Code: I26.90 - Acute septic pulmonary embolism without acute cor pulmonale Hemant Judge MD R2 May 19, 2016 08:36 Shayy Tolliver MD May 29, 2016 12:01
[2016-05-19] MEDS: SODIUM CHLORIDE 0.9% FLUSH 5 ML FLUSH FLUSH SCH (09:00)
[2016-05-19] MEDS: LORazepam 0.5 MG TAB PO PRN (09:50)
[2016-05-19] MEDS: VANCOMYCIN INJ 1,500 MG in SODIUM CHLORID 0.9% 500 ML INJ 500 ML IV SCH (11:00)
[2016-05-19 12:00] VITALS: BP 133/84; PULSE 94; RESP 18; TEMP 97.9; O2SAT 99
--- NOTE | 2016-05-19 14:12 | HHI.IDPN ---
Subjective Subjective Remarks is a 40 year old male with h/o IVDA, hepatitis C, prolonged hospitalization here at [facility] from 01/03/2016-02/24/2016 for septic pulmonary emboli and TV endocarditis and MRSA UTI and bacteremia s/p 6 weeks of antibiotic therapy along with development of bilateral pleural effusions s/p thoracentesis. Overnight events reviewed. No fevers No rash No diarrhea. Feels good. Breathing very well. Says best breathing in long time. No night sweats Antibiotics Vanco IV Lines Line sites with no e/o infection. Past Medical History reviewed Allergies: Coded Allergies: *MDRO Multi-Drug Resistant Organism (Verified Adverse Reaction, Unknown, ) MRSA (urine-01/04/16) & (blood-01/06/16) Objective . Vital Signs Date Time Temp Pulse Resp B/P Pulse Ox O2 Delivery O2 Flow Rate FiO2 05/19/16 12:00 97.9 94 18 133/84 99 05/19/16 08:00 97.7 98 18 137/86 99 05/18/16 20:00 97.2 73 18 131/85 98 05/18/16 17:19 96.6 72 18 107/69 97 05/18/16 05/18/16 05/19/16 15:00 23:00 07:00 Intake Total 1340 ml 420 ml 240 ml Balance 1340 ml 420 ml 240 ml Intake Oral 840 ml 420 ml 240 ml IV Total 500 ml # Voids 3 2 3 # Bowel Movements 1 0 0 Imaging Last Impressions Abdomen/Pelvis CT 04/23/16 0000 Signed Impressions: Service Date/Time: March 15:53 - CONCLUSION: 1. No evidence of abscess within the lung base, abdomen or pelvis. No evidence of inflammatory process within this region. 2. Persistent area of consolidation involving the basilar aspect of the right lower lobe. Given the patient's prior history of emboli this could represent an area of lung infarct. Small right-sided pleural effusion with a contour bulge suggestive of area of loculation.. Yarelis David MD CT Angiography 04/21/16 1024 Signed Impressions: Service Date/Time: Thursday, April 21, 2016 11:53 - CONCLUSION: 1. There are abnormal filling defects within the right lower lobe lobar arterial branches and segmental arterial branches characteristic of PE. 2. There is also new right infrahilar/right lower lobe airspace consolidation and groundglass attenuation. A small right pleural effusion is also present. The appearance is nonspecific but could represent an infectious process or less likely neoplasm. It does not have a typical appearance for infarct. Suggest followup chest CT with IV contrast to confirm resolution of this finding following appropriate treatment. Ruel Dill MD Physical Exam GENERAL: This is a well-nourished, well-developed patient, in no apparent distress. SKIN: No rashes, ecchymoses or lesions. Cool and dry.Track nolen. HEAD: Atraumatic. Normocephalic. No temporal or scalp tenderness. EYES: Pupils equal round and reactive. Extraocular motions intact. No scleral icterus. No injection or drainage. ENT: Nose without bleeding, purulent drainage or septal hematoma. Throat without erythema, tonsillar hypertrophy or exudate. Uvula midline. Airway patent. NECK: Trachea midline. Supple, nontender, no meningeal signs. CARDIOVASCULAR: HS audible. RESPIRATORY: Breath sounds diminished on right side more than left. Bronchial breath sounds. GASTROINTESTINAL: Abdomen soft, non-tender, nondistended. MUSCULOSKELETAL: Extremities without clubbing, cyanosis, or edema. NEUROLOGICAL: Awake and alert. Grossly non focal Psych: cooperative IV line sites with no e/o infection. Assessment & Plan Remarks Endocarditis of TV valve. MRSA pneumonia: secondary to septic emboli. Repeat ECHO with no vegetation likely showered into lungs. 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 Treated for HCAP prior to this admission with IV and oral. This will affect blood culture results. Tooth ache: ? caries IVDA Hepatitis C positive Recs DC Vanco IV (target 15-20) Start Levaquin 750 mg po daily for 2 weeks Start Rifampin 300 mg po bid for 2 weeks. Follow up labs in 1 week: cbc with diff, CMP. Follow up with in 1 week if residents cannot see patient in clinic. ECHO findings similar to one prior to TTE on admission. RADHA was done and showed TV endocarditis no patent foramen ovale. No need for RADHA. May need CTS consult if readmitted with recurring signs of infection or sepsis for loculated area that is still persistent on repeat CT. Overall much improved after 2nd round of 4 weeks IV Vanco. Will finish course as above. Counseled patient to avoid drugs Counseled to get dental care. Counseled to avoid alcohol while on Rifampin or any hepatotoxic drugs to avoid fulminant hepatic failure. angus Figueredo Will sign off please call back if any change in clinical condition or questions. Lisa Recio MD May 19, 2016 14:12
[2016-05-19] MEDS: ENOXAPARIN SODIUM 40 MG/0.4 ML SYRINGE SQ SCH (14:34)
[2016-05-19] MEDS ORDERED: LEVA750T PO (14:59)
[2016-05-19] MEDS ORDERED: RIFA300C2 PO (14:59)
--- NOTE | 2016-05-19 14:59 | HHI.DCPOC ---
Discharge Care Plan Diagnosis: (1) Endocarditis (2) Septic pulmonary embolism (3) Pneumonia Goals to Promote Your Health * To prevent worsening of your condition and complications * To maintain your health at the optimal level Directions to Meet Your Goals Take your medications as prescribed Follow your dietary instruction Follow activity as directed Keep your appointments as scheduled Take your immunizations and boosters as scheduled If your symptoms worsen call your PCP, if no PCP go to Urgent Care Center or Emergency Room Smoking is Dangerous to Your Health. Avoid second hand smoke Call the 24-hour hour crisis hotline for domestic abuse at Hemant Judge MD R2 May 19, 2016 14:59
[2016-05-19] MEDS ORDERED: LORA-392 PO (15:14)
--- NOTE | 2016-05-20 15:05 | EC ---
Study Study Date:05/15/2016 STUDY CONCLUSIONS SUMMARY - Left ventricle: The cavity size was normal. Systolic function was normal. The estimated ejection fraction was in the range of 55% to 60%. Wall motion was normal; there were no regional wall motion abnormalities. - Aortic valve: Valve area: 2.49cm^2 (Vmax). - Tricuspid valve: Mild regurgitation directed eccentrically and toward the septum. Impressions: No evidence of endocarditis. If LV function is below 40, please consider prescribing an ACEI or ARB or document rationale for non-use. PROCEDURE DATA STUDY STATUS: Elective. Procedure: Transthoracic echocardiography. Image quality was good. Scanning was performed from the parasternal, apical, and subcostal acoustic windows. Study completion: The patient tolerated the procedure well. Transthoracic echocardiography. M-mode, complete 2D, complete spectral Doppler, and color Doppler. Height: Height: 72in. Weight: Weight: 186.6lb. Body mass index: BMI: 25.4kg/m^2. Body surface area: BSA: 2.07m^2. Patient status: Inpatient. CARDIAC ANATOMY LEFT VENTRICLE: The cavity size was normal. Systolic function was normal. The estimated ejection fraction was in the range of 55% to 60%. Wall motion was normal; there were no regional wall motion abnormalities. AORTIC VALVE: The valve appears to be grossly normal. Doppler: There was no stenosis. No significant regurgitation. Valve area: 2.49cm^2 (Vmax). Indexed valve area: 1.2cm^2/m^2 (Vmax). MITRAL VALVE: The valve appears to be grossly normal. Doppler: There was no evidence for stenosis. No significant regurgitation. LEFT ATRIUM: The atrium was normal in size. RIGHT VENTRICLE: The cavity size was normal. PULMONIC VALVE: Not well visualized. Doppler: There was no evidence for stenosis. No significant regurgitation. TRICUSPID VALVE: The valve appears to be grossly normal. Doppler: There was no evidence for stenosis. Mild regurgitation directed eccentrically and toward the septum. PERICARDIUM: There was no pericardial effusion. Patient weight: 186.6lb _Ejection fraction:_ 65-75% _Fractional shortening:_ 32% up to 5Kg 5-11.5Kg 11.6-22.9Kg 23-45Kg 45-57Kg Aortic Root 7-13 <17 13-22 17-27 17-27 LA diam 6-13 <23 24-38 33-47 37-40 RVID 10-17 7-15 7-15 7-18 8-17 LVIDd 12-22 <32 24-38 33-47 37-40 LVPW 2-4 3-6 5-7 6-8 7-8 IVS 2-4 3-6 5-7 6-8 7-8 BASIC MEASUREMENTS ADULT NORMAL Left ventricle LV internal dimension, ED, chordal *54.3 mm 43-52 level, PLAX LV internal dimension, ES, chordal 36 mm 23-38 level, PLAX Fractional shortening, chordal level, 34 % >29 PLAX LV posterior wall thickness, ED 8.5 mm IVS/LVPW ratio, ED 0.83 <1.3 Ventricular septum Septal thickness, ED 7.04 mm Aortic valve Leaflet separation 23 mm 15-26 BASIC MEASUREMENTS ADULT NORMAL Aortic valve Leaflet separation 23 mm 15-26 Aorta Root diameter, ED 30 mm 20-37 Left atrium Anterior-posterior dimension, ES 34 mm 19-40 Anterior-posterior dimension index, ES 1.64 cm/m^2 <2.2 LA/aortic root ratio 1.13 DOPPLER MEASUREMENTS ADULT NORMAL Main pulmonary artery Pressure, S 28 mm Hg =30 Aortic valve Peak velocity, S 102 cm/s Valve area, Vmax 2.49 cm^2 Valve area index, Vmax 1.2 cm^2/m^2 Mitral valve Peak E-wave velocity 70.1 cm/s Peak A-wave velocity 52.3 cm/s Deceleration time 183 ms 150-230 Peak E/A ratio 1.3 Tricuspid valve Regurgitant peak velocity 235 cm/s Peak RV-RA gradient, S 22 mm Hg Maximal regurgitant velocity 235 cm/s Systemic veins Estimated CVP 10 mm Hg Right ventricle RV pressure, S *32 mm Hg <30 Pulmonic valve Peak velocity, S 95 cm/s LEGEND: Mean values are shown as u=mean value. Asterisk (*) nolen values outside specified normal range. Prepared and signed by Prashant Hercules [id number]
--- NOTE | 2016-05-30 14:49 | HHI.DS ---
Discharge Summary Admission Date Apr 21, 2016 at 13:21 Admitting Diagnosis septic pulmonary emboli, pneumonia (1) Septic pulmonary embolism Diagnosis: Principal (2) Poor dentition Diagnosis: Secondary (3) Anxiety Diagnosis: Secondary (4) Tobacco abuse Diagnosis: Secondary (5) Insomnia Diagnosis: Secondary Brief History 40 year old male with h/o IVDA, hepatitis C, prolonged hospitalization here at [facility] from 01/03/2016-02/24/2016 for septic pulmonary emboli and TV endocarditis and MRSA UTI and bacteremia s/p 6 weeks of antibiotic therapy along with development of bilateral pleural effusions s/p thoracentesis. He presents to the ED with progressive shortness of breath x 1 week, cough starting to be productive yesterday, pleuritic chest pain, and fevers and chills. During his prolonged hospitalization, noted that the patient developed ARF believed to be due to receiving Vancomycin and was thus switched to Teflaro and later transferred to [place] to complete his course of antibiotics. He presented here on 04/06/2016 with sepsis and treated for HCAP. He was discharged home to complete an additional 10 days of Levaquin but he did not fill this prescription and did not follow up with Dr. Nunez in community clinic. He states he was previously homeless and without a car; he states he currently has found an apartment with a roommate and recently found a job. PE at Discharge GENERAL: Patient lying in bed in no acute distress, anxious SKIN: Pt with hyperpigmented macule on left lower quadrant, about 2cm in diameter, irregular borders, present since childhood, he also has a similar lesion on the left later midsection of his back. HEENT: Normocephalic/atraumatic. Moist mucous membranes. Patient with multiple teeth without surrounding erythema. CARDIOVASCULAR: Regular rate and rhythm. No murmurs, rubs or gallops RESPIRATORY: Clear to auscultation bilaterally without crackles, wheezes. GASTROINTESTINAL: Positive bowel sounds, soft, nontender, nondistended. MUSCULOSKELETAL: No calf pain to palpation. Moves all extremities without difficulty. NEURO: Awake, alert. Cranial nerves grossly intact. Normal speech. Hospital Course 40 year old male with h/o IVDA, hep C, prolonged hospitalization from 01/03/2016- 02/24/2016 for septic pulmonary emboli and 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 presented with progressive shortness of breath x 1 week, productive cough, pleuritic chest pain, and fevers and chills. CT chest was concerning for septic pulmonary emboli, and infectious diseases was consulted. Pt completed 4 weeks of IV Vancomycin during his hospital stay. Based on the results of his echocardiogram and chest CT, infectious disease decided to discharge him home on by mouth antibiotics for another 2 weeks. The patient was also treated with amoxicillin and IV morphine for dental pain. He is to follow up with a dentist immediately after discharge. Pt Condition on Discharge: Stable Discharge Disposition: Discharge Home Discharge Instructions DIET: Follow Instructions for: As Tolerated, No Restrictions Activities you can perform: Regular-No Restrictions Other Activity Instructions: Counseled to avoid alcohol while on Rifampin or any hepatotoxic drugs to avoid fulminant hepatic failure. Counseled patient to avoid drugs Follow up Referrals: Appointment for Follow Up - 1 Week Referral - 1 Week with DENTIST New Orders: CBC WITH DIFF - 1 Week COMP MET PROF (CMP) - 1 Week New Medications: Levofloxacin (Levaquin) 750 Mg Tab 750 MG PO DAILY Infection #14 Ref 0 TAB Rifampin (Rifampin) 300 Mg Cap 300 MG PO BID Infection #28 Ref 0 CAP Lorazepam (Ativan) 0.5 Mg Tab 0.5 MG PO Q8H PRN MOD - SEVERE ANXIETY/AGITATION #30 TAB Nikia Terrazas MD R1 May 30, 2016 14:49
== END 2016-05-19 15:38 | disposition home or self-care (01) | DRG 871 ==
LOC: NEPD 10:05 → NEDA 13:21 → N07B 19:22
PROVIDERS: ADMIT Family Medicine; ATTEND Family Medicine
DX: A41.9 Sepsis, unspecified organism (principal); I26.90 Septic pulmonary embolism without acute cor pulmonale; I33.0 Acute and subacute infective endocarditis; J90 Pleural effusion, not elsewhere classified; E87.1 Hypo-osmolality and hyponatremia; B19.20 Unspecified viral hepatitis C without hepatic coma; L73.9 Follicular disorder, unspecified; I08.1 Rheumatic disorders of both mitral and tricuspid valves; G47.00 Insomnia, unspecified; K08.89 Other specified disorders of teeth and supporting structures; F31.9 Bipolar disorder, unspecified; F43.10 Post-traumatic stress disorder, unspecified; F41.9 Anxiety disorder, unspecified; F17.210 Nicotine dependence, cigarettes, uncomplicated; F19.10 Other psychoactive substance abuse, uncomplicated; Z91.5 Personal history of self-harm; Z86.14 Personal history of Methicillin resistant Staphylococcus aureus infection; Z86.711 Personal history of pulmonary embolism
CPT/HCPCS: 70486; 71260; 71275; 74177; 76937; 80048; 80053; 80069; 80076; 80202; 80307; 81001; 82565; 83605; 85025; 85027; 85610; 85730; 86140; 87040; 87070; 87205; 93005; 93306; 93308; 94150; 94640; 94664; J0456; J1644; J1650; J1885; J2060; J2270; J2543; J3370; J7040; J7050; J7608; Q9963; Q9967

== ENCOUNTER 2016-08-20 20:15 | Inpatient (IN) | payer BC, MEDICAID, OTHER ==
[~2016-08-20] VITALS: Ht 177.8 cm; Wt 77.1 kg
[~2016-08-20 20:15] MED LIST changes: +LEVA750T PO; -LEVO750T33 PO; +LORA-392 PO; +RIFA300C2 PO
[2016-08-20] MEDS ORDERED: PIPERACIL-TAZO 4.5 GM PREMIX 100 ML IV STA (20:33)
[2016-08-20] MEDS ORDERED: VANCOMYCIN INJ 1,000 MG in SODIUM CHLOR 0.9% 250 ML INJ 250 ML IV STA (20:33)
[2016-08-20] MEDS ORDERED: SODIUM CHLOR 0.9% 1000 ML INJ 1,000 ML IV ONE ×2 (20:33)
[2016-08-20] MEDS ORDERED: SODIUM CHLOR 0.9% 1000 ML INJ 400 ML IV ONE (20:33)
[2016-08-20] MEDS ORDERED: ACETAMINOPHEN 325 MG TAB PO ONE (20:45)
[2016-08-20 20:57] VITALS: BP 140/88; PULSE 94; RESP 14; TEMP 101.6
[2016-08-20 21:07] VITALS: O2SAT 98
--- NOTE | 2016-08-20 21:16 | PD ---
HPI Chief Complaint: Psychiatric Symptoms Time Seen by Provider: 20:33 Travel History International Travel<30 days: No Contact w/Intl Traveler<30days: No Traveled to known affect area: No History of Present Illness HPI 40-year-old male was brought in as a Le act after his girlfriend found him shoving toilet paper in his mouth trying to choke himself to . She said that his father recently which could be a triggering event. Patient has history of IV drug abuse and has had bacterial endocarditis in the past as per the paramedics. Patient is awake but refusing to answer any questions. He spoke sparsely with the nurse prior to my arrival but with me he has refused to answer any questions. Patient had a temperature 101.6 upon arrival. He does not appear to be in significant distress. There are needle track nolen on his both arms. PFSH Past Medical History Narrative Medical List of his past medical, surgical, social and family history was reviewed from the nursing note. Anxiety: Yes Depression: Yes Cancer: No Cardiovascular Problems: Yes (PT STATES HE "MIGHT" HAVE HAD A PREVIOUS CARDIAC EVENT BUT NOT SURE) Chest Pain: Yes Congestive Heart Failure: No Diminished Hearing: No Endocrine: No Gastrointestinal Disorders: No Genitourinary: No Immune Disorder: No Implanted Vascular Access Dvce: No Musculoskeletal: No Neurologic: No Psychiatric: Yes (DEPRESSION AND PREVIOUS SUICIDE ATTEMPT ) Respiratory: Yes Immunizations Current: Yes Pneumonia: Yes Past Surgical History Other Surgery: Yes (LEFT HAND PER PT) Social History Alcohol Use: No (PT DENIES) Tobacco Use: Yes (1 PPD) Substance Use: No Allergies-Medications (Allergen,Severity, Reaction): Coded Allergies: *MDRO Multi-Drug Resistant Organism (Verified Adverse Reaction, Unknown, ) MRSA (urine-01/04/16) & (blood-01/06/16) Comments List of his allergies reviewed from the nursing note. Reported Meds & Prescriptions Reported Meds & Active Scripts Active Ativan (Lorazepam) 0.5 Mg Tab 0.5 Mg PO Q8H PRN Rifampin 300 Mg Cap 300 Mg PO BID Levaquin (Levofloxacin) 750 Mg Tab 750 Mg PO DAILY Narrative Medication List of his home medications reviewed from the nursing note. Review of Systems Except as stated in HPI: all other systems reviewed are Neg Physical Exam Narrative GENERAL: Awake, alert, nonverbal, no obvious distress SKIN: Focused skin assessment warm/dry. HEAD: Atraumatic. Normocephalic. EYES: Pupils equal and round. No scleral icterus. No injection or drainage. ENT: No nasal bleeding or discharge. Mucous membranes pink and moist. NECK: Trachea midline. No JVD. CARDIOVASCULAR: Regular rate and rhythm. No murmur appreciated. RESPIRATORY: No accessory muscle use. Clear to auscultation. Breath sounds equal bilaterally. GASTROINTESTINAL: Abdomen soft, non-tender, nondistended. Hepatic and splenic margins not palpable. MUSCULOSKELETAL: No obvious deformities. No clubbing. No cyanosis. No edema. NEUROLOGICAL: Awake and alert. No obvious cranial nerve deficits. Motor grossly within normal limits. Nonverbal by choice PSYCHIATRIC: Appropriate mood and affect; insight and judgment normal. Data Data Last Documented VS Vital Signs Date Time Temp Pulse Resp B/P Pulse Ox O2 Delivery O2 Flow Rate FiO2 08/20/16 21:07 98 Room Air 08/20/16 20:57 101.6 94 14 140/88 Orders Complete Blood Count With Diff (08/20/16 20:33) Comprehensive Metabolic Panel (08/20/16 20:33) Lactic Acid Sepsis Protocol (08/20/16 20:33) Urinalysis - C+S If Indicated (08/20/16 20:33) Blood Culture (08/20/16 20:33) Chest, Single Ap (08/20/16 20:33) Blood Glucose (08/20/16 20:33) Ecg Monitoring (08/20/16 20:33) Iv Access Insert/Monitor (08/20/16 20:33) Oximetry (08/20/16 20:33) Oxygen Administration (08/20/16 20:33) Ct Brain W/O Iv Contrast(Rout) (08/20/16 20:33) Vancomycin Inj (Vancomycin Inj) (08/20/16 20:33) Piperacil-Tazo 4.5 Gm Premix (Zosyn 4.5 (08/20/16 20:33) Sodium Chlor 0.9% 1000 Ml Inj (Ns 1000 M (08/20/16 20:33) Sodium Chlor 0.9% 1000 Ml Inj (Ns 1000 M (08/20/16 20:33) Sodium Chlor 0.9% 1000 Ml Inj (Ns 1000 M (08/20/16 20:33) Alcohol (Ethanol) (08/20/16 20:33) Drug Screen, Random Urine (08/20/16 20:33) Acetaminophen (Tylenol) (08/20/16 20:45) Urine Culture (08/20/16 20:30) Salicylates (Aspirin) (08/20/16 21:59) Tylenol (Acetaminophen) (08/20/16 20:30) Admit Order (Ed Use Only) (08/20/16 22:38) Labs Laboratory Tests Test 08/20/16 08/20/16 08/20/16 20:15 20:30 22:05 White Blood Count 3.0 TH/MM3 Red Blood Count 5.00 MIL/MM3 Hemoglobin 15.0 GM/DL Hematocrit 43.9 % Mean Corpuscular Volume 87.7 FL Mean Corpuscular Hemoglobin 30.0 PG Mean Corpuscular Hemoglobin 34.2 % Concent Red Cell Distribution Width 16.0 % Platelet Count 152 TH/MM3 Mean Platelet Volume 8.8 FL Neutrophils (%) (Auto) 53.9 % Lymphocytes (%) (Auto) 30.6 % Monocytes (%) (Auto) 14.8 % Eosinophils (%) (Auto) 0.0 % Basophils (%) (Auto) 0.7 % Neutrophils # (Auto) 1.6 TH/MM3 Lymphocytes # (Auto) 0.9 TH/MM3 Monocytes # (Auto) 0.4 TH/MM3 Eosinophils # (Auto) 0.0 TH/MM3 Basophils # (Auto) 0.0 TH/MM3 CBC Comment AUTO DIFF Differential Total Cells 100 Counted Neutrophils % (Manual) 39 % Band Neutrophils % 19 % Lymphocytes % 28 % Monocytes % 14 % Neutrophils # (Manual) 1.7 TH/MM3 Differential Comment FINAL DIFF MANUAL Atypical Lymphocytes % Dohle Bodies PRESENT Platelet Estimate NORMAL Platelet Morphology Comment ENLARGED Urine Color LIGHT-RED Urine Turbidity HAZY Urine pH 6.0 Urine Specific [place] 1.023 Urine Protein 30 mg/dL Urine Glucose (UA) NEG mg/dL Urine Ketones TRACE mg/dL Urine Occult Blood LARGE Urine Nitrite NEG Urine Bilirubin NEG Urine Urobilinogen 2.0 MG/DL Urine Leukocyte Esterase NEG Urine RBC /hpf Urine WBC 4 /hpf Urine Bacteria RARE /hpf Urine Mucus MOD /lpf Microscopic Urinalysis Comment CATH-CULTURE IND Sodium Level 130 MEQ/L Potassium Level 3.5 MEQ/L Chloride Level 95 MEQ/L Carbon Dioxide Level 25.2 MEQ/L Anion Gap 10 MEQ/L Blood Urea Nitrogen 12 MG/DL Creatinine 0.90 MG/DL Estimat Glomerular Filtration 93 ML/MIN Rate Random Glucose 90 MG/DL Lactic Acid Level 0.8 mmol/L Calcium Level 8.8 MG/DL Total Bilirubin 0.4 MG/DL Aspartate Amino Transf 34 U/L (AST/SGOT) Alanine Aminotransferase 30 U/L (ALT/SGPT) Alkaline Phosphatase 77 U/L Total Protein 8.2 GM/DL Albumin 3.2 GM/DL Urine Opiates Screen NEG Acetaminophen Level LESS THAN 2.0 MCG/ML Urine Barbiturates Screen NEG Urine Amphetamines Screen POS Urine Benzodiazepines Screen NEG Urine Cocaine Screen NEG Urine Cannabinoids Screen NEG Ethyl Alcohol Level LESS THAN 3 MG/DL Salicylates Level 6.2 MG/DL MDM Medical Decision Making Medical Screen Exam Complete: Yes Emergency Medical Condition: Yes Medical Record Reviewed: Yes Differential Diagnosis Suicidal ideation, sepsis, bacterial endocarditis, IV drug abuse, UTI, pneumonia Narrative Course 9:20 PM given the history of IV drug abuse and bacterial endocarditis in the past I have covered him with fluids and antibiotic as per sepsis protocol. Awaiting for the blood test and CAT scan of the head to be done and resulted. 9:56 PM so far with the test result patient qualifies SIRS criteria given the low blood count and the fever. Awaiting for the rest of the chemistry. Patient does have UTI which should be covered with the IV antibiotic he has received so far. Given these findings patient should be a medical admission since I'm not comfortable medically clearing him at this point. Critical Care Narrative Aggregate critical care time was 30 minutes. Time to perform other separately billable procedures was not included in the critical care time. My time did not include minutes spent treating any other patients simultaneously or on activities that did not directly contribute to the patient's treatment. The services I provided to this patient were to treat and/or prevent clinically significant deterioration that could result in: Fever, sepsis protocol I provided critical care services requiring my management, as noted below: Chart data review, documentation time, medication orders and management, vital sign assessments/reviewing monitor data, ordering and reviewing lab tests, ordering and interpreting/reviewing x-rays and diagnostic studies, care of the patient and discussion of the patient with the admitting physicians. 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
--- NOTE | 2016-08-20 21:23 | RADRPT ---
EXAM DATE/TIME: 08/20/2016 21:00 [facility] COMPARISON: No previous studies available for comparison. INDICATIONS : Fever. MEDICAL HISTORY : None. SURGICAL HISTORY : None. ENCOUNTER: Initial ACUITY: 1 day PAIN SCORE: Non-responsive. LOCATION: chest FINDINGS: Mild right base atelectasis/scarring again noted, similar to before. No infiltrate. The consolidation previously seen in the right mid lung has resolved. No pleural effusion or pneumothorax. Heart size stable, within normal limits. CONCLUSION: Mild right base atelectasis/scarring. Ruel Forrest MD on August 20, 2016 at 21:21 Board Certified Radiologist. This report was verified electronically.
[2016-08-20 21:25] LABS: BACTERIA, URINE RARE /hpf; BLOOD, URINE LARGE (NEG); COMMENT (UR) CATH-CULTURE IND; CULTURE IF INDICATED CATH CULTURE IND; GLUCOSE,URINE NEG (NEG); KETONE, URINE TRACE mg/dL (NEG); MUCUS URINE MOD /lpf (OCC); NITRITE,URINE NEG (NEG); URINE COLOR LIGHT-RED (YELLW/STRAW)
[2016-08-20 21:30] LABS: AUTOMATED NEUTROPHIL # 1.6 TH/MM3 (1.8-7.7); BASOPHIL % 0.7 % (0.0-2.0); HEMATOCRIT 43.9 % (39.0-51.0); LYMPH % 30.6 % (9.0-44.0); LYMPHOCYTE # 0.9 TH/MM3 (1.0-4.8); MEAN CELL VOLUME 87.7 FL (80.0-100.0); MEAN CORPUSCULAR HGB CONC 34.2 % (32.0-36.0); MONO % 14.8 % (0.0-8.0); NEUT % 53.9 % (16.0-70.0); PLATELET COUNT 152 TH/MM3 (150-450)
[2016-08-20 21:31] LABS: HEMO FLAGS AUTO DIFF
[2016-08-20 21:35] LABS: AMPHETAMINE, URINE POS (NEG); BARBITURATES, URINE NEG (NEG); COCAINE, URINE NEG (NEG)
--- NOTE | 2016-08-20 21:35 | RADRPT ---
EXAM DATE/TIME: 08/20/2016 21:02 [facility] COMPARISON: CT BRAIN W/O CONTRAST, February 01, 2016, 16:27. INDICATIONS : Altered mental status. RADIATION DOSE: 45.39 CTDIvol (mGy) MEDICAL HISTORY : None SURGICAL HISTORY : None. ENCOUNTER: Initial ACUITY: 1 day PAIN SCALE: Non-responsive LOCATION: cranial TECHNIQUE: Multiple contiguous axial images were obtained of the head. Using automated exposure control and adj ustment of the mA and/or kV according to patient size, radiation dose was kept as low as reasonably a chievable to obtain optimal diagnostic quality images. FINDINGS: CEREBRUM: The ventricles are normal for age. No evidence of midline shift, mass lesion, hemorrhage or acute in farction. No extra-axial fluid collections are seen. POSTERIOR FOSSA: The cerebellum and brainstem are intact. The 4th ventricle is midline. The cerebellopontine angle i s unremarkable. EXTRACRANIAL: The visualized portion of the orbits is intact. SKULL: The calvaria is intact. No evidence of skull fracture. CONCLUSION: Negative noncontrast head CT. Ruel Forrest MD on August 20, 2016 at 21:33 Board Certified Radiologist. This report was verified electronically.
[2016-08-20 21:54] LABS: ANION GAP 10 MEQ/L (5-15)
[2016-08-20 21:57] LABS: ALKALINE PHOSPHATASE 77 U/L (45-117); ALT (GPT) 30 U/L (12-78); AST (GOT) 34 U/L (15-37); BICARBONATE 25.2 MEQ/L (21.0-32.0); BLOOD UREA NITROGEN 12 MG/DL (7-18); CHLORIDE 95 MEQ/L (98-107); GLOMERULAR FILTRATION RATE 93 ML/MIN (>89); POTASSIUM 3.5 MEQ/L (3.5-5.1); SODIUM (NA) 130 MEQ/L (136-145); TOTAL BILIRUBIN ADULT 0.4 MG/DL (0.2-1.0)
[2016-08-20 22:01] LABS: BANDS 19 % (0-6); NEUTROPHIL # MANUAL DIFF 1.7 TH/MM3 (1.8-7.7); POLYS (SEG NEUTROPHILS) 39 % (16-70); WBC DIFF SAMPLE 100
[2016-08-20 22:02] LABS: DOHLE BODIES PRESENT (NONE SEEN); PLATELET ESTIMATE SMEAR NORMAL (NORMAL); PLATELET MORPHOLOGY ENLARGED (NORMAL); SCAN/DIFF FINAL DIFF MANUAL
[2016-08-20] MEDS ORDERED: NALOXONE HCL 0.4 MG/ML AMP IV PRN (22:45)
[2016-08-20] MEDS ORDERED: SODIUM CHLORIDE 0.9% FLUSH 10 ML FLUSH IV FLUSH PRN (22:45)
[2016-08-20] MEDS ORDERED: Vancomycin Consult Pharmacy 1 EA OTHER SCH (22:45)
[2016-08-20 22:58] LABS: ACETAMINOPHEN LESS THAN 2.0 MCG/ML (10.0-30.0)
[2016-08-20 23:07] VITALS: BP 102/73; PULSE 70; RESP 14; TEMP 99; O2SAT 97
--- NOTE | 2016-08-20 23:53 | HHI.HP ---
[facility] Unknown Admission Diagnosis SIRS, fever, suicidal ideation, UTI, major depression Diagnoses: Chief Complaint: not giving complaints Travel History International Travel<30 Days: No Contact w/Intl Traveler <30 Da: No Traveled to Known Affected Are: No History of Present Illness History from the ER physician communication, and review of medical records. Patient himself is not given any history at all. He looks to be quite lethargic at the time of my arrival. His vitals however is stable. He is unable to focus the examiner when questions. He is noted to be dressed and sweats in his room with his therapist what all around. He however denies diarrhea. Denies any urinary burning or pain on urination. [place] ER report, patient was brought in by police officers and her because because the bruising has been showing Review of Systems ROS Limitations: Altered Mental Status (lethargic. Not able to obtain review of system at all.) Except as stated in HPI: all other systems reviewed are Neg Past Family Social History Past Medical History Per EMR: Septic pulmonary emboliin March 2016 Anxiety Insomnia Tobacco abuse IV drug abuse Hepatitis C History of MRSA UTI and bacteremia History of tricuspid valve endocarditis History of bilateral pleural effusions requiring thoracocentesis PTSD Past Surgical History per EMR: left hand sx Septic pulmonary emboliin March 2016 Anxiety Insomnia Tobacco abuse IV drug abuse Hepatitis C History of MRSA UTI and bacteremia History of tricuspid valve endocarditis History of bilateral pleural effusions requiring thoracocentesis PTSD Reported Medications none Allergies: Coded Allergies: *MDRO Multi-Drug Resistant Organism (Verified Adverse Reaction, Unknown, ) MRSA (urine-01/04/16) & (blood-01/06/16) Family History unknown Social History unknown Physical Exam Vital Signs Vital Signs Date Time Temp Pulse Resp B/P Pulse Ox O2 Delivery O2 Flow Rate FiO2 08/20/16 23:07 99.0 70 14 102/73 97 08/20/16 21:07 98 Room Air 08/20/16 21:07 98 08/20/16 20:57 101.6 94 14 140/88 Physical Exam GENERAL: Patient noted to be addressed in sweat, lethargic. Would just opens his eyes briefly to look at the interviewer and go straight back to sleep. SKIN: No rashes, ecchymoses or lesions. Cool and dry.Drenched in sweat. Tactile fever. He HEAD: Atraumatic. Normocephalic. No temporal or scalp tenderness. EYES: Pupils equal round and reactive. No scleral icterus. No injection or drainage. ENT: Nose without bleeding, purulent drainage or septal hematoma. Airway patent. NECK: Trachea midline. No JVD. Neck rigidity. CARDIOVASCULAR: Regular rate and rhythm without murmurs, gallops, or rubs. RESPIRATORY: Clear to auscultation. Breath sounds equal bilaterally. No wheezes , rales, or rhonchi. GASTROINTESTINAL: Abdomen soft, non-tender, nondistended. No hepato-splenomegaly , or palpable masses. No guarding. MUSCULOSKELETAL: Extremities without clubbing, cyanosis, or edema. No calf tenderness NEUROLOGICAL: Sleepy and drowsy. Unable to focus during interview. moving all 4 limbs, no focal deficit noted, normal speech, limited exam Laboratory Laboratory Tests Test 08/20/16 08/20/16 08/20/16 20:15 20:30 22:05 White Blood Count 3.0 Red Blood Count 5.00 Hemoglobin 15.0 Hematocrit 43.9 Mean Corpuscular Volume 87.7 Mean Corpuscular Hemoglobin 30.0 Mean Corpuscular Hemoglobin 34.2 Concent Red Cell Distribution Width 16.0 Platelet Count 152 Mean Platelet Volume 8.8 Neutrophils (%) (Auto) 53.9 Lymphocytes (%) (Auto) 30.6 Monocytes (%) (Auto) 14.8 Eosinophils (%) (Auto) 0.0 Basophils (%) (Auto) 0.7 Neutrophils # (Auto) 1.6 Lymphocytes # (Auto) 0.9 Monocytes # (Auto) 0.4 Eosinophils # (Auto) 0.0 Basophils # (Auto) 0.0 CBC Comment AUTO DIFF Differential Total Cells 100 Counted Neutrophils % (Manual) 39 Band Neutrophils % 19 Lymphocytes % 28 Monocytes % 14 Neutrophils # (Manual) 1.7 Differential Comment FINAL DIFF MANUAL Atypical Lymphocytes Dohle Bodies PRESENT Platelet Estimate NORMAL Platelet Morphology Comment ENLARGED Urine Color LIGHT-RED Urine Turbidity HAZY Urine pH 6.0 Urine Specific [place] 1.023 Urine Protein 30 Urine Glucose (UA) NEG Urine Ketones TRACE Urine Occult Blood LARGE Urine Nitrite NEG Urine Bilirubin NEG Urine Urobilinogen 2.0 Urine Leukocyte Esterase NEG Urine RBC Urine WBC 4 Urine Bacteria RARE Urine Mucus MOD Microscopic Urinalysis Comment CATH-CULTURE IND Sodium Level 130 Potassium Level 3.5 Chloride Level 95 Carbon Dioxide Level 25.2 Anion Gap 10 Blood Urea Nitrogen 12 Creatinine 0.90 Estimat Glomerular Filtration 93 Rate Random Glucose 90 Lactic Acid Level 0.8 Calcium Level 8.8 Total Bilirubin 0.4 Aspartate Amino Transf 34 (AST/SGOT) Alanine Aminotransferase 30 (ALT/SGPT) Alkaline Phosphatase 77 Total Protein 8.2 Albumin 3.2 Urine Opiates Screen NEG Acetaminophen Level LESS THAN 2.0 Urine Barbiturates Screen NEG Urine Amphetamines Screen POS Urine Benzodiazepines Screen NEG Urine Cocaine Screen NEG Urine Cannabinoids Screen NEG Ethyl Alcohol Level LESS THAN 3 Salicylates Level 6.2 Date/Time Procedure Status Source Growth 08/20/16 20:30 Urine Culture Worksheet Urine Catheterized Urine Pending 08/20/16 20:30 Aerobic Blood Culture Received Blood Peripheral Pending 08/20/16 20:30 Anaerobic Blood Culture Received Blood Peripheral Pending Result Diagram: 08/20/16201408/20/162029 Imaging Last [address] 08/20/162032 Signed Impressions: Service Date/Time: July 21:02 - CONCLUSION: Negative noncontrast head CT. Ruel Forrest MD Chest X-Ray 08/20/162032 Signed Impressions: Service Date/Time: July 21:00 - CONCLUSION: Mild right base atelectasis/scarring. Ruel Forrest MD Assessment and Plan Problem List: (1) UTI (urinary tract infection) ICD Code: N39.0 Status: Resolved (2) SIRS (systemic inflammatory response syndrome) ICD Code: R65.10 Status: Acute (3) Hyponatremia ICD Code: E87.1 Status: Acute (4) Major depression ICD Code: F32.9 Status: Acute Assessment and Plan Impression: Sepsiswith tachycardia, fever, bandemia, altered mental status Major depressionwith or without psychosis Le act status UTI IV drug abuse Prior history of endocarditis Septic pulmonary emboliin March 2016 Anxiety Insomnia Tobacco abuse IV drug abuse Hepatitis C History of MRSA UTI and bacteremia History of tricuspid valve endocarditis History of bilateral pleural effusions requiring thoracocentesis PTSD Plan: start on vanco/ rocephin/ ampiciliin meningitic doses and for endocarditis as well will follow up blood cx, urine cx results ekg personally reviewed, sinus tachy, no acute st t changes ID consult CXR personally reveiwed- no pneumothorax/ pleural effusion. Mild right basilar scaring sitter psychiatry consult DVT prophylaxis with lovenox admit pt to icu for close monitoring Discussed Condition With patient, ER MD, patient's nurse Physician Certification 2 Midnight Certification Type: Admission for Inpatient Services Order for Inpatient Services The services are ordered in accordance with Medicare regulations or non- Medicare payer requirements, as applicable. In the case of services not specified as inpatient-only, they are appropriately provided as inpatient services in accordance with the 2-midnight benchmark. Estimated LOS (days): 3 days is the estimated time the patient will need to remain in the hospital, assuming treatment plan goals are met and no additional complications. Post-Hospital Plan: Home Problem Qualifiers (1) UTI (urinary tract infection): Qualified Code: N39.0 - Urinary tract infection without hematuria, site unspecified (2) Major depression: Qualified Code: F33.3 - Severe episode of recurrent major depressive disorder, with psychotic features Christina Zuniga MD August 20, 2016 23:53
[2016-08-21] VITALS (13 sets, daily range): BP systolic 119–131; BP diastolic 67–83; PULSE 64–96; RESP 20–34; TEMP 98.7–103; O2SAT 95–99
[2016-08-21] MEDS: AMPICILLIN INJ 2,000 MG in SODIUM CHLORIDE 0.9% INJ 100 ML IV SCH ×7 (00:23→23:29)
[2016-08-21] MEDS: CEFEPIME INJ 2,000 MG in SODIUM CHLORIDE 0.9% INJ 100 ML IV SCH ×3 (02:17→17:18)
[2016-08-21] MEDS ORDERED: PIPERACIL-TAZO 4.5 GM PREMIX 100 ML IV SCH (03:00)
[2016-08-21] MEDS ORDERED: VANCOMYCIN INJ 1,700 MG in SODIUM CHLORID 0.9% 500 ML INJ 500 ML IV SCH ×2 (06:00→08:00)
[2016-08-21] MEDS: ACETAMINOPHEN 325 MG TAB PO PRN ×3 (08:37→21:07)
[2016-08-21] MEDS: ENOXAPARIN SODIUM 40 MG/0.4 ML SYRINGE SQ SCH (08:38)
[2016-08-21] MEDS: SODIUM CHLORIDE 0.9% FLUSH 10 ML FLUSH IV FLUSH SCH ×2 (08:40→21:00)
[2016-08-21] MEDS: SODIUM CHLOR 0.9% 1000 ML INJ 1,000 ML IV SCH ×2 (08:42→17:21)
[2016-08-21 10:26] LABS: AUTOMATED NEUTROPHIL # 1.4 TH/MM3 (1.8-7.7); BASOPHIL % 0.3 % (0.0-2.0); HEMATOCRIT 37.6 % (39.0-51.0); HEMO FLAGS DIFF FINAL; LYMPH % 29.5 % (9.0-44.0); LYMPHOCYTE # 0.8 TH/MM3 (1.0-4.8); MEAN CELL VOLUME 87.5 FL (80.0-100.0); MEAN CORPUSCULAR HEMOGLOBIN 29.8 PG (27.0-34.0); MEAN CORPUSCULAR HGB CONC 34.1 % (32.0-36.0); MONO % 17.7 % (0.0-8.0); NEUT % 52.5 % (16.0-70.0); PLATELET COUNT 119 TH/MM3 (150-450); RED BLOOD COUNT 4.29 MIL/MM3 (4.50-5.90); RED CELL DISTRIBUTION WIDTH 15.9 % (11.6-17.2); WHITE BLOOD COUNT 2.7 TH/MM3 (4.0-11.0)
[2016-08-21 11:19] LABS: BICARBONATE 23.1 MEQ/L (21.0-32.0); POTASSIUM 3.1 MEQ/L (3.5-5.1)
--- NOTE | 2016-08-21 11:23 | PD.CONS ---
History of Present Illness Service Infectious disease Consult Requested By Dr Michael Zuniga Reason for Consult Evaluate patient for possible sepsis Primary Care Physician Unknown Diagnoses: History of Present Illness Patient seen and examined. Records reviewed. Patient is a 40-year-old male, brought in as a Le act. Apparently his girlfriend found him shoving toilet paper in his mouth trying to choke himself to . The girlfriend had said that the triggering event is probably the of the patient's father. Patient is awake but really not answering any questions. He was febrile up to 103. Chest x-ray showed some atelectasis and scarring with no change from his prior chest x-ray. Patient has been treated in the past for tricuspid valve endocarditis back in 2016. He has been treated recently in the last 5 months for MRSA pneumonia, and was again given IV antibiotics for presumed endocarditis with 4 weeks of IV vancomycin and then 2 weeks of oral Levaquin and rifampin. His drug screen on admission is positive for amphetamines. In the past, he has had drug screen and have been positive for amphetamines and cocaine. Infectious disease consultation is requested to evaluate the patient. Review of Systems ROS Limitations: Clinical Condition, Altered Mental Status Past Family Social History Allergies: Coded Allergies: *MDRO Multi-Drug Resistant Organism (Verified Adverse Reaction, Unknown, ) MRSA (urine-01/04/16) & (blood-01/06/16) Past Medical History Septic pulmonary emboliin March 2016 Anxiety Insomnia Tobacco abuse IV drug abuse Hepatitis C History of MRSA UTI and bacteremia History of tricuspid valve endocarditis History of bilateral pleural effusions requiring thoracocentesis PTSD Past Surgical History Thoracentesis L hand surgery Active Ordered Medications Tylenol prn Ampicillin IV Cefepime Lovenox Vancomycin Social History Hx IVDA Denies alcohol. Smokes 1ppd Physical Exam Vital Signs Vital Signs Date Time Temp Pulse Resp B/P Pulse Ox O2 Delivery O2 Flow Rate FiO2 08/21/16 08:00 103.0 79 28 125/81 97 08/21/16 08:00 96 08/21/16 06:00 89 08/21/16 04:00 98.7 89 32 119/67 95 08/21/16 04:00 89 08/21/16 02:41 98.9 85 34 131/76 96 08/21/16 02:00 85 08/21/16 00:02 98.9 64 20 119/73 99 Room Air 08/20/16 23:07 99.0 70 14 102/73 97 08/20/16 21:07 98 Room Air 08/20/16 21:07 98 08/20/16 20:57 101.6 94 14 140/88 Physical Exam GENERAL: Patient is a well-nourished, well-developed CM, awake, follows some commands, did not answer my questions, not in respiratory distress. SKIN: Warm and dry. No generalized rash, no ecchymoses and no evidence of embolic lesions. Has track nolen in BUE HEAD: Atraumatic. Normocephalic. No temporal wasting, or tenderness. EYES: [place] conjunctiva. No petechia or hemorrhage. Pupils equal, round and reactive to light. Extraocular movements full and intact. No scleral icterus. Has some milena conjunctival injection. EARS, NOSE AND THROAT: Nose without bleeding or purulent nasal discharge. No sinus tenderness. Mucous membranes pink and moist. No oral lesions noted. No exudate. No oral thrush. NECK: Trachea midline. Supple and not tender, no meningeal signs CARDIOVASCULAR: Regular rate and rhythm. No murmurs, rubs or gallops heard RESPIRATORY: Clear to auscultation. Breath sounds equal bilaterally. No rales , wheezing or rhonchi ABDOMEN: Soft, non-tender, nondistended. Bowel sounds present and normoactive. No guarding. No rebound. No organomegaly. EXTREMITIES: No clubbing, cyanosis, or edema.No joint effusion, has good ROM. No calf tenderness. Well perfused and warm. NEUROLOGICAL: Awake and alert. No facial asymmetry, full EOM, tongue midline. Motor grossly within normal limits. No Babinski, no clonus PSYCHIATRIC: Unable to fully assess LINE: No evidence of infection Laboratory Laboratory Tests Test 08/20/16 08/20/16 08/20/16 08/21/16 20:15 20:30 22:05 02:00 White Blood Count 3.0 Red Blood Count 5.00 Hemoglobin 15.0 Hematocrit 43.9 Mean Corpuscular Volume 87.7 Mean Corpuscular Hemoglobin 30.0 Mean Corpuscular Hemoglobin 34.2 Concent Red Cell Distribution Width 16.0 Platelet Count 152 Mean Platelet Volume 8.8 Neutrophils (%) (Auto) 53.9 Lymphocytes (%) (Auto) 30.6 Monocytes (%) (Auto) 14.8 Eosinophils (%) (Auto) 0.0 Basophils (%) (Auto) 0.7 Neutrophils # (Auto) 1.6 Lymphocytes # (Auto) 0.9 Monocytes # (Auto) 0.4 Eosinophils # (Auto) 0.0 Basophils # (Auto) 0.0 CBC Comment AUTO DIFF Differential Total Cells 100 Counted Neutrophils % (Manual) 39 Band Neutrophils % 19 Lymphocytes % 28 Monocytes % 14 Neutrophils # (Manual) 1.7 Differential Comment FINAL DIFF MANUAL Atypical Lymphocytes Dohle Bodies PRESENT Platelet Estimate NORMAL Platelet Morphology Comment ENLARGED Urine Color LIGHT-RED Urine Turbidity HAZY Urine pH 6.0 Urine Specific [place] 1.023 Urine Protein 30 Urine Glucose (UA) NEG Urine Ketones TRACE Urine Occult Blood LARGE Urine Nitrite NEG Urine Bilirubin NEG Urine Urobilinogen 2.0 Urine Leukocyte Esterase NEG Urine RBC Urine WBC 4 Urine Bacteria RARE Urine Mucus MOD Microscopic Urinalysis Comment CATH-CULTURE IND Sodium Level 130 Potassium Level 3.5 Chloride Level 95 Carbon Dioxide Level 25.2 Anion Gap 10 Blood Urea Nitrogen 12 Creatinine 0.90 Estimat Glomerular Filtration 93 Rate Random Glucose 90 Lactic Acid Level 0.8 Calcium Level 8.8 Total Bilirubin 0.4 Aspartate Amino Transf 34 (AST/SGOT) Alanine Aminotransferase 30 (ALT/SGPT) Alkaline Phosphatase 77 Total Protein 8.2 Albumin 3.2 Urine Opiates Screen NEG Acetaminophen Level LESS THAN 2.0 Urine Barbiturates Screen NEG Urine Amphetamines Screen POS Urine Benzodiazepines Screen NEG Urine Cocaine Screen NEG Urine Cannabinoids Screen NEG Ethyl Alcohol Level LESS THAN 3 Salicylates Level 6.2 Nasal Screen MRSA (PCR) MRSA NOT DETECTED Test 08/21/16 10:03 White Blood Count 2.7 Red Blood Count 4.29 Hemoglobin 12.8 Hematocrit 37.6 Mean Corpuscular Volume 87.5 Mean Corpuscular Hemoglobin 29.8 Mean Corpuscular Hemoglobin 34.1 Concent Red Cell Distribution Width 15.9 Platelet Count 119 Mean Platelet Volume 8.3 Neutrophils (%) (Auto) 52.5 Lymphocytes (%) (Auto) 29.5 Monocytes (%) (Auto) 17.7 Eosinophils (%) (Auto) 0.0 Basophils (%) (Auto) 0.3 Neutrophils # (Auto) 1.4 Lymphocytes # (Auto) 0.8 Monocytes # (Auto) 0.5 Eosinophils # (Auto) 0.0 Basophils # (Auto) 0.0 CBC Comment DIFF FINAL Differential Comment Sodium Level 136 Potassium Level 3.1 Chloride Level 101 Carbon Dioxide Level 23.1 Anion Gap 12 Blood Urea Nitrogen 8 Creatinine 0.72 Estimat Glomerular Filtration 120 Rate Random Glucose 87 Calcium Level 8.0 Date/Time Procedure Status Source Growth 08/20/16 20:30 Urine Culture Worksheet Urine Catheterized Urine Pending 08/20/16 20:30 Aerobic Blood Culture - Preliminary Resulted Blood Peripheral NO GROWTH IN 1 DAY 08/20/16 20:30 Anaerobic Blood Culture - Preliminary Resulted Blood Peripheral NO GROWTH IN 1 DAY Result Diagram: 08/21/16 1003 08/21/16 1003 Imaging RADIOLOGY STUDIES/FILMS REVIEWED Last Impressions Head CT 08/20/162032 Signed Impressions: Service Date/Time: July 21:02 - CONCLUSION: Negative noncontrast head CT. Ruel Forrest MD Chest X-Ray 08/20/162032 Signed Impressions: Service Date/Time: , August 20, 2016 21:00 - CONCLUSION: Mild right base atelectasis/scarring. Ruel Forrest MD Assessment and Plan Assessment and Plan IMPRESSION SEpsis on admission, source? - ?recurrent bacteremia, has known IVDU - CXR clear Previous Hx TV IE, has been treated at least 2x Encephalopathy, due to sepsis, ?psych RECOMMENDATION Continue Vanco and Cefepime Stop Ampicillin Repeat BC with next fevers Follow C/S Follow temps Monitor progress I will determine course of Abx once work-up is completed Thank you for this consultation Dr Rosen covering for me 08/22-08/24 Kasia Ryan MD August 21, 2016 11:23
--- NOTE | 2016-08-21 12:29 | HHI.PR ---
Subjective Remarks Patient has no complaints denies cp/sob having fevers Objective Vitals Vital Signs Date Time Temp Pulse Resp B/P Pulse Ox O2 Delivery O2 Flow Rate FiO2 08/21/16 10:00 88 08/21/16 08:00 103.0 79 28 125/81 97 08/21/16 08:00 96 08/21/16 06:00 89 08/21/16 04:00 98.7 89 32 119/67 95 08/21/16 04:00 89 08/21/16 02:41 98.9 85 34 131/76 96 08/21/16 02:00 85 08/21/16 00:02 98.9 64 20 119/73 99 Room Air 08/20/16 23:07 99.0 70 14 102/73 97 08/20/16 21:07 98 Room Air 08/20/16 21:07 98 08/20/16 20:57 101.6 94 14 140/88 I/O 08/20/16 08/20/16 08/20/16 08/21/16 08/21/16 08/21/16 07:00 15:00 23:00 07:00 15:00 23:00 Intake Total 315 ml Output Total 0 ml Balance 315 ml Intake Oral 100 ml IV Total 215 ml Output Urine Total 0 ml Result Diagram: 08/21/16 1003 08/21/16 1003 Imaging Last Impressions Head CT 08/20/162032 Signed Impressions: Service Date/Time: July 21:02 - CONCLUSION: Negative noncontrast head CT. Ruel Forrest MD Chest X-Ray 08/20/162032 Signed Impressions: Service Date/Time: July 21:00 - CONCLUSION: Mild right base atelectasis/scarring. Ruel Forrest MD Objective Remarks GENERAL: Patient awake and alert, NAD. SKIN: No rashes, ecchymoses or lesions.warm. HEAD: Atraumatic. Normocephalic. No temporal or scalp tenderness. EYES: Pupils equal round and reactive. No scleral icterus. No injection or drainage. ENT: Nose without bleeding, purulent drainage or septal hematoma. Airway patent. NECK: Trachea midline. No JVD. Neck rigidity. CARDIOVASCULAR: Regular rate and rhythm without murmurs, gallops, or rubs. RESPIRATORY: Clear to auscultation. Breath sounds equal bilaterally. No wheezes , rales, or rhonchi. GASTROINTESTINAL: Abdomen soft, non-tender, nondistended. No hepato-splenomegaly , or palpable masses. No guarding. MUSCULOSKELETAL: Extremities without clubbing, cyanosis, or edema. No calf tenderness NEUROLOGICAL: Sleepy and drowsy. Unable to focus during interview. moving all 4 limbs, no focal deficit noted, normal speech, limited exam Medications and IVs Current Medications Medications (Trade) Dose Ordered Sig/Elmer Route Start Time Stop Time Status Last Admin (NS Flush) 2 ml UNSCH PRN IV FLUSH 08/20/16 22:45 (NS Flush) 2 ml BID IV FLUSH 08/21/16 09:00 08/21/16 08:40 Naloxone HCl 0.4 mg 0.4 mg UNSCH PRN IV 08/20/16 22:45 Pharmacy Profile Note 0 ml @ 0 mls/hr UNSCH OTHER 08/20/16 22:45 Ampicillin Sodium 2000 mg/Sodium Chloride 100 ml @ 400 mls/hr Q4H IV 08/21/16 00:00 08/21/16 21:06 (Maxipime Inj/NS Inj) 100 ml @ 200 mls/hr Q8H IV 08/21/16 01:00 08/21/16 17:18 Enoxaparin Sodium 40 mg 40 mg Q24H SQ 08/21/16 09:00 08/21/16 08:38 (NS 1000 ml Inj) 1,000 ml @ 100 mls/hr Q10H IV 08/21/16 08:00 08/21/16 17:21 Acetaminophen 650 mg 650 mg Q6H PRN PO 08/21/16 09:00 08/21/16 21:07 (Vancomycin Inj/ NS 500 ml Inj) 515 ml @ 250 mls/hr Q12H IV 08/21/16 18:00 08/21/16 21:07 Miscellaneous Information SPECIFIC LAB TO BE DRAWN:VANCO TROUGH DATE TO BE DRKwesi.. ONCE ONCE .XX 08/22/16 17:45 08/22/16 17:46 A/P Problem List: (1) SIRS (systemic inflammatory response syndrome) ICD Code: R65.10 Status: Acute Plan: ? recurrent bacteremia. Patient has h/o IV drug abuse Continue with IV antibiotics as per infectious disease recommendations. Patient currently on IV vancomycin, IV cefepime and IV ampicillin. Blood cultures negative 1 Infectious disease consulted. (2) UTI (urinary tract infection) ICD Code: N39.0 Status: Resolved Plan: Urine culture negative (3) Hyponatremia ICD Code: E87.1 Status: Acute Plan: Secondary to hypovolemic hyponatremia secondary to dehydration. Resolved after IV fluid administration. Sodium normal at 136. (4) Major depression ICD Code: F32.9 Status: Acute Plan: Psychiatric consult pending (5) Fever ICD Code: R50.9 Status: Acute Plan: Tylenol when necessary. Assessment and Plan DVT prophylaxis: Lovenox subcutaneously. Discharge Planning Continue to monitor in intensive care unit. Problem Qualifiers (1) UTI (urinary tract infection): Qualified Code: N39.0 - Urinary tract infection without hematuria, site unspecified (2) Major depression: Qualified Code: F33.3 - Severe episode of recurrent major depressive disorder, with psychotic features (3) Fever: Qualified Code: R50.9 - Fever, unspecified fever cause Elbert Cameron MD August 21, 2016 12:29
--- NOTE | 2016-08-21 14:44 | PD.CONS ---
Provisional Diagnosis Admission Date August 20, 2016 at 23:53 History of Present Illness Service Psychiatry Consult Requested By Primary Care Physician Unknown HPI The patient is a 40 years old man, with reported psychiatric history of PTSD, anxiety, depression, antisocial personality disorder, multiple psychiatric hospitalizations, self cutting behavior, multiple suicide attempts by overdosing, IV drug use, polysubstance dependence, medical history of hepatitis C, Hepatitis, MRSA UTI and bacteremia, tricuspid valve endocarditis, septic emboly in March 2006, History of bilateral pleural effusions requiring thoracocentesis, I have seen in the floor before usually consult have been placed for anxiety and drug-seeking behavior. Patient was consulted to psychiatry due to suicidal ideation and drug seeking behavior. This time the patient was Le acted biker friend because he tried to commit suicide by choking himself with toilet paper. Based in the ICU due to Sepsis with tachycardia, fever, bandemia, altered mental status, UTI. But, in my psychiatric evaluation today patient is resistant and oppositional to provide information for the psychiatric assessment. In spite of multiple attempts to get some minimal information patient continues to be with his eyes closed and mute. Review of Systems ROS Limitations: Uncooperative Past Family Social History Coded Allergies: *MDRO Multi-Drug Resistant Organism (Verified Adverse Reaction, Unknown, ) MRSA (urine-01/04/16) & (blood-01/06/16) Active Scripts Lorazepam (Ativan)0.5 Mg Tab0.5 Mg PO Q8H PRN (MOD - SEVERE ANXIETY/AGITATION) # 30 TAB Prov:Hemant Judge MD R2 05/19/16 Rifampin 300 Mg [id number] Mg PO BID #28 CAP Ref 0 Prov:Hemant Judge MD R2 05/19/16 Levofloxacin (Levaquin)750 Mg [id number] Mg PO DAILY #14 TAB Ref 0 Prov:Hemant Judge MD R2 05/19/16 Current Medications Medications (Trade) Dose Ordered Sig/Elmer Route Start Time Stop Time Status Last Admin (NS Flush) 2 ml UNSCH PRN IV FLUSH 08/20/16 22:45 (NS Flush) 2 ml BID IV FLUSH 08/21/16 09:00 08/21/16 08:40 Naloxone HCl 0.4 mg 0.4 mg UNSCH PRN IV 08/20/16 22:45 Pharmacy Profile Note 0 ml @ 0 mls/hr UNSCH OTHER 08/20/16 22:45 Ampicillin Sodium 2000 mg/Sodium Chloride 100 ml @ 400 mls/hr Q4H IV 08/21/16 00:00 08/21/16 13:35 (Maxipime Inj/NS Inj) 100 ml @ 200 mls/hr Q8H IV 08/21/16 01:00 08/21/16 08:39 Enoxaparin Sodium 40 mg 40 mg Q24H SQ 08/21/16 09:00 08/21/16 08:38 (NS 1000 ml Inj) 1,000 ml @ 100 mls/hr Q10H IV 08/21/16 08:00 08/21/16 08:42 Acetaminophen 650 mg 650 mg Q6H PRN PO 08/21/16 09:00 08/21/16 08:37 (Vancomycin Inj/ NS 500 ml Inj) 515 ml @ 250 mls/hr Q12H IV 08/21/16 18:00 Miscellaneous Information SPECIFIC LAB TO BE DRAWN:VANCO TROUGH DATE TO BE DR... ONCE ONCE .XX 08/22/16 17:45 08/22/16 17:46 Physical Exam Vital Signs Vital Signs Date Time Temp Pulse Resp B/P Pulse Ox O2 Delivery O2 Flow Rate FiO2 08/21/16 10:00 88 08/21/16 08:00 103.0 28 125/81 97 08/21/16 00:02 Room Air Lab Results Test 08/20/16 08/20/16 08/20/16 08/21/16 20:15 20:30 22:05 02:00 White Blood Count 3.0 Red Blood Count 5.00 Hemoglobin 15.0 Hematocrit 43.9 Mean Corpuscular Volume 87.7 Mean Corpuscular Hemoglobin 30.0 Mean Corpuscular Hemoglobin 34.2 Concent Red Cell Distribution Width 16.0 Platelet Count 152 Mean Platelet Volume 8.8 Neutrophils (%) (Auto) 53.9 Lymphocytes (%) (Auto) 30.6 Monocytes (%) (Auto) 14.8 Eosinophils (%) (Auto) 0.0 Basophils (%) (Auto) 0.7 Neutrophils # (Auto) 1.6 Lymphocytes # (Auto) 0.9 Monocytes # (Auto) 0.4 Eosinophils # (Auto) 0.0 Basophils # (Auto) 0.0 CBC Comment AUTO DIFF Differential Total Cells 100 Counted Neutrophils % (Manual) 39 Band Neutrophils % 19 Lymphocytes % 28 Monocytes % 14 Neutrophils # (Manual) 1.7 Differential Comment FINAL DIFF MANUAL Atypical Lymphocytes Dohle Bodies PRESENT Platelet Estimate NORMAL Platelet Morphology Comment ENLARGED Urine Color LIGHT-RED Urine Turbidity HAZY Urine pH 6.0 Urine Specific [place] 1.023 Urine Protein 30 Urine Glucose (UA) NEG Urine Ketones TRACE Urine Occult Blood LARGE Urine Nitrite NEG Urine Bilirubin NEG Urine Urobilinogen 2.0 Urine Leukocyte Esterase NEG Urine RBC Urine WBC 4 Urine Bacteria RARE Urine Mucus MOD Microscopic Urinalysis Comment CATH-CULTURE IND Sodium Level 130 Potassium Level 3.5 Chloride Level 95 Carbon Dioxide Level 25.2 Anion Gap 10 Blood Urea Nitrogen 12 Creatinine 0.90 Estimat Glomerular Filtration 93 Rate Random Glucose 90 Lactic Acid Level 0.8 Calcium Level 8.8 Total Bilirubin 0.4 Aspartate Amino Transf 34 (AST/SGOT) Alanine Aminotransferase 30 (ALT/SGPT) Alkaline Phosphatase 77 Total Protein 8.2 Albumin 3.2 Urine Opiates Screen NEG Acetaminophen Level LESS THAN 2.0 Urine Barbiturates Screen NEG Urine Amphetamines Screen POS Urine Benzodiazepines Screen NEG Urine Cocaine Screen NEG Urine Cannabinoids Screen NEG Ethyl Alcohol Level LESS THAN 3 Salicylates Level 6.2 Nasal Screen MRSA (PCR) MRSA NOT DETECTED Test 08/21/16 10:03 White Blood Count 2.7 Red Blood Count 4.29 Hemoglobin 12.8 Hematocrit 37.6 Mean Corpuscular Volume 87.5 Mean Corpuscular Hemoglobin 29.8 Mean Corpuscular Hemoglobin 34.1 Concent Red Cell Distribution Width 15.9 Platelet Count 119 Mean Platelet Volume 8.3 Neutrophils (%) (Auto) 52.5 Lymphocytes (%) (Auto) 29.5 Monocytes (%) (Auto) 17.7 Eosinophils (%) (Auto) 0.0 Basophils (%) (Auto) 0.3 Neutrophils # (Auto) 1.4 Lymphocytes # (Auto) 0.8 Monocytes # (Auto) 0.5 Eosinophils # (Auto) 0.0 Basophils # (Auto) 0.0 CBC Comment DIFF FINAL Differential Comment Sodium Level 136 Potassium Level 3.1 Chloride Level 101 Carbon Dioxide Level 23.1 Anion Gap 12 Blood Urea Nitrogen 8 Creatinine 0.72 Estimat Glomerular Filtration 120 Rate Random Glucose 87 Calcium Level 8.0 Date/Time Procedure Status Source Growth 08/20/16 20:30 Urine Culture Worksheet Urine Catheterized Urine Pending 08/20/16 20:30 Aerobic Blood Culture - Preliminary Resulted Blood Peripheral NO GROWTH IN 1 DAY 08/20/16 20:30 Anaerobic Blood Culture - Preliminary Resulted Blood Peripheral NO GROWTH IN 1 DAY Result Diagram: 08/21/16 1003 08/21/16 1003 Imaging RADIOLOGY STUDIES/FILMS REVIEWED Last Impressions Head CT 08/20/162032 Signed Impressions: Service Date/Time: July 21:02 - CONCLUSION: Negative noncontrast head CT. Ruel Forrest MD Chest X-Ray 08/20/162032 Signed Impressions: Service Date/Time: , August 20, 2016 21:00 - CONCLUSION: Mild right base atelectasis/scarring. Ruel Forrest MD Mental Status Examination Patient is uncooperative, mute, refusing to provide information for the psychiatric assessment Speech: Other (mute) Previous Suicide Attempts: Yes Previous Homicide Attempts: No Assessment & Plan Problem List: (1) Substance induced mood disorder Assessment & Plan: On psychiatric evaluation patient seems to be oppositional, resistant and selectively mute. I have seen the patient before in consult in the floor due to anxiety and drug-seeking behavior. Patient also has very prominents cluster B traits and an extensive history of polysubstance dependence. This time he is positive for amphetamines. Le act will continue active until patient can be psychiatrically evaluated. Dr. Asher will be the psychiatrist on-call this weekend. ICD Code: F19.94 Assessment & Plan Estimated LOS: Deni Sanchez MD August 21, 2016 14:44
[2016-08-21] MEDS: VANCOMYCIN INJ 1,500 MG in SODIUM CHLORID 0.9% 500 ML INJ 500 ML IV SCH (21:07)
[2016-08-22] VITALS (14 sets, daily range): BP systolic 118–153; BP diastolic 67–95; PULSE 74–96; RESP 24–39; TEMP 100.8–103.3; O2SAT 96–98
[2016-08-22] MEDS: CEFEPIME INJ 2,000 MG in SODIUM CHLORIDE 0.9% INJ 100 ML IV SCH ×3 (00:59→17:17)
[2016-08-22] MEDS: AMPICILLIN INJ 2,000 MG in SODIUM CHLORIDE 0.9% INJ 100 ML IV SCH ×4 (04:15→15:00)
[2016-08-22] MEDS: SODIUM CHLOR 0.9% 1000 ML INJ 1,000 ML IV SCH ×2 (04:15→18:34)
[2016-08-22] MEDS: ACETAMINOPHEN 325 MG TAB PO PRN ×3 (04:20→21:03)
[2016-08-22] MEDS: VANCOMYCIN INJ 1,500 MG in SODIUM CHLORID 0.9% 500 ML INJ 500 ML IV SCH ×2 (05:31→18:31)
[2016-08-22] MEDS: SODIUM CHLORIDE 0.9% FLUSH 10 ML FLUSH IV FLUSH SCH ×2 (08:33→21:03)
[2016-08-22] MEDS: ENOXAPARIN SODIUM 40 MG/0.4 ML SYRINGE SQ SCH (09:09)
[2016-08-22] MEDS: MEGESTROL ACETATE SUSP 400 MG/10 ML CUP PO SCH (10:57)
[2016-08-22 12:26] LABS: AUTOMATED NEUTROPHIL # 2.4 TH/MM3 (1.8-7.7); BASOPHIL % 0.6 % (0.0-2.0); HEMATOCRIT 38.1 % (39.0-51.0); LYMPH % 20.8 % (9.0-44.0); LYMPHOCYTE # 0.8 TH/MM3 (1.0-4.8); MEAN CELL VOLUME 89.1 FL (80.0-100.0); MEAN CORPUSCULAR HEMOGLOBIN 29.1 PG (27.0-34.0); MEAN CORPUSCULAR HGB CONC 32.7 % (32.0-36.0); MONO % 15.2 % (0.0-8.0); NEUT % 63.4 % (16.0-70.0); PLATELET COUNT 118 TH/MM3 (150-450); RED BLOOD COUNT 4.28 MIL/MM3 (4.50-5.90); WHITE BLOOD COUNT 3.8 TH/MM3 (4.0-11.0)
[2016-08-22 12:28] LABS: HEMO FLAGS AUTO DIFF
[2016-08-22 12:51] LABS: ALKALINE PHOSPHATASE 48 U/L (45-117); ALT (GPT) 17 U/L (12-78); ANION GAP 12 MEQ/L (5-15); AST (GOT) 23 U/L (15-37); BICARBONATE 22.7 MEQ/L (21.0-32.0); BLOOD UREA NITROGEN 8 MG/DL (7-18); CHLORIDE 100 MEQ/L (98-107); GLOMERULAR FILTRATION RATE 146 ML/MIN (>89); MAGNESIUM 1.9 MG/DL (1.5-2.5); POTASSIUM 3.3 MEQ/L (3.5-5.1); SODIUM (NA) 135 MEQ/L (136-145); TOTAL BILIRUBIN ADULT 0.3 MG/DL (0.2-1.0)
[2016-08-22 12:56] LABS: BANDS 42 % (0-6); METAMYELOCYTES 1 % (0-1); NEUTROPHIL # MANUAL DIFF 2.9 TH/MM3 (1.8-7.7); PLASMA CELLS 1 % (0-0); POLYS (SEG NEUTROPHILS) 33 % (16-70); WBC DIFF SAMPLE 100
[2016-08-22 12:57] LABS: PLATELET ESTIMATE SMEAR LOW (NORMAL); PLATELET MORPHOLOGY NORMAL (NORMAL); SCAN/DIFF FINAL DIFF MANUAL
[2016-08-22] MEDS ORDERED: POTASSIUM CHLORIDE 25 MEQ EFFERVESCENT TAB PO PRN (13:30)
[2016-08-22] MEDS ORDERED: POTASSIUM PHOSPHATE MONOBASIC 500 MG TAB PO/TUBE PRN (13:30)
[2016-08-22] MEDS ORDERED: MAGNESIUM OXIDE 400 MG TAB PO PRN (13:30)
[2016-08-22] MEDS ORDERED: POTASSIUM CHLOR 20 MEQ PREMIX 100 ML IV PRN ×2 (13:30)
[2016-08-22] MEDS ORDERED: SODIUM PHOSPHATE INJ 30 MMOL in SODIUM CHLOR 0.9% 250 ML INJ 240 ML IV PRN (13:30)
[2016-08-22] MEDS ORDERED: POTASSIUM CHLOR 40 MEQ PREMIX 100 ML IV PRN ×2 (13:30)
[2016-08-22] MEDS ORDERED: POTASSIUM PHOSPHATE MONOBASIC 500 MG TAB PO PRN (13:30)
[2016-08-22] MEDS ORDERED: MAGNESIUM SULFATE INJ 2 GM in SODIUM CHLORIDE 0.9% INJ 96 ML IV PRN (13:30)
[2016-08-22] MEDS ORDERED: MAGNESIUM SULFATE INJ 4 GM in SODIUM CHLORIDE 0.9% INJ 92 ML IV PRN (13:30)
--- NOTE | 2016-08-22 15:13 | HHI.PR ---
Subjective Remarks deferred entry - patient seent at 10:50 AM RN states patient does not want to eat much however she states that he did eat when she called his name Patient does not want to talk to me he initially tracks me but then after that looks away Patient still having high fevers Tmax 103.2 no cough, diarrhea, vomiting reported Objective Vitals Vital Signs Date Time Temp Pulse Resp B/P Pulse Ox O2 Delivery O2 Flow Rate FiO2 08/22/16 12:00 102.0 75 24 130/80 97 08/22/16 12:00 75 08/22/16 10:00 83 08/22/16 08:00 94 08/22/16 08:00 101.6 75 31 128/83 98 08/22/16 06:00 75 08/22/16 05:30 101.5 08/22/16 04:00 78 08/22/16 04:00 103.2 78 35 142/76 96 08/22/16 02:00 89 08/22/16 00:00 74 08/22/16 00:00 102.2 74 30 118/67 98 08/21/16 22:00 81 08/21/16 20:00 76 08/21/16 20:00 102.7 76 34 123/75 97 08/21/16 18:00 87 08/21/16 16:00 103.0 82 26 127/83 99 08/21/16 16:00 82 I/O 08/21/16 08/21/16 08/21/16 08/22/16 08/22/16 08/22/16 07:00 15:00 23:00 07:00 15:00 23:00 Intake Total 315 ml 1104 ml 900 ml 1033 ml Output Total 0 ml 800 ml Balance 315 ml 304 ml 900 ml 1033 ml Intake Oral 100 ml 100 ml 100 ml IV Total 215 ml 1104 ml 800 ml 933 ml Output Urine Total 0 ml 800 ml Result Diagram: 08/22/16 1137 08/22/16 1137 Imaging Last Impressions Head CT 08/20/162032 Signed Impressions: Service Date/Time: July 21:02 - CONCLUSION: Negative noncontrast head CT. Ruel Forrest MD Chest X-Ray 08/20/162032 Signed Impressions: Service Date/Time: July 21:00 - CONCLUSION: Mild right base atelectasis/scarring. Ruel Forrest MD Objective Remarks GENERAL: Patient awake and alert, NAD. SKIN: No rashes, ecchymoses or lesions.warm. HEAD: Atraumatic. Normocephalic. No temporal or scalp tenderness. EYES: Pupils equal round and reactive. No scleral icterus. No injection or drainage. ENT: Nose without bleeding, purulent drainage or septal hematoma. Airway patent. NECK: Trachea midline. No JVD. Neck rigidity. CARDIOVASCULAR: Regular rate and rhythm without murmurs, gallops, or rubs. RESPIRATORY: Clear to auscultation. Breath sounds equal bilaterally. No wheezes , rales, or rhonchi. GASTROINTESTINAL: Abdomen soft, non-tender, nondistended. No hepato-splenomegaly , or palpable masses. No guarding. MUSCULOSKELETAL: Extremities without clubbing, cyanosis, or edema. No calf tenderness NEUROLOGICAL: Unable to focus during interview.NOt responding to questions or following commands although seems to be awake and alert. Medications and IVs Current Medications Medications (Trade) Dose Ordered Sig/Elmer Route Start Time Stop Time Status Last Admin (NS Flush) 2 ml UNSCH PRN IV FLUSH 08/20/16 22:45 (NS Flush) 2 ml BID IV FLUSH 08/21/16 09:00 08/22/16 08:33 Naloxone HCl 0.4 mg 0.4 mg UNSCH PRN IV 08/20/16 22:45 Pharmacy Profile Note 0 ml @ 0 mls/hr UNSCH OTHER 08/20/16 22:45 Ampicillin Sodium 2000 mg/Sodium Chloride 100 ml @ 400 mls/hr Q4H IV 08/21/16 00:00 08/22/16 15:00 (Maxipime Inj/NS Inj) 100 ml @ 200 mls/hr Q8H IV 08/21/16 01:00 08/22/16 09:09 Enoxaparin Sodium 40 mg 40 mg Q24H SQ 08/21/16 09:00 08/22/16 09:09 (NS 1000 ml Inj) 1,000 ml @ 100 mls/hr Q10H IV 08/21/16 08:00 08/22/16 04:15 Acetaminophen 650 mg 650 mg Q6H PRN PO 08/21/16 09:00 08/22/16 11:33 (Vancomycin Inj/ NS 500 ml Inj) 515 ml @ 250 mls/hr Q12H IV 08/21/16 18:00 08/22/16 05:31 Miscellaneous Information SPECIFIC LAB TO BE DRAWN:VANCO TROUGH DATE TO BE DR... ONCE ONCE .XX 08/22/16 17:45 08/22/16 17:46 Megestrol Acetate 400 mg 400 mg DAILY PO 08/22/16 10:45 08/22/16 10:57 Potassium Chloride 100 ml @ 50 mls/hr Q2H PRN IV 08/22/16 13:30 (KCl 20 Meq Premix Inj) 100 ml @ 50 mls/hr Q2H PRN IV 08/22/16 13:30 Potassium Bicarb/ Potassium Chloride 50 meq 50 meq UNSCH PRN PO 08/22/16 13:30 08/22/16 14:56 Potassium Chloride 100 ml @ 25 mls/hr UNSCH PRN IV 08/22/16 13:30 Potassium Chloride 100 ml @ 50 mls/hr Q2H PRN IV 08/22/16 13:30 (Magnesium Sulfate Inj/NS Inj) 100 ml @ 50 mls/hr UNSCH PRN IV 08/22/16 13:30 Magnesium Oxide 800 mg 800 mg UNSCH PRN PO 08/22/16 13:30 (Magnesium Sulfate Inj/NS Inj) 100 ml @ 50 mls/hr UNSCH PRN IV 08/22/16 13:30 Potassium Phosphate 2000 mg 2,000 mg Q4H PRN PO 08/22/16 13:30 (Sodium Phosphate Inj/NS 250 ml Inj) 250 ml @ 42 mls/hr UNSCH PRN IV 08/22/16 13:30 (K-Phos) 2,000 mg UNSCH PRN PO/TUBE 08/22/16 13:30 08/22/16 14:56 Urinary Catheter: No Vascular Central Line Catheter: No A/P Problem List: (1) SIRS (systemic inflammatory response syndrome) ICD Code: R65.10 Status: Acute Plan: ? recurrent bacteremia. Patient has h/o IV drug abuse CXR clear Continue with IV antibiotics as per infectious disease recommendations. Patient currently on IV vancomycin, IV cefepime and IV ampicillin. Blood cultures negative 2 Infectious disease consult appreciated (2) UTI (urinary tract infection) ICD Code: N39.0 Status: Resolved Plan: Urine culture negative (3) Hyponatremia ICD Code: E87.1 Status: Acute Plan: Secondary to hypovolemic hyponatremia secondary to dehydration. Resolved after IV fluid administration. Sodium normal at 136. (4) Major depression ICD Code: F32.9 Status: Acute Plan: Appreciated psychiatric consultation. As per psychiatry patient seems to be oppositional, resistant and selectively mute. Patient continues to be under haas act. (5) Fever ICD Code: R50.9 Status: Acute Plan: Tylenol when necessary. Patient continues to have fevers. (6) Hypokalemia ICD Code: E87.6 Status: Acute Plan: Likely due to poor oral intake. replace orally and monitor bmp. (7) Illicit drug use ICD Code: F19.90 Status: Chronic Plan: Patient has h/o of IV drug use and abuse, drug seeking behavior. Positive for amphetamines on urine toxicology. Assessment and Plan DVT prophylaxis: Lovenox subcutaneously. Discharge Planning ok to transfer to the medical floor. 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
[2016-08-22] MEDS ORDERED: PHARMACY ORDERED LAB ONE (17:45)
--- NOTE | 2016-08-22 20:24 | HHI.IDPN ---
Subjective Subjective Remarks ID x cover for Dr Ryan chart reviewd Patient is a 40-year-old male, brought in as a Le act. He is febrile up to 103. H/o tricuspid valve endocarditis back in 2016. His drug screen have been positive for amphetamines and cocaine. Admits to L spine pain + mild DAVID denies any weakness/numbness of LE no incontinence Antibiotics ampicillin cefepime vancomycin Allergies: Coded Allergies: *MDRO Multi-Drug Resistant Organism (Verified Adverse Reaction, Unknown, ) MRSA (urine-01/04/16) & (blood-01/06/16) Objective . Vital Signs Date Time Temp Pulse Resp B/P Pulse Ox O2 Delivery O2 Flow Rate FiO2 08/22/16 18:00 92 08/22/16 18:00 92 39 153/95 98 08/22/16 17:00 88 34 151/90 97 08/22/16 16:00 100.8 82 34 150/93 97 08/22/16 16:00 82 08/22/16 14:00 84 08/22/16 12:00 102.0 75 24 130/80 97 08/22/16 12:00 75 08/22/16 10:00 83 08/22/16 08:00 94 08/22/16 08:00 101.6 75 31 128/83 98 08/22/16 06:00 75 08/22/16 05:30 101.5 08/22/16 04:00 78 08/22/16 04:00 103.2 78 35 142/76 96 08/22/16 02:00 89 08/22/16 00:00 74 08/22/16 00:00 102.2 74 30 118/67 98 08/21/16 22:00 81 08/21/16 08/21/16 08/22/16 15:00 23:00 07:00 Intake Total 1104 ml 900 ml 1033 ml Output Total 800 ml Balance 304 ml 900 ml 1033 ml Intake Oral 100 ml 100 ml IV Total 1104 ml 800 ml 933 ml Output Urine Total 800 ml . Laboratory Tests Test 08/21/16 08/22/16 10:03 11:37 White Blood Count 2.7 TH/MM3 3.8 TH/MM3 Red Blood Count 4.29 MIL/MM3 4.28 MIL/MM3 Hemoglobin 12.8 GM/DL 12.5 GM/DL Hematocrit 37.6 % 38.1 % Mean Corpuscular Volume 87.5 FL 89.1 FL Mean Corpuscular Hemoglobin 29.8 PG 29.1 PG Mean Corpuscular Hemoglobin 34.1 % 32.7 % Concent Red Cell Distribution Width 15.9 % 16.0 % Platelet Count 119 TH/MM3 118 TH/MM3 Mean Platelet Volume 8.3 FL 8.1 FL Neutrophils (%) (Auto) 52.5 % 63.4 % Lymphocytes (%) (Auto) 29.5 % 20.8 % Monocytes (%) (Auto) 17.7 % 15.2 % Eosinophils (%) (Auto) 0.0 % 0.0 % Basophils (%) (Auto) 0.3 % 0.6 % Neutrophils # (Auto) 1.4 TH/MM3 2.4 TH/MM3 Lymphocytes # (Auto) 0.8 TH/MM3 0.8 TH/MM3 Monocytes # (Auto) 0.5 TH/MM3 0.6 TH/MM3 Eosinophils # (Auto) 0.0 TH/MM3 0.0 TH/MM3 Basophils # (Auto) 0.0 TH/MM3 0.0 TH/MM3 CBC Comment DIFF FINAL AUTO DIFF Differential Comment FINAL DIFF MANUAL Differential Total Cells 100 Counted Neutrophils % (Manual) 33 % Band Neutrophils % 42 % Lymphocytes % 13 % Monocytes % 10 % Neutrophils # (Manual) 2.9 TH/MM3 Metamyelocytes 1 % Plasma Cells 1 % Platelet Estimate LOW Platelet Morphology Comment NORMAL Red Cell Morphology Comment NORMAL Laboratory Tests Test 08/20/16 08/21/16 08/22/16 20:30 10:03 11:37 Sodium Level 130 MEQ/L 136 MEQ/L 135 MEQ/L Potassium Level 3.5 MEQ/L 3.1 MEQ/L 3.3 MEQ/L Chloride Level 95 MEQ/L 101 MEQ/L 100 MEQ/L Carbon Dioxide Level 25.2 MEQ/L 23.1 MEQ/L 22.7 MEQ/L Anion Gap 10 MEQ/L 12 MEQ/L 12 MEQ/L Blood Urea Nitrogen 12 MG/DL 8 MG/DL 8 MG/DL Creatinine 0.90 MG/DL 0.72 MG/DL 0.61 MG/DL Estimat Glomerular Filtration 93 ML/MIN 120 ML/MIN 146 ML/MIN Rate Random Glucose 90 MG/DL 87 MG/DL 84 MG/DL Lactic Acid Level 0.8 mmol/L Calcium Level 8.8 MG/DL 8.0 MG/DL 8.0 MG/DL Total Bilirubin 0.4 MG/DL 0.3 MG/DL Aspartate Amino Transf 34 U/L 23 U/L (AST/SGOT) Alanine Aminotransferase 30 U/L 17 U/L (ALT/SGPT) Alkaline Phosphatase 77 U/L 48 U/L Total Protein 8.2 GM/DL 6.4 GM/DL Albumin 3.2 GM/DL 2.2 GM/DL Phosphorus Level 2.0 MG/DL Magnesium Level 1.9 MG/DL Microbiology Date/Time Procedure Status Source Growth 08/20/16 20:25 Aerobic Blood Culture - Preliminary Resulted Blood Peripheral NO GROWTH IN 2 DAYS 08/20/16 20:25 Anaerobic Blood Culture - Preliminary Resulted Blood Peripheral NO GROWTH IN 2 DAYS 08/20/16 20:30 Aerobic Blood Culture - Preliminary Resulted Blood Peripheral NO GROWTH IN 2 DAYS 08/20/16 20:30 Anaerobic Blood Culture - Preliminary Resulted Blood Peripheral NO GROWTH IN 2 DAYS 08/20/16 20:30 Urine Culture - Final Complete Urine Catheterized Urine NO GROWTH IN 48 HOURS. Imaging Last Impressions Head CT 08/20/162032 Signed Impressions: Service Date/Time: July 21:02 - CONCLUSION: Negative noncontrast head CT. Ruel Forrest MD Chest X-Ray 08/20/162032 Signed Impressions: Service Date/Time: July 21:00 - CONCLUSION: Mild right base atelectasis/scarring. Ruel Forrest MD Physical Exam GENERAL: Patient is a well-nourished, well-developed awake, follows all commands, and answer all my questions as long as addressed by the name each time , not in respiratory distress. SKIN: Warm and dry. No generalized rash, no ecchymoses and no evidence of embolic lesions. Has track nolen in BUE HEAD: Atraumatic. Normocephalic. No temporal wasting, or tenderness. EYES: [place] conjunctiva. No petechia or hemorrhage. Pupils equal, round and reactive to light. Extraocular movements full and intact. No scleral icterus. Has some milena conjunctival injection. EARS, NOSE AND THROAT: Nose without bleeding or purulent nasal discharge. No sinus tenderness. Mucous membranes pink and moist. No oral lesions noted. No exudate. No oral thrush. NECK: Trachea midline. Supple and not tender, no meningeal signs CARDIOVASCULAR: Regular rate and rhythm. No murmurs, rubs or gallops heard RESPIRATORY: Clear to auscultation. Breath sounds equal bilaterally. No rales , wheezing or rhonchi ABDOMEN: Soft, non-tender, nondistended. Bowel sounds present and normoactive. No guarding. No rebound. No organomegaly. EXTREMITIES: No clubbing, cyanosis, or edema.No joint effusion, has good ROM. No calf tenderness. Well perfused and warm. NEUROLOGICAL: Awake and alert. No facial asymmetry, full EOM, tongue midline. Motor grossly within normal limits. Normal speech, aoriented x 4 PSYCHIATRIC: not cooperative + bizzare behavior judgement impaierd LINE: No evidence of infection BACK: tender to palpation L area Assessment & Plan Remarks IMPRESSION FUO in known IVDU pt ? endocarditis ? L spine diskitis (pain) L spine tender ness Previous Hx TV IE, has been treated at least 2x Doubt encephalopathy, appears to be psych issues; pt will communicate approprietly and follows commands only if addressed by his first name prior to every question/ requiest RECOMMENDATION Continue Vanco and Cefepime Stop Ampicillin Repeat BC with next fevers Follow C/S Follow temps Monitor progress 2 D echo to r/o clx neg endocarditis chk L spinme Kristie Zafar MD August 22, 2016 20:24
[2016-08-23] VITALS: BP 133/89; PULSE 82; PULSE 88; RESP 28; TEMP 100.1; O2SAT 97
[2016-08-23] MEDS: SODIUM CHLOR 0.9% 1000 ML INJ 1,000 ML IV SCH ×3 (01:51→21:23)
[2016-08-23] MEDS: CEFEPIME INJ 2,000 MG in SODIUM CHLORIDE 0.9% INJ 100 ML IV SCH ×3 (01:51→17:00)
[2016-08-23 04:00] VITALS: BP 139/92; PULSE 95; RESP 27; TEMP 101.8; O2SAT 96
[2016-08-23] MEDS: VANCOMYCIN INJ 1,300 MG in SODIUM CHLORID 0.9% 500 ML INJ 500 ML IV SCH ×3 (04:44→16:00)
[2016-08-23] MEDS: ACETAMINOPHEN 325 MG TAB PO PRN ×2 (04:46→21:21)
[2016-08-23 07:11] LABS: AUTOMATED NEUTROPHIL # 2.6 TH/MM3 (1.8-7.7); BASOPHIL % 0.3 % (0.0-2.0); HEMATOCRIT 36.3 % (39.0-51.0); HEMO FLAGS DIFF FINAL; LYMPH % 26.5 % (9.0-44.0); LYMPHOCYTE # 1.1 TH/MM3 (1.0-4.8); MEAN CELL VOLUME 86.3 FL (80.0-100.0); MEAN CORPUSCULAR HEMOGLOBIN 29.6 PG (27.0-34.0); MEAN CORPUSCULAR HGB CONC 34.3 % (32.0-36.0); MONO % 10.7 % (0.0-8.0); NEUT % 62.5 % (16.0-70.0); PLATELET COUNT 136 TH/MM3 (150-450); RED CELL DISTRIBUTION WIDTH 15.9 % (11.6-17.2); WHITE BLOOD COUNT 4.2 TH/MM3 (4.0-11.0)
[2016-08-23 08:12] LABS: ALKALINE PHOSPHATASE 45 U/L (45-117); ALT (GPT) 15 U/L (12-78); ANION GAP 10 MEQ/L (5-15); AST (GOT) 19 U/L (15-37); BICARBONATE 24.3 MEQ/L (21.0-32.0); BLOOD UREA NITROGEN 6 MG/DL (7-18); CHLORIDE 102 MEQ/L (98-107); GLOMERULAR FILTRATION RATE 175 ML/MIN (>89); SODIUM (NA) 136 MEQ/L (136-145); TOTAL BILIRUBIN ADULT 0.3 MG/DL (0.2-1.0)
[2016-08-23 08:21] LABS: POTASSIUM 2.9 MEQ/L (3.5-5.1)
[2016-08-23 08:33] VITALS: BP 118/81; PULSE 76; RESP 17; TEMP 98.5; O2SAT 97
[2016-08-23] MEDS: SODIUM CHLORIDE 0.9% FLUSH 10 ML FLUSH IV FLUSH SCH ×2 (09:00→09:43)
[2016-08-23] MEDS: MEGESTROL ACETATE SUSP 400 MG/10 ML CUP PO SCH (09:00)
[2016-08-23] MEDS: ENOXAPARIN SODIUM 40 MG/0.4 ML SYRINGE SQ SCH (09:00)
[2016-08-23] MEDS ORDERED: POTASSIUM CHLORIDE 10 MEQ CONTROLLED RELEASE TAB PO ONE (10:15)
--- NOTE | 2016-08-23 11:01 | HHI.PR ---
Subjective Remarks fu sepsis, fever Patient today chooses to answer my questions denies any pain c/o cough and c/o sob still having elevated fevers tmax 103.3 noted to be tachypneic overnight Objective Vitals Vital Signs Date Time Temp Pulse Resp B/P Pulse Ox O2 Delivery O2 Flow Rate FiO2 08/23/16 08:33 98.5 76 17 118/81 97 08/23/16 04:00 101.8 95 27 139/92 96 08/23/16 00:00 88 08/23/16 00:00 100.1 82 28 133/89 97 08/22/16 23:30 Room Air 08/22/16 22:00 95 08/22/16 20:00 103.3 96 33 125/80 97 08/22/16 20:00 96 08/22/16 18:00 92 08/22/16 18:00 92 39 153/95 98 08/22/16 17:00 88 34 151/90 97 08/22/16 16:00 100.8 82 34 150/93 97 08/22/16 16:00 82 08/22/16 14:00 84 08/22/16 12:00 102.0 75 24 130/80 97 08/22/16 12:00 75 I/O 08/22/16 08/22/16 08/22/16 08/23/16 08/23/16 08/23/16 06:59 14:59 22:59 06:59 14:59 22:59 Intake Total 1033 ml 1901 ml 1659 ml 670 ml Output Total 1350 ml 1100 ml 1250 ml Balance 1033 ml 551 ml 559 ml -580 ml Intake Oral 100 ml 444 ml 342 ml IV Total 933 ml 1457 ml 1317 ml 670 ml Output Urine Total 1350 ml 1100 ml 1250 ml Stool Total 0 ml # Bowel Movements 0 0 Result Diagram: 08/23/1641 08/23/16640 Imaging Last Impressions Head CT 08/20/162032 Signed Impressions: Service Date/Time: July 21:02 - CONCLUSION: Negative noncontrast head CT. Ruel Forrest MD Chest X-Ray 08/20/162032 Signed Impressions: Service Date/Time: July 21:00 - CONCLUSION: Mild right base atelectasis/scarring. Ruel Forrest MD Objective Remarks GENERAL: Patient awake and alert, NAD. SKIN: No rashes, ecchymoses or lesions.warm. HEAD: Atraumatic. Normocephalic. No temporal or scalp tenderness. EYES: Pupils equal round and reactive. No scleral icterus. No injection or drainage. ENT: Nose without bleeding, purulent drainage or septal hematoma. Airway patent. NECK: Trachea midline. No JVD. Neck rigidity. CARDIOVASCULAR: Regular rate and rhythm without murmurs, gallops, or rubs. RESPIRATORY:Bronchial sounds on left lower lung field. The rest is clear to auscultation without wheezing or rhonchi. GASTROINTESTINAL: Abdomen soft, non-tender, nondistended. No hepato-splenomegaly , or palpable masses. No guarding. MUSCULOSKELETAL: Extremities without clubbing, cyanosis, or edema. No calf tenderness NEUROLOGICAL: Awake and alert. Moves all extremities. Follows commands. Speech is normal. Medications and IVs Current Medications Medications (Trade) Dose Ordered Sig/Elmer Route Start Time Stop Time Status Last Admin (NS Flush) 2 ml UNSCH PRN IV FLUSH 08/20/16 22:45 (NS Flush) 2 ml BID IV FLUSH 08/21/16 09:00 08/23/16 09:43 Naloxone HCl 0.4 mg 0.4 mg UNSCH PRN IV 08/20/16 22:45 Pharmacy Profile Note 0 ml @ 0 mls/hr UNSCH OTHER 08/20/16 22:45 (Maxipime Inj/NS Inj) 100 ml @ 200 mls/hr Q8H IV 08/21/16 01:00 08/23/16 01:51 Enoxaparin Sodium 40 mg 40 mg Q24H SQ 08/21/16 09:00 08/23/16 09:00 (NS 1000 ml Inj) 1,000 ml @ 100 mls/hr Q10H IV 08/21/16 08:00 08/23/16 09:42 (Tylenol) 650 mg Q6H PRN PO 08/21/16 09:00 08/23/16 04:46 Megestrol Acetate 400 mg 400 mg DAILY PO 08/22/16 10:45 08/23/16 09:00 (Vancomycin Inj/ NS 500 ml Inj) 513 ml @ 250 mls/hr Q8H IV 08/23/16 04:00 08/23/16 04:44 Miscellaneous Information SPECIFIC LAB TO BE ... ONCE ONCE .XX 08/23/16 19:45 08/23/16 19:46 (K-Phos Neutral) 250 mg Q6HR PO 08/23/16 12:00 A/P Problem List: (1) SIRS (systemic inflammatory response syndrome) ICD Code: R65.10 Status: Acute Plan: ? recurrent bacteremia. Patient has h/o IV drug abuse CXR clear Continue with IV antibiotics as per infectious disease recommendations. Patient currently on IV vancomycin, IV cefepime, ampicillin discontinued 08/22 Blood cultures negative 2 Infectious disease consult appreciated MRI L spine ordered fu 2D echo rule out culture negative endocarditis (2) UTI (urinary tract infection) ICD Code: N39.0 Status: Resolved Plan: Urine culture negative (3) Hyponatremia ICD Code: E87.1 Status: Resolved Plan: Secondary to hypovolemic hyponatremia secondary to dehydration. Resolved after IV fluid administration. Sodium normal at 136. (4) Major depression ICD Code: F32.9 Status: Acute Plan: Appreciated psychiatric consultation. As per psychiatry patient seems to be oppositional, resistant and selectively mute. Patient continues to be under haas act. Ct head negative. Continue sitter and 1 to 1 suicide watch (5) Fever ICD Code: R50.9 Status: Acute Plan: Tylenol when necessary. Patient continues to have fevers. (6) Hypokalemia ICD Code: E87.6 Status: Acute Plan: Likely due to poor oral intake. replace orally and monitor bmp. (7) Illicit drug use ICD Code: F19.90 Status: Chronic Plan: Patient has h/o of IV drug use and abuse, drug seeking behavior. Positive for amphetamines on urine toxicology. Assessment and Plan DVT prophylaxis: Lovenox subcutaneously. Discharge Planning Still having fevers - continue to monitor in the medical floor. 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
[2016-08-23] MEDS: POTASSIUM PHOSPHATE/SODIUM PHOSPHATE 250 MG TAB PO SCH ×2 (12:00→17:13)
[2016-08-23 12:12] VITALS: BP 125/83; PULSE 89; RESP 18; TEMP 98.4; O2SAT 96
--- NOTE | 2016-08-23 12:22 | RADRPT ---
EXAM DATE/TIME: 08/23/2016 11:55 [facility] COMPARISON: ABDOMEN KUB ONLY, February 05, 2016, 12:35. INDICATIONS : Abdomen pain. MEDICAL HISTORY : None. SURGICAL HISTORY : None. ENCOUNTER: Subsequent ACUITY: 1 day PAIN SCORE: Non-responsive. LOCATION: Bilateral abdomen. FINDINGS: 2 supine frontal views of the abdomen and pelvis demonstrate nonobstructive bowel gas pattern. No org anomegaly is appreciated. EKG lines overlie the patient. No radiopaque foreign body is seen. CONCLUSION: No acute abdominal abnormality is identified. Additionally, there is no radiopaque foreign body seen. Ruel Dill MD on August 23, 2016 at 12:19 Board Certified Radiologist. This report was verified electronically.
[2016-08-23] MEDS ORDERED: GADODIAMIDE PF 287 MG/ML 20 ML VIAL (for RAD MRI) IV ONE (14:30)
--- NOTE | 2016-08-23 15:01 | RADRPT ---
EXAM DATE/TIME: 08/23/2016 14:16 [facility] COMPARISON: CT ABDOMEN & PELVIS W CONTRAST, May 18, 2016, 18:31. INDICATIONS : Abscess. CONTRAST: 15 cc Omniscan (gadodiamide) IV MEDICAL HISTORY : Hepatitis C. Endocarditis. SURGICAL HISTORY : None. ENCOUNTER: Initial ACUITY: 1 day PAIN SCORE: 5/10 LOCATION: Paraspinal TECHNIQUE: Multiplanar multisequence MRI of the lumbar spine was performed with and without contrast. FINDINGS: The most caudal appearing lumbar vertebra is numbered as L5. VERTEBRAE: Bone marrow signal is within normal limits. Vertebral body height is maintained. There is no anteroli sthesis or retrolisthesis. CONUS: Normal level and configuration. POST CONTRAST: No abnormal areas of contrast enhancement are seen. T12-L1: No disc herniation, canal stenosis, or neural foraminal stenosis. L1-L2: No disc herniation, canal stenosis, or neural foraminal stenosis. L2-L3: No disc herniation, canal stenosis, or neural foraminal stenosis. L3-L4: No disc herniation, canal stenosis, or neural foraminal stenosis. L4-L5: No disc herniation, canal stenosis, or neural foraminal stenosis. There is mild facet hypertrophy. L5-S1: No disc herniation, canal stenosis, or neural foraminal stenosis. CONCLUSION: No significant abnormality of the lumbar spine is identified. Ruel Dill MD on August 23, 2016 at 14:58 Board Certified Radiologist. This report was verified electronically.
[2016-08-23 16:32] VITALS: BP 135/94; PULSE 87; RESP 18; TEMP 99.7; O2SAT 97
[2016-08-23] MEDS ORDERED: PHARMACY ORDERED LAB ONE (19:45)
[2016-08-23 20:00] VITALS: BP 146/92; PULSE 98; RESP 18; TEMP 102.7; O2SAT 97
[2016-08-24] VITALS (9 sets, daily range): BP systolic 108–153; BP diastolic 59–99; PULSE 71–102; RESP 16–20; TEMP 97.7–99.1; O2SAT 96–100
[2016-08-24] MEDS: VANCOMYCIN INJ 1,300 MG in SODIUM CHLORID 0.9% 500 ML INJ 500 ML IV SCH ×4 (00:42→23:41)
[2016-08-24] MEDS: CEFEPIME INJ 2,000 MG in SODIUM CHLORIDE 0.9% INJ 100 ML IV SCH ×3 (00:43→17:00)
[2016-08-24] MEDS: POTASSIUM PHOSPHATE/SODIUM PHOSPHATE 250 MG TAB PO SCH ×5 (00:46→23:41)
[2016-08-24] MEDS: SODIUM CHLOR 0.9% 1000 ML INJ 1,000 ML IV SCH ×2 (05:24→16:00)
[2016-08-24] MEDS ORDERED: PHARMACY ORDERED LAB-VANCO TROUGH ONE (07:45)
[2016-08-24] MEDS: MEGESTROL ACETATE SUSP 400 MG/10 ML CUP PO SCH (08:12)
[2016-08-24] MEDS: ENOXAPARIN SODIUM 40 MG/0.4 ML SYRINGE SQ SCH (08:12)
[2016-08-24] MEDS: SODIUM CHLORIDE 0.9% FLUSH 10 ML FLUSH IV FLUSH SCH ×2 (08:12→20:40)
[2016-08-24 10:37] LABS: BICARBONATE 21.9 MEQ/L (21.0-32.0); POTASSIUM 3.3 MEQ/L (3.5-5.1)
[2016-08-24] MEDS ORDERED: POTASSIUM CHLORIDE 10 MEQ CONTROLLED RELEASE TAB PO ONE (10:45)
--- NOTE | 2016-08-24 10:51 | HHI.PR ---
Subjective Remarks Patient feels better, is sitting in chair he is more responsive and talks today, answers questions denies cp/sob had fevers w a Tmax of 102.7 last night denies abdominal pain, nausea, diarrhea denies cough Objective Vitals Vital Signs Date Time Temp Pulse Resp B/P Pulse Ox O2 Delivery O2 Flow Rate FiO2 08/24/16 08:00 96 Room Air 08/24/16 04:00 98.8 71 16 141/96 96 08/24/16 02:49 102 08/24/16 00:00 99.1 75 16 111/72 96 08/23/16 21:40 Room Air 08/23/16 20:00 102.7 98 18 146/92 97 08/23/16 16:32 99.7 87 18 135/94 97 08/23/16 12:12 98.4 89 18 125/83 96 I/O 08/23/16 08/23/16 08/23/16 08/24/16 08/24/16 08/24/16 07:00 15:00 23:00 07:00 15:00 23:00 Intake Total 670 ml 360 ml 542 ml 1533 ml Output Total 1250 ml 1350 ml 400 ml 600 ml Balance -580 ml -990 ml 142 ml 933 ml Intake Oral 360 ml 240 ml 120 ml IV Total 670 ml 302 ml 1413 ml Output Urine Total 1250 ml 1350 ml 400 ml 600 ml # Bowel Movements 0 0 0 Result Diagram: 08/23/16 0641 08/24/16 1000 Imaging Last Impressions Lumbar Spine MRI 08/23/16 0000 Signed Impressions: Service Date/Time: Tuesday, August 23, 2016 14:16 - CONCLUSION: No significant abnormality of the lumbar spine is identified. Ruel Dill MD Abdomen X-Ray 08/23/16 0000 Signed Impressions: Service Date/Time: Tuesday, August 23, 2016 11:55 - CONCLUSION: No acute abdominal abnormality is identified. Additionally, there is no radiopaque foreign body seen. Ruel Dill MD Head CT 08/20/162032 Signed Impressions: Service Date/Time: July 21:02 - CONCLUSION: Negative noncontrast head CT. Ruel Forrest MD Chest X-Ray 08/20/162032 Signed Impressions: Service Date/Time: July 21:00 - CONCLUSION: Mild right base atelectasis/scarring. Ruel Forrest MD Objective Remarks GENERAL: Patient awake and alert, NAD. SKIN: No rashes, ecchymoses or lesions.warm. HEAD: Atraumatic. Normocephalic. No temporal or scalp tenderness. EYES: Pupils equal round and reactive. No scleral icterus. No injection or drainage. ENT: Nose without bleeding, purulent drainage or septal hematoma. Airway patent. NECK: Trachea midline. No JVD. Neck rigidity. CARDIOVASCULAR: Regular rate and rhythm without murmurs, gallops, or rubs. RESPIRATORY:Bronchial sounds on left lower lung field. The rest is clear to auscultation without wheezing or rhonchi. GASTROINTESTINAL: Abdomen soft, non-tender, nondistended. No hepato-splenomegaly , or palpable masses. No guarding. MUSCULOSKELETAL: Extremities without clubbing, cyanosis, or edema. No calf tenderness NEUROLOGICAL: Awake and alert. Moves all extremities. Follows commands. Speech is normal. Procedures none Medications and IVs Current Medications Medications (Trade) Dose Ordered Sig/Elmer Route Start Time Stop Time Status Last Admin (NS Flush) 2 ml UNSCH PRN IV FLUSH 08/20/16 22:45 (NS Flush) 2 ml BID IV FLUSH 08/21/16 09:00 08/23/16 09:43 Naloxone HCl 0.4 mg 0.4 mg UNSCH PRN IV 08/20/16 22:45 Pharmacy Profile Note 0 ml @ 0 mls/hr UNSCH OTHER 08/20/16 22:45 (Maxipime Inj/NS Inj) 100 ml @ 200 mls/hr Q8H IV 08/21/16 01:00 08/24/16 08:12 Enoxaparin Sodium 40 mg 40 mg Q24H SQ 08/21/16 09:00 08/24/16 08:12 (NS 1000 ml Inj) 1,000 ml @ 100 mls/hr Q10H IV 08/21/16 08:00 08/24/16 05:24 (Tylenol) 650 mg Q6H PRN PO 08/21/16 09:00 08/23/16 21:21 (Megace Liq) 400 mg DAILY PO 08/22/16 10:45 08/24/16 08:12 Potassium Phos/ Sodium Phos 250 mg 250 mg Q6HR PO 08/23/16 12:00 08/24/16 05:24 (Vancomycin Inj/ NS 500 ml Inj) 513 ml @ 250 mls/hr Q8H IV 08/24/16 00:00 08/24/16 00:42 Urinary Catheter: No Vascular Central Line Catheter: No A/P Problem List: (1) SIRS (systemic inflammatory response syndrome) ICD Code: R65.10 Status: Acute Plan: SIRS/Sepsis present on admission ? recurrent bacteremia. Patient has h/o IV drug abuse CXR clear Continue with IV antibiotics as per infectious disease recommendations. Patient currently on IV cefepime, ampicillin discontinued 08/22, Vancomycin discontinued on 08/23. Blood cultures negative 3 Infectious disease consult appreciated MRI L spine ----> Does not show any abnormality fu 2D echo rule out culture negative endocarditis (2) UTI (urinary tract infection) ICD Code: N39.0 Status: Resolved Plan: Urine culture negative (3) Hyponatremia ICD Code: E87.1 Status: Resolved Plan: Secondary to hypovolemic hyponatremia secondary to dehydration. Resolved after IV fluid administration. Sodium normal at 136. (4) Major depression ICD Code: F32.9 Status: Acute Plan: Appreciated psychiatric consultation. As per psychiatry patient seems to be oppositional, resistant and selectively mute. Patient continues to be under haas act. Ct head negative. Continue sitter and 1 to 1 suicide watch (5) Fever ICD Code: R50.9 Status: Acute Plan: Tylenol when necessary. Patient continues to have fevers. Continue to monitor vital signs. (6) Hypokalemia ICD Code: E87.6 Status: Acute Plan: Likely due to poor oral intake. replace orally and monitor bmp. (7) Illicit drug use ICD Code: F19.90 Status: Chronic Plan: Patient has h/o of IV drug use and abuse, drug seeking behavior. Positive for amphetamines on urine toxicology. (8) Poor appetite ICD Code: R63.0 Status: Acute Plan: Continue Megace Assessment and Plan DVT prophylaxis: Lovenox subcutaneously. Discharge Planning Still having fevers - continue to monitor in the medical floor. 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
[2016-08-24 12:06] LABS: HEMATOCRIT 39.2 % (39.0-51.0); MEAN CELL VOLUME 87.9 FL (80.0-100.0); MEAN CORPUSCULAR HEMOGLOBIN 28.8 PG (27.0-34.0); MEAN CORPUSCULAR HGB CONC 32.8 % (32.0-36.0); PLATELET COUNT 149 TH/MM3 (150-450); RED BLOOD COUNT 4.47 MIL/MM3 (4.50-5.90); RED CELL DISTRIBUTION WIDTH 16.1 % (11.6-17.2); REVIEW FLAG FINAL; WHITE BLOOD COUNT 3.1 TH/MM3 (4.0-11.0)
[2016-08-25] VITALS (7 sets, daily range): BP systolic 130–152; BP diastolic 74–97; PULSE 49–79; RESP 19–20; TEMP 97.9–98.4; O2SAT 96–98
[2016-08-25] MEDS: CEFEPIME INJ 2,000 MG in SODIUM CHLORIDE 0.9% INJ 100 ML IV SCH ×3 (01:40→18:30)
[2016-08-25] MEDS: SODIUM CHLOR 0.9% 1000 ML INJ 1,000 ML IV SCH (02:42)
[2016-08-25] MEDS: POTASSIUM PHOSPHATE/SODIUM PHOSPHATE 250 MG TAB PO SCH ×3 (05:16→18:30)
[2016-08-25 07:41] LABS: AUTOMATED NEUTROPHIL # 1.6 TH/MM3 (1.8-7.7); BASOPHIL % 0.2 % (0.0-2.0); EOSINOPHIL % 0.5 % (0.0-4.0); HEMATOCRIT 33.6 % (39.0-51.0); HEMO FLAGS DIFF FINAL; LYMPH % 45.4 % (9.0-44.0); LYMPHOCYTE # 1.6 TH/MM3 (1.0-4.8); MEAN CELL VOLUME 87.7 FL (80.0-100.0); MEAN CORPUSCULAR HEMOGLOBIN 28.8 PG (27.0-34.0); MEAN CORPUSCULAR HGB CONC 32.9 % (32.0-36.0); MONO % 11.1 % (0.0-8.0); NEUT % 42.8 % (16.0-70.0); PLATELET COUNT 187 TH/MM3 (150-450); RED BLOOD COUNT 3.83 MIL/MM3 (4.50-5.90); RED CELL DISTRIBUTION WIDTH 15.5 % (11.6-17.2); WHITE BLOOD COUNT 3.6 TH/MM3 (4.0-11.0)
[2016-08-25 08:02] LABS: ALKALINE PHOSPHATASE 41 U/L (45-117); ALT (GPT) 25 U/L (12-78); ANION GAP 9 MEQ/L (5-15); AST (GOT) 33 U/L (15-37); BLOOD UREA NITROGEN 6 MG/DL (7-18); CHLORIDE 106 MEQ/L (98-107); GLOMERULAR FILTRATION RATE 224 ML/MIN (>89); MAGNESIUM 1.9 MG/DL (1.5-2.5); POTASSIUM 3.2 MEQ/L (3.5-5.1); SODIUM (NA) 140 MEQ/L (136-145); TOTAL BILIRUBIN ADULT 0.2 MG/DL (0.2-1.0)
[2016-08-25] MEDS: VANCOMYCIN INJ 1,300 MG in SODIUM CHLORID 0.9% 500 ML INJ 500 ML IV SCH ×2 (08:52→16:19)
[2016-08-25] MEDS: MEGESTROL ACETATE SUSP 400 MG/10 ML CUP PO SCH (08:54)
[2016-08-25] MEDS: ENOXAPARIN SODIUM 40 MG/0.4 ML SYRINGE SQ SCH (08:54)
[2016-08-25] MEDS: SODIUM CHLORIDE 0.9% FLUSH 10 ML FLUSH IV FLUSH SCH ×2 (08:57→21:00)
[2016-08-25] MEDS ORDERED: POTASSIUM CHLORIDE 10 MEQ CONTROLLED RELEASE TAB PO ONE (10:15)
--- NOTE | 2016-08-25 11:39 | ECHLIM ---
Study Study Date:08/24/2016 STUDY CONCLUSIONS SUMMARY LEFT VENTRICLE: The cavity size was normal. Wall thickness was normal. Systolic function was normal. The estimated ejection fraction was in the range of 55% to 60%. Wall motion was normal; there were no regional wall motion abnormalities. If LV function is below 40, please consider prescribing an ACEI or ARB or document rationale for non-use. PROCEDURE DATA STUDY STATUS: Elective. Procedure: Transthoracic echocardiography. Image quality was fair. Scanning was performed from the parasternal, apical, and subcostal acoustic windows. Study completion: The patient tolerated the procedure well. Transthoracic echocardiography. M-mode, complete 2D, complete spectral Doppler, and color Doppler. Patient status: Inpatient. CARDIAC ANATOMY LEFT VENTRICLE: The cavity size was normal. Wall thickness was normal. Systolic function was normal. The estimated ejection fraction was in the range of 55% to 60%. Wall motion was normal; there were no regional wall motion abnormalities. AORTIC VALVE: Not well visualized. Normal thickness leaflets. Doppler: Transvalvular velocity was within the normal range. There was no stenosis. No regurgitation. AORTA: Aortic root: The aortic root was normal in size. MITRAL VALVE: Structurally normal valve. Doppler: Transvalvular velocity was within the normal range. There was no evidence for stenosis. No regurgitation. LEFT ATRIUM: The atrium was normal in size. RIGHT VENTRICLE: The cavity size was normal. Wall thickness was normal. PULMONIC VALVE: Poorly visualized. Doppler: Transvalvular velocity was within the normal range. There was no evidence for stenosis. No regurgitation. TRICUSPID VALVE: Structurally normal valve. Doppler: Transvalvular velocity was within the normal range. Trace regurgitation. PULMONARY ARTERY: The main pulmonary artery was normal-sized. RIGHT ATRIUM: The atrium was normal in size. PERICARDIUM: There was no pericardial effusion. SYSTEMIC VEINS: Inferior vena cava: The vessel was dilated. BASIC MEASUREMENTS ADULT NORMAL Left ventricle LV internal dimension, ED, chordal level, 51.2 mm 43-52 PLAX LV posterior wall thickness, ED 7.46 mm IVS/LVPW ratio, ED 1.11 <1.3 Ventricular septum Septal thickness, ED 8.29 mm DOPPLER MEASUREMENTS ADULT NORMAL Tricuspid valve Regurgitant peak velocity 271 cm/s Peak RV-RA gradient, S 29 mm Hg Maximal regurgitant velocity 271 cm/s LEGEND: Mean values are shown as u=mean value. Asterisk (*) nolen values outside specified normal range. Prepared and signed by Goldy Watt [id number]
[2016-08-25] MEDS ORDERED: PHARMACY ORDERED LAB ONE (15:45)
--- NOTE | 2016-08-25 18:39 | HHI.PR ---
Subjective Remarks Deferred entry - patient seen earlier at 10:45 am no further fevers denies fevers/chills denies cp/sob occasional cough Objective Vitals Vital Signs Date Time Temp Pulse Resp B/P Pulse Ox O2 Delivery O2 Flow Rate FiO2 08/25/16 12:07 98.0 74 19 130/81 96 08/25/16 08:05 97.9 71 19 148/95 98 08/25/16 04:00 98.4 60 20 143/76 97 08/25/16 00:00 98.0 68 20 137/88 97 08/24/16 20:52 72 08/24/16 20:00 97.7 85 18 125/83 97 08/24/16 20:00 Room Air I/O 08/24/16 08/24/16 08/24/16 08/25/16 08/25/16 08/25/16 07:00 15:00 23:00 07:00 15:00 23:00 Intake Total 1533 ml 960 ml 480 ml 1200 ml Output Total 600 ml 2 ml Balance 933 ml 960 ml 478 ml 1200 ml Intake Oral 120 ml 960 ml 480 ml IV Total 1413 ml 1200 ml Output Urine Total 600 ml 2 ml # Voids 2 # Bowel Movements 0 1 Result Diagram: 08/25/16 0545 08/25/16 0545 Imaging Last Impressions Lumbar Spine MRI 08/23/16 0000 Signed Impressions: Service Date/Time: Tuesday, August 23, 2016 14:16 - CONCLUSION: No significant abnormality of the lumbar spine is identified. Ruel Dill MD Abdomen X-Ray 08/23/16 0000 Signed Impressions: Service Date/Time: Tuesday, August 23, 2016 11:55 - CONCLUSION: No acute abdominal abnormality is identified. Additionally, there is no radiopaque foreign body seen. Ruel Dill MD Head CT 08/20/162032 Signed Impressions: Service Date/Time: July 21:02 - CONCLUSION: Negative noncontrast head CT. Ruel Forrest MD Chest X-Ray 08/20/162032 Signed Impressions: Service Date/Time: July 21:00 - CONCLUSION: Mild right base atelectasis/scarring. Ruel Forrest MD Objective Remarks GENERAL: Patient awake and alert, NAD. SKIN: No rashes, ecchymoses or lesions.warm. HEAD: Atraumatic. Normocephalic. No temporal or scalp tenderness. EYES: Pupils equal round and reactive. No scleral icterus. No injection or drainage. ENT: Nose without bleeding, purulent drainage or septal hematoma. Airway patent. NECK: Trachea midline. No JVD. Neck rigidity. CARDIOVASCULAR: Regular rate and rhythm without murmurs, gallops, or rubs. RESPIRATORY:Bronchial sounds on left lower lung field. The rest is clear to auscultation without wheezing or rhonchi. GASTROINTESTINAL: Abdomen soft, non-tender, nondistended. No hepato-splenomegaly , or palpable masses. No guarding. MUSCULOSKELETAL: Extremities without clubbing, cyanosis, or edema. No calf tenderness NEUROLOGICAL: Awake and alert. Moves all extremities. Follows commands. Speech is normal. Procedures none Medications and IVs Current Medications Medications (Trade) Dose Ordered Sig/Elmer Route Start Time Stop Time Status Last Admin (NS Flush) 2 ml UNSCH PRN IV FLUSH 08/20/16 22:45 (NS Flush) 2 ml BID IV FLUSH 08/21/16 09:00 08/23/16 09:43 Naloxone HCl 0.4 mg 0.4 mg UNSCH PRN IV 08/20/16 22:45 Pharmacy Profile Note 0 ml @ 0 mls/hr UNSCH OTHER 08/20/16 22:45 (Maxipime Inj/NS Inj) 100 ml @ 200 mls/hr Q8H IV 08/21/16 01:00 08/25/16 11:11 Enoxaparin Sodium 40 mg 40 mg Q24H SQ 08/21/16 09:00 08/25/16 08:54 (NS 1000 ml Inj) 1,000 ml @ 100 mls/hr Q10H IV 08/21/16 08:00 08/25/16 02:42 (Tylenol) 650 mg Q6H PRN PO 08/21/16 09:00 08/23/16 21:21 (Megace Liq) 400 mg DAILY PO 08/22/16 10:45 08/25/16 08:54 Potassium Phos/ Sodium Phos 250 mg 250 mg Q6HR PO 08/23/16 12:00 08/25/16 16:15 (Vancomycin Inj/ NS 500 ml Inj) 513 ml @ 250 mls/hr Q8H IV 08/24/16 00:00 08/25/16 16:19 Urinary Catheter: No Vascular Central Line Catheter: No A/P Problem List: (1) SIRS (systemic inflammatory response syndrome) ICD Code: R65.10 Status: Acute (2) UTI (urinary tract infection) ICD Code: N39.0 Status: Resolved (3) Hyponatremia ICD Code: E87.1 Status: Resolved (4) Major depression ICD Code: F32.9 Status: Acute (5) Fever ICD Code: R50.9 Status: Acute (6) Hypokalemia ICD Code: E87.6 Status: Acute (7) Illicit drug use ICD Code: F19.90 Status: Chronic (8) Poor appetite ICD Code: R63.0 Status: Acute Assessment and Plan (1) SIRS (systemic inflammatory response syndrome) Plan: SIRS/Sepsis present on admission ? recurrent bacteremia. Patient has h/o IV drug abuse CXR clear Continue with IV antibiotics as per infectious disease recommendations. Patient currently on IV cefepime, ampicillin discontinued 08/22, Vancomycin discontinued on 08/23. Blood cultures negative 5 Infectious disease consult appreciated MRI L spine ----> Does not show any abnormality To the echo cavagram shows a normal systolic function with an EF of 55-60%, no vegetations reported. (2) UTI (urinary tract infection) Plan: Urine culture negative Continue antibiotics as per ID recommendations. (3) Hyponatremia Plan: Secondary to hypovolemic hyponatremia secondary to dehydration. Resolved after IV fluid administration. Sodium normal at 140 (4) Major depression Plan: Appreciated psychiatric consultation. As per psychiatry patient seems to be oppositional, resistant and selectively mute. Patient continues to be under haas act. Ct head negative. Continue sitter and 1 to 1 suicide watch (5) Fever Plan: Tylenol when necessary. Fevers resolved. Continue to monitor vital signs. (6) Hypokalemia Plan: Likely due to poor oral intake. replace orally and monitor bmp. (7) Illicit drug use Plan: Patient has h/o of IV drug use and abuse, drug seeking behavior. Positive for amphetamines on urine toxicology. (8) Poor appetite Plan: Continue Megace. Encourage po intake. DVT prophylaxis: Lovenox subcutaneously. Discharge Planning Discharge pending ID clearance. 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
[2016-08-26] VITALS (8 sets, daily range): BP systolic 144–160; BP diastolic 88–95; PULSE 50–86; RESP 16–17; TEMP 97.5–98.7; O2SAT 97–99
[2016-08-26] MEDS: VANCOMYCIN INJ 1,300 MG in SODIUM CHLORID 0.9% 500 ML INJ 500 ML IV SCH ×2 (00:48→08:36)
[2016-08-26] MEDS: SODIUM CHLOR 0.9% 1000 ML INJ 1,000 ML IV SCH ×3 (00:49→18:00)
[2016-08-26] MEDS: POTASSIUM PHOSPHATE/SODIUM PHOSPHATE 250 MG TAB PO SCH ×4 (01:14→17:36)
[2016-08-26] MEDS: CEFEPIME INJ 2,000 MG in SODIUM CHLORIDE 0.9% INJ 100 ML IV SCH ×3 (02:28→17:37)
[2016-08-26] MEDS: MEGESTROL ACETATE SUSP 400 MG/10 ML CUP PO SCH (08:36)
[2016-08-26] MEDS: ENOXAPARIN SODIUM 40 MG/0.4 ML SYRINGE SQ SCH (08:40)
[2016-08-26] MEDS: SODIUM CHLORIDE 0.9% FLUSH 10 ML FLUSH IV FLUSH SCH ×2 (09:00→19:40)
[2016-08-26 11:59] LABS: AUTOMATED NEUTROPHIL # 3.1 TH/MM3 (1.8-7.7); BASOPHIL % 0.1 % (0.0-2.0); EOSINOPHIL % 0.6 % (0.0-4.0); HEMATOCRIT 36.5 % (39.0-51.0); HEMO FLAGS DIFF FINAL; LYMPH % 32.6 % (9.0-44.0); LYMPHOCYTE # 1.8 TH/MM3 (1.0-4.8); MEAN CELL VOLUME 89.3 FL (80.0-100.0); MEAN CORPUSCULAR HEMOGLOBIN 28.8 PG (27.0-34.0); MEAN CORPUSCULAR HGB CONC 32.2 % (32.0-36.0); NEUT % 57.7 % (16.0-70.0); PLATELET COUNT 290 TH/MM3 (150-450); RED BLOOD COUNT 4.09 MIL/MM3 (4.50-5.90); RED CELL DISTRIBUTION WIDTH 15.9 % (11.6-17.2); WHITE BLOOD COUNT 5.4 TH/MM3 (4.0-11.0)
--- NOTE | 2016-08-26 12:04 | HHI.IDPN ---
Subjective Subjective Remarks Patient is a 40-year-old male, brought in as a Le act. He is febrile up to 103. H/o tricuspid valve endocarditis back in 2016. His drug screen have been positive for amphetamines and cocaine. Notes reviewed Last fever was >48 hours now No complaints BC are negative No vegetation seen on echo Lumbar spine MRI ok D/W RN Still has a sitter Antibiotics cefepime vancomycin Past Medical History Reviewed Allergies: Coded Allergies: *MDRO Multi-Drug Resistant Organism (Verified Adverse Reaction, Unknown, ) MRSA (urine-01/04/16) & (blood-01/06/16) Objective . Vital Signs Date Time Temp Pulse Resp B/P Pulse Ox O2 Delivery O2 Flow Rate FiO2 08/26/16 08:07 97.5 85 16 160/95 98 08/26/16 04:39 98.0 50 16 144/88 97 08/26/16 04:39 Room Air 08/26/16 00:11 98.7 55 16 147/92 97 08/26/16 00:11 Room Air 08/25/16 20:16 75 08/25/16 20:16 Room Air 08/25/16 20:16 98.4 79 20 152/97 97 08/25/16 16:05 98.1 72 19 132/74 96 08/25/16 12:07 98.0 74 19 130/81 96 08/25/16 08/25/16 08/26/16 14:59 22:59 06:59 Intake Total 360 ml 1828 ml 1998 ml Output Total 1200 ml Balance -840 ml 1828 ml 1998 ml Intake Oral 360 ml 720 ml 800 ml IV Total 1108 ml 1198 ml Output Urine Total 1200 ml # Voids 3 3 # Bowel Movements 2 1 1 . Laboratory Tests Test 08/25/16 05:45 White Blood Count 3.6 TH/MM3 Red Blood Count 3.83 MIL/MM3 Hemoglobin 11.1 GM/DL Hematocrit 33.6 % Mean Corpuscular Volume 87.7 FL Mean Corpuscular Hemoglobin 28.8 PG Mean Corpuscular Hemoglobin 32.9 % Concent Red Cell Distribution Width 15.5 % Platelet Count 187 TH/MM3 Mean Platelet Volume 8.2 FL Neutrophils (%) (Auto) 42.8 % Lymphocytes (%) (Auto) 45.4 % Monocytes (%) (Auto) 11.1 % Eosinophils (%) (Auto) 0.5 % Basophils (%) (Auto) 0.2 % Neutrophils # (Auto) 1.6 TH/MM3 Lymphocytes # (Auto) 1.6 TH/MM3 Monocytes # (Auto) 0.4 TH/MM3 Eosinophils # (Auto) 0.0 TH/MM3 Basophils # (Auto) 0.0 TH/MM3 CBC Comment DIFF FINAL Differential Comment Laboratory Tests Test 08/25/16 05:45 Sodium Level 140 MEQ/L Potassium Level 3.2 MEQ/L Chloride Level 106 MEQ/L Carbon Dioxide Level 25.0 MEQ/L Anion Gap 9 MEQ/L Blood Urea Nitrogen 6 MG/DL Creatinine 0.42 MG/DL Estimat Glomerular Filtration 224 ML/MIN Rate Random Glucose 83 MG/DL Calcium Level 8.3 MG/DL Phosphorus Level 2.7 MG/DL Magnesium Level 1.9 MG/DL Total Bilirubin 0.2 MG/DL Aspartate Amino Transf 33 U/L (AST/SGOT) Alanine Aminotransferase 25 U/L (ALT/SGPT) Alkaline Phosphatase 41 U/L Total Protein 6.2 GM/DL Albumin 1.9 GM/DL Imaging Lumbar Spine MRI 08/23/16 Signed Impressions: Service Date/Time: Tuesday, August 23, 2016 14:16 - CONCLUSION: No significant abnormality of the lumbar spine is identified. Ruel Dill MD Abdomen X-Ray 08/23/16 Signed Impressions: Service Date/Time: Tuesday, August 23, 2016 11:55 - CONCLUSION: No acute abdominal abnormality is identified. Additionally, there is no radiopaque foreign body seen. Ruel Dill MD Head CT 08/20/162032 Signed Impressions: Service Date/Time: July 21:02 - CONCLUSION: Negative noncontrast head CT. Ruel Forrest MD Chest X-Ray 08/20/162032 Signed Impressions: Service Date/Time: July 21:00 - CONCLUSION: Mild right base atelectasis/scarring. Ruel Forrest MD Physical Exam GENERAL: awake, follows all commands, and answer all my questions, NAD SKIN: Warm and dry. No generalized rash, no ecchymoses and no evidence of embolic lesions. Has track nolen in BUE HEAD: Atraumatic. Normocephalic. No temporal wasting, or tenderness. EYES: [place] conjunctiva. No petechia or hemorrhage. Pupils equal, round and reactive to light. Extraocular movements full and intact. No scleral icterus. Has some milena conjunctival injection. EARS, NOSE AND THROAT: Nose without bleeding or purulent nasal discharge. No sinus tenderness. Mucous membranes pink and moist. No oral lesions noted. No exudate. No oral thrush. NECK: Trachea midline. Supple and not tender, no meningeal signs CARDIOVASCULAR: Regular rate and rhythm. No murmurs, rubs or gallops heard RESPIRATORY: Clear to auscultation. Breath sounds equal bilaterally. No rales , wheezing or rhonchi ABDOMEN: Soft, non-tender, nondistended. Bowel sounds present and normoactive. No guarding. No rebound. No organomegaly. EXTREMITIES: No clubbing, cyanosis, or edema.No joint effusion, has good ROM. No calf tenderness. Well perfused and warm. NEUROLOGICAL: Non-focal PSYCHIATRIC: Calm and cooperative LINE: No evidence of infection Assessment & Plan Remarks IMPRESSION FUO in known IVDU pt - workup negative for endocarditis - all C/S negative Suicide attempt Previous Hx TV IE, has been treated at least 2x RECOMMENDATION Stop Vancomycin If stable, stop Cefepime tomorrow Follow C/S Follow temps Monitor progress D/W Kasia Brower MD August 26, 2016 12:04
--- NOTE | 2016-08-26 12:09 | HHI.PR ---
Subjective Remarks Patient is very pleasant, denies cough, cp, sob denies fevers and chills has been afebrile denies diarrhea, rash K low BP elevated Objective Vitals Vital Signs Date Time Temp Pulse Resp B/P Pulse Ox O2 Delivery O2 Flow Rate FiO2 08/26/16 08:07 97.5 85 16 160/95 98 08/26/16 04:39 98.0 50 16 144/88 97 08/26/16 04:39 Room Air 08/26/16 00:11 98.7 55 16 147/92 97 08/26/16 00:11 Room Air 08/25/16 20:16 75 08/25/16 20:16 Room Air 08/25/16 20:16 98.4 79 20 152/97 97 08/25/16 16:05 98.1 72 19 132/74 96 I/O 08/25/16 08/25/16 08/25/16 08/26/16 08/26/16 08/26/16 07:00 15:00 23:00 07:00 15:00 23:00 Intake Total 1200 ml 360 ml 1828 ml 1998 ml Output Total 1200 ml Balance 1200 ml -840 ml 1828 ml 1998 ml Intake Oral 360 ml 720 ml 800 ml IV Total 1200 ml 1108 ml 1198 ml Output Urine Total 1200 ml # Voids 3 3 # Bowel Movements 2 1 1 Result Diagram: 08/26/16 1100 08/25/16 0545 Imaging Last Impressions Lumbar Spine MRI 08/23/16 0000 Signed Impressions: Service Date/Time: Tuesday, August 23, 2016 14:16 - CONCLUSION: No significant abnormality of the lumbar spine is identified. Ruel Dill MD Abdomen X-Ray 08/23/16 0000 Signed Impressions: Service Date/Time: Tuesday, August 23, 2016 11:55 - CONCLUSION: No acute abdominal abnormality is identified. Additionally, there is no radiopaque foreign body seen. Ruel Dill MD Head CT 08/20/162032 Signed Impressions: Service Date/Time: July 21:02 - CONCLUSION: Negative noncontrast head CT. Ruel Forrest MD Chest X-Ray 08/20/162032 Signed Impressions: Service Date/Time: July 21:00 - CONCLUSION: Mild right base atelectasis/scarring. Ruel Forrest MD Objective Remarks GENERAL: Patient awake and alert, NAD. SKIN: No rashes, ecchymoses or lesions.warm. HEAD: Atraumatic. Normocephalic. No temporal or scalp tenderness. EYES: Pupils equal round and reactive. No scleral icterus. No injection or drainage. ENT: Nose without bleeding, purulent drainage or septal hematoma. Airway patent. NECK: Trachea midline. No JVD. Neck rigidity. CARDIOVASCULAR: Regular rate and rhythm without murmurs, gallops, or rubs. RESPIRATORY:Bronchial sounds on left lower lung field. The rest is clear to auscultation without wheezing or rhonchi. GASTROINTESTINAL: Abdomen soft, non-tender, nondistended. No hepato-splenomegaly , or palpable masses. No guarding. MUSCULOSKELETAL: Extremities without clubbing, cyanosis, or edema. No calf tenderness NEUROLOGICAL: Awake and alert. Moves all extremities. Follows commands. Speech is normal. Procedures none Medications and IVs Current Medications Medications (Trade) Dose Ordered Sig/Elmer Route Start Time Stop Time Status Last Admin (NS Flush) 2 ml UNSCH PRN IV FLUSH 08/20/16 22:45 (NS Flush) 2 ml BID IV FLUSH 08/21/16 09:00 08/26/16 09:00 Naloxone HCl 0.4 mg 0.4 mg UNSCH PRN IV 08/20/16 22:45 (Maxipime Inj/NS Inj) 100 ml @ 200 mls/hr Q8H IV 08/21/16 01:00 08/26/16 17:37 Enoxaparin Sodium 40 mg 40 mg Q24H SQ 08/21/16 09:00 08/26/16 08:40 (NS 1000 ml Inj) 1,000 ml @ 100 mls/hr Q10H IV 08/21/16 08:00 08/26/16 14:29 (Tylenol) 650 mg Q6H PRN PO 08/21/16 09:00 08/23/16 21:21 (Megace Liq) 400 mg DAILY PO 08/22/16 10:45 08/26/16 08:36 (K-Phos Neutral) 250 mg Q6HR PO 08/23/16 12:00 08/26/16 17:36 A/P Problem List: (1) Sepsis ICD Code: A41.9 Status: Acute (2) UTI (urinary tract infection) ICD Code: N39.0 Status: Resolved (3) Hyponatremia ICD Code: E87.1 Status: Resolved (4) Major depression ICD Code: F32.9 Status: Acute (5) Fever ICD Code: R50.9 Status: Acute (6) Hypokalemia ICD Code: E87.6 Status: Acute (7) Illicit drug use ICD Code: F19.90 Status: Chronic (8) Poor appetite ICD Code: R63.0 Status: Acute Assessment and Plan (1) SIRS (systemic inflammatory response syndrome)/sepsis SIRS/Sepsis present on admission ? recurrent bacteremia. Patient has h/o IV drug abuse CXR clear Continue with IV antibiotics as per infectious disease recommendations. Treated with Iv vancomycin, Cefepime and ampicillin. Ampicillin discontinued Blood cultures negative 3 Infectious disease consult appreciated MRI L spine ----> Does not show any abnormality fu 2D echo rule out culture negative endocarditis 08/[address] acuna from ID. Will stop Cefepime today and if stable Vancomycin be discontinued tomorrow. The patient then may be discharged. (2) UTI (urinary tract infection) Plan: Urine culture negative Continue antibiotics as per ID recommendations. (3) Hyponatremia Plan: Secondary to hypovolemic hyponatremia secondary to dehydration. Resolved after IV fluid administration. Sodium normal at 140 (4) Major depression Plan: Appreciated psychiatric consultation. As per psychiatry patient seems to be oppositional, resistant and selectively mute. Patient continues to be under haas act. Ct head negative. Continue sitter and 1 to 1 suicide watch (5) Fever Plan: Tylenol when necessary. Fevers resolved. Continue to monitor vital signs. (6) Hypokalemia Plan: Likely due to poor oral intake. replace orally and monitor bmp. (7) Illicit drug use Plan: Patient has h/o of IV drug use and abuse, drug seeking behavior. Positive for amphetamines on urine toxicology. (8) Poor appetite Plan: Continue Megace. Encourage po intake. DVT prophylaxis: Lovenox subcutaneously. Discharge Planning Possible discharge tomorrow, pending ID clearance. 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
[2016-08-26 12:23] LABS: ALT (GPT) 35 U/L (12-78)
[2016-08-26 12:26] LABS: ALKALINE PHOSPHATASE 47 U/L (45-117); TOTAL BILIRUBIN ADULT 0.1 MG/DL (0.2-1.0)
[2016-08-26 12:27] LABS: ANION GAP 8 MEQ/L (5-15); AST (GOT) 30 U/L (15-37); BICARBONATE 25.2 MEQ/L (21.0-32.0); BLOOD UREA NITROGEN 4 MG/DL (7-18); CHLORIDE 108 MEQ/L (98-107); GLOMERULAR FILTRATION RATE 154 ML/MIN (>89); POTASSIUM 3.2 MEQ/L (3.5-5.1); SODIUM (NA) 141 MEQ/L (136-145)
--- NOTE | 2016-08-26 13:55 | HHI.PYPN ---
Subjective Remarks Patient seen today for psychiatric evaluation, patient is calm, cooperative and pleasant, he reports feeling much better, denies distress and pain. Patient says that for a couple of months now he has been completely clean, not even using prescribed medications. He says that he has been coping well with anxiety and a stress without the need of any psychotropic. At this moment patient denies depressive symptoms, denies anxiety, denies suicidal and homicidal ideation, denies visual and auditory hallucinations. Patient is oriented 3, no attention deficit, no gross cognitive impairment. Review of Systems Constitutional: DENIES: Diaphoretic episodes, Fatigue, Fever, Weight gain, Weight loss, Chills, Dizziness, Change in appetite, Night Sweats Endocrine: DENIES: Heat/cold intolerance, Polydipsia, Polyuria, Polyphagia Eyes: DENIES: Blurred vision, Diplopia, Eye inflammation, Eye pain, Vision loss , Photosensitivity, Double Vision Ears, nose, mouth, throat: DENIES: Tinnitus, Hearing loss, Vertigo, Nasal discharge, Oral lesions, Throat pain, Hoarseness, Ear Pain, Running Nose, Epistaxis, Sinus Pain, Toothache, Odynophagia Respiratory: DENIES: Apneas, Cough, Snoring, Wheezing, Hemoptysis, Sputum production, Shortness of breath Cardiovascular: DENIES: Chest pain, Palpitations, Syncope, Dyspnea on Exertion , PND, Lower Extremity Edema, Orthopnea, Claudication Integumentary: DENIES: Abnormal pigmentation, Nail changes, Pruritus, Rash Hematologic/lymphatic: DENIES: Bruising, Lymphadenopathy Immunologic/allergic: DENIES: Eczema, Urticaria Neurologic: DENIES: Abnormal gait, Headache, Localized weakness, Paresthesias, Seizures, Speech Problems, Tremor, Poor Balance Psychiatric: DENIES: Anxiety, Confusion, Mood changes, Depression, Hallucinations, Agitation, Suicidal Ideation, Homicidal Ideation, Delusions Objective Alert: Yes [place]: Person, Place Mood: Calm Affect: Appropriate Memory Intact: Immediate, Recent, Remote Hallucinations: Other (he denies) Delusions: No Delusion Type: Other (none ) Suicidal: Ideation (he denies) Homicidal: Ideation (he denies) Insight/Judgment Good Labs Test 08/25/16 08/26/16 16:00 11:00 Vancomycin Level Trough 14.4 MCG/ML White Blood Count 5.4 TH/MM3 Red Blood Count 4.09 MIL/MM3 Hemoglobin 11.8 GM/DL Hematocrit 36.5 % Mean Corpuscular Volume 89.3 FL Mean Corpuscular Hemoglobin 28.8 PG Mean Corpuscular Hemoglobin 32.2 % Concent Red Cell Distribution Width 15.9 % Platelet Count 290 TH/MM3 Mean Platelet Volume 7.7 FL Neutrophils (%) (Auto) 57.7 % Lymphocytes (%) (Auto) 32.6 % Monocytes (%) (Auto) 9.0 % Eosinophils (%) (Auto) 0.6 % Basophils (%) (Auto) 0.1 % Neutrophils # (Auto) 3.1 TH/MM3 Lymphocytes # (Auto) 1.8 TH/MM3 Monocytes # (Auto) 0.5 TH/MM3 Eosinophils # (Auto) 0.0 TH/MM3 Basophils # (Auto) 0.0 TH/MM3 CBC Comment DIFF FINAL Differential Comment Sodium Level 141 MEQ/L Potassium Level 3.2 MEQ/L Chloride Level 108 MEQ/L Carbon Dioxide Level 25.2 MEQ/L Anion Gap 8 MEQ/L Blood Urea Nitrogen 4 MG/DL Creatinine 0.58 MG/DL Estimat Glomerular Filtration 154 ML/MIN Rate Random Glucose 105 MG/DL Calcium Level 8.7 MG/DL Total Bilirubin 0.1 MG/DL Aspartate Amino Transf 30 U/L (AST/SGOT) Alanine Aminotransferase 35 U/L (ALT/SGPT) Alkaline Phosphatase 47 U/L Total Protein 6.7 GM/DL Albumin 2.0 GM/DL Vitals/IOs Vital Signs Date Time Temp Pulse Resp B/P Pulse Ox O2 Delivery O2 Flow Rate FiO2 08/26/16 08:07 97.5 85 16 160/95 98 08/26/16 04:39 Room Air Intake and Output 08/25/16 08/25/16 08/26/16 08:00 16:00 00:00 Intake Total 1200 ml 360 ml 1828 ml Output Total 1200 ml Balance 1200 ml -840 ml 1828 ml Assessment & Plan Problem List: (1) Adjustment disorder with disturbance of conduct Assessment & Plan: Patient does not show any evidence of depressive symptoms, anxiety, ricardo or psychosis. Denies suicidal or homicidal ideation, he denies visual and auditory hallucinations. No psychotropics indicated at this moment. No immediate psychiatric intervention. ICD Code: F43.24 Assessment & Plan Estimated LOS: days Justification for Cont. Inpt. Patient does not meet criteria for psychiatric admission at this moment. Deni Steve MD August 26, 2016 13:55
[2016-08-26] MEDS ORDERED: VANCOMYCIN INJ 1,500 MG in SODIUM CHLORID 0.9% 500 ML INJ 500 ML IV SCH (16:00)
[2016-08-27] VITALS (7 sets, daily range): BP systolic 134–154; BP diastolic 80–98; PULSE 60–76; RESP 16–22; TEMP 97.6–98.5; O2SAT 96–98
[2016-08-27] MEDS: POTASSIUM PHOSPHATE/SODIUM PHOSPHATE 250 MG TAB PO SCH ×5 (01:08→21:51)
[2016-08-27] MEDS: CEFEPIME INJ 2,000 MG in SODIUM CHLORIDE 0.9% INJ 100 ML IV SCH ×2 (01:08→08:53)
[2016-08-27] MEDS: SODIUM CHLOR 0.9% 1000 ML INJ 1,000 ML IV SCH ×2 (01:09→14:00)
[2016-08-27 07:18] LABS: BASOPHIL % 0.3 % (0.0-2.0); EOSINOPHIL # 0.1 TH/MM3 (0-0.4); EOSINOPHIL % 1.1 % (0.0-4.0); HEMO FLAGS DIFF FINAL; LYMPH % 35.1 % (9.0-44.0); LYMPHOCYTE # 1.9 TH/MM3 (1.0-4.8); MEAN CELL VOLUME 87.5 FL (80.0-100.0); MEAN CORPUSCULAR HEMOGLOBIN 29.7 PG (27.0-34.0); MEAN CORPUSCULAR HGB CONC 33.9 % (32.0-36.0); MONO % 9.3 % (0.0-8.0); NEUT % 54.2 % (16.0-70.0); PLATELET COUNT 356 TH/MM3 (150-450); RED CELL DISTRIBUTION WIDTH 15.9 % (11.6-17.2); WHITE BLOOD COUNT 5.5 TH/MM3 (4.0-11.0)
[2016-08-27 07:43] LABS: ALT (GPT) 29 U/L (12-78); ANION GAP 8 MEQ/L (5-15); AST (GOT) 18 U/L (15-37); BICARBONATE 24.9 MEQ/L (21.0-32.0); BLOOD UREA NITROGEN 6 MG/DL (7-18); CHLORIDE 110 MEQ/L (98-107); GLOMERULAR FILTRATION RATE 202 ML/MIN (>89); POTASSIUM 3.4 MEQ/L (3.5-5.1); SODIUM (NA) 143 MEQ/L (136-145)
[2016-08-27 07:46] LABS: ALKALINE PHOSPHATASE 47 U/L (45-117); TOTAL BILIRUBIN ADULT 0.1 MG/DL (0.2-1.0)
[2016-08-27] MEDS: SODIUM CHLORIDE 0.9% FLUSH 10 ML FLUSH IV FLUSH SCH ×2 (08:50→21:51)
[2016-08-27] MEDS: MEGESTROL ACETATE SUSP 400 MG/10 ML CUP PO SCH (08:53)
[2016-08-27] MEDS: ENOXAPARIN SODIUM 40 MG/0.4 ML SYRINGE SQ SCH (08:54)
[2016-08-27] MEDS ORDERED: POTASSIUM CHLORIDE 25 MEQ EFFERVESCENT TAB PO ONE (15:15)
[2016-08-27] MEDS ORDERED: PHARMACY ORDERED LAB ONE (15:45)
--- NOTE | 2016-08-27 15:58 | HHI.PR ---
Subjective Remarks Follow-up for bacteremia No overnight events, no fever or chills. Eating okay. No nausea or vomiting. Denies any diarrhea. No rash. Objective Vitals Vital Signs Date Time Temp Pulse Resp B/P Pulse Ox O2 Delivery O2 Flow Rate FiO2 08/27/16 12:00 98.2 64 16 147/89 97 08/27/16 08:55 Room Air 08/27/16 08:10 63 08/27/16 08:00 98.3 70 16 154/98 96 08/27/16 04:00 Room Air 08/27/16 04:00 98.2 60 22 134/80 96 08/27/16 00:00 98.5 76 20 153/92 96 08/27/16 00:00 Room Air 08/26/16 21:50 Room Air 08/26/16 21:50 98.2 65 16 148/95 99 08/26/16 20:00 59 08/26/16 16:06 97.7 86 17 160/88 99 I/O 08/26/16 08/26/16 08/26/16 08/27/16 08/27/16 08/27/16 07:00 15:00 23:00 07:00 15:00 23:00 Intake Total 1998 ml 1649 ml 2047 ml 1208 ml 570 ml Output Total 2000 ml 1475 ml 2000 ml Balance 1998 ml -351 ml 572 ml -792 ml 570 ml Intake Oral 800 ml 480 ml 900 ml 220 ml IV Total 1198 ml 1169 ml 1147 ml 988 ml 570 ml Output Urine Total 2000 ml 1475 ml 2000 ml Stool Total 0 ml # Voids 3 # Bowel Movements 1 2 0 Result Diagram: 08/27/16 0605 08/27/16 0605 Objective Remarks Not in distress, well-nourished, looks stated age PERRL, pink conjunctiva without injection, anicteric Nose without bleeding, airway patent, oropharynx clear Supple neck, no masses or thyromegaly, trachea midline Normal rate and regular rhythm, no murmurs gallops or rubs appreciated. Clear to auscultation and symmetric bilaterally, normal respiratory effort. Normal bowel sounds, soft, non-tender, nondistended, no guarding. Extremities without clubbing, cyanosis, or edema. No rash of generalized distribution. Skin is warm and dry. AAO x3, no cranial nerve deficits, moves all 4 extremities, no focal neurologic deficits, slow mentation Procedures none A/P Problem List: (1) Sepsis ICD Code: A41.9 Status: Acute (2) UTI (urinary tract infection) ICD Code: N39.0 Status: Resolved (3) Hyponatremia ICD Code: E87.1 Status: Resolved (4) Major depression ICD Code: F32.9 Status: Acute (5) Fever ICD Code: R50.9 Status: Acute (6) Hypokalemia ICD Code: E87.6 Status: Acute (7) Illicit drug use ICD Code: F19.90 Status: Chronic (8) Poor appetite ICD Code: R63.0 Status: Acute Assessment and Plan (1) SIRS (systemic inflammatory response syndrome)/sepsis SIRS/Sepsis present on admission ? recurrent bacteremia. Patient has h/o IV drug abuse Treated with Iv vancomycin, Cefepime and ampicillin. Ampicillin discontinued Blood cultures negative 3 Infectious disease consult appreciated Chest x-rays clear, MRI L spine ----> Does not show any abnormality fu 2D echo rule out culture negative endocarditis Discussed with ID, vancomycin stopped yesterday, cefepime discontinued today. Is doing well tomorrow, may be discharged home. (2) UTI (urinary tract infection) Urine culture negative (3) Hyponatremia Plan: Secondary to hypovolemic hyponatremia secondary to dehydration. Resolved after IV fluid administration. (4) Major depression Plan: Appreciated psychiatric consultation. As per psychiatry patient seems to be oppositional, resistant and selectively mute. Le act lifted. Ct head negative. (5) Fever Plan: Tylenol when necessary. Fevers resolved. Continue to monitor vital signs. (6) Hypokalemia Plan: Likely due to poor oral intake. replace orally and monitor bmp. (7) Illicit drug use Plan: Patient has h/o of IV drug use and abuse, drug seeking behavior. Positive for amphetamines on urine toxicology. (8) Poor appetite Plan: Continue Megace. Encourage po intake. DVT prophylaxis: Lovenox subcutaneously. 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
--- NOTE | 2016-08-27 16:14 | HHI.IDPN ---
Subjective Subjective Remarks Patient is a 40-year-old male, brought in as a Le act. He is febrile up to 103. H/o tricuspid valve endocarditis back in 2016. His drug screen have been positive for amphetamines and cocaine. Notes reviewed Remains afebrile Le act has been lifted No complaints BC are negative No vegetation seen on echo Lumbar spine MRI ok Antibiotics cefepime Past Medical History Reviewed Allergies: Coded Allergies: *MDRO Multi-Drug Resistant Organism (Verified Adverse Reaction, Unknown, ) MRSA (urine-01/04/16) & (blood-01/06/16) Objective . Vital Signs Date Time Temp Pulse Resp B/P Pulse Ox O2 Delivery O2 Flow Rate FiO2 08/27/16 12:00 98.2 64 16 147/89 97 08/27/16 08:55 Room Air 08/27/16 08:10 63 08/27/16 08:00 98.3 70 16 154/98 96 08/27/16 04:00 Room Air 08/27/16 04:00 98.2 60 22 134/80 96 08/27/16 00:00 98.5 76 20 153/92 96 08/27/16 00:00 Room Air 08/26/16 21:50 Room Air 08/26/16 21:50 98.2 65 16 148/95 99 08/26/16 20:00 59 08/26/16 08/26/16 08/27/16 15:00 23:00 07:00 Intake Total 1649 ml 2047 ml 1208 ml Output Total 2000 ml 1475 ml 2000 ml Balance -351 ml 572 ml -792 ml Intake Oral 480 ml 900 ml 220 ml IV Total 1169 ml 1147 ml 988 ml Output Urine Total 2000 ml 1475 ml 2000 ml Stool Total 0 ml # Bowel Movements 2 0 . Laboratory Tests Test 08/26/16 08/27/16 11:00 06:05 White Blood Count 5.4 TH/MM3 5.5 TH/MM3 Red Blood Count 4.09 MIL/MM3 4.00 MIL/MM3 Hemoglobin 11.8 GM/DL 11.9 GM/DL Hematocrit 36.5 % 35.0 % Mean Corpuscular Volume 89.3 FL 87.5 FL Mean Corpuscular Hemoglobin 28.8 PG 29.7 PG Mean Corpuscular Hemoglobin 32.2 % 33.9 % Concent Red Cell Distribution Width 15.9 % 15.9 % Platelet Count 290 TH/MM3 356 TH/MM3 Mean Platelet Volume 7.7 FL 7.5 FL Neutrophils (%) (Auto) 57.7 % 54.2 % Lymphocytes (%) (Auto) 32.6 % 35.1 % Monocytes (%) (Auto) 9.0 % 9.3 % Eosinophils (%) (Auto) 0.6 % 1.1 % Basophils (%) (Auto) 0.1 % 0.3 % Neutrophils # (Auto) 3.1 TH/MM3 3.0 TH/MM3 Lymphocytes # (Auto) 1.8 TH/MM3 1.9 TH/MM3 Monocytes # (Auto) 0.5 TH/MM3 0.5 TH/MM3 Eosinophils # (Auto) 0.0 TH/MM3 0.1 TH/MM3 Basophils # (Auto) 0.0 TH/MM3 0.0 TH/MM3 CBC Comment DIFF FINAL DIFF FINAL Differential Comment Laboratory Tests Test 08/26/16 08/27/16 11:00 06:05 Sodium Level 141 MEQ/L 143 MEQ/L Potassium Level 3.2 MEQ/L 3.4 MEQ/L Chloride Level 108 MEQ/L 110 MEQ/L Carbon Dioxide Level 25.2 MEQ/L 24.9 MEQ/L Anion Gap 8 MEQ/L 8 MEQ/L Blood Urea Nitrogen 4 MG/DL 6 MG/DL Creatinine 0.58 MG/DL 0.46 MG/DL Estimat Glomerular Filtration 154 ML/MIN 202 ML/MIN Rate Random Glucose 105 MG/DL 98 MG/DL Calcium Level 8.7 MG/DL 8.4 MG/DL Total Bilirubin 0.1 MG/DL 0.1 MG/DL Aspartate Amino Transf 30 U/L 18 U/L (AST/SGOT) Alanine Aminotransferase 35 U/L 29 U/L (ALT/SGPT) Alkaline Phosphatase 47 U/L 47 U/L Total Protein 6.7 GM/DL 6.4 GM/DL Albumin 2.0 GM/DL 1.9 GM/DL Imaging Lumbar Spine MRI 08/23/16 0000 Signed Impressions: Service Date/Time: Tuesday, August 23, 2016 14:16 - CONCLUSION: No significant abnormality of the lumbar spine is identified. Ruel Dill MD Abdomen X-Ray 08/23/16 0000 Signed Impressions: Service Date/Time: Tuesday, August 23, 2016 11:55 - CONCLUSION: No acute abdominal abnormality is identified. Additionally, there is no radiopaque foreign body seen. Ruel Dill MD Head CT 08/20/162032 Signed Impressions: Service Date/Time: July 21:02 - CONCLUSION: Negative noncontrast head CT. Ruel Forrest MD Chest X-Ray 08/20/162032 Signed Impressions: Service Date/Time: July 21:00 - CONCLUSION: Mild right base atelectasis/scarring. Ruel Forrest MD Physical Exam GENERAL: awake, follows all commands, and answer all my questions, NAD SKIN: Warm and dry. No generalized rash, no ecchymoses and no evidence of embolic lesions. Has track nolen in BUE HEAD: Atraumatic. Normocephalic. No temporal wasting, or tenderness. EYES: Innovation conjunctiva. No petechia or hemorrhage. Pupils equal, round and reactive to light. Extraocular movements full and intact. No scleral icterus. Has some milena conjunctival injection. EARS, NOSE AND THROAT: Nose without bleeding or purulent nasal discharge. No sinus tenderness. Mucous membranes pink and moist. No oral lesions noted. No exudate. No oral thrush. NECK: Trachea midline. Supple and not tender, no meningeal signs CARDIOVASCULAR: Regular rate and rhythm. No murmurs, rubs or gallops heard RESPIRATORY: Clear to auscultation. Breath sounds equal bilaterally. No rales , wheezing or rhonchi ABDOMEN: Soft, non-tender, nondistended. Bowel sounds present and normoactive. No guarding. No rebound. No organomegaly. EXTREMITIES: No clubbing, cyanosis, or edema.No joint effusion, has good ROM. No calf tenderness. Well perfused and warm. NEUROLOGICAL: Non-focal PSYCHIATRIC: Calm and cooperative LINE: No evidence of infection Assessment & Plan Remarks IMPRESSION FUO in known IVDU pt - fever resolved - workup negative for endocarditis - all C/S negative Suicide attempt Previous Hx TV IE, has been treated at least 2x RECOMMENDATION Stop Cefepime If stable, D/C tomorrow on no Abx D/W Kasia Zavala MD Aug 27, 2016 16:14
[2016-08-28] VITALS: BP 135/96; PULSE 75; RESP 20; TEMP 98; O2SAT 96
[2016-08-28 02:58] VITALS: PULSE 71
[2016-08-28 04:00] VITALS: BP 131/90; PULSE 85; RESP 20; TEMP 98.4; O2SAT 97
[2016-08-28] MEDS: POTASSIUM PHOSPHATE/SODIUM PHOSPHATE 250 MG TAB PO SCH (05:29)
[2016-08-28 08:00] VITALS: BP 141/102; PULSE 87; RESP 18; TEMP 98.8; O2SAT 96
[2016-08-28] MEDS: ENOXAPARIN SODIUM 40 MG/0.4 ML SYRINGE SQ SCH (08:33)
[2016-08-28] MEDS: SODIUM CHLORIDE 0.9% FLUSH 10 ML FLUSH IV FLUSH SCH (08:33)
[2016-08-28] MEDS: MEGESTROL ACETATE SUSP 400 MG/10 ML CUP PO SCH (08:49)
--- NOTE | 2016-08-28 11:22 | HHI.DS ---
Discharge Summary Admission Date August 20, 2016 at 23:53 Discharge Date: Aug 28, 2016 Admitting Diagnosis SIRS, fever, suicidal ideation, UTI, major depression (1) Sepsis ICD Code: A41.9 Diagnosis: Principal (2) UTI (urinary tract infection) ICD Code: N39.0 Diagnosis: Secondary (3) Hyponatremia ICD Code: E87.1 Diagnosis: Secondary (4) Major depression ICD Code: F32.9 Diagnosis: Secondary (5) Fever ICD Code: R50.9 Diagnosis: Secondary (6) Hypokalemia ICD Code: E87.6 Diagnosis: Secondary (7) Illicit drug use ICD Code: F19.90 Diagnosis: Secondary (8) Poor appetite ICD Code: R63.0 Diagnosis: Secondary Procedures none Brief History - From Admission History from the ER physician communication, and review of medical records. Patient himself is not given any history at all. He looks to be quite lethargic at the time of my arrival. His vitals however is stable. He is unable to focus the examiner when questions. He is noted to be dressed and sweats in his room with his therapist what all around. He however denies diarrhea. Denies any urinary burning or pain on urination. Breaks ER report, patient was brought in by police officers and her because because the bruising has been showing CBC/BMP: 08/27/16 0605 08/27/16 0605 Significant Findings Laboratory Tests Test 08/25/16 08/26/16 08/27/16 16:00 11:00 06:05 Vancomycin Level Trough 14.4 MCG/ML (5.0-10.0) Red Blood Count 4.09 MIL/MM3 4.00 MIL/MM3 (4.50-5.90) (4.50-5.90) Hemoglobin 11.8 GM/DL 11.9 GM/DL (13.0-17.0) (13.0-17.0) Hematocrit 36.5 % 35.0 % (39.0-51.0) (39.0-51.0) Monocytes (%) (Auto) 9.0 % (0.0-8.0) 9.3 % (0.0-8.0) Potassium Level 3.2 MEQ/L 3.4 MEQ/L (3.5-5.1) (3.5-5.1) Chloride Level 108 MEQ/L 110 MEQ/L (98-107) (98-107) Blood Urea Nitrogen 4 MG/DL (7-18) 6 MG/DL (7-18) Creatinine 0.58 MG/DL 0.46 MG/DL (0.60-1.30) (0.60-1.30) Total Bilirubin 0.1 MG/DL 0.1 MG/DL (0.2-1.0) (0.2-1.0) Albumin 2.0 GM/DL 1.9 GM/DL (3.4-5.0) (3.4-5.0) Calcium Level 8.4 MG/DL (8.5-10.1) PE at Discharge Not in distress, well-nourished, looks stated age PERRL, pink conjunctiva without injection, anicteric Nose without bleeding, airway patent, oropharynx clear Supple neck, no masses or thyromegaly, trachea midline Normal rate and regular rhythm, no murmurs gallops or rubs appreciated. Clear to auscultation and symmetric bilaterally, normal respiratory effort. Normal bowel sounds, soft, non-tender, nondistended, no guarding. Extremities without clubbing, cyanosis, or edema. No rash of generalized distribution. Skin is warm and dry. AAO x3, no cranial nerve deficits, moves all 4 extremities, no focal neurologic deficits, slow mentation Pt update on day of discharge No overnight events, no fever, urinary symptoms, diarrhea, abdominal pain, nausea or vomiting. Patient feels good. Hospital Course This is a 40-year-old male who presented with possible sepsis on admission. Patient was placed on broad-spectrum antibiotics with vancomycin, cefepime and ampicillin. Infectious disease was consulted. Blood culture remained negative. Chest x-ray was clear, MRI of the lumbar spine was negative. Echocardiogram was negative for endocarditis. Patient showed improvement, no fever, urine culture remained negative. Antibodies were the escalated. Initially vancomycin was stopped and then subsequently cefepime was stopped. Patient was doing well hence patient was cleared for discharge by infectious disease. Pt Condition on Discharge: Good Discharge Disposition: Discharge Home Discharge Time: > 30 minutes Discharge Instructions DIET: Follow Instructions for: As Tolerated, No Restrictions Activities you can perform: Regular-No Restrictions Follow up Referrals: PCP Follow-up - 1 Week Continued Medications: Lorazepam (Ativan) 0.5 Mg Tab 0.5 MG PO Q8H PRN MOD - SEVERE ANXIETY/AGITATION #30 TAB Rifampin (Rifampin) 300 Mg Cap 300 MG PO BID Infection #28 Ref 0 CAP Discontinued Medications: Levofloxacin (Levaquin) 750 Mg Tab 750 MG PO DAILY Infection #14 Ref 0 TAB John Ashley MD Aug 28, 2016 11:22
== END 2016-08-28 09:09 | disposition home or self-care (01) | DRG 872 ==
LOC: NEPC 20:15 → NEDA 22:41 → OBSVTOIN 23:53 → HIMN 08-21 01:51 → N04B 08-22 23:19
PROVIDERS: ADMIT Hospitalist; ATTEND Hospitalist
DX: A41.9 Sepsis, unspecified organism (principal); E87.1 Hypo-osmolality and hyponatremia; N39.0 Urinary tract infection, site not specified; F19.14 Other psychoactive substance abuse with psychoactive substance-induced mood disorder; F32.9 Major depressive disorder, single episode, unspecified; F94.0 Selective mutism; E87.6 Hypokalemia; E86.0 Dehydration; B19.20 Unspecified viral hepatitis C without hepatic coma; Z86.14 Personal history of Methicillin resistant Staphylococcus aureus infection; F43.10 Post-traumatic stress disorder, unspecified; F17.210 Nicotine dependence, cigarettes, uncomplicated
CPT/HCPCS: 70450; 71010; 72158; 74000; 76937; 80048; 80053; 80202; 80307; 81001; 83605; 83735; 84100; 85007; 85025; 85027; 87040; 87086; 87641; 93308; 96361; 96365; A9579; J0290; J0692; J1650; J2543; J3370; J3480; J7030; J7040; J7050

== ENCOUNTER 2016-09-09 14:56 | Emergency (ER) | payer BC, MEDICAID ==
[~2016-09-09] VITALS: Ht 177.8 cm; Wt 74.0 kg
[~2016-09-09 14:56] MED LIST changes: -LEVA750T PO
[2016-09-09] MEDS ORDERED: SODIUM CHLOR 0.9% 1000 ML INJ 1,000 ML IV SCH (15:09)
[2016-09-09 15:10] VITALS: BP 172/103; PULSE 98; RESP 21; TEMP 97.2; O2SAT 96
[2016-09-09 15:11] VITALS: O2SAT 96
[2016-09-09] MEDS ORDERED: HYDROmorphone HCL PF 1 MG/ML VIAL IVS ONE (15:15)
[2016-09-09] MEDS ORDERED: ONDANSETRON HCL 4 MG/2 ML VIAL IVP ONE (15:15)
[2016-09-09] MEDS ORDERED: SODIUM CHLORIDE 0.9% FLUSH 10 ML FLUSH IV FLUSH PRN (15:15)
[2016-09-09 16:07] VITALS: BP 148/98; PULSE 101; RESP 24; O2SAT 97
[2016-09-09 16:30] LABS: AUTOMATED NEUTROPHIL # 5.9 TH/MM3 (1.8-7.7); BASOPHIL % 0.5 % (0.0-2.0); EOSINOPHIL % 0.5 % (0.0-4.0); HEMATOCRIT 45.2 % (39.0-51.0); HEMO FLAGS DIFF FINAL; LYMPH % 26.2 % (9.0-44.0); LYMPHOCYTE # 2.2 TH/MM3 (1.0-4.8); MEAN CELL VOLUME 88.4 FL (80.0-100.0); MEAN CORPUSCULAR HEMOGLOBIN 28.5 PG (27.0-34.0); MEAN CORPUSCULAR HGB CONC 32.2 % (32.0-36.0); MONO % 4.6 % (0.0-8.0); NEUT % 68.2 % (16.0-70.0); PLATELET COUNT 209 TH/MM3 (150-450); RED BLOOD COUNT 5.11 MIL/MM3 (4.50-5.90); RED CELL DISTRIBUTION WIDTH 15.1 % (11.6-17.2); WHITE BLOOD COUNT 8.6 TH/MM3 (4.0-11.0)
[2016-09-09 16:37] LABS: APTT (PATIENT) 29.1 SEC (24.3-30.1); PROTHROMBIN TIME - PATIENT 11.1 SEC (9.8-11.6)
[2016-09-09 16:48] LABS: ALT (GPT) 55 U/L (12-78); ANION GAP 7 MEQ/L (5-15); AST (GOT) 32 U/L (15-37); BICARBONATE 27.6 MEQ/L (21.0-32.0); BLOOD UREA NITROGEN 11 MG/DL (7-18); CHLORIDE 104 MEQ/L (98-107); GLOMERULAR FILTRATION RATE 98 ML/MIN (>89); POTASSIUM 3.7 MEQ/L (3.5-5.1); SODIUM (NA) 139 MEQ/L (136-145)
[2016-09-09 16:51] LABS: ALKALINE PHOSPHATASE 69 U/L (45-117); TOTAL BILIRUBIN ADULT 0.4 MG/DL (0.2-1.0)
--- NOTE | 2016-09-09 17:04 | PD ---
HPI Chief Complaint: Pain: Acute or Chronic Time Seen by Provider: 15:06 Travel History International Travel<30 days: No Contact w/Intl Traveler<30days: No Traveled to known affect area: No History of Present Illness HPI Patient is a 40-year-old male brought in by EMS, screaming in pain. He says that 2 hours ago he developed abdominal pain that has since moved into his left testicle. He is screaming, and does not offer much more history. He has not had fever or chills. He has had some nausea and vomiting. PFSH Past Medical History Medical History: Denies Significant Hx Anxiety: Yes Depression: Yes Cancer: No Cardiovascular Problems: Yes (PT STATES HE "MIGHT" HAVE HAD A PREVIOUS CARDIAC EVENT BUT NOT SURE) Chest Pain: Yes Congestive Heart Failure: No Diminished Hearing: No Endocrine: No Gastrointestinal Disorders: No Genitourinary: No Hypertension: No Immune Disorder: No Implanted Vascular Access Dvce: Yes Musculoskeletal: No Neurologic: No Psychiatric: Yes (DEPRESSION AND PREVIOUS SUICIDE ATTEMPT ) Respiratory: Yes Immunizations Current: Yes Pneumonia: Yes Past Surgical History Surgical History: No Previous Surgery Other Surgery: Yes (LEFT HAND PER PT) Social History Alcohol Use: No (DENIES) Tobacco Use: Yes (1 PPD) Substance Use: No (DENIES) Allergies-Medications (Allergen,Severity, Reaction): Coded Allergies: *MDRO Multi-Drug Resistant Organism (Verified Adverse Reaction, Unknown, ) MRSA (urine-01/04/16) & (blood-01/06/16) Reported Meds & Prescriptions Reported Meds & Active Scripts Active Percocet (Oxycodone-Acetaminophen) 5-325 mg Tab 1 Tab PO Q6H PRN Naproxen EC (Naproxen) 375 Mg Tabdr 375 Mg PO BID Flomax (Tamsulosin HCl) 0.4 Mg Cap 0.4 Mg PO HS Ativan (Lorazepam) 0.5 Mg Tab 0.5 Mg PO Q8H PRN Rifampin 300 Mg Cap 300 Mg PO BID Review of Systems ROS Limitations: Clinical Condition General / Constitutional: No: Fever, Chills Cardiovascular: No: Chest Pain or Discomfort Respiratory: No: Shortness of Breath Gastrointestinal: Positive: Nausea, Vomiting, Abdominal Pain Genitourinary: Positive: Other (testicular pain) Skin: No Rash, No Change in Pigmentation Physical Exam Narrative GENERAL: Awake and alert, in moderate distress due to pain. SKIN: Focused skin assessment warm/dry. HEAD: Atraumatic. Normocephalic. EYES: Pupils equal and round. No scleral icterus. ENT: Mucous membranes pink and moist. NECK: Trachea midline. No JVD. CARDIOVASCULAR: Regular rate and rhythm. No murmur appreciated. RESPIRATORY: No accessory muscle use. Clear to auscultation. Breath sounds equal bilaterally. GASTROINTESTINAL: Abdomen soft, nondistended. Tender to palpation of the left lower quadrant. No rebound or guarding. : Performed in the presence of the nurse. There are no penile or testicular lesions. No testicular masses. Testicles are not enlarged, normal lay. Tender to palpation of the entire testicle. MUSCULOSKELETAL: No obvious deformities. No clubbing. No cyanosis. No edema. NEUROLOGICAL: Awake and alert. No obvious cranial nerve deficits. Motor grossly within normal limits. Normal speech. PSYCHIATRIC: Appropriate mood and affect; insight and judgment normal. Data Data Last Documented VS Vital Signs Date Time Temp Pulse Resp B/P Pulse Ox O2 Delivery O2 Flow Rate FiO2 09/09/16 19:12 88 20 139/89 100 Room Air 09/09/16 15:10 97.2 Orders Complete Blood Count With Diff (09/09/16 15:09) Comprehensive Metabolic Panel (09/09/16 15:09) Lactic Acid (09/09/16 15:09) Prothrombin Time / Inr (Pt) (09/09/16 15:09) Act Partial Throm Time (Ptt) (09/09/16 15:09) Urinalysis - C+S If Indicated (09/09/16 15:09) Ua Includes Microscopic (09/09/16 15:09) Ct Abd/Pel W Iv Contrast(Rout) (09/09/16 15:09) Iv Access Insert/Monitor (09/09/16 15:09) Ecg Monitoring (09/09/16 15:09) Oximetry (09/09/16 15:09) Ondansetron Inj (Zofran Inj) (09/09/16 15:15) Sodium Chlor 0.9% 1000 Ml Inj (Ns 1000 M (09/09/16 15:09) Sodium Chloride 0.9% Flush (Ns Flush) (09/09/16 15:15) Hydromorphone Pf Inj (Dilaudid Pf Inj) (09/09/16 15:15) Us Testicles W Doppler (09/09/16 ) Iohexol 350 Inj (Omnipaque 350 Inj) (09/09/16 17:21) Ketorolac Inj (Toradol Inj) (09/09/16 18:30) Hydromorphone Pf Inj (Dilaudid Pf Inj) (09/09/16 18:30) Labs Laboratory Tests Test 09/09/16 09/09/16 15:40 19:10 White Blood Count 8.6 TH/MM3 Red Blood Count 5.11 MIL/MM3 Hemoglobin 14.5 GM/DL Hematocrit 45.2 % Mean Corpuscular Volume 88.4 FL Mean Corpuscular Hemoglobin 28.5 PG Mean Corpuscular Hemoglobin 32.2 % Concent Red Cell Distribution Width 15.1 % Platelet Count 209 TH/MM3 Mean Platelet Volume 8.9 FL Neutrophils (%) (Auto) 68.2 % Lymphocytes (%) (Auto) 26.2 % Monocytes (%) (Auto) 4.6 % Eosinophils (%) (Auto) 0.5 % Basophils (%) (Auto) 0.5 % Neutrophils # (Auto) 5.9 TH/MM3 Lymphocytes # (Auto) 2.2 TH/MM3 Monocytes # (Auto) 0.4 TH/MM3 Eosinophils # (Auto) 0.0 TH/MM3 Basophils # (Auto) 0.0 TH/MM3 CBC Comment DIFF FINAL Differential Comment Prothrombin Time 11.1 SEC Prothromb Time International 1.0 RATIO Ratio Activated Partial 29.1 SEC Thromboplast Time Sodium Level 139 MEQ/L Potassium Level 3.7 MEQ/L Chloride Level 104 MEQ/L Carbon Dioxide Level 27.6 MEQ/L Anion Gap 7 MEQ/L Blood Urea Nitrogen 11 MG/DL Creatinine 0.86 MG/DL Estimat Glomerular Filtration 98 ML/MIN Rate Random Glucose 92 MG/DL Lactic Acid Level 1.0 mmol/L Calcium Level 9.7 MG/DL Total Bilirubin 0.4 MG/DL Aspartate Amino Transf 32 U/L (AST/SGOT) Alanine Aminotransferase 55 U/L (ALT/SGPT) Alkaline Phosphatase 69 U/L Total Protein 8.2 GM/DL Albumin 3.3 GM/DL Urine Color LIGHT-YELLOW Urine Turbidity CLEAR Urine pH 5.5 Urine Specific [place] 1.022 Urine Protein NEG mg/dL Urine Glucose (UA) NEG mg/dL Urine Ketones TRACE mg/dL Urine Occult Blood LARGE Urine Nitrite NEG Urine Bilirubin NEG Urine Urobilinogen LESS THAN 2.0 MG/DL Urine Leukocyte Esterase NEG Urine RBC 16 /hpf Urine WBC 4 /hpf Microscopic Urinalysis Comment CULT NOT INDICATED MDM Medical Decision Making Medical Screen Exam Complete: Yes Emergency Medical Condition: Yes Medical Record Reviewed: Yes Differential Diagnosis Testicular torsion versus epididymitis versus orchitis versus diverticulitis versus colitis versus hernia Narrative Course Patient is a 40-year-old male comes in complaining of left-sided abdominal pain as well as testicular pain. Exam shows tenderness to left lower quadrant and the left testicle. IV established, labs sent. Patient given Dilaudid and Zofran. Ultrasound and CAT scan ordered. Patient signed out to Dr. Fleming to follow up testing and disposition the patient. Scripts Oxycodone-Acetaminophen (Percocet)5-325 mg Tab1 Tab PO Q6H PRN (PAIN) #20 TAB Ref 0 Prov:Edison Fleming MD 09/09/16 Naproxen (Naproxen EC)375 Mg [id number] Mg PO BID #14 TAB Ref 0 Prov:Edison Fleming MD 09/09/16 Tamsulosin (Flomax)0.4 Mg Cap0.4 Mg PO HS #6 CAP Ref 0 Prov:Edison Fleming MD 09/09/16 Condition: Stable Margot Delarosa MD Sep 09, 2016 17:04
--- NOTE | 2016-09-09 17:04 | RADRPT ---
EXAM DATE/TIME: 09/09/2016 16:29 [facility] COMPARISON: US CHEST RIGHT, February 04, 2016, 22:36. INDICATIONS : Scrotal pain. MEDICAL HISTORY : Pneumonia. Depression. Post traumatic stress disorder. Anxiety. Suicide attempt. MRSA. SURGICAL HISTORY : Left hand surgery. ENCOUNTER: Initial ACUITY: 1 day PAIN SCORE: 7/10 LOCATION: Bilateral scrotum. MEASUREMENTS: RIGHT TESTICLE: 3.3 x 2.7 x 2.1cm LEFT TESTICLE: 4.0 x 2.4 x 1.8cm FINDINGS: RIGHT TESTICLE: Homogeneous echotexture without intra or extratesticular mass. Blood flow is symmetric and within no rmal limits. No hydrocele or varicocele. Epididymis is within normal limits. LEFT TESTICLE: Homogeneous echotexture without intra or extratesticular mass. Blood flow is symmetric and within no rmal limits. No hydrocele or varicocele. Epididymis is within normal limits. SCROTUM: Within normal limits. CONCLUSION: 1. Negative examination. Germán Bettencourt MD on September 09, 2016 at 17:02 Board Certified Radiologist. This report was verified electronically.
[2016-09-09] MEDS ORDERED: IOHEXOL 350 MG/ML 10 ML VIAL (for RAD DIAG) IV ONE (17:21)
--- NOTE | 2016-09-09 17:25 | PD ---
Physical Exam Date Seen by Provider: Sep 09, 2016 Narrative received patient from dr maldonado pending ct/ultrasound and dispo. presently pt awaiting ct study Data Data Last Documented VS Vital Signs Date Time Temp Pulse Resp B/P Pulse Ox O2 Delivery O2 Flow Rate FiO2 09/09/16 16:07 101 24 148/98 97 Room Air 09/09/16 15:10 97.2 Orders Complete Blood Count With Diff (09/09/16 15:09) Comprehensive Metabolic Panel (09/09/16 15:09) Lactic Acid (09/09/16 15:09) Prothrombin Time / Inr (Pt) (09/09/16 15:09) Act Partial Throm Time (Ptt) (09/09/16 15:09) Urinalysis - C+S If Indicated (09/09/16 15:09) Ua Includes Microscopic (09/09/16 15:09) Ct Abd/Pel W Iv Contrast(Rout) (09/09/16 15:09) Iv Access Insert/Monitor (09/09/16 15:09) Ecg Monitoring (09/09/16 15:09) Oximetry (09/09/16 15:09) Ondansetron Inj (Zofran Inj) (09/09/16 15:15) Sodium Chlor 0.9% 1000 Ml Inj (Ns 1000 M (09/09/16 15:09) Sodium Chloride 0.9% Flush (Ns Flush) (09/09/16 15:15) Hydromorphone Pf Inj (Dilaudid Pf Inj) (09/09/16 15:15) Us Testicles W Doppler (09/09/16 ) Iohexol 350 Inj (Omnipaque 350 Inj) (09/09/16 17:21) Ketorolac Inj (Toradol Inj) (09/09/16 18:30) Hydromorphone Pf Inj (Dilaudid Pf Inj) (09/09/16 18:30) Labs Laboratory Tests Test 09/09/16 15:40 White Blood Count 8.6 TH/MM3 Red Blood Count 5.11 MIL/MM3 Hemoglobin 14.5 GM/DL Hematocrit 45.2 % Mean Corpuscular Volume 88.4 FL Mean Corpuscular Hemoglobin 28.5 PG Mean Corpuscular Hemoglobin 32.2 % Concent Red Cell Distribution Width 15.1 % Platelet Count 209 TH/MM3 Mean Platelet Volume 8.9 FL Neutrophils (%) (Auto) 68.2 % Lymphocytes (%) (Auto) 26.2 % Monocytes (%) (Auto) 4.6 % Eosinophils (%) (Auto) 0.5 % Basophils (%) (Auto) 0.5 % Neutrophils # (Auto) 5.9 TH/MM3 Lymphocytes # (Auto) 2.2 TH/MM3 Monocytes # (Auto) 0.4 TH/MM3 Eosinophils # (Auto) 0.0 TH/MM3 Basophils # (Auto) 0.0 TH/MM3 CBC Comment DIFF FINAL Differential Comment Prothrombin Time 11.1 SEC Prothromb Time International 1.0 RATIO Ratio Activated Partial 29.1 SEC Thromboplast Time Sodium Level 139 MEQ/L Potassium Level 3.7 MEQ/L Chloride Level 104 MEQ/L Carbon Dioxide Level 27.6 MEQ/L Anion Gap 7 MEQ/L Blood Urea Nitrogen 11 MG/DL Creatinine 0.86 MG/DL Estimat Glomerular Filtration 98 ML/MIN Rate Random Glucose 92 MG/DL Lactic Acid Level 1.0 mmol/L Calcium Level 9.7 MG/DL Total Bilirubin 0.4 MG/DL Aspartate Amino Transf 32 U/L (AST/SGOT) Alanine Aminotransferase 55 U/L (ALT/SGPT) Alkaline Phosphatase 69 U/L Total Protein 8.2 GM/DL Albumin 3.3 GM/DL [facility] Medical Record Reviewed: Yes Supervised Visit with PEMA: No Differential Diagnosis hernia vs appy vs divertic vs orchitis vs epididymitis vs torsion vs opiate seeking behavior Narrative Course upon change of shift reevaluated patient who is now pain controlled, cbc and cmp were wnl, also ultrasound did not show e/o orchitis, torsion or epididymitis at this time. currently awaiting ct (if neg will d/c home without any additional narcotic pain medications) Diagnosis Primary Impression: Ureterolithiasis Med/Other Pt SpecificInfo: Prescription(s) given Scripts Oxycodone-Acetaminophen (Percocet)5-325 mg Tab1 Tab PO Q6H PRN (PAIN) #20 TAB Ref 0 Prov:Edison Fleming MD 09/09/[address] (Naproxen EC)375 Mg Exptd938 Mg PO BID #14 TAB Ref 0 Prov:Edison Fleming MD 09/09/16 Tamsulosin (Flomax)0.4 Mg Cap0.4 Mg PO HS #6 CAP Ref 0 Prov:Edison Fleming MD 09/09/16 Disposition: 01 DISCHARGE HOME Condition: Stable Edison Fleming MD Sep 09, 2016 17:25
--- NOTE | 2016-09-09 17:48 | RADRPT ---
EXAM DATE/TIME: 09/09/2016 17:16 [facility] COMPARISON: CT THORAX W CONTRAST, May 18, 2016, 18:31. CT ABDOMEN & PELVIS W CONTRAST, May 18, 2016, 1 8:31. INDICATIONS : Pain in left testicle IV CONTRAST: 90 cc Omnipaque 350 (iohexol) IV ORAL CONTRAST: No oral contrast ingested. RADIATION DOSE: 5.29 CTDIvol (mGy) MEDICAL HISTORY : Cardiovascular disease. SURGICAL HISTORY : None. ENCOUNTER: Initial ACUITY: 1 day PAIN SCALE: 5/10 LOCATION: Left lower quadrant testicle TECHNIQUE: Volumetric scanning of the abdomen and pelvis was performed. Using automated exposure control and ad justment of the mA and/or kV according to patient size, radiation dose was kept as low as reasonably achievable to obtain optimal diagnostic quality images. FINDINGS: There is acute obstructive uropathy of the left proximal ureter secondary to a 6 mm calcified calculu s resulting in mild ureteropelvicaliectasis on the left. There are multiple nodular densities within the visualized lung bases which are indeterminate. Diffe rential includes true pulmonary nodules versus nodular infiltrates. Within the left lower lobe there is a 2.7 x 1.7 cm posterior medial nodule and a 1.7 x 2.3 cm posterior nodule. Within the right lower lobe there is a more diffuse nodular infiltrate which is approximately 3 cm in greatest dimension. T here is also a small 0.6 cm nodule within the posterior medial aspect of the right lower lobe. Dedic ated CT of the chest would be helpful for further evaluation of these suspicious nodules. The liver, spleen, adrenal glands, pancreas, gallbladder and right kidney are unremarkable. The abdo baldev aorta is calcified but it is not aneurysmally dilated. The inferior vena cava is unremarkable. There is a circumaortic left renal vein. No ascites is noted. The urinary bladder is unremarkable . No pelvic lymphadenopathy is noted. CONCLUSION: 1. Acute obstructive uropathy of the left proximal ureter secondary to a 6 mm calcified calculus resu lting in mild ureteropelvicaliectasis on the left. 2. Multiple nodular densities throughout the visualized lung bases which are indeterminate. It is di fficult to determine if these represent nodular infiltrates or true pulmonary nodules. CT of the [address] would helpful for further evaluation of these nodular densities which are described in detail and measured above. Wellington Salinas MD on September 09, 2016 at 17:29 Board Certified Radiologist. This report was verified electronically.
[2016-09-09] MEDS ORDERED: HYDROmorphone HCL PF 1 MG/ML VIAL IV PUSH ONE (18:30)
[2016-09-09] MEDS ORDERED: KETOROLAC TROMETHAMINE 30 MG/ML (IVP) VIAL IV PUSH ONE (18:30)
[2016-09-09] MEDS ORDERED: TAMS5CAP PO (18:32)
[2016-09-09] MEDS ORDERED: PERC5TAB12 PO (18:32)
[2016-09-09] MEDS ORDERED: NAPR-239 PO (18:32)
[2016-09-09 18:46] VITALS: BP 142/101; PULSE 102; RESP 12; O2SAT 100
[2016-09-09 19:12] VITALS: BP 139/89; PULSE 88; RESP 20; O2SAT 100
[2016-09-09 20:00] LABS: BLOOD, URINE LARGE (NEG); COMMENT (UR) CULT NOT INDICATED; CULTURE IF INDICATED CULT NOT INDICATED; GLUCOSE,URINE NEG (NEG); KETONE, URINE TRACE mg/dL (NEG); NITRITE,URINE NEG (NEG); PH, URINE 5.5 (5.0-8.5); URINE COLOR LIGHT-YELLOW (YELLW/STRAW)
== END 2016-09-09 19:58 | disposition home or self-care (01) ==
LOC: NEPD 14:56
DX: N20.1 Calculus of ureter (principal); F17.210 Nicotine dependence, cigarettes, uncomplicated
CPT/HCPCS: 74177; 76870; 80053; 81001; 83605; 85025; 85610; 85730; 93975; 96361; 96374; 96375; 96376; 99285; J1170; J1885; J2405; J7030; Q9967

== ENCOUNTER 2017-02-02 19:20 | Emergency (ER) | payer MEDICAID, OTHER ==
[~2017-02-02] VITALS: Ht 177.8 cm; Wt 75.0 kg
[~2017-02-02 19:20] MED LIST changes: +NAPR375T4 PO; +PERC5TAB12 PO; +TAMS5CAP PO
[2017-02-02 19:41] VITALS: BP 127/79; PULSE 86; RESP 20; TEMP 98; O2SAT 97
[2017-02-02] MEDS ORDERED: HALOPERIDOL LACTATE 5 MG/ML AMP IM ONE (20:00)
[2017-02-02] MEDS ORDERED: LORazepam 2 MG/ML VIAL IM ONE (20:00)
--- NOTE | 2017-02-02 20:10 | PD ---
HPI Chief Complaint: Psychiatric Symptoms Time Seen by Provider: 19:49 Travel History International Travel<30 days: No Contact w/Intl Traveler<30days: No Traveled to known affect area: No History of Present Illness HPI Patient was Le acted and brought in for evaluation. Patient was observed abusing narcotics and climbing trees and flipping over fences. Patient complains of right knee pain or ankle pain. Patient was combative and uncooperative at the scene. Patient also was running into traffic. Patient with nonstop talking. Unable to get any more information from the patient. PFSH Past Medical History Anxiety: Yes Depression: Yes Cancer: No Cardiovascular Problems: Yes (PT STATES HE "MIGHT" HAVE HAD A PREVIOUS CARDIAC EVENT BUT NOT SURE) Chest Pain: Yes Congestive Heart Failure: No Diminished Hearing: No Endocrine: No Gastrointestinal Disorders: No Genitourinary: No Hypertension: No Immune Disorder: No Implanted Vascular Access Dvce: Yes Musculoskeletal: No Neurologic: No Psychiatric: Yes (DEPRESSION AND PREVIOUS SUICIDE ATTEMPT ) Respiratory: Yes Immunizations Current: Yes Pneumonia: Yes Tetanus Vaccination: Unknown Past Surgical History Other Surgery: Yes (LEFT HAND PER PT) Social History Alcohol Use: No (DENIES) Tobacco Use: Yes (1 PPD) Substance Use: Yes ("HEROIN, METH") Allergies-Medications (Allergen,Severity, Reaction): Coded Allergies: *MDRO Multi-Drug Resistant Organism (Verified Adverse Reaction, Unknown, ) MRSA (urine-01/04/16) & (blood-01/06/16) Reported Meds & Prescriptions Reported Meds & Active Scripts Active Ultram (Tramadol HCl) 50 Mg Tab 50 Mg PO Q6H PRN Percocet (Oxycodone-Acetaminophen) 5-325 mg Tab 1 Tab PO Q6H PRN Naproxen EC (Naproxen) 375 Mg Tabdr 375 Mg PO BID Flomax (Tamsulosin HCl) 0.4 Mg Cap 0.4 Mg PO HS Ativan (Lorazepam) 0.5 Mg Tab 0.5 Mg PO Q8H PRN Rifampin 300 Mg Cap 300 Mg PO BID Review of Systems ROS Limitations: Altered Mental Status, Combative General / Constitutional: No: Fever Eyes: No: Visual changes HENT: No: Headaches Cardiovascular: No: Chest Pain or Discomfort Respiratory: No: Shortness of Breath Gastrointestinal: No: Abdominal Pain Genitourinary: No: Dysuria Musculoskeletal: No: Pain Skin: No Rash Neurologic: No: Weakness Psychiatric: No: Depression Endocrine: No: Polydipsia Hematologic/Lymphatic: No: Easy Bruising Physical Exam Narrative GENERAL: Well-nourished, well-developed patient. SKIN: Focused skin assessment warm/dry. HEAD: Normocephalic. EYES: No scleral icterus. No injection or drainage. NECK: Supple, trachea midline. No JVD or lymphadenopathy. CARDIOVASCULAR: Regular rate and rhythm without murmurs, gallops, or rubs. RESPIRATORY: Breath sounds equal bilaterally. No accessory muscle use. GASTROINTESTINAL: Abdomen soft, non-tender, nondistended. MUSCULOSKELETAL: Patient has soft tissue swelling with diffuse tenderness over the right knee. Moderate effusion noted. Limited range of motion of the right knee secondary to pain. Right knee joint stable. Patient has mild diffuse tenderness over the right ankle. No soft tissue swelling noted. Full range of motion of the ankle and the toes. Neurologic exam: Patient was combative and talking constantly upon arrival. Patient started answering questions appropriately and mainly complaining of right knee pain. Data Data Last Documented VS Vital Signs Date Time Temp Pulse Resp B/P (MAP) Pulse Ox O2 Delivery O2 Flow Rate FiO2 02/02/17 22:54 76 16 100/64 (76) 96 Room Air 02/02/17 19:41 98.0 Orders Orders Complete Blood Count With Diff (02/02/17 19:53) Comprehensive Metabolic Panel (02/02/17 19:53) Psych Screen (02/02/17 19:53) Drug Screen, Random Urine (02/02/17 19:53) Alcohol (Ethanol) (02/02/17 19:53) Haloperidol Inj (Haldol Inj) (02/02/17 20:00) Lorazepam Inj (Ativan Inj) (02/02/17 20:00) Ankle, Complete ([id number]) (02/02/17 19:57) Morphine Inj (Morphine Inj) (02/02/17 20:15) Ondansetron Inj (Zofran Inj) (02/02/17 20:15) Knee, Ltd (1 Or 2vws) (02/02/17 19:57) Ct Knee W/O Contrast (02/02/17 ) Splint Or Brace Apply/Monitor (02/02/17 23:08) Crutches (02/02/17 23:51) Ed Discharge Order (02/02/17 23:53) Labs Laboratory Tests Test 02/02/17 19:50 02/02/17 20:20 White Blood Count 9.8 TH/MM3 Red Blood Count 4.20 MIL/MM3 Hemoglobin 12.4 GM/DL Hematocrit 37.1 % Mean Corpuscular Volume 88.3 FL Mean Corpuscular Hemoglobin 29.5 PG Mean Corpuscular Hemoglobin Concent 33.4 % Red Cell Distribution Width 13.6 % Platelet Count 208 TH/MM3 Mean Platelet Volume 8.2 FL Neutrophils (%) (Auto) 71.9 % Lymphocytes (%) (Auto) 20.6 % Monocytes (%) (Auto) 7.0 % Eosinophils (%) (Auto) 0.2 % Basophils (%) (Auto) 0.3 % Neutrophils # (Auto) 7.1 TH/MM3 Lymphocytes # (Auto) 2.0 TH/MM3 Monocytes # (Auto) 0.7 TH/MM3 Eosinophils # (Auto) 0.0 TH/MM3 Basophils # (Auto) 0.0 TH/MM3 CBC Comment DIFF FINAL Differential Comment Blood Urea Nitrogen 26 MG/DL Creatinine 1.29 MG/DL Random Glucose 95 MG/DL Total Protein 7.7 GM/DL Albumin 3.9 GM/DL Calcium Level 9.3 MG/DL Alkaline Phosphatase 94 U/L Aspartate Amino Transf (AST/SGOT) 49 U/L Alanine Aminotransferase (ALT/SGPT) 61 U/L Total Bilirubin 0.6 MG/DL Sodium Level 141 MEQ/L Potassium Level 3.4 MEQ/L Chloride Level 104 MEQ/L Carbon Dioxide Level 26.0 MEQ/L Anion Gap 11 MEQ/L Estimat Glomerular Filtration Rate 61 ML/MIN Ethyl Alcohol Level LESS THAN 3 MG/DL Urine Opiates Screen NEG Urine Barbiturates Screen NEG Urine Amphetamines Screen POS Urine Benzodiazepines Screen NEG Urine Cocaine Screen NEG Urine Cannabinoids Screen POS MDM Medical Decision Making Medical Screen Exam Complete: Yes Emergency Medical Condition: Yes Interpretation(s) 22:56 PM. Last Impressions Knee X-Ray 02/02/171956 Signed Impressions: Service Date/Time: Thursday, February 02, 2017 20:07 - CONCLUSION: Acute medial tibial plateau fracture with hemarthrosis. Lonnie Billy Jr., MD Ankle X-Ray 02/02/171956 Signed Impressions: Service Date/Time: Thursday, February 02, 2017 20:17 - CONCLUSION: Unremarkable examination of the right ankle. Lonnie Billy Jr., MD Lower Extremity CT 02/02/17 0000 Signed Impressions: Service Date/Time: Thursday, February 02, 2017 20:50 - CONCLUSION: 1. Acute comminuted fracture of the proximal tibia with extension through the medial plateau. Hemarthrosis. Lonnie Billy Jr., MD 22:57 PM. CBC within normal limit. CMP within normal limit. Potassium 3.4. Urine drug screen positive for amphetamine and cannabis. Differential Diagnosis Differential diagnosis including substance induced mood disorder, psychosis, schizophrenia, bipolar disorder, knee and ankle sprain, fracture, dislocation Narrative Course 41-year-old male complains of right knee pain and right ankle pain. Patient was observed abusing narcotics and climbing trees and flipping fences and running into traffic. Patient was Le acted. Morphine 2 mg IV. Zofran 4 mg IV. Haldol 5 mg IM. Knee immobilizer. I spoke with orthopedist senior quality control inspector Dr. Greer. Patient can follow-up with orthopedist as outpatient. Patient was seen by psychiatric team and psychiatric cleared. Le act to be lifted. Knee immobilizer and crutches given. Diagnosis Primary Impression: Fracture of right tibia Qualified Codes: S82.101A - Unspecified fracture of upper end of right tibia, initial encounter for closed fracture Additional Impression: Substance abuse Patient Instructions: General Instructions Additional Instructions: Take medication as directed for pain. Follow-up with orthopedist. Advised [facility] for substance abuse. Med/Other Pt SpecificInfo: Prescription(s) given Scripts Tramadol (Ultram) 50 Mg Tab 50 MG PO Q6H Y for PAIN, #20 TAB 0 Refills Prov: Chris Cabello MD 02/02/17 Disposition: 01 DISCHARGE HOME Condition: Stable Chris Cabello MD Feb 02, 2017 20:10
[2017-02-02] MEDS ORDERED: ONDANSETRON HCL 4 MG/2 ML VIAL IV PUSH ONE (20:15)
[2017-02-02] MEDS ORDERED: MORPHINE SULFATE 2 MG/ML INJ IV PUSH ONE (20:15)
[2017-02-02 20:21] LABS: AUTOMATED NEUTROPHIL # 7.1 TH/MM3 (1.8-7.7); BASOPHIL % 0.3 % (0.0-2.0); EOSINOPHIL % 0.2 % (0.0-4.0); HEMATOCRIT 37.1 % (39.0-51.0); HEMO FLAGS DIFF FINAL; LYMPH % 20.6 % (9.0-44.0); MEAN CELL VOLUME 88.3 FL (80.0-100.0); MEAN CORPUSCULAR HEMOGLOBIN 29.5 PG (27.0-34.0); MEAN CORPUSCULAR HGB CONC 33.4 % (32.0-36.0); NEUT % 71.9 % (16.0-70.0); PLATELET COUNT 208 TH/MM3 (150-450); RED CELL DISTRIBUTION WIDTH 13.6 % (11.6-17.2); WHITE BLOOD COUNT 9.8 TH/MM3 (4.0-11.0)
--- NOTE | 2017-02-02 20:33 | RADRPT ---
EXAM DATE/TIME: 02/02/2017 20:07 [facility] COMPARISON: No previous studies available for comparison. INDICATIONS : Right knee pain after fall. MEDICAL HISTORY : None. SURGICAL HISTORY : None. ENCOUNTER: Initial ACUITY: 1 day PAIN SCORE: 10/10 LOCATION: Right knee. FINDINGS: 2 views of the right knee reveal an acute fracture multiple proximal tibia with extension to the tibi al plateaus. This extends to the medial plateau. No significant depression of the plateau is apprecia didier. Hemarthrosis noted. Soft tissues are unremarkable. CONCLUSION: Acute medial tibial plateau fracture with hemarthrosis. Lonnie Billy Jr., MD on February 02, 2017 at 20:29 Board Certified Radiologist. This report was verified electronically.
--- NOTE | 2017-02-02 20:34 | RADRPT ---
EXAM DATE/TIME: 02/02/2017 20:17 [facility] COMPARISON: No previous studies available for comparison. INDICATIONS : Right ankle pain post fall. MEDICAL HISTORY : None. SURGICAL HISTORY : None. ENCOUNTER: Initial ACUITY: 1 day PAIN SCORE: 10/10 LOCATION: Right ankle. FINDINGS: Three view exam was performed of the right ankle. The bony structures are in normal alignment. No e vidence of fracture, dislocation, or soft tissue swelling. The ankle mortise is intact. No radiopaq ue foreign bodies are seen. Bony mineralization is normal. CONCLUSION: Unremarkable examination of the right ankle. Lonnie Billy Jr., MD on February 02, 2017 at 20:31 Board Certified Radiologist. This report was verified electronically.
[2017-02-02 20:45] LABS: ANION GAP 11 MEQ/L (5-15); AST (GOT) 49 U/L (15-37); BLOOD UREA NITROGEN 26 MG/DL (7-18); CHLORIDE 104 MEQ/L (98-107); GLOMERULAR FILTRATION RATE 61 ML/MIN (>89); POTASSIUM 3.4 MEQ/L (3.5-5.1); SODIUM (NA) 141 MEQ/L (136-145)
[2017-02-02 20:50] LABS: ALKALINE PHOSPHATASE 94 U/L (45-117); ALT (GPT) 61 U/L (12-78); TOTAL BILIRUBIN ADULT 0.6 MG/DL (0.2-1.0)
[2017-02-02 20:57] LABS: ALCOHOL LESS THAN 3 MG/DL (0-5)
--- NOTE | 2017-02-02 21:09 | RADRPT ---
EXAM DATE/TIME: 02/02/2017 20:50 [place] COMPARISON: No previous studies available for comparison. INDICATIONS : Right knee pain, abnormal xray, evaluate fracture. RADIATION DOSE: 7.29 CTDIvol (mGy) MEDICAL HISTORY : None SURGICAL HISTORY : None. ENCOUNTER: Initial ACUITY: 1 day PAIN SCALE: 10/10 LOCATION: Right knee. TECHNIQUE: Volumetric scanning of the knee was performed. Using automated exposure control and adjustment of th e mA and/or kV according to patient size, radiation dose was kept as low as reasonably achievable to obtain optimal diagnostic quality images. DICOM format image data is available electronically for re view and comparison. FINDINGS: There is an acute comminuted fracture involving the proximal tibia. This extends through the medial p lateau articular surface. No significant depression. There is diastases of the fracture fragments raad suring 9 mm. The remaining visualized bony structures are intact. Hemarthrosis noted. CONCLUSION: 1. Acute comminuted fracture of the proximal tibia with extension through the medial plateau. Hemarth rosis. Lonnie Billy Jr., MD on February 02, 2017 at 21:04 Board Certified Radiologist. This report was verified electronically.
[2017-02-02 22:54] VITALS: BP 100/64; PULSE 76; RESP 16; O2SAT 96
[2017-02-02] MEDS ORDERED: TRAM50 PO (23:54)
== END 2017-02-03 01:00 | disposition home or self-care (01) ==
LOC: NEPD 19:20
DX: S82.141A Displaced bicondylar fracture of right tibia, initial encounter for closed fracture (principal); M25.571 Pain in right ankle and joints of right foot; F11.10 Opioid abuse, uncomplicated; F41.9 Anxiety disorder, unspecified; F32.9 Major depressive disorder, single episode, unspecified; F17.200 Nicotine dependence, unspecified, uncomplicated; X58.XXXA Exposure to other specified factors, initial encounter; Z79.899 Other long term (current) drug therapy
CPT/HCPCS: 73560; 73610; 73700; 80053; 80307; 85025; 96372; 96374; 96375; 99285; E0113; J1630; J2270; J2405; L1830

== ENCOUNTER 2017-06-10 19:00 | Inpatient (IN) | payer MEDICAID, OTHER ==
[~2017-06-10] VITALS: Ht 177.8 cm; Wt 69.6 kg
[~2017-06-10 19:00] MED LIST changes: +TRAM50 PO
[2017-06-10 19:11] VITALS: BP 127/81; PULSE 86; RESP 18; TEMP 97.6; O2SAT 99
[2017-06-10 19:55] LABS: AUTOMATED NEUTROPHIL # 6.6 TH/MM3 (1.8-7.7); BASOPHIL % 0.5 % (0.0-2.0); EOSINOPHIL # 0.1 TH/MM3 (0-0.4); EOSINOPHIL % 0.6 % (0.0-4.0); HEMATOCRIT 39.5 % (39.0-51.0); LYMPHOCYTE # 1.9 TH/MM3 (1.0-4.8); MEAN CELL VOLUME 86.6 FL (80.0-100.0); MEAN CORPUSCULAR HEMOGLOBIN 28.5 PG (27.0-34.0); MEAN CORPUSCULAR HGB CONC 32.9 % (32.0-36.0); MEAN PLATELET VOLUME 7.4 FL (7.0-11.0); MONO % 8.8 % (0.0-8.0); MONOCYTE # 0.8 TH/MM3 (0-0.9); NEUT % 70.1 % (16.0-70.0); PLATELET COUNT 363 TH/MM3 (150-450); RED BLOOD COUNT 4.57 MIL/MM3 (4.50-5.90); RED CELL DISTRIBUTION WIDTH 15.3 % (11.6-17.2); WHITE BLOOD COUNT 9.4 TH/MM3 (4.0-11.0)
[2017-06-10 20:23] LABS: ALBUMIN 3.4 GM/DL (3.4-5.0); AST (GOT) 21 U/L (15-37); BICARBONATE 28.5 MEQ/L (21.0-32.0); BLOOD UREA NITROGEN 9 MG/DL (7-18); CALCIUM 9.6 MG/DL (8.5-10.1); CHLORIDE 100 MEQ/L (98-107); GLOMERULAR FILTRATION RATE 82 ML/MIN (>89); GLUCOSE,RANDOM 150 MG/DL (74-106); SODIUM (NA) 135 MEQ/L (136-145)
[2017-06-10 20:28] LABS: ALKALINE PHOSPHATASE 88 U/L (45-117); ALT (GPT) 29 U/L (12-78); TOTAL BILIRUBIN ADULT 0.3 MG/DL (0.2-1.0)
--- NOTE | 2017-06-10 20:32 | PD ---
HPI Chief Complaint: Psychiatric Symptoms Time Seen by Provider: 20:06 Travel History International Travel<30 days: No Contact w/Intl Traveler<30days: No Traveled to known affect area: No History of Present Illness HPI Patient is a 41-year-old male presenting to emergency Department under Le act for psychiatric evaluation. Per the Le for patient did not appear to be in the right state of mind. He reported to the police commanding officer that he feels rage and cannot control it. He then became emotional and stopped discussing his symptoms. Patient reported to me that he does get angry but denies any suicidal homicidal ideations. Patient further denies any hallucinations. He denies any illicit drug use or regular alcohol use. He states that he has been Le acted before for the same problems. He will not discuss it any further. Symptom onset is unknown, symptom severity is moderate, uncertain exacerbating factors. Patient has no complaints at this time. PFSH Past Medical History Anxiety: Yes Depression: Yes Cancer: No Cardiovascular Problems: Yes (PT STATES HE "MIGHT" HAVE HAD A PREVIOUS CARDIAC EVENT BUT NOT SURE) Chest Pain: Yes Congestive Heart Failure: No Diminished Hearing: No Endocrine: No Gastrointestinal Disorders: No Genitourinary: No Hypertension: No Immune Disorder: No Implanted Vascular Access Dvce: Yes Musculoskeletal: No Neurologic: No Psychiatric: Yes (DEPRESSION AND PREVIOUS SUICIDE ATTEMPT ) Respiratory: Yes Immunizations Current: Yes Pneumonia: Yes ?: Not Past Surgical History Other Surgery: Yes (LEFT HAND PER PT) Social History Alcohol Use: No (DENIES) Tobacco Use: Yes (1 PPD) Substance Use: Yes ("HEROIN, METH") Allergies-Medications (Allergen,Severity, Reaction): Coded Allergies: *MDRO Multi-Drug Resistant Organism (Verified Adverse Reaction, Unknown, ) MRSA (urine-01/04/16) & (blood-01/06/16) Reported Meds & Prescriptions Reported Meds & Active Scripts Active Ultram (Tramadol HCl) 50 Mg Tab 50 Mg PO Q6H PRN Percocet (Oxycodone-Acetaminophen) 5-325 mg Tab 1 Tab PO Q6H PRN Naproxen EC (Naproxen) 375 Mg Tabdr 375 Mg PO BID Flomax (Tamsulosin HCl) 0.4 Mg Cap 0.4 Mg PO HS Ativan (Lorazepam) 0.5 Mg Tab 0.5 Mg PO Q8H PRN Rifampin 300 Mg Cap 300 Mg PO BID Review of Systems Except as stated in HPI: all other systems reviewed are Neg Psychiatric: Positive: Mood Disorder Physical Exam Narrative GENERAL: Well-developed, well-nourished, alert male. Presenting in no acute distress. SKIN: Warm and dry. HEAD: Atraumatic. Normocephalic. EYES: Pupils equal and round. No scleral icterus. No injection or drainage. ENT: No nasal bleeding or discharge. Mucous membranes pink and moist. NECK: Trachea midline. No JVD. CARDIOVASCULAR: Regular rate and rhythm. RESPIRATORY: No accessory muscle use. Clear to auscultation. Breath sounds equal bilaterally. GASTROINTESTINAL: Abdomen soft, non-tender, nondistended. Hepatic and splenic margins not palpable. MUSCULOSKELETAL: Extremities without clubbing, cyanosis, or edema. No obvious deformities. NEUROLOGICAL: Awake and alert. No obvious cranial nerve deficits. Motor grossly within normal limits. Five out of 5 muscle strength in the arms and legs. Normal speech. PSYCHIATRIC: Flat mood and affect; insight and judgment normal. Data Data Last Documented VS Vital Signs Date Time Temp Pulse Resp B/P (MAP) Pulse Ox O2 Delivery O2 Flow Rate FiO2 06/10/17 19:11 97.6 86 18 127/81 (96) 99 Orders Orders Complete Blood Count With Diff (06/10/17 19:35) Comprehensive Metabolic Panel (06/10/17 19:35) Psych Screen (06/10/17 19:35) Drug Screen, Random Urine (06/10/17 19:35) Labs Laboratory Tests Test 06/10/17 19:42 White Blood Count 9.4 TH/MM3 Red Blood Count 4.57 MIL/MM3 Hemoglobin 13.0 GM/DL Hematocrit 39.5 % Mean Corpuscular Volume 86.6 FL Mean Corpuscular Hemoglobin 28.5 PG Mean Corpuscular Hemoglobin Concent 32.9 % Red Cell Distribution Width 15.3 % Platelet Count 363 TH/MM3 Mean Platelet Volume 7.4 FL Neutrophils (%) (Auto) 70.1 % Lymphocytes (%) (Auto) 20.0 % Monocytes (%) (Auto) 8.8 % Eosinophils (%) (Auto) 0.6 % Basophils (%) (Auto) 0.5 % Neutrophils # (Auto) 6.6 TH/MM3 Lymphocytes # (Auto) 1.9 TH/MM3 Monocytes # (Auto) 0.8 TH/MM3 Eosinophils # (Auto) 0.1 TH/MM3 Basophils # (Auto) 0.0 TH/MM3 CBC Comment DIFF FINAL Differential Comment Blood Urea Nitrogen 9 MG/DL Creatinine 1.00 MG/DL Random Glucose 150 MG/DL Total Protein 8.0 GM/DL Albumin 3.4 GM/DL Calcium Level 9.6 MG/DL Alkaline Phosphatase 88 U/L Aspartate Amino Transf (AST/SGOT) 21 U/L Alanine Aminotransferase (ALT/SGPT) 29 U/L Total Bilirubin 0.3 MG/DL Sodium Level 135 MEQ/L Potassium Level 5.2 MEQ/L Chloride Level 100 MEQ/L Carbon Dioxide Level 28.5 MEQ/L Anion Gap 7 MEQ/L Estimat Glomerular Filtration Rate 82 ML/MIN [facility] Medical Decision Making Medical Screen Exam Complete: Yes Emergency Medical Condition: Yes Interpretation(s) Laboratory Tests Test 06/10/17 19:42 White Blood Count 9.4 TH/MM3 Red Blood Count 4.57 MIL/MM3 Hemoglobin 13.0 GM/DL Hematocrit 39.5 % Mean Corpuscular Volume 86.6 FL Mean Corpuscular Hemoglobin 28.5 PG Mean Corpuscular Hemoglobin Concent 32.9 % Red Cell Distribution Width 15.3 % Platelet Count 363 TH/MM3 Mean Platelet Volume 7.4 FL Neutrophils (%) (Auto) 70.1 % Lymphocytes (%) (Auto) 20.0 % Monocytes (%) (Auto) 8.8 % Eosinophils (%) (Auto) 0.6 % Basophils (%) (Auto) 0.5 % Neutrophils # (Auto) 6.6 TH/MM3 Lymphocytes # (Auto) 1.9 TH/MM3 Monocytes # (Auto) 0.8 TH/MM3 Eosinophils # (Auto) 0.1 TH/MM3 Basophils # (Auto) 0.0 TH/MM3 CBC Comment DIFF FINAL Differential Comment Blood Urea Nitrogen 9 MG/DL Creatinine 1.00 MG/DL Random Glucose 150 MG/DL Total Protein 8.0 GM/DL Albumin 3.4 GM/DL Calcium Level 9.6 MG/DL Alkaline Phosphatase 88 U/L Aspartate Amino Transf (AST/SGOT) 21 U/L Alanine Aminotransferase (ALT/SGPT) 29 U/L Total Bilirubin 0.3 MG/DL Sodium Level 135 MEQ/L Potassium Level 5.2 MEQ/L Chloride Level 100 MEQ/L Carbon Dioxide Level 28.5 MEQ/L Anion Gap 7 MEQ/L Estimat Glomerular Filtration Rate 82 ML/MIN Vital Signs Date Time Temp Pulse Resp B/P (MAP) Pulse Ox O2 Delivery O2 Flow Rate FiO2 06/10/17 19:11 97.6 86 18 127/81 (96) 99 Differential Diagnosis Mood disorder versus substance abuse versus suicidal ideations versus metabolic abnormality versus other Narrative Course Patient is a well-appearing 41-year-old male presenting under Le due to anger issues. Patient's vital signs are stable, labs reviewed, no acute abnormalities identified. Patient is medically clear for psychiatric evaluation at this time. Diagnosis Primary Impression: Medical clearance for psychiatric admission Condition: Stable Latisha Seay Jun 10, 2017 20:32
[2017-06-10 23:29] VITALS: BP_SYST 115; BP_SYST 118; BP_DIAS 56; BP_DIAS 57; PULSE 103; PULSE 86; RESP 16; RESP 18; O2SAT 98; O2SAT 99
[2017-06-11 06:34] VITALS: BP 126/76; PULSE 83; RESP 18; O2SAT 97
[2017-06-11 10:00] VITALS: BP 141/73; PULSE 88; RESP 18
--- NOTE | 2017-06-11 11:37 | PD ---
History of Present Illness Chief Complaint: Bipolar disorder Time Seen by Provider: 11:20 Travel History International Travel<30 Days: No Contact w/Intl Traveler<30days: No Known affected area: No Legal Status Legal Status: Le Act Le Act Signed By: Rachael Chauhan History of Present Illness: 41-year-old single, white male presents to the emergency department under Le act for having "feelings of rage". He is known to this facility on his last visit here for mental health was August 20, 2016. He does carry a diagnosis of bipolar however, she has been noncompliant with his medications. He reports that he manages well utilizing just diet and exercise. Reviewed electronic medical record, labs, and discussed case with staff. Patient was evaluated in his room with nurse present. Toxicology screen is positive for amphetamines although patient denies use. When asked why he is here he states, "I was not feeling good my body was starting to shut down and that is not a good thing". He does report being homeless at this time but claims to be employed. His appearance is dirty and disheveled. He is alert and oriented to person and place at least. His speech is clear, rapid and pressured. His thought process is tangential. When asked if he has auditory hallucinations he replied, "sometimes". However, he is vague or unable to provide an answer as to what kind of voices they are. He states instead " cannot answer you have to go through it". He reports that he has been going for as long as a week without sleeping and sleeping for 2 days. He states that he has been over focusing a lot because of pain in his right leg status post broken leg in January. When asked how he broke his leg he responds, "exercising by jumping over fence as". He also reports spinning a month in [place] on 2 different occasions. Additionally, he mentions his father's in April of last year. PFSH Past Medical History Anxiety: Yes Depression: Yes Cancer: No Cardiovascular Problems: Yes (PT STATES HE "MIGHT" HAVE HAD A PREVIOUS CARDIAC EVENT BUT NOT SURE) Chest Pain: Yes Congestive Heart Failure: No Diminished Hearing: No Endocrine: No Gastrointestinal Disorders: No Genitourinary: No Hypertension: No Immune Disorder: No Implanted Vascular Access Dvce: Yes Musculoskeletal: No Neurologic: No Psychiatric: Yes (DEPRESSION AND PREVIOUS SUICIDE ATTEMPT ) Respiratory: Yes Immunizations Current: Yes Pneumonia: Yes ?: Not Past Surgical History Other Surgery: Yes (LEFT HAND PER PT) Psychiatric History Psychiatric History History of mental illness diagnoses. Failure to comply with follow-up. Hx Psychiatric Treatment: Patient with a hx of polysubstance abuse and bipolar disorder. Patient admitted to for medical treatment and had a psychiatric consultation without further admission. History of Inpatient Treatment: Yes Guns or firearms in home: No Social History Patient has a previous history of polysubstance abuse. He claims to be drug- free however, he was positive for amphetamines. Hx Alcohol Use: No (DENIES) Hx Tobacco Use: Yes (1 PPD) Hx Substance Use: Yes (heroin, meth) Substance Use Type: Amphetamines-Stimulants, Prescription Medications, Benzos ( Valium,Xanax), Cocaine, Synth Opiates-Pain Pills Hx of Substance Use Treatment: No Allergies-Medications (Allergen,Severity, Reaction): Coded Allergies: *MDRO Multi-Drug Resistant Organism (Verified Adverse Reaction, Unknown, ) MRSA (urine-01/04/16) & (blood-01/06/16) Reported Meds & Prescriptions Reported Meds & Active Scripts Active Ultram (Tramadol HCl) 50 Mg Tab 50 Mg PO Q6H PRN Percocet (Oxycodone-Acetaminophen) 5-325 mg Tab 1 Tab PO Q6H PRN Naproxen EC (Naproxen) 375 Mg Tabdr 375 Mg PO BID Flomax (Tamsulosin HCl) 0.4 Mg Cap 0.4 Mg PO HS Ativan (Lorazepam) 0.5 Mg Tab 0.5 Mg PO Q8H PRN Rifampin 300 Mg Cap 300 Mg PO BID Mental Status Examination Appearance: Dirty, Disheveled Consciousness: Alert Orientation: Person, Place (At least) Motor Activity: Abnormal gait (Limp) Language: Adequate Fund of Knowledge: Inadequate Attention and Concentration: Easily Distracted Memory: Impaired (Difficult to determine) Mood: Angry, Manic Affect: Irritable Thought Process & Associations: Disorganized, Tangential Thought Content: Preoccupations (With the idea of his body "shutting down") Hallucination Type: Auditory Delusion Type: Somatic Suicidal Ideation: No Suicidal Plan: No Suicidal Intention: No Homicidal Ideation: No (Vague on this answer, states not specifically but admits to feeling full of rage) Homicidal Plan: No Homicidal Intention: No Insight: Poor Judgment: Poor MDM Medical Decision Making Assessment/Plan 41-year-old single, white, homeless male who presents under Le act for reporting to police that he felt rageful. Patient is known to this facility. He has a diagnosis of bipolar and by his own admission does not follow up or comply with medications. Additionally, he has a history of polysubstance abuse and although he claims to be clean his toxicology screen was positive for amphetamines at this visit. His speech is clear and tangential, becoming disorganized at times. He appears to be preoccupied with the thought that his "body is shutting down". He mentioned that he would like to be "checked out with blood work and test to make sure that I am okay, this is not me". His mood is angry and affect is irritable. Although he denies having thoughts of harming himself, when asked if he had thoughts of harming others he responded "not specifically but I am full of rage". Per patient's report he has not been sleeping for up to a week at a time. He reports that he has had a voracious appetite of late. Advises having intermittent auditory hallucinations however unable to describe them. Due to the patient's demeanor and his inability to deny that he would harm others meets Le act criteria. Discussed with patient that he seems to be going through a manic phase, and that I would like to admit him for treatment and medication to manage this. Patient states that he is agreeable with this plan. Orders Orders Complete Blood Count With Diff (06/10/17 19:35) Comprehensive Metabolic Panel (06/10/17 19:35) Psych Screen (06/10/17 19:35) Drug Screen, Random Urine (06/10/17 19:35) Diet Regular Basic (06/11/17 Breakfast) Diet Regular Basic (06/11/17 Lunch) Results Vital Signs Date Time Temp Pulse Resp B/P (MAP) Pulse Ox O2 Delivery O2 Flow Rate FiO2 06/11/17 10:00 88 18 141/73 (95) Room Air 06/11/17 06:34 83 18 126/76 (93) 97 Room Air 06/10/17 23:29 103 16 118/57 (77) 98 Room Air 06/10/17 19:11 97.6 86 18 127/81 (96) 99 Laboratory Tests Test 06/10/17 19:42 06/10/17 21:10 White Blood Count 9.4 Red Blood Count 4.57 Hemoglobin 13.0 Hematocrit 39.5 Mean Corpuscular Volume 86.6 Mean Corpuscular Hemoglobin 28.5 Mean Corpuscular Hemoglobin Concent 32.9 Red Cell Distribution Width 15.3 Platelet Count 363 Mean Platelet Volume 7.4 Neutrophils (%) (Auto) 70.1 Lymphocytes (%) (Auto) 20.0 Monocytes (%) (Auto) 8.8 Eosinophils (%) (Auto) 0.6 Basophils (%) (Auto) 0.5 Neutrophils # (Auto) 6.6 Lymphocytes # (Auto) 1.9 Monocytes # (Auto) 0.8 Eosinophils # (Auto) 0.1 Basophils # (Auto) 0.0 CBC Comment DIFF FINAL Differential Comment Blood Urea Nitrogen 9 Creatinine 1.00 Random Glucose 150 Total Protein 8.0 Albumin 3.4 Calcium Level 9.6 Alkaline Phosphatase 88 Aspartate Amino Transf (AST/SGOT) 21 Alanine Aminotransferase (ALT/SGPT) 29 Total Bilirubin 0.3 Sodium Level 135 Potassium Level 5.2 Chloride Level 100 Carbon Dioxide Level 28.5 Anion Gap 7 Estimat Glomerular Filtration Rate 82 Urine Opiates Screen NEG Urine Barbiturates Screen NEG Urine Amphetamines Screen POS Urine Benzodiazepines Screen NEG Urine Cocaine Screen NEG Urine Cannabinoids Screen NEG Diagnosis Primary Impression: Bipolar 1 disorder with moderate ricardo Admitting Information Admitting Physician Requests: Admit Condition: Stable RonaldoWellington galindoconcetta MAYO Jun 11, 2017 11:37
[2017-06-11] MEDS ORDERED: MAGNESIUM HYDROXIDE SUSP 30 ML CUP PO PRN (12:30)
[2017-06-11] MEDS ORDERED: ALUMINUM/MAGNESIUM/SIMETH 30 ML CUP PO PRN (12:30)
[2017-06-11] MEDS ORDERED: ACETAMINOPHEN 325 MG TAB PO PRN (12:30)
[2017-06-11 17:59] VITALS: BP 127/60; PULSE 90; RESP 20; TEMP 98.5; O2SAT 98
[2017-06-11 18:45] VITALS: BP 127/60; PULSE 90; RESP 20; TEMP 98.5
[2017-06-12 05:19] VITALS: BP 126/70; PULSE 80; RESP 20; TEMP 98.1; O2SAT 96
[2017-06-12] MEDS: REMOVE OLD PATCH T-DERMAL SCH (09:00)
[2017-06-12] MEDS: NICOTINE 21 MG/24 HR PATCH T-DERMAL SCH (09:00)
[2017-06-12 11:01] LABS: BICARBONATE 30.1 MEQ/L (21.0-32.0); BLOOD UREA NITROGEN 15 MG/DL (7-18); CALCIUM 9.2 MG/DL (8.5-10.1); CHLORIDE 100 MEQ/L (98-107); CHOLESTEROL 168 MG/DL (120-200); CREATININE 1.03 MG/DL (0.60-1.30); GLOMERULAR FILTRATION RATE 79 ML/MIN (>89); GLUCOSE,RANDOM 104 MG/DL (74-106); SODIUM (NA) 139 MEQ/L (136-145); TRIGLYCERIDES 92 MG/DL (42-150)
[2017-06-12 11:03] LABS: HDL CHOLESTEROL 45.3 MG/DL (40.0-60.0); LDL CHOLESTEROL 104 MG/DL (0-99)
--- NOTE | 2017-06-12 11:19 | HHI.HP ---
Provisional Diagnosis Admission Date Jun 11, 2017 at 11:44 [place] I. 1. Polysubstance abuse 2. Suspect malingering, possibly for half-way or opiate pain medications [place] II. 1. Antisocial personality traits Certification of Person's Competence To Provide Express and Informed Consent I have personally examined Naeem Marcano , a person being served at [facility] on, Jun 12, 2017 11:03. Express and informed consent means consent voluntarily given in writing, by a competent person, after sufficient explanation and disclosure of the subject matter involved to enable the person to make a knowing and willful decision without any element of force, fraud, deceit, duress, or other form of constraint or coercion. This person is 18 years of age or older, is not now known to be incompetent to consent to treatment with a guardian advocate, and does not have a health care surrogate or proxy currently making medical treatment decisions. I have found this person to be one of the following: [x] Competent to provide express and informed consent, as defined above, for voluntary admission to this facility and is competent to provide express and informed consent for treatment. He/she has the consistent capacity to make well reasoned, willful, and knowing decisions concerning his or her medical or mental health treatment. The person fully and consistently understands the purpose of the admission for examination/placement and is fully capable of personally exercising all rights assured [place] [] Incompetent to provide express and informed consent to voluntary admission, and this is incompetent to provide express and informed consent to treatment. The person must be transferred to involuntary status and a petition for a guardian advocate filed with the Circuit Court. [] Refusing to provide express and informed consent to voluntary admission but is competent to provide express and informed consent for treatment. The person must be discharged or transferred to involuntary status. Form shall be completed within 24 hours of a person's arrival at the receiving facility and filed in the clinical record of each person: 1. Admitted on a voluntary basis 2. Permitted to provide express and informed consent to his/her own treatment 3. Allowed to transfer from involuntary to voluntary status 4. Prior to permitting a person to consent to his or her own treatment after having been previously found incompetent to consent to treatment. History of Present Illness Capacity: Has Capacity Psych Chief Complaint: "My mind and body are deteriorating." HPI Mr. Anglis is a 41 year-old male with a reported history of bipolar disorder and PTSD who presents under a Le act from [employer] alleging that the patient "stated he feels rage and can't control it." Reviewing the electronic medical record, I note that the patient has been seen in consultation in the past by Dr. Steve, most recently in July 2016 as well as CLARA Gomez. I note a documented history of cluster B personality traits and drug-seeking behavior. Patient seen and examined with nurse. Chart reviewed. Case discussed with nursing staff. On my examination today, the patient presents as entitled and uncooperative. He tells me that he is off his medications, and I gather from context that he means opiates. He refuses any psychotropic medications when I offer them to him. He is medication seeking for opiates. He has a dearth of actual psychiatric symptoms. The most that I can gather from him is that he feels "infuriated" and he notes "I have a rage in me, and I don't want anything bad to happen." He does not verbalize any suicidal or homicidal ideation. I can elicit no dayron gael mood symptoms. He has no audiovisual hallucinations, no delusional material, and there is no evidence of any impairment in reality construction. Antisocial personality traits are extremely prominent and his presentation seems quite manipulative. Psychiatric interview is somewhat limited as the patient is uncooperative. Patient complains of right leg pain related to fracture, but I note that this happened last January, and I suspect that this complaint is in service of pain medication seeking. Past psychiatric history: Patient reports he was psychiatrically admitted most recently a year ago. Otherwise, he refuses to provide any past psychiatric history. Family history: Patient initially says "yes" but then when I tried to pin down the diagnoses and family members affected he says "nothing." Chemical dependency history: The patient denies any abuse of drugs or alcohol although his urine toxicology is positive for amphetamines and he has a lengthy chart history of polysubstance abuse. Social history: Patient is homeless. He is . He has no children. He is college educated. He is presently unemployed. He denies any history. Denies any access to guns or firearms. He reports a history of misdemeanors. When I ask about hindu beliefs he says "it's personal." No reported history of trauma. Review of Systems ROS Limitations: Uncooperative, Poor Historian Except as stated in HPI: all other systems reviewed are Neg Past Family Social History Coded Allergies: *MDRO Multi-Drug Resistant Organism (Verified Adverse Reaction, Unknown, ) MRSA (urine-01/04/16) & (blood-01/06/16) Past Medical History See electronic medical record Active Scripts Tramadol (Ultram) 50 Mg Tab, 50 MG PO Q6H Y for PAIN, #20 TAB 0 Refills Prov:Chris Cabello MD 02/02/17 Oxycodone-Acetaminophen (Percocet) 5-325 mg Tab, 1 TAB PO Q6H Y for PAIN, #20 TAB 0 Refills Prov:Edison Fleming MD 09/09/[address] (Naproxen EC) 375 Mg Tabdr, 375 MG PO BID, #14 TAB 0 Refills Prov:Edison Fleming MD 09/09/16 Tamsulosin (Flomax) 0.4 Mg Cap, 0.4 MG PO HS for Manage Prostate Problems, #6 CAP 0 Refills Prov:Edison Fleming MD 09/09/16 Lorazepam (Ativan) 0.5 Mg Tab, 0.5 MG PO Q8H Y for MOD - SEVERE ANXIETY/ AGITATION, #30 TAB Prov:Hemant Judge MD, R3 05/19/16 Rifampin (Rifampin) 300 Mg Cap, 300 MG PO BID for Infection, #28 CAP 0 Refills Prov:Hemant Judge MD, R3 05/19/16 Current Medications Medications (Trade) Dose Ordered Sig/Elmer Route Start Time Stop Time Status Last Admin (Tylenol) 650 mg Q4H PRN PO 06/11/17 12:30 (Milk Of Magnesia Liq) 30 ml DAILY PRN PO 06/11/17 12:30 (Mag-Al Plus Susp Liq) 30 ml Q6H PRN PO 06/11/17 12:30 (Habitrol 21 Mg Patch.24 Hr) 1 patch DAILY T-DERMAL 06/11/17 12:30 06/12/17 09:00 Miscellaneous Information 1 DAILY T-DERMAL 06/12/17 09:00 Patient's Strengths (min. 2) Able to access clinical care. Verbally fluent. Physical Exam Physical exam completed by ED provider. On my examination today, the patient appears to be in no acute physical distress. No motor abnormalities noted. Labs and vitals reviewed: Vital Signs Vital Signs Date Time Temp Pulse Resp B/P (MAP) Pulse Ox O2 Delivery O2 Flow Rate FiO2 06/12/17 05:19 98.1 80 20 126/70 (88) 96 06/11/17 10:00 Room Air Lab Results Item Value Date Time White Blood Count 9.4 TH/MM3 06/10/171941 Hemoglobin 13.0 GM/DL 06/10/171941 Platelet Count 363 TH/MM3 06/10/171941 Sodium Level 139 MEQ/L 06/12/17844 Chloride Level 100 MEQ/L 06/12/17844 Potassium Level 4.6 MEQ/L 06/12/17844 Carbon Dioxide Level 30.1 MEQ/L 06/12/17844 Blood Urea Nitrogen 15 MG/DL 06/12/1745 Creatinine 1.03 MG/DL 06/12/17844 Aspartate Amino Transf (AST/SGOT) 21 U/L 06/10/171941 Alanine Aminotransferase (ALT/SGPT) 29 U/L 06/10/171941 Alkaline Phosphatase 88 U/L 06/10/171941 Urine Amphetamines Screen POS H 06/10/172109 Mental Status Examination Appearance: Disheveled Consciousness: Alert Orientation: Person, Place (at least) Motor Activity: Other (no motor abnormalities noted) Speech: Other (somewhat terse) Language: Adequate Fund of Knowledge: Adequate Attention and Concentration: Adequate Memory: Unremarkable Mood: Irritable Affect: Irritable Thought Process & Associations: Intact, Logical, Linear Thought Content: Appropriate Hallucination Type: None Delusion Type: None Suicidal Ideation: No Suicidal Plan: No Suicidal Intention: No Homicidal Ideation: No Homicidal Plan: No Homicidal Intention: No Insight: Fair Judgment: Impulsive Assessment & Plan Problem List: (1) Polysubstance abuse ICD Codes: F19.10 - Other psychoactive substance abuse, uncomplicated (2) Antisocial personality traits Assessment & Plan 41-year-old male with psychiatric history as detailed above presently admitted to the inpatient psychiatric unit under a Le act. On my examination today, the patient presents with dominant antisocial personality traits. His presentation is also quite manipulative and malingering is suspected with secondary gain of half-way as he is presently homeless and obtaining opiate pain medications, for which he is seeking. To the extent that he has dayron gael psychiatric symptoms, I suspect these are related to withdrawal from the amphetamines found in his urine toxicology. He is presently declining psychiatric medication management. I will plan to admit the patient to the inpatient psychiatric unit for observation. Admit inpatient. Voluntary status. Patient declining psychotropic medications. I will request the hospitalist to evaluate the patient for his pain complaints, but again I suspect these are in service of obtaining opiate pain medications. Vitals every shift. Counselor to see. Collateral information. Disposition planning. Estimated length of stay: 2-3 days. Discharge Planning Pending outcome of observation. Request HC Surrog/Guard Advoc?: No Mason Wilcox MD Jun 12, 2017 11:19
[2017-06-12 13:38] LABS: HEMOGLOBIN A1C 5.4 % (4.3-6.0)
--- NOTE | 2017-06-12 16:31 | EKG ---
Date Performed: 06/12/2017 Time Performed: 13:45:11 PTAGE: 41 years EKG: Sinus rhythm NORMAL ECG Since PREVIOUS TRACING , no significant change noted PREVIOUS TRACIN04/21/2016 10.53 DOCTOR: Akin Anaya Interpretating Date/Time 06/12/2017 16:30:59
--- NOTE | 2017-06-12 16:35 | PD.CONS ---
HPI Service [facility] Consult Requested By Dr. Wilcox Reason for Consult Chronic right knee pain Primary Care Physician No Primary Care Physician Diagnoses: History of Present Illness This is a 41-year-old male history of anger problems and substance abuse who presented with anger problems so was Le act. [facility] consulted for chronic right knee pain. Patient stated that in January he had a knee fracture and he stated never healed well. He stated that since then he has been having knee pain. Asked patient what he took for the medication he said nothing. Patient did not say that pain worsen he stated the same. Denies any lower extremity weakness. Denies fevers or chills. All other review of system review negative. Past Family Social History Allergies: Coded Allergies: *MDRO Multi-Drug Resistant Organism (Verified Adverse Reaction, Unknown, ) MRSA (urine-01/04/16) & (blood-01/06/16) Past Medical History Anxiety/depression/polysubstance abuse with heroin and methamphetamine BPH History of suicide attempt. Past Surgical History Left hand surgery Reported Medications Reported Meds & Active Scripts Active Ultram (Tramadol HCl) 50 Mg Tab 50 Mg PO Q6H PRN Percocet (Oxycodone-Acetaminophen) 5-325 mg Tab 1 Tab PO Q6H PRN Naproxen EC (Naproxen) 375 Mg Tabdr 375 Mg PO BID Flomax (Tamsulosin HCl) 0.4 Mg Cap 0.4 Mg PO HS Ativan (Lorazepam) 0.5 Mg Tab 0.5 Mg PO Q8H PRN Rifampin 300 Mg Cap 300 Mg PO BID Active Ordered Medications Current Medications Acetaminophen (Tylenol) 650 mg Q4H PRN PO Pain 1-5 or Temp >101F; Start at 12:30 Magnesium Hydroxide (Milk Of Magnesia Liq) 30 ml DAILY PRN PO CONSTIPATION; Start 06/11/17 at 12:30 Al Hydrox/Mg Hydrox/Simethicone (Mag-Al Plus Susp Liq) 30 ml Q6H PRN PO DYSPEPSIA; Start 06/11/17 at 12:30 Nicotine (Habitrol 21 Mg Patch.24 Hr) 1 patch DAILY T-DERMAL Last administered on 06/12/17at 09:00; Start 06/11/17 at 12:30 Miscellaneous Information 1 DAILY T-DERMAL ; Start 06/12/17 at 09:00 Family History Review past family history noncontributory. Social History Positive tobacco use. Denies any alcohol. Positive for history of heroin and methamphetamine use. Physical Exam Vital Signs Vital Signs Date Time Temp Pulse Resp B/P (MAP) Pulse Ox O2 Delivery O2 Flow Rate FiO2 06/12/17 05:19 98.1 80 20 126/70 (88) 96 06/11/17 18:45 98.5 90 20 127/60 (82) 06/11/17 17:59 98.5 90 20 127/60 (82) 98 Physical Exam GENERAL: This is a well-nourished, well-developed patient, in no apparent distress. SKIN: No rashes, ecchymoses or lesions. Cool and dry. HEAD: Atraumatic. Normocephalic. No temporal or scalp tenderness. EYES: Pupils equal round and reactive. Extraocular motions intact. No scleral icterus. No injection or drainage. ENT: Nose without bleeding, purulent drainage or septal hematoma. Throat without erythema, tonsillar hypertrophy or exudate. Uvula midline. Airway patent. NECK: Trachea midline. No JVD or lymphadenopathy. Supple, nontender, no meningeal signs. CARDIOVASCULAR: Regular rate and rhythm without murmurs, gallops, or rubs. RESPIRATORY: Clear to auscultation. Breath sounds equal bilaterally. No wheezes , rales, or rhonchi. GASTROINTESTINAL: Abdomen soft, non-tender, nondistended. No hepato-splenomegaly , or palpable masses. No guarding. MUSCULOSKELETAL: Right knee without any swelling, erythema. Positive tenderness palpation. No calf tenderness. Negative Homans sign bilaterally. NEUROLOGICAL: Awake and alert. Cranial nerves II through XII intact. Motor and sensory grossly within normal limits. Five out of 5 muscle strength in all muscle groups. Normal speech. Laboratory Laboratory Tests Test 06/12/17 08:45 Blood Urea Nitrogen 15 Creatinine 1.03 Random Glucose 104 Calcium Level 9.2 Sodium Level 139 Potassium Level 4.6 Chloride Level 100 Carbon Dioxide Level 30.1 Anion Gap 9 Estimat Glomerular Filtration Rate 79 Hemoglobin A1c 5.4 Triglycerides Level 92 Cholesterol Level 168 LDL Cholesterol 104 HDL Cholesterol 45.3 Cholesterol/HDL Ratio 3.70 Result Diagram: 06/10/17194106/12/17 0845 Imaging Current Medications Acetaminophen (Tylenol) 650 mg Q4H PRN PO Pain 1-5 or Temp >101F; Start at 12:30 Magnesium Hydroxide (Milk Of Magnesia Liq) 30 ml DAILY PRN PO CONSTIPATION; Start 06/11/17 at 12:30 Al Hydrox/Mg Hydrox/Simethicone (Mag-Al Plus Susp Liq) 30 ml Q6H PRN PO DYSPEPSIA; Start 06/11/17 at 12:30 Nicotine (Habitrol 21 Mg Patch.24 Hr) 1 patch DAILY T-DERMAL Last administered on 06/12/17at 09:00; Start 06/11/17 at 12:30 Miscellaneous Information 1 DAILY T-DERMAL ; Start 06/12/17 at 09:00 Assessment and Plan Assessment and Plan 41-year-old male with history of substance abuse and anger problems complaining of his chronic right knee pain Chronic right knee pain -In January patient was found to have a fracture of the right tibial closed. He is supposed to wear immobilizer and follow-up with orthopedic surgeon as outpatient. -Patient stated that this pain is chronic he has not been on either medication. Physical exam normal. Will get an x-ray. -Patient does have a history of substance abuse questionable drug-seeking behavior. -We will give ibuprofen as needed for pain. DVT prophylaxis -Encourage ambulation Zaida Alves MD Jun 12, 2017 16:35
[2017-06-12] MEDS ORDERED: IBUPROFEN 400 MG TAB PO PRN (17:15)
[2017-06-12 19:26] VITALS: TEMP 98
--- NOTE | 2017-06-12 21:53 | RADRPT ---
EXAM DATE/TIME: 06/12/2017 21:03 [facility] COMPARISON: No previous studies available for comparison. INDICATIONS : Right knee pain MEDICAL HISTORY : None. SURGICAL HISTORY : None. ENCOUNTER: Initial ACUITY: 1 day PAIN SCORE: 6/10 LOCATION: Right knee FINDINGS: Four view examination of the right knee demonstrates no evidence of fracture or dislocation. Bony mi neralization is normal. The articular surfaces are intact. The suprapatellar soft tissues have a no rmal configuration. CONCLUSION: 1. No acute findings. Roly Iraheta MD on June 12, 2017 at 21:50 Board Certified Radiologist. This report was verified electronically.
[2017-06-13 06:12] VITALS: BP 111/61; PULSE 86; RESP 16; TEMP 97.9; O2SAT 97
[2017-06-13] MEDS: REMOVE OLD PATCH T-DERMAL SCH (09:00)
[2017-06-13] MEDS: NICOTINE 21 MG/24 HR PATCH T-DERMAL SCH (09:00)
--- NOTE | 2017-06-13 09:25 | HHI.PYPN ---
Subjective Chief Complaint: "My mind and body are deteriorating." Remarks Patient was seen and case discussed with nursing. Patient is guarded, irritable and on edge. He is fixated on anger towards his nurse. Insight is slowly improving and patient does agree to Risperdal and Depakote. Patient is willing to sign voluntary. Patient has fleeting suicidal ideation with no intent or plan. Mental Status Examination Appearance: Disheveled Consciousness: Alert Orientation: Person, Place (at least), Date/Time Motor Activity: Other (no motor abnormalities noted) Speech: Other (somewhat terse) Language: Adequate Fund of Knowledge: Adequate Attention and Concentration: Adequate Memory: Unremarkable Mood: Irritable Affect: Irritable Thought Process & Associations: Intact, Logical, Linear Thought Content: Appropriate Hallucination Type: None Delusion Type: None Suicidal Ideation: No Suicidal Plan: No Suicidal Intention: No Homicidal Ideation: No Homicidal Plan: No Homicidal Intention: No Insight: Fair Judgment: Impulsive Results Vitals/IOs Vital Signs Date Time Temp Pulse Resp B/P (MAP) Pulse Ox O2 Delivery O2 Flow Rate FiO2 06/13/17 06:12 97.9 86 16 111/61 (78) 97 06/11/17 10:00 Room Air Assessment & Plan Problem List: (1) Polysubstance abuse ICD Codes: F19.10 - Other psychoactive substance abuse, uncomplicated (2) Antisocial personality traits Assessment & Plan Start Depakote 500 mg by mouth daily, Risperdal 2 mg by mouth daily at bedtime. Depakote level next week Justification for Cont. Inpt. Patient will decompensate in a less restrictive setting Request HC Surrog/Guard Advoc?: No Acosta Morrison DO Jun 13, 2017 09:25
[2017-06-13] MEDS: DIVALPROEX SODIUM E.R. 500 MG TAB PO SCH (09:30)
[2017-06-13 18:05] VITALS: BP 122/64; PULSE 85; RESP 16; TEMP 97.6; O2SAT 98
[2017-06-13] MEDS: risperiDONE 1 MG TAB PO SCH (21:37)
[2017-06-14 06:32] VITALS: BP 126/71; PULSE 89; RESP 17; TEMP 98; O2SAT 97
[2017-06-14] MEDS: REMOVE OLD PATCH T-DERMAL SCH (09:00)
[2017-06-14] MEDS: NICOTINE 21 MG/24 HR PATCH T-DERMAL SCH (09:00)
[2017-06-14] MEDS: DIVALPROEX SODIUM E.R. 500 MG TAB PO SCH (09:04)
[2017-06-14] MEDS ORDERED: IBUPROFEN 600 MG TAB PO PRN (10:45)
--- NOTE | 2017-06-14 10:46 | HHI.PYPN ---
Subjective Chief Complaint: "My mind and body are deteriorating." Remarks Patient seen in his room with nurse Antonio, chart reviewed, patient compliant medications. Patient seen in his room lying down on his back quite still with somewhat angry expression on his face. There is attempt at coughing as if he had a sore throat her cold. Also complains of vague aches and pains. He then complained of pain in the right leg from an old injury.. Today he is quite vague related to any significant psychiatric symptoms. He is compliant with his Respinol and Depakote. He states he wanted to just go "one day at a time" I recommended that we start discussing discharge plans so that they will be in place when these discharge I did mention safe sober living facility such [facility]. Will increase his Motrin from 400-600 mg Review of Systems Except as stated in HPI: all other systems reviewed are Neg Mental Status Examination Appearance: Disheveled Consciousness: Alert Orientation: Person, Place (at least), Date/Time Motor Activity: Other (no motor abnormalities noted) Speech: Other (somewhat terse) Language: Adequate Fund of Knowledge: Adequate Attention and Concentration: Adequate Memory: Unremarkable Mood: Irritable Affect: Irritable Thought Process & Associations: Intact, Logical, Linear Thought Content: Appropriate Hallucination Type: None Delusion Type: None Suicidal Ideation: No Suicidal Plan: No Suicidal Intention: No Homicidal Ideation: No Homicidal Plan: No Homicidal Intention: No Insight: Fair Judgment: Impulsive Results Vitals/IOs Vital Signs Date Time Temp Pulse Resp B/P (MAP) Pulse Ox O2 Delivery O2 Flow Rate FiO2 06/14/17 06:32 98.0 89 17 126/71 (89) 97 06/11/17 10:00 Room Air Assessment & Plan Problem List: (1) Polysubstance abuse ICD Codes: F19.10 - Other psychoactive substance abuse, uncomplicated (2) Antisocial personality traits Assessment & Plan Estimated LOS: days patient compliant with medications. Continues show behaviors consistent with some manipulation. Continues focusing on some medications with subtle attempts at medication Justification for Cont. Inpt. At this point patient may decompensated place a lower level of care. We also need to check Depakote blood level day after tomorrow Discharge Planning To be determined patient was not very cooperative and discussing possible placement issues and discharge plans Request HC Surrog/Guard Advoc?: No Ruel Jordan MD Jun 14, 2017 10:46
--- NOTE | 2017-06-14 16:08 | HHI.PR ---
Subjective Remarks Follow-up on patient with chronic right knee pain. Patient seen and examined. Discussed negative x-ray findings with patient. He continues to complain of 9 out of 10 right knee pain. States that the knee will give out when he turns. Patient also complaining of nighttime cough with postnasal drip. Denies any fever or chills. Denies any chest pain or shortness of breath. Denies any nausea, vomiting and abdominal pain. Objective Vitals Vital Signs Date Time Temp Pulse Resp B/P (MAP) Pulse Ox O2 Delivery O2 Flow Rate FiO2 06/14/17 06:32 98.0 89 17 126/71 (89) 97 06/13/17 18:05 97.6 85 16 122/64 (83) 98 I/O 06/13/17 06/13/17 06/13/17 06/14/17 06/14/17 06/14/17 07:00 15:00 23:00 07:00 15:00 23:00 Intake Total 480 ml 360 ml Balance 480 ml 360 ml Intake Oral 480 ml 360 ml Result Diagram: 06/10/17 1942 06/12/17 0845 Imaging Last Impressions Knee X-Ray 06/12/17 0000 Signed Impressions: Service Date/Time: Monday, June 12, 2017 21:03 - CONCLUSION: 1. No acute findings. Roly Iraheta MD Objective Remarks GENERAL: This is a well-nourished, well-developed male patient, in no apparent distress. Asleep but easily awakens to voice. SKIN: Cool and dry. HEAD: Atraumatic. Normocephalic. EYES: Extraocular motions intact. No scleral icterus. No injection or drainage. ENT: Nose without bleeding or purulent drainage. Airway patent. MMM. NECK: Trachea midline. CARDIOVASCULAR: Regular rate and rhythm without murmurs, gallops, or rubs. RESPIRATORY: Clear to auscultation. Breath sounds equal bilaterally. No wheezes , rales, or rhonchi. GASTROINTESTINAL: Abdomen soft, non-tender, nondistended. MUSCULOSKELETAL: Right knee without any swelling, erythema. Positive tenderness palpation over medial joint line. Firm endpoint. No laxity appreciated. No calf tenderness. NEUROLOGICAL: Awake and alert. Cranial nerves II through XII grossly intact. Motor and sensory grossly within normal limits. Nonfocal. Normal speech. Medications and IVs Current Medications Medications (Trade) Dose Ordered Sig/Elmer Route Start Time Stop Time Status Last Admin (Tylenol) 650 mg Q4H PRN PO 06/11/17 12:30 (Milk Of Magnesia Liq) 30 ml DAILY PRN PO 06/11/17 12:30 (Mag-Al Plus Susp Liq) 30 ml Q6H PRN PO 06/11/17 12:30 (Habitrol 21 Mg Patch.24 Hr) 1 patch DAILY T-DERMAL 06/11/17 12:30 06/13/17 09:00 Miscellaneous Information 1 DAILY T-DERMAL 06/12/17 09:00 (Depakote Er) 500 mg DAILY PO 06/13/17 09:30 06/14/17 09:04 (risperDAL) 2 mg HS PO 06/13/17 21:00 06/13/17 21:37 (Motrin) 600 mg Q6HR PRN PO 06/14/17 10:45 A/P Assessment and Plan 41-year-old male with history of substance abuse and anger problems complaining of his chronic right knee pain Chronic right knee pain Right knee instability -In January, patient was found to have a fracture of the right medial tibial plateau. He is supposed to wear immobilizer and follow-up with orthopedic surgeon as outpatient. -Patient stated that this pain is chronic he has not been on either medication. -Xray negative except for mild subchondral sclerosis medially, images reviewed by me -Patient does have a history of substance abuse questionable drug-seeking behavior. -concern for possible ACL disruption by history. Patient will need to follow up with Orthopedics as outpatient, likely would benefit from MRI study. -PT eval/tx -Continue ibuprofen for pain Allergic rhinitis -trial Benadryl and Flonase DVT prophylaxis -Encourage ambulation Airam Sanchez Jun 14, 2017 16:08
[2017-06-14 17:40] VITALS: BP 124/77; PULSE 102; RESP 18; TEMP 98; O2SAT 99
[2017-06-14] MEDS: FLUTICASONE PROPIONATE 50 MCG/ACT 16 GM NASAL SPRAY EACH NARE SCH ×2 (17:59→20:04)
[2017-06-14] MEDS: diphenhydrAMINE HCL 25 MG CAP PO SCH (20:04)
[2017-06-14] MEDS: risperiDONE 1 MG TAB PO SCH (20:04)
[2017-06-15 05:44] VITALS: BP 128/73; PULSE 83; RESP 16; TEMP 98.1; O2SAT 98
[2017-06-15] MEDS: DIVALPROEX SODIUM E.R. 500 MG TAB PO SCH (08:25)
[2017-06-15] MEDS: REMOVE OLD PATCH T-DERMAL SCH (08:57)
[2017-06-15] MEDS: NICOTINE 21 MG/24 HR PATCH T-DERMAL SCH (08:58)
--- NOTE | 2017-06-15 13:11 | HHI.PYPN ---
Subjective Chief Complaint: "My mind and body are deteriorating." Remarks Patient seen in his room with nurse Antonio, chart reviewed, patient compliant medications. Patient discussed with nurse. Hospitalist note of yesterday reviewed and agreed with. Patient seen laying flat on his back in his bed he was quiet on the approached his room and look into his room. However when we walked in and said by his bed he started coughing. Focusing mainly on his somatic complaints of the upper respiratory problems and cough in the chronic pain in his right knee. However he does denies suicidality today HI should contributed his mood issues to his somatic problems. I feel that may be a degree of manipulation with this. For now continue treatment no change Review of Systems Except as stated in HPI: all other systems reviewed are Neg Mental Status Examination Appearance: Disheveled Consciousness: Alert Orientation: Person, Place (at least), Date/Time Motor Activity: Other (no motor abnormalities noted) Speech: Other (somewhat terse) Language: Adequate Fund of Knowledge: Adequate Attention and Concentration: Adequate Memory: Unremarkable Mood: Irritable Affect: Irritable Thought Process & Associations: Intact, Logical, Linear Thought Content: Appropriate Hallucination Type: None Delusion Type: None Suicidal Ideation: No Suicidal Plan: No Suicidal Intention: No Homicidal Ideation: No Homicidal Plan: No Homicidal Intention: No Insight: Fair Judgment: Impulsive Results Vitals/IOs Vital Signs Date Time Temp Pulse Resp B/P (MAP) Pulse Ox O2 Delivery O2 Flow Rate FiO2 06/15/17 05:44 98.1 83 16 128/73 (91) 98 06/11/17 10:00 Room Air Assessment & Plan Problem List: (1) Polysubstance abuse ICD Codes: F19.10 - Other psychoactive substance abuse, uncomplicated (2) Antisocial personality traits (3) Adjustment disorder with disturbance of conduct ICD Codes: F43.24 - Adjustment disorder with disturbance of conduct Status: Acute Assessment & Plan Estimated LOS: days patient continues to focus on somatic issues. He is compliant medication. He is showing essentially no participation in group or programming. We'll get Depakote blood level tomorrow morning considering the patient's homelessness and his somatic complaints that a be a degree of adjustment disorder with this man Justification for Cont. Inpt. At this time patient may decompensated placed on the lower level of care Discharge Planning To be determined Request HC Surrog/Guard Advoc?: No Ruel Jordan MD Jun 15, 2017 13:11
--- NOTE | 2017-06-15 14:36 | HHI.PR ---
Subjective Remarks Followup visit for chronic right knee pain. Patient is seen and examined today after participating in PT at bedside. He understands that he will need further workup on knee as an out patient basis. He complains of cough which began about 2 days prior to coming to the hospital. He reports this cough is nonproductive, denies any SOB, fevers, chills, night sweats, N/V/D, headache, throat pain, chest pain, dysuria. He reports that he continues to smoke about several cigarettes a day. He also tells me that his breathing status has not been the same since about a year ago when he had pneumonia and blood clots in his lungs. Objective Vitals Vital Signs Date Time Temp Pulse Resp B/P (MAP) Pulse Ox O2 Delivery O2 Flow Rate FiO2 06/15/17 05:44 98.1 83 16 128/73 (91) 98 06/14/17 17:40 98.0 102 18 124/77 (93) 99 Result Diagram: 06/12/17 0845 Imaging Last Impressions Knee X-Ray 06/12/17 0000 Signed Impressions: Service Date/Time: Monday, June 12, 2017 21:03 - CONCLUSION: 1. No acute findings. Roly Iraheta MD Objective Remarks GENERAL: This is a well-nourished, well-developed male patient, in no apparent distress. SKIN: Cool and dry. HEAD: Atraumatic. Normocephalic. EYES: Extraocular motions intact. No scleral icterus. No injection or drainage. ENT: Nose without bleeding or purulent drainage. Airway patent. NECK: Trachea midline. CARDIOVASCULAR: Regular rate and rhythm without murmurs, gallops, or rubs. RESPIRATORY: Clear to auscultation. Breath sounds equal bilaterally. No wheezes , rales, or rhonchi. Respirations normal with no noted distress. GASTROINTESTINAL: Abdomen soft, non-tender, nondistended. MUSCULOSKELETAL: Joints without swelling or erythema. Positive tenderness palpation over medial joint line. No laxity appreciated. NEUROLOGICAL: Awake and alert. Cranial nerves II through XII grossly intact. Motor and sensory grossly within normal limits. Nonfocal. Normal speech. A/P Assessment and Plan 41-year-old male with history of substance abuse and anger problems complaining of his chronic right knee pain Chronic right knee pain Right knee instability -In January, patient was found to have a fracture of the right medial tibial plateau. He is supposed to wear immobilizer and follow-up with orthopedic surgeon as outpatient. -Patient stated that this pain is chronic he has not been on either medication. -Xray negative except for mild subchondral sclerosis medially. -Patient does have a history of substance abuse questionable drug-seeking behavior. -concern for possible ACL disruption by history. Patient will need to follow up with Orthopedics as outpatient, likely would benefit from MRI study. -PT eval/tx -Continue ibuprofen for pain Cough - Likely viral, afebrile, no leukocytosis, no other symptoms other than cough. - Will check chest x-ray - Mucinex and Robitussin for cough Hx tricuspid valve endocarditis - Was treated with antibiotics due to septic emboli, anticoagulation not indicated Allergic rhinitis - Benadryl and Flonase DVT prophylaxis -Encourage ambulation Plan discussed with patient RayoSandibaljeet MAYO Jun 15, 2017 14:36
[2017-06-15] MEDS ORDERED: guaiFENesin SOLUTION 200 MG/10 ML CUP PO PRN (14:45)
--- NOTE | 2017-06-15 17:55 | RADRPT ---
EXAM DATE/TIME: 06/15/2017 17:39 [facility] COMPARISON: CHEST PA & LAT, January 29, 2016, 18:51. INDICATIONS : Short of breath. MEDICAL HISTORY : None. SURGICAL HISTORY : None. ENCOUNTER: Initial ACUITY: 1 day PAIN SCORE: 0/10 LOCATION: Bilateral chest FINDINGS: There is some mild linear atelectasis in both lower lungs. Otherwise, the lungs are clear and well-ae rated. There are no effusions or pulmonary edema. Heart size within normal limits. The bony structure s are grossly intact. CONCLUSION: Mild bibasilar atelectasis. Jose David Sifuentes MD on June 15, 2017 at 17:52 Board Certified Radiologist. This report was verified electronically.
[2017-06-15 18:11] VITALS: BP 115/67; PULSE 96; RESP 18; TEMP 98.7; O2SAT 98
[2017-06-15] MEDS: guaiFENesin E.R. 600 MG TAB PO SCH (21:00)
[2017-06-15] MEDS: risperiDONE 1 MG TAB PO SCH (21:00)
[2017-06-15] MEDS: diphenhydrAMINE HCL 25 MG CAP PO SCH (21:29)
[2017-06-16 05:57] VITALS: BP 107/55; PULSE 80; RESP 16; TEMP 97.4; O2SAT 98
[2017-06-16] MEDS: REMOVE OLD PATCH T-DERMAL SCH (09:00)
[2017-06-16] MEDS: NICOTINE 21 MG/24 HR PATCH T-DERMAL SCH (09:00)
[2017-06-16] MEDS: FLUTICASONE PROPIONATE 50 MCG/ACT 16 GM NASAL SPRAY EACH NARE SCH (09:00)
[2017-06-16] MEDS: guaiFENesin E.R. 600 MG TAB PO SCH (09:00)
[2017-06-16] MEDS: DIVALPROEX SODIUM E.R. 500 MG TAB PO SCH (09:00)
[2017-06-16] MEDS ORDERED: TRAM50 PO (11:17)
[2017-06-16] MEDS ORDERED: DEPA500T3 PO (11:17)
[2017-06-16] MEDS ORDERED: FLUT50SP EACH NARE (11:17)
[2017-06-16] MEDS ORDERED: RISP1 PO (11:17)
[2017-06-16] MEDS ORDERED: guaiFENesin ER PO (11:17)
--- NOTE | 2017-06-16 11:23 | HHI.DS ---
Psychiatry Discharge Summary Inpatient Psychiatric care?: Yes Advance Directive: No Reason Not Provided: does not have one Mental Health AdvanceDirective: No Health Care Proxy: No Admission Admission Date Jun 11, 2017 at 11:44 Admission Diagnosis: (1) Adjustment disorder with disturbance of conduct ICD Code: F43.24 - Adjustment disorder with disturbance of conduct (2) Antisocial personality traits (3) Polysubstance abuse ICD Code: F19.10 - Other psychoactive substance abuse, uncomplicated Brief History Mr. Marcano is a 41 year-old male with a reported history of bipolar disorder and PTSD who presents under a Le act from [facility] Department alleging that the patient "stated he feels rage and can't control it." Reviewing the electronic medical record, I note that the patient has been seen in consultation in the past by Dr. Steve, most recently in July 2016 as well as CLARA Gomez. I note a documented history of cluster B personality traits and drug-seeking behavior. Patient seen and examined with nurse. Chart reviewed. Case discussed with nursing staff. On my examination today, the patient presents as entitled and uncooperative. He tells me that he is off his medications, and I gather from context that he means opiates. He refuses any psychotropic medications when I offer them to him. He is medication seeking for opiates. He has a dearth of actual psychiatric symptoms. The most that I can gather from him is that he feels "infuriated" and he notes "I have a rage in me, and I don't want anything bad to happen." He does not verbalize any suicidal or homicidal ideation. I can elicit no dayron gael mood symptoms. He has no audiovisual hallucinations, no delusional material, and there is no evidence of any impairment in reality construction. Antisocial personality traits are extremely prominent and his presentation seems quite manipulative. Psychiatric interview is somewhat limited as the patient is uncooperative. Patient complains of right leg pain related to fracture, but I note that this happened last January, and I suspect that this complaint is in service of pain medication seeking. Past psychiatric history: Patient reports he was psychiatrically admitted most recently a year ago. Otherwise, he refuses to provide any past psychiatric history. Family history: Patient initially says "yes" but then when I tried to pin down the diagnoses and family members affected he says "nothing." Chemical dependency history: The patient denies any abuse of drugs or alcohol although his urine toxicology is positive for amphetamines and he has a lengthy chart history of polysubstance abuse. Social history: Patient is homeless. He is . He has no children. He is college educated. He is presently unemployed. He denies any history. Denies any access to guns or firearms. He reports a history of misdemeanors. When I ask about confucianism beliefs he says "it's personal." No reported history of trauma. Tobacco Use In Past 30 Days: 5 or More Cigarettes/Day Alcohol Use: Monthly or Less Hospital Course Patient's hospital course was uneventful, patient showed no participation in any of the groups or programming. Uterus out for meals toileting and late his bed and slept all day. He focus on somatic issues of his upper respiratory symptoms that were addressed by the medical service, and complaints of difficulty with his right knee that are quite chronic in nature. He denies suicidality voices or visions. I did question somewhat motivation for this hospitalization if it might be manipulation. Mini-Mental this time patient along the meets criteria for inpatient psychiatric hospitalization he will be discharged today to himself with referral to [facility], and to the [facility], with Rx from one to 2 weeks Results Blood Pressure 107 / 55 Vital Signs Date Time Temp Pulse Resp B/P (MAP) Pulse Ox O2 Delivery O2 Flow Rate FiO2 06/16/17 05:57 97.4 80 16 107/55 (72) 98 Laboratory Tests Test 06/16/17 10:08 Laboratory Results Test 06/12/17 08:45 06/16/17 10:08 Cholesterol Level 168 MG/DL (120-200) HDL Cholesterol 45.3 MG/DL (40.0-60.0) Hemoglobin A1c 5.4 % (4.3-6.0) LDL Cholesterol 104 MG/DL (0-99) Triglycerides Level 92 MG/DL (42-150) Summary of Procedures None done Imaging Last Impressions Chest X-Ray 06/15/17 0000 Signed Impressions: Service Date/Time: Thursday, June 15, 2017 17:39 - CONCLUSION: Mild bibasilar atelectasis. Jose David Sifuentes MD Knee X-Ray 06/12/17 0000 Signed Impressions: Service Date/Time: Monday, June 12, 2017 21:03 - CONCLUSION: 1. No acute findings. Roly Iraheta MD Pending results at discharge: No Medications # of Antipsychotic meds at D/C: 1 Approp Antipsych med options 1 - Minimum of three failed multiple trials of monotherapy. 2 - Documented plan to taper to monotherapy due to previous use of multiple meds OR cross-taper in progress at D/C. 3 - Documentation of augmentation of Clozapine. 4 - Justification other than those listed in allowable values 1-3, document here : Discharge Discharge Date: Jun 16, 2017 Discharge Diagnosis: (1) Adjustment disorder with disturbance of conduct Diagnosis: Principal ICD Code: F43.24 - Adjustment disorder with disturbance of conduct Status: Acute (2) Antisocial personality traits Diagnosis: Principal (3) Polysubstance abuse Diagnosis: Secondary ICD Code: F19.10 - Other psychoactive substance abuse, uncomplicated Pt Condition on Discharge: Stable Discharge Disposition: Discharge Home Discharge Instructions Diet Instructions: As Tolerated, No Restrictions Activities you can perform: Regular-No Restrictions Scheduled Appointment: John Hendrciks (also referral to the [facility] for medical issues) Discharge Time > 30 minutes Mental Status Examination Appearance: Disheveled Consciousness: Alert Orientation: Person, Place (at least), Date/Time Motor Activity: Other (no motor abnormalities noted) Speech: Other (somewhat terse) Language: Adequate Fund of Knowledge: Adequate Attention and Concentration: Adequate Memory: Unremarkable Mood: Irritable Affect: Irritable Thought Process & Associations: Intact, Logical, Linear Thought Content: Appropriate Hallucination Type: None Delusion Type: None Suicidal Ideation: No Suicidal Plan: No Suicidal Intention: No Homicidal Ideation: No Homicidal Plan: No Homicidal Intention: No Insight: Fair Judgment: Impulsive Discharge/Advance Care Plan Health Problems: (1) Polysubstance abuse (2) Antisocial personality traits (3) Adjustment disorder with disturbance of conduct Goals to promote your health * To prevent worsening of your condition and complications * To maintain your health at the optimal level Directions to meet your goals Take your medications as prescribed Follow your dietary instruction Follow activity as directed Keep your appointments as scheduled Take your immunizations and boosters as scheduled If your symptoms worsen call your PCP, if no PCP go to Urgent Care Center or Emergency Room For 24/7 questions related to your inpatient stay or results of tests pending at discharge, please contact Dr. Ruel Jordan at Smoking is Dangerous to Your Health. Avoid second hand smoking Ruel Jordan MD Jun 16, 2017 11:23
--- NOTE | 2017-06-16 14:26 | HHI.PR ---
Subjective Remarks Follow-up visit for chronic right knee pain, and cough. Patient seen and examined resting in bed comfortably, states that he will be discharged later today. He continues to complain of cough but denies any fevers, chills, nausea , vomiting, diarrhea, headache, throat pain, shortness of breath or chest pains. He does not voice any complaints of her knee pain today. Objective Vitals Vital Signs Date Time Temp Pulse Resp B/P (MAP) Pulse Ox O2 Delivery O2 Flow Rate FiO2 06/16/17 05:57 97.4 80 16 107/55 (72) 98 06/15/17 18:11 98.7 96 18 115/67 (83) 98 I/O 06/15/17 06/15/17 06/15/17 06/16/17 06/16/17 06/16/17 07:00 15:00 23:00 07:00 15:00 23:00 Intake Total 480 ml Balance 480 ml Intake Oral 480 ml Result Diagram: 06/12/17 0845 Imaging Last Impressions Chest X-Ray 06/15/17 0000 Signed Impressions: Service Date/Time: Thursday, June 15, 2017 17:39 - CONCLUSION: Mild bibasilar atelectasis. Jose David Sifuentes MD Knee X-Ray 06/12/17 0000 Signed Impressions: Service Date/Time: Monday, June 12, 2017 21:03 - CONCLUSION: 1. No acute findings. Roly Iraheta MD Objective Remarks GENERAL: This is a well-nourished, well-developed male patient, in no apparent distress. SKIN: Cool and dry. HEAD: Atraumatic. Normocephalic. EYES: Extraocular motions intact. No scleral icterus. No injection or drainage. ENT: Airway patent. NECK: Trachea midline. CARDIOVASCULAR: Regular rate and rhythm without murmurs, gallops, or rubs. RESPIRATORY: Clear to auscultation. Breath sounds equal bilaterally. No wheezes , rales, or rhonchi. Respirations normal with no noted distress. MUSCULOSKELETAL: Joints without swelling or erythema. Positive tenderness palpation over medial joint line. No laxity appreciated. NEUROLOGICAL: Awake and alert. Motor and sensory grossly within normal limits. Nonfocal. Normal speech. A/P Assessment and Plan 41-year-old male with history of substance abuse and anger problems complaining of his chronic right knee pain Chronic right knee pain Right knee instability -In January, patient was found to have a fracture of the right medial tibial plateau. He is supposed to wear immobilizer and follow-up with orthopedic surgeon as outpatient. -Patient stated that this pain is chronic he has not been on either medication. -Xray negative except for mild subchondral sclerosis medially. -Patient does have a history of substance abuse questionable drug-seeking behavior. -concern for possible ACL disruption by history. Patient will need to follow up with Orthopedics as outpatient, likely would benefit from MRI study. -PT eval/tx -Continue ibuprofen for pain at home as needed, will need to follow up with ortho as outpatient Cough - Likely viral, afebrile, no leukocytosis, no other symptoms other than cough. - chest x-ray with atelectasis, IS while awake, discussed with patient - Mucinex and Robitussin for cough, can continue at home as needed Hx tricuspid valve endocarditis - Was treated with antibiotics due to septic emboli, anticoagulation not indicated - Discussed with patient, no need for anticoagulation Allergic rhinitis - Benadryl and Flonase DVT prophylaxis -Encourage ambulation Plan discussed with patient and nurse, he will be discharged later today. Jacob Cade Jun 16, 2017 14:26
--- NOTE | 2017-06-16 15:01 | PD.TTN ---
Patient Problems 1. Discharge planning 2. Medication compliance 3. Knowledge deficit 4. Lack of coping skills Progress Toward Goals Provider Present: Dr. Tamela Jordan Provider Input: 06/16/17 he appears struggling with stress and some pain issues could go today Psychiatric Counselors Present: Jackie Orta LCSW Psych Therapist Input: 06/16/17 he is not engaging and appears wanting more medical attention vs mental health care Group Spec/RT/OT/SHAFER Present: SONI Solano Group Spec/RT/OT/SHAFER Input: 06/16/17 does not attend any groups Jackie Orta LCSW Jun 16, 2017 15:01
== END 2017-06-16 14:10 | disposition home or self-care (01) | DRG 882 ==
LOC: NEDAMB 19:00 → NEDA 06-11 11:44 → H260 06-11 13:23
PROVIDERS: ADMIT Psychiatry & Neurology Psychiatry; ATTEND Psychiatry & Neurology Psychiatry
DX: F43.24 Adjustment disorder with disturbance of conduct (principal); Z91.14 Patient's other noncompliance with medication regimen; R45.851 Suicidal ideations; F15.93 Other stimulant use, unspecified with withdrawal; F31.12 Bipolar disorder, current episode manic without psychotic features, moderate; F60.2 Antisocial personality disorder; F11.10 Opioid abuse, uncomplicated; F43.10 Post-traumatic stress disorder, unspecified; N40.0 Benign prostatic hyperplasia without lower urinary tract symptoms; G89.29 Other chronic pain; M25.561 Pain in right knee; J30.9 Allergic rhinitis, unspecified; F17.210 Nicotine dependence, cigarettes, uncomplicated; Z59.0 Homelessness; Z91.5 Personal history of self-harm; Z76.5 Malingerer [conscious simulation]; Z86.14 Personal history of Methicillin resistant Staphylococcus aureus infection; Z91.19 Patient's noncompliance with other medical treatment and regimen
CPT/HCPCS: 71046; 73564; 80048; 80053; 80061; 80164; 80307; 83036; 85025; 93005

== ENCOUNTER 2017-06-21 00:14 | Emergency (ER) | payer MEDICAID, OTHER ==
[~2017-06-21] VITALS: Ht 180.3 cm; Wt 75.0 kg
[~2017-06-21 00:14] MED LIST changes: +DEPA500T3 PO; +FLUT50SP EACH NARE; -LORA-392 PO; -NAPR375T4 PO; -PERC5TAB12 PO; -RIFA300C2 PO; +RISP1 PO; -TAMS5CAP PO; +guaiFENesin ER PO
[2017-06-21 00:18] VITALS: BP 129/78; PULSE 85; RESP 16; TEMP 98; O2SAT 100
[2017-06-21] MEDS ORDERED: SODIUM CHLORIDE 0.9% FLUSH 10 ML FLUSH IVF PRN (00:30)
--- NOTE | 2017-06-21 00:36 | PD ---
HPI Chief Complaint: Chest Pain Time Seen by Provider: 00:19 Travel History International Travel<30 days: No (noble) Contact w/Intl Traveler<30days: No (noble) Traveled to known affect area: No (noble) History of Present Illness HPI The patient is a 41 year old male who presents to the [facility] emergency department with a history of reportedly calling for chest pain according to ambulance services. The patient was not forthcoming regarding the details of the history of his chest pain. The patient was given 324 mg of aspirin p.o. and a sublingual nitroglycerin. The patient reportedly spat out the nitroglycerin and then had what look like seizure-like activity. This did not appear to be a true seizure according ambulance services as the patient did not have any tongue biting, loss of bowel or bladder control, or postictal state, however the patient is now refusing to answer any questions. The patient repeatedly states the same thing, "AA always". No other history is able to be obtained from the patient at this time. The patient's electronic medical record is reviewed regarding his history. [facility] Past Medical History Narrative Medical The patient's past medical history according to the electronic medical record consists of anxiety disorder, depression, polysubstance abuse with heroin and methamphetamines, benign prostatic hypertrophy, history of suicide attempt in the past, history of pneumonia, chronic right knee pain status post fracture. Medical History: Unable to Obtain Anxiety: Yes Depression: Yes Cancer: No Cardiovascular Problems: Yes (Patient unsure but believes he has this) Chest Pain: Yes Congestive Heart Failure: No Diminished Hearing: No Endocrine: No Gastrointestinal Disorders: No Genitourinary: No Hypertension: No Immune Disorder: No Implanted Vascular Access Dvce: Yes Kidney Stones: No Musculoskeletal: No Neurologic: No Psychiatric: Yes (Bipolar, Depression) Reproductive: No Respiratory: Yes Immunizations Current: Yes Pneumonia: Yes Renal Failure: No Tetanus Vaccination: Unknown Past Surgical History Narrative Surgical The patient's past surgical history is significant for left hand surgery. Surgical History: Unable to Obtain Abdominal Surgery: No Cardiac Surgery: No Ear Surgery: No Endocrine Surgery: No Eye Surgery: No Genitourinary Surgery: No Oral Surgery: No Thoracic Surgery: No Other Surgery: Yes (LEFT HAND PER PT) Social History Alcohol Use: No (DENIES) Tobacco Use: Yes (1 PPD) Substance Use: No Allergies-Medications (Allergen,Severity, Reaction): Coded Allergies: *MDRO Multi-Drug Resistant Organism (Verified Adverse Reaction, Unknown, ) MRSA (urine-01/04/16) & (blood-01/06/16) Reported Meds & Prescriptions Reported Meds & Active Scripts Active Zithromax (Azithromycin) 250 Mg Tab 250 Mg PO DAILY 4 Days Risperdal (Risperidone) 1 Mg Tab 2 Mg PO HS [guaiFENesin ER] 600 MG Tabcr 1,200 Mg PO BID Fluticasone Nasal Schuyler 50 Mcg/Act Naspr 2 Schuyler EACH NARE DAILY 50 mcg/spray Depakote ER (Divalproex Sodium) 500 Mg Damien 500 Mg PO DAILY Ultram (Tramadol HCl) 50 Mg Tab 50 Mg PO Q6H PRN Review of Systems ROS Limitations: Altered Mental Status, Refused Cardiovascular: Positive: Chest Pain or Discomfort Neurologic: Positive: Change in Mentation Physical Exam Narrative General: The patient is a well-developed well-nourished male in no acute distress. Head and Neck exam: Head is normocephalic atraumatic. Eyes: The patient is uncooperative with extraocular motion testing. T the patient's pupils are equal round and reactive to light. Nose: Midline septum with pink mucous membranes Mouth: Dentition unremarkable. Moist mucus membranes. Posterior oropharynx is not erythematous. No tonsillar hypertrophy. Uvula midline. Airway patent. Neck: No palpable lymphadenopathy. No nuchal rigidity. No thyromegaly. Cardiovascular: Regular rate and rhythm without murmurs, gallops, or rubs. Lungs: Clear to auscultation bilaterally. No wheezes, rhonchi, or rales. Abdomen: Soft, without tenderness to palpation in all 4 quadrants of the abdomen. No guarding, rebound, or rigidity. Negative [place] sign. Extremities: No clubbing, cyanosis, or edema. 2+ pulses in all 4 extremities. No calf tenderness on palpation. Back: No spinous process tenderness to palpation. No costovertebral angle tenderness to palpation. Neurologic Exam: The patient is uncooperative with formal neurologic testing. The patient is staring straight ahead repeatedly saying "AA always". The patient spontaneously moves all extremities with 5/5 strength. He has intact sensation over all dermatomes. Skin Exam: No rash noted. Intact skin that is warm and dry. Data Data Last Documented VS Vital Signs Date Time Temp Pulse Resp B/P (MAP) Pulse Ox O2 Delivery O2 Flow Rate FiO2 06/21/17 18:46 89 18 112/60 (77) 96 Room Air 06/21/17:18 98.0 Orders Orders B-Type Natriuretic Peptide (06/21/17:28) Ckmb (Isoenzyme) Profile (06/21/17:) Complete Blood Count With Diff (06/21/17) Comprehensive Metabolic Panel (06/21/17) Magnesium (Mg) (06/21/17) Prothrombin Time / Inr (Pt) (06/21/17) Act Partial Throm Time (Ptt) (06/21/17) Troponin I (06/21/17) Lipase (06/21/17) Ecg Monitoring (06/21/17:) Bilateral Bp Monitoring (06/21/17) Iv Access Insert/Monitor (06/21/17) Oximetry (06/21/17) Oxygen Administration (06/21/17:) Sodium Chloride 0.9% Flush (Ns Flush) (06/21/17 00:30) Westergren Sedimentation Rate (06/21/17:28) Chest, Single Ap (06/21/17 01:03) CKMB (06/21/17 00:50) CKMB% (06/21/17 00:50) Ct Brain W/O Iv Contrast(Rout) (06/21/17 02:12) Drug Screen, Random Urine (06/21/17 02:12) Alcohol (Ethanol) (06/21/17 02:12) Salicylates (Aspirin) (06/21/17 02:12) Tylenol (Acetaminophen) (06/21/17 02:12) Blood Culture (06/21/17 02:12) Lactic Acid Sepsis Protocol (06/21/17 02:12) Sodium Chlor 0.9% 1000 Ml Inj (Ns 1000 M (06/21/17 03:15) Lorazepam Inj (Ativan Inj) (06/21/17 03:03) Restraints Violent (06/21/17 03:01) Ceftriaxone Inj (Rocephin Inj) (06/21/17 03:15) Azithromycin Inj (Zithromax Inj) (06/21/17 03:15) Lorazepam Inj (Ativan Inj) (06/21/17 03:15) Electrocardiogram (06/21/17 04:30) Ckmb (Isoenzyme) Profile (06/21/17 04:50) Troponin I (06/21/17 04:50) Valproic Acid (Depakene) (06/21/17 04:50) Psych Screen (06/21/17 05:14) CKMB (06/21/17 04:50) CKMB% (06/21/17 04:50) Diet Regular Basic (06/21/17 Dinner) Labs Laboratory Tests Test 06/21/17 00:50 06/21/17 04:50 06/21/17 16:25 White Blood Count 10.1 TH/MM3 Red Blood Count 4.01 MIL/MM3 Hemoglobin 11.1 GM/DL Hematocrit 33.4 % Mean Corpuscular Volume 83.5 FL Mean Corpuscular Hemoglobin 27.6 PG Mean Corpuscular Hemoglobin Concent 33.1 % Red Cell Distribution Width 14.9 % Platelet Count 390 TH/MM3 Mean Platelet Volume 7.1 FL Neutrophils (%) (Auto) 57.8 % Lymphocytes (%) (Auto) 32.3 % Monocytes (%) (Auto) 8.6 % Eosinophils (%) (Auto) 0.6 % Basophils (%) (Auto) 0.7 % Neutrophils # (Auto) 5.8 TH/MM3 Lymphocytes # (Auto) 3.2 TH/MM3 Monocytes # (Auto) 0.9 TH/MM3 Eosinophils # (Auto) 0.1 TH/MM3 Basophils # (Auto) 0.1 TH/MM3 CBC Comment DIFF FINAL Differential Comment Erythrocyte Sedimentation Rate 58 mm/hr Prothrombin Time 10.8 SEC Prothromb Time International Ratio 1.1 RATIO Activated Partial Thromboplast Time 28.4 SEC Blood Urea Nitrogen 22 MG/DL Creatinine 0.90 MG/DL Random Glucose 76 MG/DL Total Protein 7.4 GM/DL Albumin 3.3 GM/DL Calcium Level 8.7 MG/DL Magnesium Level 2.0 MG/DL Alkaline Phosphatase 76 U/L Aspartate Amino Transf (AST/SGOT) 32 U/L Alanine Aminotransferase (ALT/SGPT) 52 U/L Total Bilirubin 0.5 MG/DL Sodium Level 141 MEQ/L Potassium Level 3.7 MEQ/L Chloride Level 105 MEQ/L Carbon Dioxide Level 26.7 MEQ/L Anion Gap 9 MEQ/L Estimat Glomerular Filtration Rate 93 ML/MIN Total Creatine Kinase 106 U/L 210 U/L Creatine Kinase MB LESS THAN 0.5 NG/ML 0.6 NG/ML Troponin I LESS THAN 0.02 NG/ML LESS THAN 0.02 NG/ML B-Type Natriuretic Peptide 5 PG/ML Lipase 119 U/L Lactic Acid Level 1.5 mmol/L Salicylates Level 3.4 MG/DL Acetaminophen Level LESS THAN 2.0 MCG/ML Valproic Acid (Depakene) Level 6 MCG/ML Ethyl Alcohol Level LESS THAN 3 MG/DL Urine Opiates Screen NEG Urine Barbiturates Screen NEG Urine Amphetamines Screen NEG Urine Benzodiazepines Screen NEG Urine Cocaine Screen NEG Urine Cannabinoids Screen NEG MDM Medical Decision Making Medical Screen Exam Complete: Yes Emergency Medical Condition: Yes Medical Record Reviewed: Yes Interpretation(s) Last Impressions Head CT 06/21/17211 Signed Impressions: Service Date/Time: Wednesday, June 21, 2017 02:29 - CONCLUSION: 1. Limited study but no definite acute intracranial abnormality. Glen Wilks MD Chest X-Ray 06/21/17102 Signed Impressions: Service Date/Time: Wednesday, June 21, 2017 01:07 - CONCLUSION: Right basilar infiltrate Glen Wilks MD Differential Diagnosis Altered mentation related to acute psychosis, versus substance intoxication, versus withdrawal syndrome, versus intracranial abnormality, versus encephalopathy Narrative Course During the course of the patient's emergency department visit, the patient's history, examination, and differential diagnosis were reviewed with the patient. The patient was placed on a playground monitor with oximetry and frequent blood pressure monitoring. The patient had IV access obtained and blood work sent for analysis. A chest x-ray, CT scan of the brain was ordered. Patient had an EKG done that showed a sinus rhythm heart rate of 78, QRS duration 93 ms , QTC 421 ms. While the patient was being observed in the emergency department he became acutely agitated and began to stand up on the bed jumping around. When attempted to be helped off the bed, the patient became agitated and flailing attempting to strike the staff. The patient was placed in restraints for his and the staff safety. The patient was provided Ativan for sedation. A psychiatric screen was ordered. A Le act was written. The patient's laboratory studies were reviewed and remarkable for a CBC that is unremarkable, sedimentation rate is 58, CMP is remarkable for a BUN of 22, cardiac enzymes within normal limits, albumin 3.3, lipase 118, BNP is 5, PT 10.8 , PTT 28.4, urine drug screen is negative, salicylate 3.4, acetaminophen less than 2, valproic acid 6, alcohol level 3. Radiology studies were reviewed and remarkable for chest x-ray that shows a right basilar infiltrate, CT scan of the brain shows no acute abnormality. Given the patient's infiltrate on x-ray, blood cultures were sent for analysis. Patient was given Rocephin and Zithromax IV. The patient had a prescription written for antibiotic after medical clearance. [facility] Long[facility]. She recommended a second set of cardiac enzymes for clearance and then psychiatric evaluation. The patient's second set of cardiac enzymes were negative. The patient has been medically cleared for evaluation by the psychiatric screener and psychiatrist under a Le act. Diagnosis Primary Impression: Chest pain Qualified Codes: R07.9 - Chest pain, unspecified Additional Impression: Acute psychosis Scripts Azithromycin (Zithromax) 250 Mg Tab 250 MG PO DAILY for Infection for 4 Days, #4 TAB 0 Refills Prov: Margaux Lang MD 06/21/17 Margaux Lang MD Jun 21, 2017 00:36
[2017-06-21 01:04] LABS: AUTOMATED NEUTROPHIL # 5.8 TH/MM3 (1.8-7.7); BASOPHIL # 0.1 TH/MM3 (0-0.2); BASOPHIL % 0.7 % (0.0-2.0); EOSINOPHIL # 0.1 TH/MM3 (0-0.4); EOSINOPHIL % 0.6 % (0.0-4.0); HEMATOCRIT 33.4 % (39.0-51.0); HEMOGLOBIN 11.1 GM/DL (13.0-17.0); LYMPH % 32.3 % (9.0-44.0); LYMPHOCYTE # 3.2 TH/MM3 (1.0-4.8); MEAN CELL VOLUME 83.5 FL (80.0-100.0); MEAN CORPUSCULAR HEMOGLOBIN 27.6 PG (27.0-34.0); MEAN CORPUSCULAR HGB CONC 33.1 % (32.0-36.0); MEAN PLATELET VOLUME 7.1 FL (7.0-11.0); MONO % 8.6 % (0.0-8.0); MONOCYTE # 0.9 TH/MM3 (0-0.9); NEUT % 57.8 % (16.0-70.0); PLATELET COUNT 390 TH/MM3 (150-450); RED BLOOD COUNT 4.01 MIL/MM3 (4.50-5.90); RED CELL DISTRIBUTION WIDTH 14.9 % (11.6-17.2); WHITE BLOOD COUNT 10.1 TH/MM3 (4.0-11.0)
[2017-06-21 01:16] LABS: INTERNATIONAL NORMALIZED RATIO 1.1 RATIO; PROTHROMBIN TIME - PATIENT 10.8 SEC (9.8-11.6)
[2017-06-21 01:19] LABS: ALBUMIN 3.3 GM/DL (3.4-5.0); ALT (GPT) 52 U/L (12-78); AST (GOT) 32 U/L (15-37); BICARBONATE 26.7 MEQ/L (21.0-32.0); BLOOD UREA NITROGEN 22 MG/DL (7-18); CALCIUM 8.7 MG/DL (8.5-10.1); CHLORIDE 105 MEQ/L (98-107); GLOMERULAR FILTRATION RATE 93 ML/MIN (>89); GLUCOSE,RANDOM 76 MG/DL (74-106); SODIUM (NA) 141 MEQ/L (136-145)
[2017-06-21 01:23] LABS: ALKALINE PHOSPHATASE 76 U/L (45-117); TOTAL BILIRUBIN ADULT 0.5 MG/DL (0.2-1.0); TOTAL PROTEIN 7.4 GM/DL (6.4-8.2); TROPONIN I LESS THAN 0.02 NG/ML (0.02-0.05)
--- NOTE | 2017-06-21 01:35 | RADRPT ---
EXAM DATE/TIME: 06/21/2017 01:07 [facility] COMPARISON: CHEST SINGLE AP, August 20, 2016, 21:00. INDICATIONS : Short of breath. MEDICAL HISTORY : None. SURGICAL HISTORY : None. ENCOUNTER: Initial ACUITY: 1 day PAIN SCORE: 0/10 LOCATION: Bilateral chest FINDINGS: A single view of the chest demonstrates minimal right basilar infiltrate. Left lung clear. Heart norm al in size. The cardiomediastinal contours are unremarkable. Osseous structures are intact. CONCLUSION: Right basilar infiltrate Glen Wilks MD on June 21, 2017 at 1:32 Board Certified Radiologist. This report was verified electronically.
[2017-06-21] MEDS ORDERED: LORazepam 2 MG/ML VIAL ONE (03:03)
[2017-06-21] MEDS ORDERED: AZITHROMYCIN INJ 500 MG in SODIUM CHLOR 0.9% 250 ML INJ 250 ML IV ONE (03:15)
[2017-06-21] MEDS ORDERED: cefTRIAXone INJ 1,000 MG in SODIUM CHLORIDE 0.9% INJ 100 ML IV ONE (03:15)
[2017-06-21] MEDS ORDERED: LORazepam 2 MG/ML VIAL IV PUSH ONE (03:15)
[2017-06-21] MEDS ORDERED: SODIUM CHLOR 0.9% 1000 ML INJ 1,000 ML IV ONE (03:15)
[2017-06-21] MEDS ORDERED: LORazepam 2 MG/ML VIAL IM ONE (03:15)
--- NOTE | 2017-06-21 03:26 | RADRPT ---
EXAM DATE/TIME: 06/21/2017 02:29 [facility] COMPARISON: CT BRAIN W/O CONTRAST, August 20, 2016, 21:02. INDICATIONS : Altered mental status. RADIATION DOSE: 67.19 CTDIvol (mGy) MEDICAL HISTORY : None SURGICAL HISTORY : None. ENCOUNTER: Initial ACUITY: 1 day PAIN SCALE: 0/10 LOCATION: cranial TECHNIQUE: Multiple contiguous axial images were obtained of the head. Using automated exposure control and adj ustment of the mA and/or kV according to patient size, radiation dose was kept as low as reasonably a chievable to obtain optimal diagnostic quality images. DICOM format image data is available electro nically for review and comparison. FINDINGS: CEREBRUM: Patient is rotated limiting evaluation. The ventricles are normal for age. No evidence of midline sh ift, mass lesion, hemorrhage or acute infarction. No extra-axial fluid collections are seen. POSTERIOR FOSSA: The cerebellum and brainstem are intact. The 4th ventricle is midline. The cerebellopontine angle i s unremarkable. EXTRACRANIAL: The visualized portion of the orbits is intact. SKULL: The calvaria is intact. No evidence of skull fracture. CONCLUSION: 1. Limited study but no definite acute intracranial abnormality. Glen Wilks MD on June 21, 2017 at 3:23 Board Certified Radiologist. This report was verified electronically.
[2017-06-21 04:00] VITALS: PULSE 82; RESP 20; O2SAT 98
[2017-06-21] MEDS ORDERED: ZITH250T PO (05:15)
[2017-06-21 05:41] LABS: TROPONIN I LESS THAN 0.02 NG/ML (0.02-0.05)
[2017-06-21 05:47] LABS: ACETAMINOPHEN LESS THAN 2.0 MCG/ML (10.0-30.0)
[2017-06-21 06:31] VITALS: BP 145/72; PULSE 92
[2017-06-21 07:20] VITALS: PULSE 78; RESP 18; O2SAT 98
[2017-06-21 18:46] VITALS: BP 112/60; PULSE 89; RESP 18; O2SAT 96
--- NOTE | 2017-06-22 00:12 | EKG ---
Date Performed: 06/21/2017 Time Performed: 06:37:50 PTAGE: 41 years EKG: Sinus rhythm NORMAL ECG NO PREVIOUS TRACING DOCTOR: Carlene Barroso Interpretating Date/Time 06/22/2017 00:05:25
[2017-06-22 02:21] VITALS: BP 124/66; PULSE 94; RESP 18; O2SAT 97
[2017-06-22] MEDS ORDERED: guaiFENesin E.R. 600 MG TAB PO ONE (03:15)
[2017-06-22] MEDS ORDERED: AZITHROMYCIN 250 MG TAB PO ONE (03:15)
--- NOTE | 2017-06-22 11:07 | PD ---
Physical Exam Time Seen by Provider: 11:[address] Cano has evaluated the patient, lifted the Le act and cleared the patient for discharge. Data Data Last Documented VS Vital Signs Date Time Temp Pulse Resp B/P (MAP) Pulse Ox O2 Delivery O2 Flow Rate FiO2 06/22/17 09:25 20 06/22/17 02:21 94 124/66 (85) 97 Room Air 06/21/17 00:18 98.0 Orders Orders B-Type Natriuretic Peptide (06/21/17:28) Ckmb (Isoenzyme) Profile (06/21/17 00:28) Complete Blood Count With Diff (06/21/17:) Comprehensive Metabolic Panel (06/21/17) Magnesium (Mg) (06/21/17) Prothrombin Time / Inr (Pt) (06/21/17:28) Act Partial Throm Time (Ptt) (06/21/17:) Troponin I (06/21/17:) Lipase (06/21/17:) Ecg Monitoring (06/21/17:) Bilateral Bp Monitoring (06/21/17:28) Iv Access Insert/Monitor (06/21/17:) Oximetry (06/21/17:28) Oxygen Administration (06/21/17:28) Sodium Chloride 0.9% Flush (Ns Flush) (06/21/17 00:30) Westergren Sedimentation Rate (06/21/17 00:28) Chest, Single Ap (06/21/17 01:03) CKMB (06/21/17 00:50) CKMB% (06/21/17 00:50) Ct Brain W/O Iv Contrast(Rout) (06/21/17 02:12) Drug Screen, Random Urine (06/21/17 02:12) Alcohol (Ethanol) (06/21/17 02:12) Salicylates (Aspirin) (06/21/17 02:12) Tylenol (Acetaminophen) (06/21/17 02:12) Blood Culture (06/21/17 02:12) Lactic Acid Sepsis Protocol (06/21/17 02:12) Sodium Chlor 0.9% 1000 Ml Inj (Ns 1000 M (06/21/17 03:15) Lorazepam Inj (Ativan Inj) (06/21/17 03:03) Restraints Violent (06/21/17 03:01) Ceftriaxone Inj (Rocephin Inj) (06/21/17 03:15) Azithromycin Inj (Zithromax Inj) (06/21/17 03:15) Lorazepam Inj (Ativan Inj) (06/21/17 03:15) Electrocardiogram (06/21/17 04:30) Ckmb (Isoenzyme) Profile (06/21/17 04:50) Troponin I (06/21/17 04:50) Valproic Acid (Depakene) (06/21/17 04:50) Psych Screen (06/21/17 05:14) CKMB (06/21/17 04:50) CKMB% (06/21/17 04:50) Diet Regular Basic (06/21/17 Dinner) Azithromycin (Zithromax) (06/22/17 03:15) Guaifenesin Er (Mucinex Er) (06/22/17 03:15) Diet Regular Basic (06/22/17 Breakfast) Diet Regular Basic (06/22/17 Lunch) Labs Laboratory Tests Test 06/21/17 00:50 06/21/17 04:50 06/21/17 16:25 White Blood Count 10.1 TH/MM3 Red Blood Count 4.01 MIL/MM3 Hemoglobin 11.1 GM/DL Hematocrit 33.4 % Mean Corpuscular Volume 83.5 FL Mean Corpuscular Hemoglobin 27.6 PG Mean Corpuscular Hemoglobin Concent 33.1 % Red Cell Distribution Width 14.9 % Platelet Count 390 TH/MM3 Mean Platelet Volume 7.1 FL Neutrophils (%) (Auto) 57.8 % Lymphocytes (%) (Auto) 32.3 % Monocytes (%) (Auto) 8.6 % Eosinophils (%) (Auto) 0.6 % Basophils (%) (Auto) 0.7 % Neutrophils # (Auto) 5.8 TH/MM3 Lymphocytes # (Auto) 3.2 TH/MM3 Monocytes # (Auto) 0.9 TH/MM3 Eosinophils # (Auto) 0.1 TH/MM3 Basophils # (Auto) 0.1 TH/MM3 CBC Comment DIFF FINAL Differential Comment Erythrocyte Sedimentation Rate 58 mm/hr Prothrombin Time 10.8 SEC Prothromb Time International Ratio 1.1 RATIO Activated Partial Thromboplast Time 28.4 SEC Blood Urea Nitrogen 22 MG/DL Creatinine 0.90 MG/DL Random Glucose 76 MG/DL Total Protein 7.4 GM/DL Albumin 3.3 GM/DL Calcium Level 8.7 MG/DL Magnesium Level 2.0 MG/DL Alkaline Phosphatase 76 U/L Aspartate Amino Transf (AST/SGOT) 32 U/L Alanine Aminotransferase (ALT/SGPT) 52 U/L Total Bilirubin 0.5 MG/DL Sodium Level 141 MEQ/L Potassium Level 3.7 MEQ/L Chloride Level 105 MEQ/L Carbon Dioxide Level 26.7 MEQ/L Anion Gap 9 MEQ/L Estimat Glomerular Filtration Rate 93 ML/MIN Total Creatine Kinase 106 U/L 210 U/L Creatine Kinase MB LESS THAN 0.5 NG/ML 0.6 NG/ML Troponin I LESS THAN 0.02 NG/ML LESS THAN 0.02 NG/ML B-Type Natriuretic Peptide 5 PG/ML Lipase 119 U/L Lactic Acid Level 1.5 mmol/L Salicylates Level 3.4 MG/DL Acetaminophen Level LESS THAN 2.0 MCG/ML Valproic Acid (Depakene) Level 6 MCG/ML Ethyl Alcohol Level LESS THAN 3 MG/DL Urine Opiates Screen NEG Urine Barbiturates Screen NEG Urine Amphetamines Screen NEG Urine Benzodiazepines Screen NEG Urine Cocaine Screen NEG Urine Cannabinoids Screen NEG MDM Supervised Visit with [facility]: No Narrative Course Dr. Cano has evaluated the patient, lifted the Le act and cleared the patient for discharge. Patient contracts safety. Denies suicidal or homicidal ideations. Patient will be provided community resource packet to [facility] for follow-up. Has friends and family for support. Patient was medically cleared by alternate provider prior to psych screening. Patient has been evaluated by psychiatry and and is now cleared for discharge. Diagnosis Primary Impression: Antisocial personality disorder Additional Impression: Pneumonia Qualified Codes: J18.9 - Pneumonia, unspecified organism Referrals: [facility] (Out patient) [facility] Primary Care Physician Psychiatrist [facility] Patient Instructions: General Instructions, Mood Disorders (ED) Departure Forms: Tests/Procedures Med/Other Pt SpecificInfo: Prescription(s) given, No Change to Meds Scripts Azithromycin (Zithromax) 250 Mg Tab 250 MG PO DAILY for Infection for 4 Days, #4 TAB 0 Refills Prov: Margaux Lang MD 06/21/17 Disposition: 01 DISCHARGE HOME Condition: Stable Afua Ledesma Jun 22, 2017 11:07
--- NOTE | 2017-06-22 15:02 | PD.PSY.CON ---
Provisional Diagnosis Admission Date [place]. Substance-induced mood disorder [place] II. Antisocial personality disorder History of Present Illness Service Psychiatry Consult Requested By ER Reason for Consult Under Le at Primary Care Physician No Primary Care Physician HPI The patient is a 41 year-old man, homeless, unemployed, well known by this service, with psychiatric history of antisocial personality disorder, polysubstance dependence, previous psychiatric hospitalizations, previous suicide attempts, history of noncompliant with medications, poor compliant with psychiatric recommendations, who presents to the [facility] emergency department with a history of reportedly calling for chest pain according to ambulance services. On initial evaluation the patient was not forthcoming regarding the details of the history of his chest pain. The patient was given 324 mg of aspirin p.o. and a sublingual nitroglycerin. The patient reportedly spat out the nitroglycerin and then had what look like seizure-like activity. This did not appear to be a true seizure according ambulance services as the patient did not have any tongue biting, loss of bowel or bladder control, or postictal state, however the patient is now refusing to answer any questions. Patient became agitated, had to be medicated with ETO's and then consulted to psychiatry. On psychiatric evaluation today the patient is calm, cooperative, he immediately recognized me from previous encounters. Patient pretends that he does not remember what brought him to the hospital yesterday. He says that he does not remember ever being aggressive. Patient denies depressive symptoms , denies anhedonia, denies hopelessness, he denies suicidal or homicidal ideation, he denies visual and auditory hallucinations he is future oriented, logical, coherent and relevant. Review of Systems Constitutional: DENIES: Diaphoretic episodes, Fatigue, Fever, Weight gain, Weight loss, Chills, Dizziness, Change in appetite, Night Sweats Endocrine: DENIES: Heat/cold intolerance, Polydipsia, Polyuria, Polyphagia Eyes: DENIES: Blurred vision, Diplopia, Eye inflammation, Eye pain, Vision loss , Photosensitivity, Double Vision Ears, nose, mouth, throat: DENIES: Tinnitus, Hearing loss, Vertigo, Nasal discharge, Oral lesions, Throat pain, Hoarseness, Ear Pain, Running Nose, Epistaxis, Sinus Pain, Toothache, Odynophagia Respiratory: DENIES: Apneas, Cough, Snoring, Wheezing, Hemoptysis, Sputum production, Shortness of breath Cardiovascular: DENIES: Chest pain, Palpitations, Syncope, Dyspnea on Exertion , PND, Lower Extremity Edema, Orthopnea, Claudication Gastrointestinal: DENIES: Abdominal pain, Black stools, Bloody stools, Constipation, Diarrhea, Nausea, Vomiting, Difficulty Swallowing, Anorexia Genitourinary: DENIES: Sexual dysfunction, Urinary frequency, Urinary incontinence, Urgency, Hematuria, Dysuria, Nocturia, Penile Discharge, Testicular Pain, Testicular Swelling Musculoskeletal: DENIES: Joint pain, Muscle aches, Stiffness, Joint Swelling, Back pain, Neck pain Integumentary: DENIES: Abnormal pigmentation, Nail changes, Pruritus, Rash Hematologic/lymphatic: DENIES: Bruising, Lymphadenopathy Immunologic/allergic: DENIES: Eczema, Urticaria Neurologic: DENIES: Abnormal gait, Headache, Localized weakness, Paresthesias, Seizures, Speech Problems, Tremor, Poor Balance Psychiatric: DENIES: Anxiety, Confusion, Mood changes, Depression, Hallucinations, Agitation, Suicidal Ideation, Homicidal Ideation, Delusions Past Family Social History Coded Allergies: *MDRO Multi-Drug Resistant Organism (Verified Adverse Reaction, Unknown, ) MRSA (urine-01/04/16) & (blood-01/06/16) Active Scripts Azithromycin (Zithromax) 250 Mg Tab, 250 MG PO DAILY for Infection for 4 Days, # 4 TAB 0 Refills Prov:Margaux Lang MD 06/21/17 Risperidone (Risperdal) 1 Mg Tab, 2 MG PO HS for mental health, #14 TAB 0 Refills Prov:Ruel Jordan MD 06/16/17 [guaiFENesin ER] 600 MG TABCR No Conflict Check, 1200 MG PO BID for health, #28 TAB 0 Refills Prov:Ruel Jordan MD 06/16/17 Fluticasone Nasal [place] (Fluticasone Nasal [place]) 50 Mcg/Act Naspr, 2 SPRAY EACH NARE DAILY for health, #1 BOTTLE 0 Refills 50 mcg/spray Prov:Ruel Jordan MD 06/16/17 Divalproex ER (Depakote ER) 500 Mg [place], 500 MG PO DAILY for health, #15 TAB 0 Refills Prov:Ruel Jordan MD 06/16/17 Tramadol (Ultram) 50 Mg Tab, 50 MG PO Q6H Y for PAIN, #20 TAB 0 Refills Prov:Ruel Jordan MD 06/16/17 Discontinued Scripts Oxycodone-Acetaminophen (Percocet) 5-325 mg Tab, 1 TAB PO Q6H Y for PAIN, #20 TAB 0 Refills Prov:Edison Fleming MD 09/09/[address] (Naproxen EC) 375 Mg Tabdr, 375 MG PO BID, #14 TAB 0 Refills Prov:Edison Fleming MD 09/09/16 Tamsulosin (Flomax) 0.4 Mg Cap, 0.4 MG PO HS for Manage Prostate Problems, #6 CAP 0 Refills Prov:Edison Fleming MD 09/09/16 Lorazepam (Ativan) 0.5 Mg Tab, 0.5 MG PO Q8H Y for MOD - SEVERE ANXIETY/ AGITATION, #30 TAB Prov:Hemant Judge MD, R3 05/19/16 Rifampin (Rifampin) 300 Mg Cap, 300 MG PO BID for Infection, #28 CAP 0 Refills Prov:Hemant Judge MD, R3 05/19/16 Physical Exam Vital Signs Vital Signs Date Time Temp Pulse Resp B/P (MAP) Pulse Ox O2 Delivery O2 Flow Rate FiO2 06/22/17 12:37 06/22/17 09:25 20 06/22/17 02:21 94 97 Room Air 06/21/17 00:18 98.0 Lab Results Test 06/21/17 16:25 Urine Opiates Screen NEG Urine Barbiturates Screen NEG Urine Amphetamines Screen NEG Urine Benzodiazepines Screen NEG Urine Cocaine Screen NEG Urine Cannabinoids Screen NEG Date/Time Source Procedure Growth Status 06/21/17 04:50 Blood Peripheral Aerobic Blood Culture - Preliminary NO GROWTH IN 1 DAY Resulted 06/21/17 04:50 Blood Peripheral Anaerobic Blood Culture - Preliminary NO GROWTH IN 1 DAY Resulted Mental Status Examination Appearance: Appropriate Consciousness: Alert Orientation: x4 Motor Activity: Normal gait Speech: Unremarkable Language: Adequate Fund of Knowledge: Adequate Attention and Concentration: Adequate Memory: Unremarkable Mood: Appropriate Affect: Appropriate Thought Process & Associations: Intact Thought Content: Appropriate Hallucination Type: None Delusion Type: None Suicidal Ideation: No Suicidal Plan: No Suicidal Intention: No Homicidal Ideation: No Homicidal Plan: No Homicidal Intention: No Insight: Adequate Judgment: Adequate Assessment & Plan Problem List: (1) Substance induced mood disorder ICD Codes: F19.94 - Other psychoactive substance use, unspecified with psychoactive substance-induced mood disorder Status: Chronic Assessment & Plan: On psychiatric evaluation today the patient does not present any symptomatology of depression, anxiety, ricardo or psychosis that requires immediate psychiatric intervention. Patient seems to be at baseline, denies suicidal and homicidal ideation, he denies visual and auditory hallucinations. Patient is well known by his polysubstance dependence, antisocial personality disorder. He does not meet criteria for involuntary psychiatric admission at this moment. His Le act will be lifted. Assessment & Plan Estimated LOS: Deni Sanchez MD Jun 22, 2017 15:02
== END 2017-06-22 12:42 | disposition home or self-care (01) ==
LOC: NEPC 00:14 → NEPJ 06-22 12:42
DX: F60.2 Antisocial personality disorder (principal); J18.9 Pneumonia, unspecified organism; F23 Brief psychotic disorder; F17.200 Nicotine dependence, unspecified, uncomplicated; Z79.899 Other long term (current) drug therapy
CPT/HCPCS: 70450; 71045; 80053; 80164; 80307; 82550; 82552; 83605; 83690; 83735; 83880; 84484; 85025; 85610; 85652; 85730; 87040; 93005; 96365; 96366; 96368; 96372; 96375; 99285; J0456; J0696; J2060; J7030; J7050